=== PATIENT | female | born 1940 | race Caucasian/White ===

== ENCOUNTER → 2017-10-08 12:24 | Outpatient (CLI) | payer MEDICARE, SELFPAY ==
[2017-10-08 13:16] LABS: Mucous, Urine 0 SEEN /hpf (<or=2+); Red Blood Cells-Urine 0 SEEN /hpf (0-5); White Blood Cells 0 SEEN /hpf (0-5)
[2017-10-08 13:21] LABS: Color, Urine Yellow (Yellow); Glucose, Dipstick Normal (Normal); Ketone-Dipstick 5 mg/dl (Negative); Leukocyte Esterase-Dipstick 25 /ul (Negative); Nitrite-Dipstick Negative (Negative); Occult Blood-Urine Negative /ul (Negative); Protein-Dipstick 30 mg/dl (Negative); Urine Bilirubin Dipstick Negative (Negative); Urine Clarity Clear (Clear); Urine Urobilinogen Normal (Normal)
[2017-10-08 14:43] LABS: Hyaline Cast 0-5 SEEN /lpf (0-5); Squamous Epithelial Cells - UA 0-5 SEEN /hpf (5-10)
[2017-10-08 14:44] LABS: Bacteria RARE /hpf (None Seen)
== END ==
PROVIDERS: Visit Provider Clinical Nurse Specialist
DX: R82.90 Unspecified abnormal findings in urine (principal)
CPT/HCPCS: 81001

== ENCOUNTER → 2018-04-03 09:16 | Outpatient (CLI) | payer MEDICARE, SELFPAY ==
[2018-04-03 09:34] LABS: Absolute Lymphocyte Count 1.84 X10^3/ul (0.83-4.51); Absolute Neutrophil Count 3.3 X10^3/uL (2.0-7.7); Basophil# 0.02 X10^3/uL; Basophil% 0.3 % (0-1); Eosinophils% 1.7 % (0-5); Hematocrit 36.8 % (37-47); Lymphocyte # 1.84 X10^3/ul (4.0); Lymphocyte % 31.9 % (19-41); Mean Corp Hgb Conc 32.6 g/gl (32-36); Mean Corpuscular Hgb 27.1 pg (27.0-32.0); Mean Corpuscular Volume 83.1 fL (81-99); Mean Platelet Vol. 11.9 fl (6.2-12.0); Monocyte# 0.52 X10^3/uL; Neutrophil # 3.26 X10^3/uL (2.7-7.7); Neutrophil % 56.8 % (47-70); Platelet Count 210 K/mm3 (150-450); RBC Distribution Width CV 15.2 % (11.6-14.6); RBC Distribution Width SD 45.7 fl (35.1-43.9); Red Blood Count 4.43 M/mm3 (4.2-5.4); White Blood Count 5.8 K/mm3 (4.4-11.0)
[2018-04-03 09:36] LABS: POSITIVE COUNT NO; POSITIVE DIFFERENTIAL NO; POSITIVE MORPHOLOGY NO
[2018-04-03 09:52] LABS: Hemoglobin A1c 5.5 % (4.2-6.3)
[2018-04-03 10:23] LABS: Albumin, Serum 3.9 g/dL (3.2-5.0); Anion Gap 9 (5-15); BUN 12 mg/dL (7-18); BUN/Creat Ratio 12.6 RATIO (10-20); Chloride 104 mmol/L (98-107); Creatinine, Serum 0.95 mg/dL (0.55-1.02); EST Glomerular Filtration Rate 60 mL/min (>60); Est Glom Filt Rate - Afr Amer 73 mL/min (>60); Ferritin 13 ng/mL (8-252); Glucose 98 mg/dL (74-106); Iron 36 ug/dL (50-170); Iron Binding Capacity,Total 395 ug/dL (250-450); Potassium 4.1 mmol/L (3.5-5.1); Sodium Level 139 mmol/L (136-145)
== END ==
PROVIDERS: Family Provider Nurse Practitioner; PCP Nurse Practitioner; Visit Provider Internal Medicine
DX: D50.9 Iron deficiency anemia, unspecified (principal); Z79.899 Other long term (current) drug therapy; E11.9 Type 2 diabetes mellitus without complications
CPT/HCPCS: 80048; 82040; 82728; 82746; 83036; 83540; 83550; 85025

== ENCOUNTER 2018-10-08 09:10 | Emergency (ER) | payer MEDICARE, SELFPAY ==
[2018-10-08 09:11] VITALS: BP 145/88; PULSE 92; RESP 14; TEMP 35.9; O2SAT 97; BMI 32.8
--- NOTE | 2018-10-08 09:35 | EKG12_ITS ---
Test Reason : DYSRHYTHMIA Blood Pressure : / mmHG Vent. Rate : 065 BPM Atrial Rate : 065 BPM P-R Int : 170 ms QRS Dur : 102 ms QT Int : 398 ms P-R-T Axes : 063 071 061 degrees QTc Int : 413 ms Normal sinus rhythm Normal ECG Confirmed by MARY ANN GAYTAN, OBED ([id number]), content editor NEHA ARRIOLA ([id number] on 10/09/2018 3:39:28 PM Referred By: CIRILO Confirmed By:OBED REESE MD
--- NOTE | 2018-10-08 09:35 | CT_ITS ---
STUDY: CT ABDOMEN AND PELVIS WITHOUT CONTRAST REASON FOR EXAM: Female, 78 years old. Abdominal pain. Constipation. RADIATION DOSAGE (If Supplied By Facility): CTDIvol = ( 9.32 ) mGy, DLP = ( 474.83 ) mGycm TECHNIQUE: Transaxial images were obtained from the dome of the diaphragm to the symphysis pubis with oral contrast, and without intravenous contrast. Sagittal and coronal images were reconstructed. Individualized dose optimization techniques were used for this CT. COMPARISON: Comparison is made with prior study dated October 22, 2016. FINDINGS: The visualized lung bases are unremarkable. The visualized portions of the heart are within normal limits. Normal liver. The patient is status post cholecystectomy. Normal spleen. Normal pancreas. Normal bilateral adrenal glands. There is a 2.1 cm cyst along the lateral aspect of the right kidney. Intrarenal vascular calcification on the left side. Stable mild left hydronephrosis. Normal visualized stomach. Normal small intestine. There are multiple colonic diverticula consistent with diverticulosis. There are surgical clips in the region of the appendix consistent with a prior appendectomy. There is diffuse atherosclerotic calcification of the abdominal aorta. 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 Normal inferior vena cava. Normal retroperitoneum. Normal urinary bladder. There is absence of the uterus consistent with a prior hysterectomy. Normal abdominal wall. There are mild degenerative changes of the visualized lumbar spine. Findings suggestive of hemangioma of the L4 vertebrae. CT/Abdomen/Pel W ORAL Cont Only IMPRESSION: Sigmoid diverticulosis. No acute abnormality is seen. There has been no change since prior study. Electronically Signed: Steven Gómez, at 11:55 EST , Service support ,
[2018-10-08] MEDS: 0.9% Normal Saline 1,000 ML 125 ML IV (09:55)
[2018-10-08 10:02] LABS: Absolute Neutrophil Count 3.4 X10^3/uL (2.0-7.7); Basophil# 0.02 X10^3/uL; Basophil% 0.4 % (0-1); Eosinophil# 0.06 X10^3/uL; Eosinophils% 1.1 % (0-5); Hematocrit 37.9 % (37-47); Hemoglobin 12.1 g/dl (12.0-15.0); Lymphocyte % 28.5 % (19-41); Mean Corp Hgb Conc 31.9 g/gl (32-36); Mean Corpuscular Hgb 26.8 pg (27.0-32.0); Mean Platelet Vol. 11.8 fl (6.2-12.0); Monocyte# 0.54 X10^3/uL; Monocyte% 9.6 % (0-10); Neutrophil # 3.38 X10^3/uL (2.7-7.7); Neutrophil % 60.2 % (47-70); POSITIVE COUNT NO; POSITIVE DIFFERENTIAL NO; POSITIVE MORPHOLOGY NO; Platelet Count 243 K/mm3 (150-450); RBC Distribution Width CV 14.1 % (11.6-14.6); RBC Distribution Width SD 42.2 fl (35.1-43.9); Red Blood Count 4.51 M/mm3 (4.2-5.4); White Blood Count 5.6 K/mm3 (4.4-11.0)
[2018-10-08 10:24] LABS: ALB/GLOB Ratio 1.1 RATIO (0.9-2.4); AST(SGOT) 24 U/L (15-37); Alanine Aminotransfer ALT/SGPT 18 U/L (13-56); Albumin, Serum 4.1 g/dL (3.2-5.0); Alkaline Phosphatase 97 U/L (45-117); Anion Gap 7 (5-15); BUN 16 mg/dL (7-18); BUN/Creat Ratio 15.5 RATIO (10-20); Calcium,Total 9.8 mg/dL (8.5-10.1); Chloride 107 mmol/L (98-107); Creatinine, Serum 1.03 mg/dL (0.55-1.02); EST Glomerular Filtration Rate 55 mL/min (>60); Est Glom Filt Rate - Afr Amer 66 mL/min (>60); Estimated Creatinine Clearance 35.03 ml/min; Globulin 3.6 g/dL (2.2-4.2); Glucose 108 mg/dL (74-106); Lipase 134 U/L (73-393); Potassium 4.2 mmol/L (3.5-5.1); Protein, Total 7.7 g/dL (6.4-8.2); Sodium Level 139 mmol/L (136-145)
[2018-10-08 11:02] LABS: Bacteria 0 SEEN /hpf (None Seen); Color, Urine Yellow (Yellow); Glucose, Dipstick Normal (Normal); Ketone-Dipstick Negative (Negative); Leukocyte Esterase-Dipstick Negative /ul (Negative); Mucous, Urine 0 SEEN /hpf (<or=2+); Nitrite-Dipstick Negative (Negative); Occult Blood-Urine Negative /ul (Negative); Protein-Dipstick Negative (Negative); Red Blood Cells-Urine 0 SEEN /hpf (0-5); Specific Gravity, Urine 1.015 (1.002-1.030); Squamous Epithelial Cells - UA 0 SEEN /hpf (5-10); Urine Bilirubin Dipstick Negative (Negative); Urine Clarity Clear (Clear); Urine Urobilinogen Normal (Normal); White Blood Cells 0 SEEN /hpf (0-5)
--- NOTE | 2018-10-08 12:13 | ED.VISSUMM ---
- ER Visit Summary Date of Service: 10/08/18 Chief Complaint: [Nausea and not feeling well] History of Present Illness: The patient is a 78 F [presents the emergency department with multiple complaints. Patient states that she started taking a vinegar mixture that she was given by her that he had gotten from a health store for leg cramping. Patient states that the leg cramping improved but then she started having decreased ability to sleep and decreased urine output. Patient states she has not had much of an appetite. Patient at times is felt constipated although she is been having bowel movements and her last one was this morning. Patient denies any blood in her stool or black tarry stool. She denies fever recently although she thinks she may have had a fever subjectively last week. Patient also gives some history of coming across a wild [place] up on a hill that look like it was dying so she was concerned that he may have been hit by car so she went to check on it and she touched the side of it and noted that the tourniquet was not healthy-appearing and she is not sure if she may have contracted something from touching the wild [place].] Physical Examination: [HEENT-PERRLA, EOMI. Cranial nerves II through XII grossly intact. TMs clear. Mucous membranes moist. No adenopathy. Cardiovascular-regular rate and rhythm without murmur or ectopy Lungs-clear to auscultation, chest wall stable without crepitus or subcu emphysema Abdomen-normoactive bowel sounds, soft. Patient has some mild diffuse tenderness on palpation. There is no rebound, rigidity, or perineal signs. Extremities-intact ?4, normal range of motion, normal pulses, atraumatic] Test Results: [EKG obtained arrival shows sinus rhythm with a ventricular rate of 65 bpm with no acute I segment changes. CBC with differential is normal. Chemistries were normal. LFTs were normal. Urinalysis was normal. Troponin was less than 0.015. CT scan of the abdomen pelvis with p.o. contrast showed sigmoid diverticulosis but otherwise nothing acute.] Emergency Department Course and Treatment: [Patient was given normal saline.] Treatment Plan: [Patient was given a prescription for Zofran and advised to follow-up with primary care physician within next 5-7 days.] Disposition: [Discharged home in stable condition] Impression: [Nausea/abdominal pain-etiology uncertain] This note was generated with [employer] dictation software. It may contain incorrect words, spelling, and punctuation that were not noted in review of the chart prior to signing ED Disposition - Plan for ED Patient: Referrals: Bonnie Campos MD [Primary Care Provider] -
--- NOTE | 2018-10-08 12:17 | ED.DCSUM_ITS ---
- ER Visit Summary Date of Service: 10/08/18 Chief Complaint: [Nausea and not feeling well] History of Present Illness: The patient is a 78 F [presents the emergency department with multiple complaints. Patient states that she started taking a vinegar mixture that she was given by her that he had gotten from a health store for leg cramping. Patient states that the leg cramping improved but then she started having decreased ability to sleep and decreased urine output. Patient states she has not had much of an appetite. Patient at times is felt constipated although she is been having bowel movements and her last one was this morning. Patient denies any blood in her stool or black tarry stool. She denies fever recently although she thinks she may have had a fever subjectively last week. Patient also gives some history of coming across a wild [place] up on a hill that look like it was dying so she was concerned that he may have been hit by car so she went to check on it and she touched the side of it and noted that the tourniquet was not healthy-appearing and she is not sure if she may have contracted something from touching the wild [place].] Physical Examination: [HEENT-PERRLA, EOMI. Cranial nerves II through XII grossly intact. TMs clear. Mucous membranes moist. No adenopathy. Cardiovascular-regular rate and rhythm without murmur or ectopy Lungs-clear to auscultation, chest wall stable without crepitus or subcu emphysema Abdomen-normoactive bowel sounds, soft. Patient has some mild diffuse tenderness on palpation. There is no rebound, rigidity, or perineal signs. Extremities-intact ?4, normal range of motion, normal pulses, atraumatic] Test Results: [EKG obtained arrival shows sinus rhythm with a ventricular rate of 65 bpm with no acute I segment changes. CBC with differential is normal. Chemistries were normal. LFTs were normal. Urinalysis was normal. Troponin was less than 0.015. CT scan of the abdomen pelvis with p.o. contrast showed sigmoid diverticulosis but otherwise nothing acute.] Emergency Department Course and Treatment: [Patient was given normal saline.] Treatment Plan: [Patient was given a prescription for Zofran and advised to follow-up with primary care physician within next 5-7 days.] Disposition: [Discharged home in stable condition] Impression: [Nausea/abdominal pain-etiology uncertain] This note was generated with [employer] dictation software. It may contain incorrect words, spelling, and punctuation that were not noted in review of the chart prior to signing ED Disposition - Plan for ED Patient: Referrals: Bonnie Campos MD [Primary Care Provider] -
--- NOTE | 2018-10-08 12:17 | ED.DEP ---
ED Disposition - Plan for ED Patient: Instructions: ED Abdominal Pain Unkn Cause Prescriptions: Ondansetron [Zofran Odt] 4 mg PO Q8H PRN PRN #10 tab PRN Reason: Nausea Referrals: Bonnie Campos MD [Primary Care Provider] - 5-7 Days
[2018-10-08 12:32] VITALS: BP 127/75; PULSE 74; RESP 20; O2SAT 99
== END 2018-10-08 12:34 | disposition home or self-care (01) ==
PROVIDERS: Emergency Provider Emergency Medicine; Family Provider Internal Medicine; PCP Internal Medicine
DX: R11.0 Nausea (principal); R10.9 Unspecified abdominal pain; E11.9 Type 2 diabetes mellitus without complications; I10 Essential (primary) hypertension; E78.00 Pure hypercholesterolemia, unspecified; K57.30 Diverticulosis of large intestine without perforation or abscess without bleeding
CPT/HCPCS: 74176; 80053; 81001; 83690; 84484; 85025; 93005; 96360; 96361; 99283; J7030; A4216

== ENCOUNTER 2018-12-28 08:15 | Emergency (ER) | payer MEDICARE, SELFPAY ==
[2018-12-28 08:16] VITALS: BP 129/88; PULSE 99; RESP 18; TEMP 36.8; O2SAT 99; BMI 33.2
--- NOTE | 2018-12-28 08:32 | ED.DCSUM_ITS ---
- ER Visit Summary Date of Service: 12/28/18 Chief Complaint: Urinary urgency, blood in urine History of Present Illness: The patient is a 78 F who reports dysuria and was able to pass small amounts of urine today. She states for the past week or so she has had urinary frequency and only passing small amounts of urine. She has not had a urinary infection in several years. She is diabetic but does not check her blood sugars. She denies fever. Physical Examination: Vital signs unremarkable. Patient is afebrile. Patient sitting upright in bed no acute distress. Heart is regular rate and rhythm. Lung sounds are clear. Abdomen is soft with mild suprapubic tenderness. No guarding or rebound. Hypoactive bowel sounds are noted. Back examination reveals no CVA tenderness. Test Results: Urinalysis is positive for nitrites with greater than 100 white cells. Bladder scan reveals 14 cc of urine in the bladder. Urine will be sent for culture. Emergency Department Course and Treatment: Test results discussed with patient and at bedside. She will be given Bactrim, first dose given here. I did review prior lab work and she had normal renal function in September. Patient was given return instructions and precautions. Treatment Plan: [] Disposition: Discharge Impression: Cystitis This note was generated with [employer] dictation software. It may contain incorrect words, spelling, and punctuation that were not noted in review of the chart prior to signing ED Disposition - Plan for ED Patient: Disposition: Home or Assisted Living Instructions: ED UTI Cystitis Female Prescriptions: Smz/Tmp Ds [Bactrim Ds] 1 tablet PO BID #6 tablet Referrals: Bonnie Campos MD [Primary Care Provider] - 5-7 Days
[2018-12-28 08:35] LABS: Bacteria 0 SEEN /hpf (None Seen); Mucous, Urine 0 SEEN /hpf (<or=2+); Red Blood Cells-Urine 0 SEEN /hpf (0-5); Squamous Epithelial Cells - UA 0 SEEN /hpf (5-10)
[2018-12-28 08:39] LABS: Color, Urine Amber (Yellow); Glucose, Dipstick Normal (Normal); Ketone-Dipstick 5 mg/dl (Negative); Leukocyte Esterase-Dipstick 500 /ul (Negative); Nitrite-Dipstick Positive (Negative); Occult Blood-Urine 250 /ul (Negative); Protein-Dipstick 100 mg/dl (Negative); Urine Bilirubin Dipstick 1 mg/dL (Negative); Urine Clarity Cloudy (Clear); Urine Urobilinogen 1 mg/dl (Normal); Urine pH 6.5 (5.0 - 8.0)
[2018-12-28 08:51] LABS: White Blood Cells >100 SEEN /hpf (0-5)
[2018-12-28] MEDS: Smz/Tmp Ds Tablet 1 TABLET PO (09:24)
[2018-12-28 09:31] LABS: Bedside Glucose 99 mg/dL (70-110)
== END 2018-12-28 09:29 | disposition home or self-care (01) ==
PROVIDERS: Emergency Provider Emergency Medicine; Family Provider Internal Medicine; PCP Internal Medicine
DX: N30.91 Cystitis, unspecified with hematuria (principal); E11.9 Type 2 diabetes mellitus without complications; K21.9 Gastro-esophageal reflux disease without esophagitis; I10 Essential (primary) hypertension; E78.00 Pure hypercholesterolemia, unspecified; G47.33 Obstructive sleep apnea (adult) (pediatric); F32.9 Major depressive disorder, single episode, unspecified; Z87.440 Personal history of urinary (tract) infections; Z79.84 Long term (current) use of oral hypoglycemic drugs; Z79.82 Long term (current) use of aspirin; Z79.899 Other long term (current) drug therapy
CPT/HCPCS: 81001; 82962; 87077; 87086; 87088; 87186; 99283

== ENCOUNTER → 2019-01-26 | Outpatient (CLI) | payer MEDICARE, SELFPAY ==
[2018-12-28 08:16] VITALS: BMI 33.2
[2019-01-26 13:11] LABS: Hematocrit 37.3 % (37-47); Hemoglobin 11.8 g/dl (12.0-15.0); Mean Corp Hgb Conc 31.6 g/gl (32-36); Mean Corpuscular Hgb 26.3 pg (27.0-32.0); Mean Corpuscular Volume 83.1 fL (81-99); Mean Platelet Vol. 12.1 fl (6.2-12.0); Platelet Count 237 K/mm3 (150-450); RBC Distribution Width CV 14.7 % (11.6-14.6); Red Blood Count 4.49 M/mm3 (4.2-5.4); Scan Indicated on CBC? Y/N NO; White Blood Count 6.5 K/mm3 (4.4-11.0)
[2019-01-26 13:22] LABS: Anion Gap 7 (5-15); BUN 16 mg/dL (7-18); BUN/Creat Ratio 16.4 RATIO (10-20); Calcium,Total 9.9 mg/dL (8.5-10.1); Chloride 107 mmol/L (98-107); Creatinine, Serum 0.97 mg/dL (0.55-1.02); EST Glomerular Filtration Rate 59 mL/min (>60); Est Glom Filt Rate - Afr Amer 71 mL/min (>60); Glucose 98 mg/dL (74-106); Potassium 4.1 mmol/L (3.5-5.1); Sodium Level 141 mmol/L (136-145)
[2019-01-26 13:25] LABS: Hemoglobin A1c 5.6 % (4.2-6.3)
== END | disposition home or self-care (01) ==
LOC: LABSPEC 12:27
PROVIDERS: Family Provider Internal Medicine; PCP Internal Medicine; Referring Provider Internal Medicine; Visit Provider Internal Medicine
DX: E11.9 Type 2 diabetes mellitus without complications (principal)
CPT/HCPCS: 80048; 83036; 85027

== ENCOUNTER → 2019-05-04 13:17 | Outpatient (CLI) | payer MEDICARE, SELFPAY ==
[2019-05-04 14:05] LABS: Cholesterol 160 mg/dL (200); High Density Lipoprotein 46 mg/dL; Triglycerides 116 mg/dL; Very Low Density Lipoprotein 23 mg/dL (5-40)
[2019-05-04 14:06] LABS: Microalbumin,Random Urine 13.5 mg/L (NO RANGE EST.)
[2019-05-04 14:26] LABS: Hemoglobin A1c 5.4 % (4.2-6.3)
== END ==
PROVIDERS: Family Provider Internal Medicine; PCP Internal Medicine; Referring Provider Internal Medicine; Visit Provider Internal Medicine
DX: E11.9 Type 2 diabetes mellitus without complications (principal); Z79.899 Other long term (current) drug therapy
CPT/HCPCS: 80061; 82043; 82570; 83036

== ENCOUNTER → 2019-08-13 13:23 | Outpatient (CLI) | payer MEDICARE, SELFPAY ==
[2019-08-13 13:57] LABS: Hematocrit 37.9 % (37-47); Mean Corp Hgb Conc 31.7 g/dL (32-36); Mean Corpuscular Hgb 27.6 pg (27.0-32.0); Mean Corpuscular Volume 87.1 fL (81-99); Mean Platelet Vol. 12.3 fl (6.2-12.0); Platelet Count 202 K/mm3 (150-450); RBC Distribution Width CV 13.4 % (11.6-14.6); RBC Distribution Width SD 42.5 fl (35.1-43.9); Red Blood Count 4.35 M/mm3 (4.2-5.4); White Blood Count 6.7 K/mm3 (4.4-11.0)
[2019-08-13 14:06] LABS: ALB/GLOB Ratio 1.3 RATIO (0.9-2.4); AST(SGOT) 18 U/L (15-37); Alanine Aminotransfer ALT/SGPT 18 U/L (13-56); Albumin, Serum 4.2 g/dL (3.2-5.0); Alkaline Phosphatase 98 U/L (45-117); Anion Gap 7 (5-15); BUN 16 mg/dL (7-18); Calcium,Total 10.2 mg/dL (8.5-10.1); Chloride 108 mmol/L (98-107); EST Glomerular Filtration Rate 57 mL/min (>60); Est Glom Filt Rate - Afr Amer 69 mL/min (>60); Globulin 3.2 g/dL (2.2-4.2); Glucose 97 mg/dL (74-106); Potassium 4.1 mmol/L (3.5-5.1); Protein, Total 7.4 g/dL (6.4-8.2); Sodium Level 141 mmol/L (136-145)
[2019-08-13 14:11] LABS: Hemoglobin A1c 5.7 % (4.2-6.3)
== END ==
PROVIDERS: Family Provider Internal Medicine; PCP Internal Medicine; Referring Provider Internal Medicine; Visit Provider Internal Medicine
DX: E11.9 Type 2 diabetes mellitus without complications (principal); I10 Essential (primary) hypertension
CPT/HCPCS: 80053; 83036; 85027

== ENCOUNTER → 2020-08-22 12:56 | Outpatient (CLI) | payer MEDICARE, SELFPAY ==
[2020-08-22 13:35] LABS: Hematocrit 39.5 % (37-47); Hemoglobin 12.4 g/dL (12.0-15.0); Mean Corp Hgb Conc 31.4 g/dL (32-36); Mean Corpuscular Hgb 27.6 pg (27.0-32.0); Mean Corpuscular Volume 87.8 fL (81-99); Mean Platelet Vol. 11.8 fl (6.2-12.0); Platelet Count 258 K/mm3 (150-450); RBC Distribution Width CV 13.6 % (11.6-14.6); RBC Distribution Width SD 43.8 fl (35.1-43.9); White Blood Count 7.1 K/mm3 (4.4-11.0)
[2020-08-22 13:46] LABS: Hemoglobin A1c 5.5 % (3.8-5.6); Vitamin B12 469 pg/mL (211-911); Vitamin D,25 Hydroxy 75.4 ng/mL
[2020-08-22 13:49] LABS: ALB/GLOB Ratio 1.1 RATIO (0.9-2.4); AST(SGOT) 14 U/L (15-37); Alanine Aminotransfer ALT/SGPT 19 U/L (13-56); Alkaline Phosphatase 106 U/L (45-117); Anion Gap 4 (5-15); BUN 17 mg/dL (7-18); BUN/Creat Ratio 18.3 RATIO (10-20); Calcium,Total 10.3 mg/dL (8.5-10.1); Chloride 106 mmol/L (98-107); Cholesterol 188 mg/dL (200); Creatinine, Serum 0.93 mg/dL (0.55-1.02); EST Glomerular Filtration Rate 61 mL/min (>60); Est Glom Filt Rate - Afr Amer 74 mL/min (>60); Globulin 3.6 g/dL (2.2-4.2); Glucose 83 mg/dL (74-106); High Density Lipoprotein 60 mg/dL; Potassium 4.2 mmol/L (3.5-5.1); Protein, Total 7.6 g/dL (6.4-8.2); Sodium Level 139 mmol/L (136-145); Triglycerides 115 mg/dL; Very Low Density Lipoprotein 23 mg/dL (5-40)
[2020-08-22 13:53] LABS: Microalbumin:Creatinine Ratio 24.1 mg/g CRE (<30 mg/g CRE)
== END ==
PROVIDERS: PCP Internal Medicine; Referring Provider Clinical Nurse Specialist; Visit Provider Clinical Nurse Specialist
DX: E11.9 Type 2 diabetes mellitus without complications (principal); I10 Essential (primary) hypertension; E55.9 Vitamin D deficiency, unspecified; E53.8 Deficiency of other specified B group vitamins
CPT/HCPCS: 80053; 80061; 82043; 82306; 82570; 82607; 83036; 85027

== ENCOUNTER → 2021-02-14 | Outpatient (CLI) | payer MEDICARE, SELFPAY ==
[2021-02-14 12:43] LABS: Hemoglobin A1c 5.4 % (3.8-5.6)
== END | disposition home or self-care (01) ==
LOC: LABSPEC 12:06
PROVIDERS: PCP Internal Medicine; Referring Provider Internal Medicine; Visit Provider Internal Medicine
DX: E11.9 Type 2 diabetes mellitus without complications (principal)
CPT/HCPCS: 83036

== ENCOUNTER → 2021-05-17 | Outpatient (CLI) | payer MEDICARE, SELFPAY ==
[2021-05-17 13:06] LABS: Vitamin D,25 Hydroxy 63.9 ng/mL
[2021-05-17 13:20] LABS: Hemoglobin A1c 5.4 % (3.8-5.6)
[2021-05-17 13:21] LABS: PTHIN 136.7 pg/mL (18.4-80.1)
== END | disposition home or self-care (01) ==
LOC: LABSPEC 12:17
PROVIDERS: PCP Internal Medicine; Referring Provider Internal Medicine; Visit Provider Internal Medicine
DX: E11.9 Type 2 diabetes mellitus without complications (principal); E21.0 Primary hyperparathyroidism; E55.9 Vitamin D deficiency, unspecified
CPT/HCPCS: 82306; 83036; 83970

== ENCOUNTER 2021-08-09 15:19 | Emergency (ER) | payer MEDICARE, SELFPAY ==
[2021-08-09 15:20] VITALS: BP 144/81; PULSE 81; RESP 18; TEMP 36.4; O2SAT 96; BMI 25.6
--- NOTE | 2021-08-09 17:17 | EX.ED.DYSGE1 ---
HPI History of Present Illness Chief Complaint: Other, Pain/Inj Detail of Chief Complaint: Bilateral leg pain Informant: patient Narrative Narrative: Patient presents to the emergency department with chief complaint of bilateral leg pain. Patient states that she has had this leg pain off and on for 3 or 4 years. Patient states that she was seen a month ago by At the [facility] and had injections in her knees but she did not think this was related to her knees as she describes the pain as the back of her upper legs. Patient denies any trauma. She denies any back pain currently. She denies weakness in extremities. She denies change in bowel or bladder function. Patient states that sometimes the right leg hurts more than the left. She is had a hard time sleeping the last couple nights because of the pain. Prior similar symptoms: Yes PFSH PFSH Home Medications Amlodipine-Atorvastatinamol 5 - 20 mg PO BID 12/14/16 [History Last Taken 12/14/16 07:30] [id number] [Beano] 1 ea PO PRN PRN 12/14/16 [History Last Taken Unknown] aspirin 81 mg PO DAILY@0800 12/14/16 [History Last Taken Unknown] carvedilol 6.25 mg PO DAILY 12/14/16 [History Last Taken 12/14/16 07:30] cholecalciferol (vitamin D3) [Vitamin D3] 2,000 unit PO DAILY 12/14/16 [History Last Taken Unknown] dextrin [Fiber] 350 g PO QODAY 12/14/16 [History Last Taken Unknown] gabapentin 1 tab PO QHS 12/14/16 [History Last Taken Unknown] lactase [Dairy Digestive] 27,000 unit PO DAILY 12/14/16 [History Last Taken Unknown] lovastatin 1 tab PO QHS 12/14/16 [History Last Taken Unknown] metformin [Glucophage] 500 mg PO DAILY 12/14/16 [History Last Taken Unknown] multivitamin [Multiple Vitamins] 1 ea PO DAILY 12/14/16 [History Last Taken Unknown] naproxen sodium [Aleve] 220 mg PO Q8H PRN PRN 12/14/16 [History Last Taken Unknown] simethicone [Gas Relief] 125 mg PO PRN PRN 12/14/16 [History Last Taken Unknown] ondansetron 4 mg PO Q8H PRN PRN #10 tab 10/08/18 [Rx Last Taken Unknown] sulfamethoxazole-trimethoprim 1 tab PO BID #6 tablet 12/28/18 [Rx Last Taken Unknown] hydrocodone-acetaminophen 1 tab PO Q4H PRN PRN 3 Days #16 tablet 08/09/21 [Rx Last Taken Unknown] Allergy/AdvReac Type Severity Reaction Status Date / Time adhesive Allergy Rash Verified 08/09/21 15:21 cough syrup AdvReac Unknown Uncoded 08/09/21 15:21 Social History Smoking Status: Former smoker ROS ROS ED Constitutional Constitutional ED: Reports systems reviewed and no addt'l complaints, except as documented; Denies body ache(s), change in weight or chills Eyes Eyes: Denies acute decrease in peripheral vision, change in vision, double vision or loss of vision ENT ENT ED: Reports none; Denies ear pain, lip swelling, loss taste/smell, neck pain, otalgia or sore throat Cardiovascular Cardiovascular: Reports none; Denies abdominal pain, chest pain with activity, leg edema, lightheadedness, palpitations, rapid heart rate or syncope Respiratory/Chest Respiratory/Chest: Reports none; Denies change in mental status, dry cough, dyspnea, hemoptysis, shortness of breath at rest or shortness of breath with exertion Gastrointestinal Gastrointestinal: Reports none; Denies abdominal pain, change in stool character, diarrhea, hematemesis, hematochezia, melena, rectal bleeding or vomiting Genitourinary Genitourinary ED: Reports none; Denies abdominal discomfort, anuria, dysuria, genital pain or polyuria Musculoskeletal Musculoskeletal: Reports none and other Details: Bilateral leg pain ; Denies arthralgias, back pain, difficulty walking, extremity pain, muscle weakness or myalgias Integumentary Reports none; Denies abscess or rash Neurologic Neurologic: Reports none; Denies abnormal gait, confusion, focal weakness, frequent falls, headache(s), loss of vision, numbness, paresthesias, radicular pain, vertigo or weakness Psychiatric Psychiatric: Reports systems reviewed and no addt'l complaints, except as documented and none; Denies behavioral changes, confusion, difficulty concentrating, hallucinations, suicidal ideation, tactile hallucinations or visual hallucinations Endocrine Endocrinology: Denies none, cold intolerance, excessive sweating, fatigue or heat intolerance Hematologic/Lymphatic Hematologic/Lymphatic: Reports none; Denies anemia, easy bleeding or easy bruising Allergic/Immunologic Allergic/Immunologic ED: Denies as per HPI, none, lip swelling, mouth swelling, throat swelling, tongue swelling or hives EXAM Physical Exam Const Vital Signs: 08/09/21 15:20 Temperature 97.5 F L Temperature Source Temporal Pulse Rate 81 Respiratory Rate 18 Blood Pressure 144/81 H Blood Pressure Mean 102 Pulse Ox 96 Oxygen Delivery Method Room Air Positive well nourished and well developed General Appearance ED: well developed and NAD HEENT Reports TM's clear and moist mucous membranes normocephalic and atraumatic; Negative for trauma or tenderness Tympanic Membrane ED: Yes TM's clear Eyes PERRL and EOMs intact bilaterally General Eye ED: Negative for pale conjunctiva or scleral icterus Neck no lymphadenopathy, supple and no JVD General: Negative for tenderness Chest Wall inspection of chest normal and palpation of chest normal Chest: Negative for tenderness Resp normal respiratory effort and clear to auscultation bilaterally Effort and Inspection: Negative for respiratory distress or pain with movement Auscultation: Negative for rhonchi, wheezes or diminished lung sounds Cardio regular rate, regular rhythm, S1 normal heart sound, S2 normal heart sound and no murmurs Peripheral Pulses: pulses 2+ throughout GI normal to inspection, nondistended, normoactive bowel sounds, soft to palpation, non-tender, non-distended and no masses Back/Spine no CVA tenderness and no thoracic nor lumbar tenderness Back/Spine Narrative: Evaluation of her back reveals no tenderness over the thoracic or lumbar spine. There is no erythema or warmth. She has negative straight leg raises bilaterally. Deep tendon reflexes are plus 2 out of 4 bilaterally at the patella and Achilles. She has normal L5 extension. Extremity Extremity Narrative: Patient has varicosities of both lower extremities. No significant edema noted. Patient does have some tenderness palpation over the right posterior thigh. Patient has normal femoral, popliteal, dorsal pedal, and posterior tibial pulses. General Extremety ED: Negative for edema General Extremity: Negative for edema Neuro oriented x3, CN's II-XII intact bilaterally, no sensory deficits noted and gait normal Sensorium / Orientation: awake, alert, oriented to person, oriented to place and oriented to time Motor Exam: strength 5/5 throughout and strength abnormal Psych mental status grossly normal Skin no rashes or lesions noted and no wounds MDM MDM MDM Narrative Medical decision making narrative: IV line established. Patient was given morphine and Zofran for pain. She had good pain relief with that. Basic labs were unremarkable. She had a venous Dopplers of both lower extremities that were negative for DVT. At this point I suspect possibility of sciatica is the most likely etiology of her symptoms. There are no red flag symptoms of cauda equina therefore I do not feel emergent MRI is indicated. Patient will be referred of her primary care physician and orthopedics for follow-up. She may need outpatient testing beyond the emergency department such as possibly MRI. Patient advised to return if worsening pain, weakness in extremities, change in bowel or bladder function, or conditions worsen anyway. She is given a prescription for [place] for pain. Lab Data Attestation: I reviewed the patient's lab results. Labs: Laboratory Results - last 24 hr 08/09/21 08/09/21 17:30 17:30 WBC 6.5 RBC 4.48 Hgb 12.6 Hct 38.8 MCV 86.6 MCH 28.1 MCHC 32.5 RDW Std Deviation 39.8 RDW Coeff of Amrita 12.7 Plt Count 232 MPV 11.4 Immature Gran % (Auto) 0.300 Neut % (Auto) 55.9 Lymph % (Auto) 34.1 [place] % (Auto) 8.6 Eos % (Auto) 0.6 Baso % (Auto) 0.5 Absolute Neuts (auto) 3.6 Absolute Lymphs (auto) 2.21 Nucleated RBC % 0 Sodium 138 Potassium 4.3 Chloride 106 Carbon Dioxide 27.0 Anion Gap 5 BUN 20 H Creatinine 0.96 Estim Creat Clear Calc 35.73 Est GFR (MDRD) Af Amer 72 Est GFR (MDRD) Non-Af 59 L BUN/Creatinine Ratio 20.9 H Glucose 102 Calcium 10.7 H Radiography Diagnostic Testing: Clinical Impression(s) from Imaging Studies Venous Duplex 08/09/21 17:24 IMPRESSION: There is no demonstrated deep venous thrombosis. Please see technologist report in PACS for further details for their impression/ worksheet/ details/ etc. Electronically Signed: Ke Carlisle MD at 18:42 EST , Service support , Discharge Plan Triage Chief Complaint: Other, Pain/Inj ED Provider: Jessica Yun Dx/Rx/DC Orders Clinical Impression: Bilateral leg pain Instructions: ED Pain, Acute, Uncertain Cause, ED Sciatica Prescriptions: New hydrocodone-acetaminophen [hydrocodone-acetaminophen] 1 TABLET tablet 1 tab PO Q4H PRN PRN (Reason: Pain) 3 Days Qty: 16 RF: 0 No Action Amlodipine-Atorvastatinamol 5 - 20 mg PO BID RF: 0 multivitamin [Multiple Vitamins] 1 EACH tablet 1 ea PO DAILY RF: 0 metformin [Glucophage] 500 MG tablet 500 mg PO DAILY RF: 0 carvedilol 6.25 mg tablet 6.25 mg PO DAILY RF: 0 simethicone [Gas Relief Extra Strength] 125 MG capsule 125 mg PO PRN PRN (Reason: Gas) RF: 0 lactase [Dairy Digestive] 9,000 UNIT tablet 27,000 unit PO DAILY RF: 0 naproxen sodium [Aleve] 220 MG tablet 220 mg PO Q8H PRN PRN (Reason: Pain) RF: 0 gabapentin 300 MG capsule 1 tab PO QHS RF: 0 aspirin 81 MG tablet,chewable 81 mg PO DAILY@0800 RF: 0 lovastatin 20 mg tablet 1 tab PO QHS RF: 0 cholecalciferol (vitamin D3) [Vitamin D3] 2,000 UNIT capsule 2,000 unit PO DAILY RF: 0 dextrin [Fiber (dextrin)] 350 GM powder 350 g PO QODAY RF: 0 [id number] [Beano] 150 UNIT tablet 1 ea PO PRN PRN (Reason: Gas) RF: 0 ondansetron 4 MG tablet 4 mg PO Q8H PRN PRN (Reason: Nausea) Qty: 10 RF: 0 sulfamethoxazole-trimethoprim 1 TABLET tablet 1 tab PO BID Qty: 6 RF: 0 Primary Care Provider: Bonnie Campos Referrals: Bonnie Campos MD [Primary Care Provider] - 3-5 Days Micheal Louie DO [STAFF PHYSICIAN] - 3-5 Days Disposition Disposition: Home, Self Care
--- NOTE | 2021-08-09 17:24 | US_ITS ---
STUDY: VENOUS DOPPLER ULTRASOUND - BILATERAL LOWER EXTREMITY REASON FOR EXAM: Female, 81 years old. LEG PAIN AND SWELLING BILATERAL LEG PAIN X YEARS TECHNIQUE: Ultrasound evaluation of the deep vein system to include alexander-scale imaging and compression was performed. Alexander-scale imaging and Doppler sonographic evaluation, including duplex spectral analysis and qualitative color flow sonography, was performed. COMPARISON: None. FINDINGS: Common Femoral Vein: Normal compression, spontaneity and augmentation. Normal color Doppler. Common Femoral Vein/Greater Saphenous Junction: Normal compression, spontaneity and augmentation. Normal color Doppler. Superficial Femoral Proximal: Normal compression, spontaneity and augmentation. Normal color Doppler. Superficial Femoral Middle: Normal compression, spontaneity and augmentation. Normal color Doppler. Superficial Femoral Distal: Normal compression, spontaneity and augmentation. Normal color Doppler. Popliteal Vein: Normal compression, spontaneity and augmentation. Normal color Doppler. Posterior Tibial Vein: Normal compression, spontaneity and augmentation . Normal color Doppler. Peroneal Vein: Normal compression, spontaneity and augmentation. Normal color Doppler. There is a LEFT popliteal cyst. varicose veins visualized There is no demonstrated deep venous thrombosis. US/Venous Duplex Imag/Landry Extrem IMPRESSION: There is no demonstrated deep venous thrombosis. Please see technologist report in PACS for further details for their impression/ worksheet/ details/ etc. Electronically Signed: Ke Carlisle MD at 18:42 EST , Service support ,
[2021-08-09 17:39] LABS: Absolute Lymphocyte Count 2.21 X10^3/uL (0.83-4.51); Absolute Neutrophil Count 3.6 X10^3/uL (2.0-7.7); Basophil# 0.03 X10^3/uL; Basophil% 0.5 % (0-1); Eosinophil# 0.04 X10^3/uL; Eosinophils% 0.6 % (0-5); Hematocrit 38.8 % (37-47); Hemoglobin 12.6 g/dL (12.0-15.0); Lymphocyte # 2.21 X10^3/ul (0.83-4.51); Lymphocyte % 34.1 % (19-41); Mean Corp Hgb Conc 32.5 g/dL (32-36); Mean Corpuscular Hgb 28.1 pg (27.0-32.0); Mean Corpuscular Volume 86.6 fL (81-99); Mean Platelet Vol. 11.4 fl (6.2-12.0); Monocyte# 0.56 X10^3/uL; Monocyte% 8.6 % (0-10); NRBC Flagged by Analyzer 0 % (0-5); Neutrophil # 3.63 X10^3/uL (2.7-7.7); Neutrophil % 55.9 % (47-70); Platelet Count 232 K/mm3 (150-450); RBC Distribution Width CV 12.7 % (11.6-14.6); RBC Distribution Width SD 39.8 fl (35.1-43.9); Red Blood Count 4.48 M/mm3 (4.2-5.4); White Blood Count 6.5 K/mm3 (4.4-11.0)
[2021-08-09 17:52] LABS: Anion Gap 5 (5-15); BUN 20 mg/dL (7-18); BUN/Creat Ratio 20.9 RATIO (10-20); Calcium,Total 10.7 mg/dL (8.5-10.1); Chloride 106 mmol/L (98-107); Creatinine, Serum 0.96 mg/dL (0.55-1.02); EST Glomerular Filtration Rate 59 mL/min (>60); Est Glom Filt Rate - Afr Amer 72 mL/min (>60); Estimated Creatinine Clearance 35.73 ml/min; Glucose 102 mg/dL (74-106); Potassium 4.3 mmol/L (3.5-5.1); Sodium Level 138 mmol/L (136-145)
[2021-08-09] MEDS: Morphine 4 MG/ML Syringe IV (18:34)
[2021-08-09] MEDS: Ondansetron 4 MG/2 ML Vial IV (18:35)
[2021-08-09 19:22] VITALS: BP 136/74; PULSE 88; RESP 18; TEMP 36.4; O2SAT 96
== END 2021-08-09 19:24 | disposition home or self-care (01) ==
PROVIDERS: Emergency Provider Emergency Medicine; PCP Internal Medicine
DX: M79.604 Pain in right leg (principal); M79.605 Pain in left leg; Z79.84 Long term (current) use of oral hypoglycemic drugs; Z79.82 Long term (current) use of aspirin; Z79.1 Long term (current) use of non-steroidal anti-inflammatories (NSAID); Z87.891 Personal history of nicotine dependence
CPT/HCPCS: 80048; 85025; 93970; 96374; 96375; 99283; A4216; J2405

== ENCOUNTER 2021-08-15 12:58 | Outpatient (CLI) | payer MEDICARE, SELFPAY ==
[2021-08-15 13:41] LABS: Hemoglobin A1c 5.6 % (3.8-5.6)
[2021-08-15 13:44] LABS: Microalbumin,Random Urine 24.8 mg/L (NO RANGE EST.); Microalbumin:Creatinine Ratio 39.8 mg/g CRE (<30 mg/g CRE)
== END 2021-08-15 23:59 | disposition short-term general hospital (02) ==
LOC: LABSPEC 13:01
PROVIDERS: PCP Internal Medicine; Referring Provider Internal Medicine; Visit Provider Internal Medicine
DX: E11.9 Type 2 diabetes mellitus without complications (principal)
CPT/HCPCS: 82043; 82570; 83036

== ENCOUNTER 2021-09-18 16:12 | Emergency (ER) | payer MEDICARE, SELFPAY ==
[2021-09-18 16:13] VITALS: BP 161/86; PULSE 93; RESP 18; TEMP 35.8; O2SAT 100; BMI 33.5
--- NOTE | 2021-09-18 17:14 | EKG12_ITS ---
Test Reason : CP Blood Pressure : / mmHG Vent. Rate : 074 BPM Atrial Rate : 074 BPM P-R Int : 138 ms QRS Dur : 090 ms QT Int : 376 ms P-R-T Axes : 075 071 057 degrees QTc Int : 417 ms Poor data quality, interpretation may be adversely affected Normal sinus rhythm Normal ECG Confirmed by GALINA GAYTAN, DONAVAN ([id number]), videotape editor GREG CALLES ([id number]) on 09/19/2021 11:35:31 AM Referred By: RACHEL/PHI Confirmed By:DONAVAN MOJICA MD
--- NOTE | 2021-09-18 17:14 | ED.VIS.CHEST ---
HPI History of Present Illness Chief Complaint: Chest Other Informant: patient and spouse/S.O. Narrative Narrative: 81-year-old female presenting to the emergency department with chest pain. Patient states that today she had bent over her chair to get something up off the floor and started getting pain over her left anterior lower chest. She states it started sharp and stabbing worse with touch and movement. She states it is hard to take a deep breath. She points to the lower left anterior costochondral junction as the area that hurts. She denies any rashes. PFSH PFSH Home Medications Amlodipine-Atorvastatinamol 5 - 20 mg PO BID 12/14/16 [History Last Taken 12/14/16 07:30] [id number] [Beano] 1 ea PO PRN PRN 12/14/16 [History Last Taken Unknown] aspirin 81 mg PO DAILY@0800 12/14/16 [History Last Taken Unknown] carvedilol 6.25 mg PO DAILY 12/14/16 [History Last Taken 12/14/16 07:30] cholecalciferol (vitamin D3) [Vitamin D3] 2,000 unit PO DAILY 12/14/16 [History Last Taken Unknown] dextrin [Fiber] 350 g PO QODAY 12/14/16 [History Last Taken Unknown] gabapentin 1 tab PO QHS 12/14/16 [History Last Taken Unknown] lactase [Dairy Digestive] 27,000 unit PO DAILY 12/14/16 [History Last Taken Unknown] lovastatin 1 tab PO QHS 12/14/16 [History Last Taken Unknown] metformin [Glucophage] 500 mg PO DAILY 12/14/16 [History Last Taken Unknown] multivitamin [Multiple Vitamins] 1 ea PO DAILY 12/14/16 [History Last Taken Unknown] naproxen sodium [Aleve] 220 mg PO Q8H PRN PRN 12/14/16 [History Last Taken Unknown] simethicone [Gas Relief] 125 mg PO PRN PRN 12/14/16 [History Last Taken Unknown] ondansetron 4 mg PO Q8H PRN PRN #10 tab 10/08/18 [Rx Last Taken Unknown] sulfamethoxazole-trimethoprim 1 tab PO BID #6 tablet 12/28/18 [Rx Last Taken Unknown] hydrocodone-acetaminophen 1 tab PO Q4H PRN PRN 3 Days #16 tablet 08/09/21 [Rx Last Taken Unknown] Allergy/AdvReac Type Severity Reaction Status Date / Time adhesive Allergy Rash Verified 09/18/21 16:15 cough syrup AdvReac Unknown Uncoded 09/18/21 16:15 Social History (Updated 09/18/21 @ 17:[address] Yan Zapata, DO) Smoking Status: Former smoker substance use type: does not use ROS ROS ED Constitutional Constitutional ED: Denies chills or weight loss Eyes Eyes: Denies change in vision or diplopia ENT ENT ED: Denies ear pain, rhinorrhea or sore throat Cardiovascular Cardiovascular: Reports as per HPI and chest pain; Denies orthopnea, palpitations or racing heartbeat Respiratory/Chest Respiratory/Chest: Denies cough, dyspnea or orthopnea Gastrointestinal Gastrointestinal: Denies abdominal pain, diarrhea, nausea or vomiting Genitourinary Genitourinary ED: Denies dysuria, hematuria or urinary frequency Musculoskeletal Musculoskeletal: Denies arthralgias or myalgias Integumentary Denies abscess or rash Neurologic Neurologic: Denies headache(s) or weakness Psychiatric Psychiatric: Denies anxiety, depression, suicidal ideation or suicidal thoughts Endocrine Endocrinology: Denies polydipsia, polyphagia or polyuria Allergic/Immunologic Allergic/Immunologic ED: Denies mouth swelling, tongue swelling or urticaria EXAM Physical Exam Const Vital Signs: 09/18/21 16:13 Temperature 96.5 F L Temperature Source Temporal Pulse Rate 93 Respiratory Rate 18 Blood Pressure 161/86 H Blood Pressure Mean 111 Pulse Ox 100 Oxygen Delivery Method Room Air Positive well nourished and well developed General Appearance ED: well developed HEENT Reports normocephalic, head/scalp atraumatic, TM's clear and moist mucous membranes normocephalic and atraumatic Tympanic Membrane ED: Yes TM's clear Eyes PERRL and EOMs intact bilaterally Neck no lymphadenopathy, supple and no JVD Chest Wall Chest Narrative: Focal tenderness to palpation over the lower left anterior costochondral junction. There is no palpable deformity. It reproduces her pain. Sitting up and movement also reproduces the pain Resp normal respiratory effort and clear to auscultation bilaterally Cardio regular rate, regular rhythm and no murmurs GI normal to inspection, nondistended, normoactive bowel sounds and non-tender Palpation: soft Back/Spine no CVA tenderness and normal ROM Extremity normal to inspection General Extremety ED: Negative for edema General Extremity: Negative for edema Neuro oriented x3 and CN's II-XII intact bilaterally Sensorium / Orientation: alert Motor Exam: strength 5/5 throughout Psych mental status grossly normal Mood & Affect: Negative for depressed or tearful Skin no rashes or lesions noted and no wounds Heart Score History: Slightly/Non-Suspicious ECG: Normal Age: >/= 65 years Risk Factors: >/= 3 Risk Factors or History of CAD Troponin: </= Normal Limit Score: 4 MDM MDM MDM Narrative Medical decision making narrative: My interpretation of the chest x-ray is no acute process. Troponin is normal. Clinically I think this is chest wall pain. Gave her a dose of Toradol. We talked about home care return if worsening or concerns EKG Initial EKG: Attestation: I personally reviewed and interpreted this EKG as follows: Comments: EKG demonstrates a normal sinus rhythm with a ventricular rate of 94 bpm Discharge Plan Triage Chief Complaint: Chest Other Other Complaint: Chest Pain ED Provider: Yan Zapata Dx/Rx/DC Orders Clinical Impression: Acute costochondritis, Costochondral separation, Chest pain Prescriptions: No Action Amlodipine-Atorvastatinamol 5 - 20 mg PO BID RF: 0 multivitamin [Multiple Vitamins] 1 EACH tablet 1 ea PO DAILY RF: 0 metformin [Glucophage] 500 MG tablet 500 mg PO DAILY RF: 0 carvedilol 6.25 mg tablet 6.25 mg PO DAILY RF: 0 simethicone [Gas Relief Extra Strength] 125 MG capsule 125 mg PO PRN PRN (Reason: Gas) RF: 0 lactase [Dairy Digestive] 9,000 UNIT tablet 27,000 unit PO DAILY RF: 0 naproxen sodium [Aleve] 220 MG tablet 220 mg PO Q8H PRN PRN (Reason: Pain) RF: 0 gabapentin 300 MG capsule 1 tab PO QHS RF: 0 aspirin 81 MG tablet,chewable 81 mg PO DAILY@0800 RF: 0 lovastatin 20 mg tablet 1 tab PO QHS RF: 0 cholecalciferol (vitamin D3) [Vitamin D3] 2,000 UNIT capsule 2,000 unit PO DAILY RF: 0 dextrin [Fiber (dextrin)] 350 GM powder 350 g PO QODAY RF: 0 [id number]-[id number] [Beano] 150 UNIT tablet 1 ea PO PRN PRN (Reason: Gas) RF: 0 ondansetron 4 MG tablet 4 mg PO Q8H PRN PRN (Reason: Nausea) Qty: 10 RF: 0 sulfamethoxazole-trimethoprim 1 TABLET tablet 1 tab PO BID Qty: 6 RF: 0 hydrocodone-acetaminophen [hydrocodone-acetaminophen] 1 TABLET tablet 1 tab PO Q4H PRN PRN (Reason: Pain) 3 Days Qty: 16 RF: 0 Primary Care Provider: Bonnie Campos Referrals: Bonnie Campos MD [Primary Care Provider] -
[2021-09-18] MEDS: Ketorolac 15 MG/ML Vial IV (17:24)
--- NOTE | 2021-09-18 17:24 | RAD_ITS ---
STUDY: X-RAY CHEST REASON FOR EXAM: Female, 81 years old. Substernal chest pain TECHNIQUE: Single AP portable view of the chest. COMPARISON: None. FINDINGS: EKG leads overlie the chest The lungs are clear and expanded. There is no demonstrated pleural abnormality. Normal size heart. Normal mediastinum and anthony. Normal visualized pulmonary arteries. There is atherosclerotic calcification of the aortic arch with tortuosity. There are diffuse degenerative changes of the visualized thoracic spine. Normal visualized ribs, clavicles, and shoulders. There is no demonstrated abnormality of the visualized soft tissue structures of the upper abdomen. RAD/Chest 1 View (Portable) IMPRESSION: No acute pulmonary process Electronically Signed: Jose Enrique Streeter MD at 17:39 EST ,
[2021-09-18 17:38] LABS: Absolute Lymphocyte Count 2.25 X10^3/uL (0.83-4.51); Absolute Neutrophil Count 3.8 X10^3/uL (2.0-7.7); Basophil# 0.04 X10^3/uL; Basophil% 0.6 % (0-1); Eosinophil# 0.12 X10^3/uL; Eosinophils% 1.8 % (0-5); Hematocrit 35.4 % (37-47); Hemoglobin 11.4 g/dL (12.0-15.0); Lymphocyte # 2.25 X10^3/ul (0.83-4.51); Lymphocyte % 33.5 % (19-41); Mean Corp Hgb Conc 32.2 g/dL (32-36); Mean Corpuscular Hgb 27.9 pg (27.0-32.0); Mean Corpuscular Volume 86.6 fL (81-99); Mean Platelet Vol. 11.6 fl (6.2-12.0); Monocyte# 0.51 X10^3/uL; Monocyte% 7.6 % (0-10); NRBC Flagged by Analyzer 0 % (0-5); Neutrophil # 3.77 X10^3/uL (2.7-7.7); Neutrophil % 56.2 % (47-70); Platelet Count 199 K/mm3 (150-450); RBC Distribution Width CV 13.1 % (11.6-14.6); RBC Distribution Width SD 40.9 fl (35.1-43.9); Red Blood Count 4.09 M/mm3 (4.2-5.4); White Blood Count 6.7 K/mm3 (4.4-11.0)
[2021-09-18 17:54] LABS: Anion Gap 6 (5-15); BUN 18 mg/dL (7-18); Calcium,Total 9.9 mg/dL (8.5-10.1); Chloride 107 mmol/L (98-107); Creatinine, Serum 0.95 mg/dL (0.55-1.02); EST Glomerular Filtration Rate 60 mL/min (>60); Est Glom Filt Rate - Afr Amer 73 mL/min (>60); Estimated Creatinine Clearance 39.43 ml/min; Glucose 98 mg/dL (74-106); Potassium 3.8 mmol/L (3.5-5.1); Sodium Level 139 mmol/L (136-145); Troponin-I HS 9 pg/mL (3.0-54.0)
[2021-09-18 18:26] VITALS: BP 145/73; PULSE 74; RESP 16; O2SAT 97
== END 2021-09-18 18:29 | disposition home or self-care (01) ==
PROVIDERS: Emergency Provider Emergency Medicine; PCP Internal Medicine; Visit Provider Emergency Medicine
DX: M94.0 Chondrocostal junction syndrome [Tietze] (principal); Z87.891 Personal history of nicotine dependence; Z79.82 Long term (current) use of aspirin; Z79.84 Long term (current) use of oral hypoglycemic drugs; Z79.1 Long term (current) use of non-steroidal anti-inflammatories (NSAID)
CPT/HCPCS: 71045; 80048; 84484; 85025; 93005; 96374; 99284

== ENCOUNTER 2021-12-23 09:22 | Emergency (ER) | payer MEDICARE, SELFPAY ==
[2021-12-23 09:23] VITALS: BP 133/87; PULSE 65; RESP 14; TEMP 36.6; O2SAT 100; BMI 31.3
--- NOTE | 2021-12-23 09:39 | CT_ITS ---
ACR Level 3 findings have been noted. An addendum which confirms receipt of the report will follow. INDICATION: fall, rib pain EXAMINATION: CT CHEST WITHOUT CONTRAST - CT Chest W/O Contrast Injection TECHNIQUE: Helically acquired images were obtained of the chest. A radiation dose optimization technique was used for this scan. IV Contrast dosage and agent: None. COMPARISON: None. FINDINGS: LUNGS, PLEURA AND LARGE AIRWAYS: There is a 7mm pleural based nodule in the right lower lobe, axial image 65. There is a 1.4cm nodule in the left lower lobe, axial image 75. No pleural effusion or thickening. No pneumothorax. THYROID: There is a 1cm hypodense lesion in the right thyroid lobe. Ultrasound recommended for further evaluation. HEART AND PERICARDIUM: Heart size is normal. No pericardial effusion. CORONARY ARTERIES: Coronary artery calcification VESSELS: Thoracic aorta is not dilated. MEDIASTINUM AND SHELTON: No mediastinal or hilar adenopathy. Esophagus is unremarkable. No hiatal hernia. UPPER ABDOMEN: There is a 3.4cm right renal cyst. No acute pathology. BONES: There is an old left 7th rib fracture. There is nonspecific sclerosis in the right 8th rib coronal image 121. CT/Chest without Contrast IMPRESSION: There is a 1cm hypodense lesion in the right thyroid lobe. Ultrasound recommended for further evaluation. Lung nodules. PET Scan recommended. There is an old left 7th rib fracture. There is nonspecific sclerosis in the right 8th rib coronal image 121. Electronically Signed: Yan Arteaga MD at 10:44 EDT ,
--- NOTE | 2021-12-23 09:41 | EDS_ITS ---
HPI <JA Ledesma - Last Filed: 12/23/21 11:04> History of Present Illness Chief Complaint: Chest Other Narrative Narrative: 81-year-old female presents with chest wall pain. On December 17 she lost her balance and fell into the tailgate of a truck. It mainly struck her right breast and right side of her ribs. She states then she bounced off and fell onto her back. No head injury or LOC. She was taking some old pain medicine she had from previous injury but states that is not helping. Pain seems worse and hurts with taking a deep breath. She denies blood thinners. PFSH <JA Ledesma - Last Filed: 12/23/21 11:04> [facility] Home Medications Amlodipine-Atorvastatinamol 5 - 20 mg PO BID 12/14/16 [History Last Taken 12/14/16 07:30] [id number] [Beano] 1 ea PO PRN PRN 12/14/16 [History Last Taken Unknown] aspirin 81 mg PO DAILY@0800 12/14/16 [History Last Taken Unknown] carvedilol 6.25 mg PO DAILY 12/14/16 [History Last Taken 12/14/16 07:30] cholecalciferol (vitamin D3) [Vitamin D3] 2,000 unit PO DAILY 12/14/16 [History Last Taken Unknown] dextrin [Fiber] 350 g PO QODAY 12/14/16 [History Last Taken Unknown] gabapentin 1 tab PO QHS 12/14/16 [History Last Taken Unknown] lactase [Dairy Digestive] 27,000 unit PO DAILY 12/14/16 [History Last Taken Unknown] lovastatin 1 tab PO QHS 12/14/16 [History Last Taken Unknown] metformin [Glucophage] 500 mg PO DAILY 12/14/16 [History Last Taken Unknown] multivitamin [Multiple Vitamins] 1 ea PO DAILY 12/14/16 [History Last Taken Unknown] naproxen sodium [Aleve] 220 mg PO Q8H PRN PRN 12/14/16 [History Last Taken Unknown] simethicone [Gas Relief] 125 mg PO PRN PRN 12/14/16 [History Last Taken Unknown] ondansetron 4 mg PO Q8H PRN PRN #10 tab 10/08/18 [Rx Last Taken Unknown] sulfamethoxazole-trimethoprim 1 tab PO BID #6 tablet 12/28/18 [Rx Last Taken Unknown] hydrocodone-acetaminophen 1 tab PO Q4H PRN PRN 3 Days #16 tablet 08/09/21 [Rx Last Taken Unknown] Allergy/AdvReac Type Severity Reaction Status Date / Time adhesive Allergy Rash Verified 12/23/21 09:23 cough syrup AdvReac Unknown Uncoded 12/23/21 09:23 Social History (Updated 09/18/21 @ 17:[address] Yan Zapata, DO) Smoking Status: Former smoker substance use type: does not use ROS <JA Ledesma - Last Filed: 12/23/21 11:04> ROS ED ROS Narrative Constitutional: Negative for fever, chills, malaise. Eyes: Negative for visual change. ENT: Negative for sore throat, ear pain, rhinorrhea. CVS: Negative for palpitations, chest pain, syncope. Respiratory: Negative for shortness of breath, cough, orthopnea. GI: Negative for abdominal pain, nausea, vomiting, diarrhea, constipation, melena, hematochezia. : Negative for dysuria, hematuria or frequency. Neuro: Negative for headache, motor/sensory dysfunction. Skin: Negative for rash, abscess, or wound. Musc: Positive for rib pain, trauma. Negative for joint pain, swelling. Heme: Negative for easy bruising, bleeding, lymphadenopathy. EXAM <JA Ledesma - Last Filed: 12/23/21 11:04> Physical Exam Narrative Exam Narrative: CONST: Patient sitting in no acute distress. EYES: Normal inspection. HEAD: Atraumatic, normocephalic NECK: Normal inspection. No midline spinal tenderness, no step off or crepitus. RESP: No respiratory distress, CTAB. CVS: Regular rate and rhythm, no murmur, no gallop. Tender to palpation diffusely over right anterior ribs with no deformity or crepitus, bruising over the right breast. ABD: Soft and nontender, no guarding or rebound, nondistended. Back: Normal inspection, no midline spinal tenderness, no step off or crepitus. SKIN: Color normal, no rash, warm, dry, intact. EXTREMITIES: Normal appearance, no bony tenderness, 2+ radial and DP pulses. NEURO: Oriented x4. PSYCH: Normal affect. Const Vital Signs: 12/23/21 09:23 12/23/21 10:15 Temperature 97.8 F Temperature Source Temporal Pulse Rate 65 Respiratory Rate 14 Respiratory Effort Short of Breath Respiratory Pattern Normal Blood Pressure 133/87 H Blood Pressure Mean 102 Pulse Ox 100 Oxygen Delivery Method Room Air <Dr. Chilo Noel MD - Last Filed: 12/23/21 11:10> Physical Exam Const Vital Signs: 12/23/21 09:23 12/23/21 10:15 Temperature 97.8 F Temperature Source Temporal Pulse Rate 65 Respiratory Rate 14 Respiratory Effort Short of Breath Respiratory Pattern Normal Blood Pressure 133/87 H Blood Pressure Mean 102 Pulse Ox 100 Oxygen Delivery Method Room Air MDM <JA Ledesma - Last Filed: 12/23/21 11:04> [facility] MDM Narrative Medical decision making narrative: Patient had a mechanical fall and presents with anterior right sided rib pain. He appears well nontoxic. Afebrile and vital signs within normal limits. On examination of the chest and abdomen she does have some bruising over the right breast. She has diffuse tenderness over the anterior upper ribs. No deformity or crepitus. Normal heart and lung sounds. Abdomen soft and nontender. Pelvis intact. No bony tenderness of the upper or lower extremities with 2+ distal pulses. No midline spinal tenderness or tenderness of the back. CT chest was obtained and shows no acute findings but note incidental thyroid and lung nodules that we will need outpatient follow-up. Patient states she has pain medicine at home but does not know the name. She thinks it might be percocet or morphine. She did not want lidocaine patches. I advised rest, ice, and to call her PCP on Saturday to ask if she can take additional tylenol or ibuprofen. She was discharged in stable condition. 1. Mechanical fall 2. Rib contusions 3. Incidental thyroid and lung nodules Radiography Diagnostic Testing: Clinical Impression(s) from Imaging Studies Chest CT 12/23/21 09:39 IMPRESSION: There is a 1cm hypodense lesion in the right thyroid lobe. Ultrasound recommended for further evaluation. Lung nodules. PET Scan recommended. There is an old left 7th rib fracture. There is nonspecific sclerosis in the right 8th rib coronal image 121. Electronically Signed: Yan Arteaga MD at 10:44 EDT , ADDENDUM: 12/23/21 110 IMPRESSION: undefined ADDENDUM: 12/23/211104 IMPRESSION: undefined <Dr. Chilo Noel MD - Last Filed: 12/23/21 11:10> [facility] Narrative Medical decision making narrative: I have personally performed a face to face assessment of the patient and have reviewed the DAMION Note. I performed a substantive portion of the visit including all aspects of the following. My fernandez findings include: History is [81-year-old female fell hit her right anterior rib cage. This occurred around Saturday. She complaining of pain. No LOC. She is on no blood thinners. Denies any head or neck injury.] Exam is [Arner female no acute distress vital signs stable afebrile. She has reproducible tenderness to her right anterior lowest rib. There is no ecchymosis. No crepitus or subcu air. Lungs are clear. Heart regular rhythm. Head and neck exam are unremarkable atraumatic. Nontender. Abdomen soft nontender. No bruising. Pelvic girdle intact. Moving all 4 extremities. Neurologically she is awake and alert.] Medical Decision Making [evaluating this patient with our physician hr administrative assistant. CAT scan was obtained of her chest. Shows chronic changes. No obvious acute fracture. Discussed with patient and her . She is comfortable being discharged home with ice, stabilizing area with a pillow and Tylenol and Motrin for pain.] Other additions or changes: [None] Radiography Diagnostic Testing: Clinical Impression(s) from Imaging Studies Chest CT 12/23/21 09:39 IMPRESSION: There is a 1cm hypodense lesion in the right thyroid lobe. Ultrasound recommended for further evaluation. Lung nodules. PET Scan recommended. There is an old left 7th rib fracture. There is nonspecific sclerosis in the right 8th rib coronal image 121. Electronically Signed: Yan Arteaga MD at 10:44 EDT , ADDENDUM: 12/23/211102 IMPRESSION: undefined ADDENDUM: 12/23/21 110 IMPRESSION: undefined Discharge Plan Triage Chief Complaint: Chest Other ED Midlevel Provider: Michelle Odell ED Provider: Chilo Noel Dx/Rx/DC Orders Clinical Impression: Contusion of rib on right side Instructions: Bruises (Contusions) Prescriptions: No Action Amlodipine-Atorvastatinamol 5 - 20 mg PO BID RF: 0 multivitamin [Multiple Vitamins] 1 EACH tablet 1 ea PO DAILY RF: 0 metformin [Glucophage] 500 MG tablet 500 mg PO DAILY RF: 0 carvedilol 6.25 mg tablet 6.25 mg PO DAILY RF: 0 simethicone [Gas Relief Extra Strength] 125 MG capsule 125 mg PO PRN PRN (Reason: Gas) RF: 0 lactase [Dairy Digestive] 9,000 UNIT tablet 27,000 unit PO DAILY RF: 0 naproxen sodium [Aleve] 220 MG tablet 220 mg PO Q8H PRN PRN (Reason: Pain) RF: 0 gabapentin 300 MG capsule 1 tab PO QHS RF: 0 aspirin 81 MG tablet,chewable 81 mg PO DAILY@0800 RF: 0 lovastatin 20 mg tablet 1 tab PO QHS RF: 0 cholecalciferol (vitamin D3) [Vitamin D3] 2,000 UNIT capsule 2,000 unit PO DAILY RF: 0 dextrin [Fiber (dextrin)] 350 GM powder 350 g PO QODAY RF: 0 [id number] [Beano] 150 UNIT tablet 1 ea PO PRN PRN (Reason: Gas) RF: 0 ondansetron 4 MG tablet 4 mg PO Q8H PRN PRN (Reason: Nausea) Qty: 10 RF: 0 sulfamethoxazole-trimethoprim 1 TABLET tablet 1 tab PO BID Qty: 6 RF: 0 hydrocodone-acetaminophen [hydrocodone-acetaminophen] 1 TABLET tablet 1 tab PO Q4H PRN PRN (Reason: Pain) 3 Days Qty: 16 RF: 0 Primary Care Provider: Bonnie Campos Referrals: Bonnie Campos MD [Primary Care Provider] - Activity Restrictions/Additional Instructions: The CAT scan showed no broken bones. Please take the pain medicine you have at home and rest. Call your doctor on Saturday to ask if you can take additional Tylenol or ibuprofen. Also the scan showed you have thyroid nodules and lung nodules. These need follow-up with your primary care doctor. Disposition Disposition: Home, Self Care
[2021-12-23] MEDS: Ondansetron ODT 4 MG Tablet PO (09:51)
[2021-12-23] MEDS: HYDROcodone Bitartrate/Apap 5/325 Tablet PO (09:51)
--- NOTE | 2021-12-23 10:16 | NURSING ---
pt states that she had fallen on 12/18 and has had pain in R ribs and breast ever since.
[2021-12-23 11:13] VITALS: BP 144/61; PULSE 72; RESP 15; O2SAT 98
== END 2021-12-23 11:14 | disposition home or self-care (01) ==
PROVIDERS: Emergency Provider Emergency Medicine; PCP Internal Medicine; Visit Provider Emergency Medicine
DX: S20.01XA Contusion of right breast, initial encounter (principal); W01.198A Fall on same level from slipping, tripping and stumbling with subsequent striking against other object, initial encounter; Z79.82 Long term (current) use of aspirin; Z79.84 Long term (current) use of oral hypoglycemic drugs; Z79.899 Other long term (current) drug therapy; Z87.891 Personal history of nicotine dependence
CPT/HCPCS: 71250; 99282

== ENCOUNTER 2022-01-30 08:52 | Emergency (ER) | payer MEDICARE, SELFPAY ==
[2022-01-30 08:54] VITALS: BP 146/93; PULSE 77; RESP 18; TEMP 36.1; O2SAT 100; BMI 28.8
--- NOTE | 2022-01-30 09:27 | EDS_ITS ---
HPI History of Present Illness Chief Complaint: Complaint Informant: patient Onset/Context/Timing Onset: Days (3) Context: Sudden Onset Timing: Continuous Quality: Pressure Location: Genitals Worsened by: Lifting, wiping Relieved by: Nothing Narrative Narrative: Patient presents with pelvic pain that has been getting worse over the past 3 to 4 days. Patient states it began rather suddenly. Patient states it has been constant. Patient states that it feels like there is pressure and something is falling out of her genital area. Patient states it is worse whenever she lifts anything. Patient states it is also worse whenever she wipes after urinating. Patient states nothing seems to help with it. Patient denies any fevers or chills. Patient denies any dysuria or hematuria. Patient denies any nausea or vomiting. [facility] Medical History (Updated 01/30/22 @ 14:[address] Danny Wasserman, ) Diabetes mellitus Hypertension Home Medications Amlodipine-Atorvastatinamol 5 - 20 mg PO BID 12/14/16 [History Last Taken 12/14/16 07:30] snavz-n-ciztubblzeatk 150 unit tablet (Beano) 1 ea PO PRN PRN Gas 12/14/16 [History Last Taken Unknown] aspirin 81 mg chewable tablet 81 mg PO DAILY@0800 12/14/16 [History Last Taken Unknown] carvedilol 6.25 mg tablet 6.25 mg PO DAILY 12/14/16 [History Last Taken 12/14/16 07:30] cholecalciferol (vitamin D3) 50 mcg (2,000 unit) capsule (Vitamin D3) 2,000 unit PO DAILY 12/14/16 [History Last Taken Unknown] dextrin 3 gram/3.5 gram oral powder (Fiber (dextrin)) 350 g PO QODAY 12/14/16 [History Last Taken Unknown] gabapentin 300 mg capsule 1 tab PO QHS 12/14/16 [History Last Taken Unknown] lactase 9,000 unit tablet (Dairy Digestive) 27,000 unit PO DAILY 12/14/16 [History Last Taken Unknown] lovastatin 20 mg tablet 1 tab PO QHS 12/14/16 [History Last Taken Unknown] metformin 500 mg tablet (Glucophage) 500 mg PO DAILY 12/14/16 [History Last Taken Unknown] multivitamin (Multiple Vitamins) 1 ea PO DAILY 12/14/16 [History Last Taken Unknown] naproxen sodium 220 mg tablet (Aleve) 220 mg PO Q8H PRN PRN Pain 12/14/16 [History Last Taken Unknown] simethicone 125 mg capsule (Gas Relief Extra Strength) 125 mg PO PRN PRN Gas 12/14/16 [History Last Taken Unknown] ondansetron 4 mg disintegrating tablet 4 mg PO Q8H PRN PRN Nausea #10 tabs 10/08/18 [Rx Last Taken Unknown] sulfamethoxazole 800 mg-trimethoprim 160 mg tablet 1 tab PO BID ##6 12/28/18 [Rx Last Taken Unknown] hydrocodone-acetaminophen 5-325mg 5mg-325mg 1 tab PO Q4H PRN PRN Pain 3 days #16 TABLETS 08/09/21 [Rx Last Taken Unknown] Allergy/AdvReac Type Severity Reaction Status Date / Time adhesive Allergy Rash Verified 01/30/22 08:54 cough syrup AdvReac Unknown Uncoded 01/30/22 08:54 Surgical History (Updated 01/30/22 @ 09:[address] Danny Wasserman DO) Hx of appendectomy Hx of cholecystectomy Hx of hysterectomy Social History Smoking Status: Former smoker substance use type: does not use ROS ROS ED Constitutional Constitutional ED: Denies chills or fever(s) Eyes Eyes: Denies blurry vision or change in vision ENT ENT ED: Denies rhinorrhea or sore throat Cardiovascular Cardiovascular: Denies chest pain or palpitations Respiratory/Chest Respiratory/Chest: Denies cough or dyspnea Gastrointestinal Gastrointestinal: Denies nausea or vomiting Genitourinary Genitourinary ED: Denies dysuria or hematuria Musculoskeletal Musculoskeletal: Reports back pain and neck pain Integumentary Denies abscess or rash Neurologic Neurologic: Reports headache(s); Denies weakness Allergic/Immunologic Allergic/Immunologic ED: Denies mouth swelling or urticaria EXAM Physical Exam Const Vital Signs: 01/30/22 08:54 01/30/22 14:11 Temperature 97.0 F L Temperature Source Temporal Pulse Rate 77 64 Respiratory Rate 18 14 Blood Pressure 146/93 H 150/72 H Blood Pressure Mean 110 98 Pulse Ox 100 98 Oxygen Delivery Method Room Air Room Air Positive well nourished and well developed General Appearance ED: well developed and NAD HEENT Reports moist mucous membranes Neck supple and no JVD Resp normal respiratory effort and clear to auscultation bilaterally Cardio regular rate and regular rhythm GI normal to inspection, nondistended, normoactive bowel sounds Palpation: tender suprapubic; Negative for guarding or rebound tenderness present Narrative: Pelvic exam was performed. There is no genital prolapse noted. There is no vaginal bleeding or discharge. Neuro oriented x3, CN's II-XII intact bilaterally and no sensory deficits noted Sensorium / Orientation: alert Motor Exam: strength 5/5 throughout Psych mental status grossly normal MDM MDM MDM Narrative Medical decision making narrative: Patient was given IV fluids here. CBC and comprehensive metabolic profile were within normal limits. Urinalysis does not show any evidence of urinary tract infection or hematuria. CT scan of the abdomen pelvis was obtained. There is diverticulosis. There is mild persistent vaginal prolapse. There is no acute abnormality noted. This was interpreted by the radiologist and reviewed by myself. Patient was advised of her findings. Patient was instructed to follow- up with her primary care physician in 5 to 7 days for reevaluation. Patient understood and was agreeable with the plan. All questions were answered. Lab Data Attestation: I reviewed the patient's lab results. Labs: Laboratory Results - last 24 hr 01/30/22 01/30/22 01/30/22 09:45 09:45 12:18 WBC 4.9 RBC 4.11 L Hgb 11.6 L Hct 35.9 L MCV 87.3 MCH 28.2 MCHC 32.3 RDW Std Deviation 43.2 RDW Coeff of Amrita 13.5 Plt Count 207 MPV 12.1 H Immature Gran % (Auto) 0.400 Neut % (Auto) 58.2 Lymph % (Auto) 32.0 [place] % (Auto) 8.0 Eos % (Auto) 1.0 Baso % (Auto) 0.4 Absolute Neuts (auto) 2.9 Absolute Lymphs (auto) 1.57 Nucleated RBC % 0 Sodium 140 Potassium 4.1 Chloride 108 H Carbon Dioxide 24.0 Anion Gap 8 BUN 12 Creatinine 0.92 Estim Creat Clear Calc 37.29 Est GFR (MDRD) Af Amer 75 Est GFR (MDRD) Non-Af 62 BUN/Creatinine Ratio 13.0 Glucose 96 Calcium 9.9 Total Bilirubin 0.40 AST 16 ALT 17 Alkaline Phosphatase 94 Total Protein 6.9 Albumin 3.7 Globulin 3.2 Albumin/Globulin Ratio 1.2 Urine Color Yellow Urine Clarity Sl. Cloudy Urine pH 7.0 Ur Specific [place] 1.005 Urine Protein Negative Urine Glucose (UA) Normal Urine Ketones Negative Urine Occult Blood Negative Urine Nitrite Negative Urine Bilirubin Negative Urine Urobilinogen Normal Ur Leukocyte Esterase Negative Urine RBC 0 SEEN Urine WBC 0 SEEN Ur Squamous Epith Cells 0 SEEN Urine Bacteria 0 SEEN Urine Mucus 0 SEEN Radiography Diagnostic Testing: Clinical Impression(s) from Imaging Studies Abdomen/Pelvis CT 01/30/22 09:35 IMPRESSION: 1. Colonic diverticulosis. 2. There is absence of the uterus consistent with a prior hysterectomy. Mild persistent vaginal prolapse. Electronically Signed: Niraj Stack MD at 10:54 EDT , Discharge Plan Triage Chief Complaint: Complaint ED Provider: Danny Wasserman Dx/Rx/DC Orders Clinical Impression: Acute pelvic pain, female Instructions: ED Pelvic Pain, Unknown Cause Prescriptions: No Action Amlodipine-Atorvastatinamol 5 - 20 mg PO BID multivitamin [Multiple Vitamins] 1 EACH tablet 1 ea PO DAILY metformin [Glucophage] 500 MG tablet 500 mg PO DAILY carvedilol 6.25 mg tablet 6.25 mg PO DAILY Label Comments: simethicone [Gas Relief Extra Strength] 125 MG capsule 125 mg PO PRN PRN (Reason: Gas) lactase [Dairy Digestive] 9,000 UNIT tablet 27,000 unit PO DAILY naproxen sodium [Aleve] 220 MG tablet 220 mg PO Q8H PRN PRN (Reason: Pain) gabapentin 300 MG capsule 1 tab PO QHS Label Comments: TAKE 1 CAPSULE AT BEDTIME aspirin 81 MG tablet,chewable 81 mg PO DAILY@0800 lovastatin 20 mg tablet 1 tab PO QHS Label Comments: cholecalciferol (vitamin D3) [Vitamin D3] 2,000 UNIT capsule 2,000 unit PO DAILY dextrin [Fiber (dextrin)] 350 GM powder 350 g PO QODAY [id number] [Beano] 150 UNIT tablet 1 ea PO PRN PRN (Reason: Gas) ondansetron 4 MG tablet 4 mg PO Q8H PRN PRN (Reason: Nausea) Qty: 10 0RF sulfamethoxazole-trimethoprim 1 TABLET tablet 1 tab PO BID Qty: 6 0RF hydrocodone-acetaminophen [hydrocodone-acetaminophen] 1 TABLET tablet 1 tab PO Q4H PRN PRN (Reason: Pain) 3 Days Qty: 16 0RF Primary Care Provider: Bonnie Campos Referrals: Bonnie Campos MD [Primary Care Provider] - 5-7 Days Disposition Disposition: Home, Self Care
--- NOTE | 2022-01-30 09:35 | CT_ITS ---
STUDY: CT ABDOMEN AND PELVIS WITHOUT CONTRAST REASON FOR EXAM: Female, 81 years old. Pelvic pain AFTER LIFTING ON SATURDAY, FEELS LIKE SOMETHING HAS DROPPED BETWEEN HER LEGS, APPY, GABRIELLE, HYSTER, HTN, DB, HLD RADIATION DOSAGE (If Supplied By Facility): CTDIvol = ( 6.77 ) mGy, DLP = ( 360.05 ) mGycm TECHNIQUE: Transaxial images were obtained from the dome of the diaphragm to the symphysis pubis without oral contrast, and without intravenous contrast. Sagittal and coronal images were reconstructed. Individualized dose optimization techniques were used for this CT. COMPARISON: CT of abdomen and pelvis dated October 08, 2018 FINDINGS: Mild aneurysmal dilatation of the descending thoracic aorta and noted at 3.64 cm. Mild cystic emphysematous changes are seen in the lung bases. Normal liver. No intrahepatic biliary duct dilatation or liver mass. Absence of the gallbladder consistent with prior cholecystectomy. Normal spleen. Normal pancreas. Normal bilateral adrenal glands. There is moderate cortical atrophy of the right kidney, consistent with chronic medical renal disease. There is moderate cortical atrophy of the left kidney, consistent with chronic medical renal disease. No hydronephrosis or renal masses. No visualized radiopaque stones. Moderate size cortical base benign appearing cysts seen at the inferior pole and lateral aspect of the right kidney; which is slightly increased in size since the previous study. There is a small hiatal hernia. Normal small intestine. There are multiple colonic diverticula consistent with diverticulosis. No bowel dilatation or obstruction. No free air or free fluid. There are surgical clips in the region of the appendix consistent with a prior appendectomy. There is diffuse atherosclerotic calcification of the abdominal aorta, without a demonstrated aneurysm. Normal inferior vena cava. Normal retroperitoneum. Normal urinary bladder. There is absence of the uterus consistent with a prior hysterectomy. Mild persistent vaginal prolapse. Normal abdominal wall. There are diffuse degenerative changes of the visualized lumbar spine. Chronic vertebral body compression deformities. CT/Abdomen/Pelvis without Cont IMPRESSION: 1. Colonic diverticulosis. 2. There is absence of the uterus consistent with a prior hysterectomy. Mild persistent vaginal prolapse. Electronically Signed: Niraj Stack MD at 10:54 EDT ,
[2022-01-30 10:12] LABS: ALB/GLOB Ratio 1.2 RATIO (0.9-2.4); AST(SGOT) 16 U/L (15-37); Alanine Aminotransfer ALT/SGPT 17 U/L (13-56); Albumin, Serum 3.7 g/dL (3.2-5.0); Alkaline Phosphatase 94 U/L (45-117); Anion Gap 8 (5-15); BUN 12 mg/dL (7-18); Calcium,Total 9.9 mg/dL (8.5-10.1); Chloride 108 mmol/L (98-107); Creatinine, Serum 0.92 mg/dL (0.55-1.02); EST Glomerular Filtration Rate 62 mL/min (>60); Est Glom Filt Rate - Afr Amer 75 mL/min (>60); Estimated Creatinine Clearance 37.29 ml/min; Globulin 3.2 g/dL (2.2-4.2); Glucose 96 mg/dL (74-106); Potassium 4.1 mmol/L (3.5-5.1); Protein, Total 6.9 g/dL (6.4-8.2); Sodium Level 140 mmol/L (136-145)
[2022-01-30] MEDS: 0.9% Normal Saline 1,000 ML 1000 ML IV (10:14)
[2022-01-30 10:25] LABS: Absolute Lymphocyte Count 1.57 X10^3/uL (0.83-4.51); Absolute Neutrophil Count 2.9 X10^3/uL (2.0-7.7); Basophil# 0.02 X10^3/uL; Basophil% 0.4 % (0-1); Eosinophil# 0.05 X10^3/uL; Hematocrit 35.9 % (37-47); Hemoglobin 11.6 g/dL (12.0-15.0); Lymphocyte # 1.57 X10^3/ul (0.83-4.51); Mean Corp Hgb Conc 32.3 g/dL (32-36); Mean Corpuscular Hgb 28.2 pg (27.0-32.0); Mean Corpuscular Volume 87.3 fL (81-99); Mean Platelet Vol. 12.1 fl (6.2-12.0); Monocyte# 0.39 X10^3/uL; NRBC Flagged by Analyzer 0 % (0-5); Neutrophil # 2.85 X10^3/uL (2.7-7.7); Neutrophil % 58.2 % (47-70); Platelet Count 207 K/mm3 (150-450); RBC Distribution Width CV 13.5 % (11.6-14.6); RBC Distribution Width SD 43.2 fl (35.1-43.9); Red Blood Count 4.11 M/mm3 (4.2-5.4); White Blood Count 4.9 K/mm3 (4.4-11.0)
[2022-01-30 12:20] LABS: Bacteria 0 SEEN /hpf (None Seen); Mucous, Urine 0 SEEN /hpf (<or=2+); Red Blood Cells-Urine 0 SEEN /hpf (0-5); Squamous Epithelial Cells - UA 0 SEEN /hpf (5-10); White Blood Cells 0 SEEN /hpf (0-5)
[2022-01-30 12:24] LABS: Color, Urine Yellow (Yellow); Glucose, Dipstick Normal (Normal); Ketone-Dipstick Negative (Negative); Leukocyte Esterase-Dipstick Negative /ul (Negative); Nitrite-Dipstick Negative (Negative); Occult Blood-Urine Negative /ul (Negative); Protein-Dipstick Negative (Negative); Specific Gravity, Urine 1.005 (1.002-1.030); Urine Bilirubin Dipstick Negative (Negative); Urine Clarity Sl. Cloudy (Clear); Urine Urobilinogen Normal (Normal)
[2022-01-30 14:11] VITALS: BP 150/72; PULSE 64; RESP 14; O2SAT 98
[2022-01-30 14:39] VITALS: BP 156/70; PULSE 65; RESP 15; O2SAT 98
== END 2022-01-30 14:45 | disposition home or self-care (01) ==
PROVIDERS: Emergency Provider Emergency Medicine; PCP Internal Medicine; Visit Provider Emergency Medicine
DX: R10.2 Pelvic and perineal pain (principal); E11.9 Type 2 diabetes mellitus without complications; I10 Essential (primary) hypertension; Z79.84 Long term (current) use of oral hypoglycemic drugs; Z79.82 Long term (current) use of aspirin; Z79.899 Other long term (current) drug therapy; Z87.891 Personal history of nicotine dependence
CPT/HCPCS: 74176; 80053; 81001; 85025; 96360; 96361; 99283; J7030; A4216

== ENCOUNTER → 2022-02-27 | Outpatient (CLI) | payer MEDICARE, SELFPAY ==
[2022-02-27 17:16] LABS: Absolute Lymphocyte Count 1.83 X10^3/uL (0.83-4.51); Absolute Neutrophil Count 4.4 X10^3/uL (2.0-7.7); Basophil# 0.03 X10^3/uL; Basophil% 0.4 % (0-1); Eosinophil# 0.08 X10^3/uL; Eosinophils% 1.2 % (0-5); Hematocrit 37.1 % (37-47); Lymphocyte # 1.83 X10^3/ul (0.83-4.51); Lymphocyte % 26.6 % (19-41); Mean Corp Hgb Conc 32.3 g/dL (32-36); Mean Corpuscular Hgb 28.2 pg (27.0-32.0); Mean Corpuscular Volume 87.3 fL (81-99); Mean Platelet Vol. 12.3 fl (6.2-12.0); Monocyte# 0.54 X10^3/uL; Monocyte% 7.8 % (0-10); NRBC Flagged by Analyzer 0 % (0-5); Neutrophil # 4.39 X10^3/uL (2.7-7.7); Neutrophil % 63.7 % (47-70); Platelet Count 221 K/mm3 (150-450); RBC Distribution Width CV 13.3 % (11.6-14.6); RBC Distribution Width SD 42.1 fl (35.1-43.9); Red Blood Count 4.25 M/mm3 (4.2-5.4); White Blood Count 6.9 K/mm3 (4.4-11.0)
[2022-02-27 18:14] LABS: ALB/GLOB Ratio 1.1 RATIO (0.9-2.4); AST(SGOT) 15 U/L (15-37); Alanine Aminotransfer ALT/SGPT 15 U/L (13-56); Albumin, Serum 3.8 g/dL (3.2-5.0); Alkaline Phosphatase 92 U/L (45-117); Anion Gap 8 (5-15); BUN 19 mg/dL (7-18); BUN/Creat Ratio 19.3 RATIO (10-20); Calcium,Total 10.1 mg/dL (8.5-10.1); Chloride 103 mmol/L (98-107); Creatinine, Serum 0.99 mg/dL (0.55-1.02); EST Glomerular Filtration Rate 57 mL/min (>60); Est Glom Filt Rate - Afr Amer 69 mL/min (>60); Globulin 3.4 g/dL (2.2-4.2); Glucose 99 mg/dL (74-106); Potassium 4.3 mmol/L (3.5-5.1); Protein, Total 7.2 g/dL (6.4-8.2); Sodium Level 137 mmol/L (136-145); Thyroid Stim Hormone (TSH) 2.39 uIU/mL (0.358-3.74)
[2022-02-27 18:30] LABS: Hepatitis C Antibody Non-Reactive (Nonreactive); Syphilis Antibodies Non-reactive; Vitamin B12 > 2000 pg/mL (211-911); Vitamin D,25 Hydroxy 71.1 ng/mL
== END | disposition home or self-care (01) ==
LOC: POLAB3 15:37
PROVIDERS: PCP Family Medicine Geriatric Medicine; Visit Provider Family Medicine Geriatric Medicine
DX: G30.9 Alzheimer's disease, unspecified (principal); R53.83 Other fatigue; E55.9 Vitamin D deficiency, unspecified; Z13.89 Encounter for screening for other disorder
CPT/HCPCS: 36415; 80053; 82306; 82607; 82746; 84443; 85025; 86780; 86803

== ENCOUNTER → 2022-03-08 | Outpatient (CLI) | payer MEDICARE, SELFPAY ==
--- NOTE | 2022-03-08 13:37 | CT_ITS ---
STUDY: CT BRAIN WITHOUT CONTRAST REASON FOR EXAM: Female, 81 years old. [facility]''S RADIATION DOSAGE (If Supplied By Facility): CTDIvol = ( 44.99 ) mGy, DLP = ( 872.98 ) mGycm TECHNIQUE: Transaxial CT imaging of the brain was performed without administration of intravenous contrast material. Individualized dose optimization techniques were used for this CT. COMPARISON: Comparison is made with prior study of 10/21/2015. FINDINGS: Normal soft tissue structures. Normal calvarium. There is mild cerebral atrophy with widening of the extra-axial spaces and ventricular dilatation. There are areas of decreased attenuation within the white matter tracts of the supratentorial brain, consistent with microvascular disease changes. Normal basal ganglia and thalami. Normal brainstem. Normal cerebellum. Stable 2.3cm x 2.4 cm CSF collection in the mid posterior right side of the cerebellum suggestive of an arachnoid cyst. There is no intracranial hemorrhage. There are no findings of an acute ischemic infarction. Normal visualized paranasal sinuses. CT/Brain/Head without Contrast IMPRESSION: Chronic involutional changes of the brain. Electronically Signed: Steven Gómez MD at 13:53 EDT ,
== END | disposition home or self-care (01) ==
LOC: CT 13:29
PROVIDERS: PCP Family Medicine Geriatric Medicine; Referring Provider Family Medicine Geriatric Medicine; Visit Provider Family Medicine Geriatric Medicine
DX: G30.9 Alzheimer's disease, unspecified (principal)
CPT/HCPCS: 70450

== ENCOUNTER → 2022-03-14 | Outpatient (CLI) | payer MEDICARE, SELFPAY ==
--- NOTE | 2022-03-14 10:56 | BD_ITS ---
STUDY: DUAL ENERGY X-RAY ABSORPTIOMETRY / DXA REASON FOR EXAM: Female, 81 years old. [id number]. Patient is postmenopausal. TECHNIQUE: Bone Mineral Density (BMD) measurements of lumbar spine and bilateral hips were obtained. COMPARISON: None. FINDINGS: Lumbar Spine (L1-L4): g/cm2 (0.675) / T-score (-3.3) / Z-score (-0.5) Findings are suggestive of osteoporosis with a high fracture risk. Left Femur Total: g/cm2 (0.474) / T-score (-3.8) / Z-score (-1.6) Left Femoral Neck: g/cm2 (0.48) / T-score (-3.3) / Z-score (-0.9) Right Femur Total: g/cm2 (0.498) / T-score (-3.6) / Z-score (-1.4) Right Femoral Neck: g/cm2 (0.490) / T-score (-3.2) / Z-score (-0.8) BD/Dexa Bone Density Study IMPRESSION: The patient is considered osteoporotic as outlined below according to World Myron Organization (WHO) criteria with a high fracture risk. Reference Information: The T-score is the number of standard deviations above or below the standard which is normal for young adults at their peak bone mineral density. The World Health Organization (WHO) interprets the T-scores as follows: Above -1 Normal bone density Between -1 and -2.5 Osteopenia Equal to / or below -2.5 Osteoporosis As a practical clinical guideline, osteopenia may be graded as follows: Mild -1 through -1.5 Moderate -1.6 through -2.0 Severe -2.1 through -2.4 The Z-score is the number of standard deviations above or below age-matched controls. A Z-score of less than -1.5 would be considered abnormal. References: 1. NIH Osteoporosis and Related Bone Diseases www osteo.org 2. International Society for Clinical Densitometry www iscd.org 3. National Osteoporosis Foundation www nof.org Electronically Signed: Steven Gómez MD at 12:24 EDT ,
== END | disposition home or self-care (01) ==
LOC: OPBD 10:50
PROVIDERS: PCP Family Medicine Geriatric Medicine; Visit Provider Family Medicine Geriatric Medicine
DX: Z78.0 Asymptomatic menopausal state (principal)
CPT/HCPCS: 77080

== ENCOUNTER 2022-03-20 13:26 | Observation (INO) | payer MEDICARE, SELFPAY ==
[2022-03-20] VITALS (7 sets, daily range): BP systolic 99–149; BP diastolic 49–77; PULSE 68–86; RESP 16–22; TEMP 36.6–36.8; O2SAT 93–98; BMI 23.6; BMI 17.4
--- NOTE | 2022-03-20 13:42 | RAD_ITS ---
STUDY: X-RAY - RIGHT KNEE REASON FOR EXAM: Female, 81 years old. Fall/pain TECHNIQUE: 4 view(s) of the knee. COMPARISON: None. FINDINGS: Degenerative spur formation of the medial femoral condyle. Normal visualized proximal tibia and fibula. Normal proximal tibiofibular articulation. There is severe degenerative arthrosis of the medial femorotibial compartment with severe joint space narrowing. Normal lateral femorotibial compartment. There is severe degenerative arthrosis of the patellofemoral articulation. There are atherosclerotic calcifications. Small joint effusion. RAD/Knee 4 or More Views IMPRESSION: Degenerative arthrosis. Small joint effusion. Electronically Signed: Steven Gómez MD at 15:00 EDT ,
--- NOTE | 2022-03-20 13:42 | RAD_ITS ---
STUDY: X-RAY - LEFT KNEE REASON FOR EXAM: Female, 81 years old. Fall/pain TECHNIQUE: 2 view(s) of the knee. COMPARISON: None. FINDINGS: Degenerative spurring along the medial femoral condyle. Degenerative spurring of the medial tibial plateau. Normal proximal tibiofibular articulation. There is severe degenerative arthrosis of the medial femorotibial compartment with severe joint space narrowing. Normal lateral femorotibial compartment. There is moderate degenerative arthrosis of the patellofemoral articulation. Small joint effusion. Vascular calcification. RAD/Knee 1 or 2 Views IMPRESSION: Degenerative arthrosis. Small joint effusion. Electronically Signed: Steven Gómez MD at 14:57 EDT ,
--- NOTE | 2022-03-20 13:42 | CT_ITS ---
STUDY: CT BRAIN WITHOUT CONTRAST REASON FOR EXAM: Female, 81 years old. Fall/trauma YESTERDAY RADIATION DOSAGE (If Supplied By Facility): CTDIvol = ( 44.99 ) mGy, DLP = ( 779.24 ) mGycm TECHNIQUE: Transaxial CT imaging of the brain was performed without administration of intravenous contrast material. Individualized dose optimization techniques were used for this CT. COMPARISON: Comparison is made with prior CT scan of the brain dated 03/08/2022. FINDINGS: Normal soft tissue structures. Normal calvarium. There is mild cerebral atrophy with widening of the extra-axial spaces and ventricular dilatation. There are areas of decreased attenuation within the white matter tracts of the supratentorial brain, consistent with microvascular disease changes. Normal basal ganglia and thalami. Normal brainstem. Normal cerebellum. Stable 2.3 cm x 2.4 cm CSF collection in the mid posterior right cerebellum suggestive of an arachnoid cyst. There is no intracranial hemorrhage. There are no findings of an acute ischemic infarction. Atherosclerotic plaque formation of the vertebral arteries and cavernous portions of the internal carotid arteries bilaterally. Normal visualized paranasal sinuses. CT/Brain/Head without Contrast IMPRESSION: Chronic involutional changes of the brain. Stable examination. Electronically Signed: Steven Gómez MD at 14:39 EDT ,
--- NOTE | 2022-03-20 13:42 | RAD_ITS ---
STUDY: X-RAY - PELVIS AND LEFT HIP REASON FOR EXAM: Female, 81 years old. Fall/pain TECHNIQUE: 3 views of the pelvis and hip. COMPARISON: None. FINDINGS: There is a non-specific bowel gas pattern. There are multiple calcified phleboliths. There is narrowing with cortical sclerosis and osteophyte formation of the sacroiliac joint consistent with degenerative osteoarthritic changes. Normal bilateral superior and inferior pubic rami. Normal pubic symphysis. Normal bilateral ischial tuberosities. Normal visualized femoral head. Normal acetabulum. There is mild articular joint space narrowing of the hip. RAD/HIP, UNI W/ Pelvis 2-3 Views IMPRESSION: Degenerative changes. Electronically Signed: Steven Gómez MD at 14:58 EDT ,
--- NOTE | 2022-03-20 13:42 | RAD_ITS ---
STUDY: X-RAY CHEST REASON FOR EXAM: Female, 81 years old. Fall/pain bilat lower ribs TECHNIQUE: Single AP portable view of the chest. COMPARISON: Comparison is made with prior study dated 09/18/2021. FINDINGS: EKG electrodes are seen. Hyperinflation. The lungs are clear. There is no demonstrated pleural abnormality. There is borderline cardiomegaly. Normal mediastinum and anthony. Normal visualized pulmonary arteries. There is atherosclerotic calcification of the aortic arch with tortuosity. There are degenerative changes of the visualized thoracic spine. Normal visualized ribs, clavicles, and shoulders. There is no demonstrated abnormality of the visualized soft tissue structures of the upper abdomen. RAD/Chest 1 View (Portable) IMPRESSION: Hyperinflation. The lungs are clear. Electronically Signed: Steven Gómez MD at 14:55 EDT ,
--- NOTE | 2022-03-20 13:42 | CT_ITS ---
STUDY: CT CERVICAL SPINE WITHOUT CONTRAST REASON FOR EXAM: Female, 81 years old. Fall/pain RADIATION DOSAGE (If Supplied By Facility): CTDIvol = ( 16.01 ) mGy, DLP = ( 394.97 ) mGycm TECHNIQUE: High resolution transaxial imaging was performed without contrast material. Sagittal and coronal images were reconstructed. Individualized dose optimization techniques were used for this CT. COMPARISON: None FINDINGS: Normal craniovertebral junction. There are degenerative changes of the anterior atlantoaxial articulation. Normal odontoid process. There is straightening of the normal cervical lordosis. Normal vertebral bodies and posterior osseous elements. C2-3: Normal endplates. Normal disc height and morphology. Normal central canal and intervertebral neuroforamina. C3-4: Normal endplates. Normal disc height and morphology. Normal central canal and intervertebral neuroforamina. C4-5: Moderate degree of disc space narrowing. Uncovertebral arthrosis. Facet joint osteoarthritis and hypertrophy worse on the left side. Moderate degree of bilateral neural foraminal stenosis. C5-6: Mild degree of disc space narrowing. Spondylosis. C6-7: Normal endplates. Normal disc height and morphology. Normal central canal and intervertebral neuroforamina. C7-T1: Normal endplates. Normal disc height and morphology. Normal central canal and intervertebral neuroforamina. Atherosclerotic plaque formation of the carotid bifurcations bilaterally. There is a 1.1 cm hypodense nodule in the inferior aspect of the right lobe of the thyroid. CT/Spine Cervical without Contras IMPRESSION: Multilevel degenerative changes, as described above. 1.1 cm hypodense nodule in the inferior aspect of the right lobe the thyroid. Electronically Signed: Steven Gómez MD at 14:43 EDT ,
--- NOTE | 2022-03-20 13:46 | EDS_ITS ---
HPI History of Present Illness Chief Complaint: Lower Extremity Injury Informant: patient Onset/Context/Timing Onset: Yesterday Narrative Narrative: She has had multiple falls in the past 24-48 hours. She states yesterday her leg gave out, causing her to fall in her kitchen, she hit the left side of her head in addition to her left hip and her knees. She fell again today, she cannot remember if she injured anything today or not, she states this occurred while she was walking to the bathroom and had a syncopal episode causing her to collapse. She did not have any prodromal symptom such as chest pain, palpi tations, shortness of breath, but she did feel lightheaded and nauseated just beforehand. No history of DVT or PE that she knows of. She takes aspirin every day no anticoagulants. Denies any nausea or vomiting but she does have a headache. She states yesterday after falling on her left hip, she was able to bear weight on her left lower extremity and today is well earlier, but now she is unable to bear any weight on her left lower extremity due to severe pain mostly in her hip as well as her distal femur/knee. [facility] Medical History Diabetes mellitus Hypertension Home Medications Amlodipine-Atorvastatinamol 5 - 20 mg PO BID 12/14/16 [History Last Taken 12/14/16 07:30] [id number] 150 unit tablet (Beano) 1 ea PO PRN PRN Gas 12/14/16 [History Last Taken Unknown] aspirin 81 mg chewable tablet 81 mg PO DAILY@0800 12/14/16 [History Last Taken Unknown] carvedilol 6.25 mg tablet 6.25 mg PO DAILY 12/14/16 [History Last Taken 12/14/16 07:30] cholecalciferol (vitamin D3) 50 mcg (2,000 unit) capsule (Vitamin D3) 2,000 unit PO DAILY 12/14/16 [History Last Taken Unknown] dextrin 3 gram/3.5 gram oral powder (Fiber (dextrin)) 350 g PO QODAY 12/14/16 [History Last Taken Unknown] gabapentin 300 mg capsule 1 tab PO QHS 12/14/16 [History Last Taken Unknown] lactase 9,000 unit tablet (Dairy Digestive) 27,000 unit PO DAILY 12/14/16 [History Last Taken Unknown] lovastatin 20 mg tablet 1 tab PO QHS 12/14/16 [History Last Taken Unknown] multivitamin (Multiple Vitamins tablet) 1 ea PO DAILY 12/14/16 [History Last Taken Unknown] naproxen sodium 220 mg tablet (Aleve) 220 mg PO Q8H PRN PRN Pain 12/14/16 [History Last Taken Unknown] simethicone 125 mg capsule (Gas Relief Extra Strength) 125 mg PO PRN PRN Gas 12/14/16 [History Last Taken Unknown] ondansetron 4 mg disintegrating tablet 4 mg PO Q8H PRN PRN Nausea #10 tabs 10/08/18 [Rx Last Taken Unknown] sulfamethoxazole 800 mg-trimethoprim 160 mg tablet 1 tab PO BID ##6 12/28/18 [Rx Last Taken Unknown] hydrocodone-acetaminophen 5-325mg 5mg-325mg 1 tab PO Q4H PRN PRN Pain 3 days #16 TABLETS 08/09/21 [Rx Last Taken Unknown] donepezil 5 mg tablet 5 mg PO DAILY 03/20/22 [History Last Taken Unknown] Allergy/AdvReac Type Severity Reaction Status Date / Time adhesive Allergy Rash Verified 03/20/22 13:31 cough syrup AdvReac Unknown Uncoded 03/20/22 13:31 Surgical History (Updated 01/30/22 @ 09:[address] Danny Wasserman DO) Hx of appendectomy Hx of cholecystectomy Hx of hysterectomy Social History Smoking Status: Former smoker substance use type: does not use ROS ROS ED Constitutional Constitutional ED: Denies chills or fever(s) Eyes Eyes: Denies change in vision or diplopia ENT ENT ED: Denies rhinorrhea or sore throat Cardiovascular Cardiovascular: Denies chest pain or palpitations Respiratory/Chest Respiratory/Chest: Denies cough or dyspnea Gastrointestinal Gastrointestinal: Denies abdominal pain, diarrhea, nausea or vomiting Genitourinary Genitourinary ED: Denies dysuria or hematuria Musculoskeletal Musculoskeletal: Reports extremity pain, neck pain and other Details: Pre- existing chronic low back discomfort, denies acute change or acute injury Integumentary Denies abscess or rash Neurologic Neurologic: Reports headache(s) and syncope; Denies paresthesias or weakness Psychiatric Psychiatric: Denies anxiety or suicidal thoughts EXAM Physical Exam Const Vital Signs: 03/20/22 13:28 03/20/22 16:58 Temperature 97.9 F Temperature Source Temporal Pulse Rate 74 79 Respiratory Rate 16 22 H Blood Pressure 125/74 H 130/49 H Blood Pressure Mean 91 76 Pulse Ox 97 93 Oxygen Delivery Method Room Air Room Air Positive well nourished and well developed General Appearance ED: well developed and NAD HEENT Reports moist mucous membranes HEENT Narrative: Traumatic tender hematoma left parietal occipital scalp without any crepitance or depression or laceration. Eyes PERRL and EOMs intact bilaterally Neck Neck Narrative: Tender throughout left paraspinal area and throughout the entire midline. No step-offs. Chest Wall inspection of chest normal Chest Narrative: Mildly tender across both sides lower rib cage/costal margin without crepitance or depression or deformity. Sternum nontender. Equal breath sounds are bilaterally. Resp normal respiratory effort and clear to auscultation bilaterally Effort and Inspection: able to speak in complete sentences Cardio regular rate, regular rhythm and no murmurs GI non-tender and non-distended Auscultation: normoactive bowel sounds Palpation: soft Back/Spine General Back: other FROM Extremity Extremity Narrative: Multiple areas of tenderness around both distal femurs, both patella, left hip and pelvic brim. Very limited range of motion to the left lower extremity due to pain in the knee and hip area, the right she is able to move fully without any significant discomfort. Multiple venous varicosities both thighs. None of them feel thrombosed or appear inflamed. General Extremety ED: Yes tenderness; Negative for edema or pulses abnormal General Extremity: Negative for edema or pulses abnormal Neuro oriented x3, CN's II-XII intact bilaterally and no sensory deficits noted Sensorium / Orientation: awake and alert Motor Exam: strength 5/5 throughout Skin no rashes or lesions noted and no wounds MDM MDM MDM Narrative Medical decision making narrative: Multiple x-rays were obtained and interpreted by myself as follows: Right knee 4 views negative Left knee 2 views negative Left hip 3 views negative Chest x-ray 1 view negative for any acute Radiology was in agreement, also CT of the head and cervical spine were negative for anything acute. Given this and the fact that she is unable to bear weight on her left lower extremity because of her hip injury, I sent her for CT scan, it showed no obvious fracture or dislocation to explain her pain. Given this, she will need to be admitted to the hospital for further evaluation, my concern is that she could have an occult hip fracture. Also, she had syncopal episode, it occurred while she was ambulating to the restroom before she got to the toilet, prodromal nausea but nothing else. Other than frequent ectopy on the monitor, her work-up is otherwise unremarkable. Still awaiting urinalysis. Plan will be to admit her, the concern is that she injured her left hip again with her fall today, after which she was not able to bear any weight on it. Lab Data Attestation: I reviewed the patient's lab results. Labs: Laboratory Results - last 24 hr 03/20/22 03/20/22 14:15 14:15 WBC 8.0 RBC 4.11 L Hgb 11.5 L Hct 35.5 L MCV 86.4 MCH 28.0 MCHC 32.4 RDW Std Deviation 42.1 RDW Coeff of Amrita 13.4 Plt Count 189 MPV 11.6 Immature Gran % (Auto) 0.400 Neut % (Auto) 75.7 H Lymph % (Auto) 13.8 L [place] % (Auto) 9.9 Eos % (Auto) 0.1 Baso % (Auto) 0.1 Absolute Neuts (auto) 6.0 Absolute Lymphs (auto) 1.10 Nucleated RBC % 0 Sodium 139 Potassium 4.0 Chloride 107 Carbon Dioxide 26.0 Anion Gap 6 BUN 13 Creatinine 0.86 Estim Creat Clear Calc 49.05 Est GFR (MDRD) Af Amer 81 Est GFR (MDRD) Non-Af 67 BUN/Creatinine Ratio 15.0 Glucose 119 H Calcium 9.5 Troponin I High Sens 8 Radiography Diagnostic Testing: Clinical Impression(s) from Imaging Studies Brain CT 03/20/22 13:42 IMPRESSION: Chronic involutional changes of the brain. Stable examination. Electronically Signed: Steven Gómez MD at 14:39 EDT , Cervical Spine CT 03/20/22 13:42 IMPRESSION: Multilevel degenerative changes, as described above. 1.1 cm hypodense nodule in the inferior aspect of the right lobe the thyroid. Electronically Signed: Steven Gómez MD at 14:43 EDT , Chest X-Ray 03/20/22 13:42 IMPRESSION: Hyperinflation. The lungs are clear. Electronically Signed: Steven Gómez MD at 14:55 EDT , Hip/Pelvis X-Ray 03/20/22 13:42 IMPRESSION: Degenerative changes. Electronically Signed: Steven Gómez MD at 14:58 EDT , Knee X-Ray 03/20/22 13:42 IMPRESSION: Degenerative arthrosis. Small joint effusion. Electronically Signed: Steven Gómez MD at 14:57 EDT , Knee X-Ray 03/20/22 13:42 IMPRESSION: Degenerative arthrosis. Small joint effusion. Electronically Signed: Steven Gómez MD at 15:00 EDT , Lower Extremity CT 03/20/22 15:08 IMPRESSION: Degenerative changes. No evidence of fracture or dislocation. Electronically Signed: Steven Gómez MD at 15:49 EDT , Rhythm Strip Rhythm Strip: Sinus Rhythm Rate: 80 Ectopy: PAC(s) EKG Initial EKG: Attestation: I personally reviewed and interpreted this EKG as follows: Interpretation: Sinus Rhythm and No Acute Injury Pattern Prior EKG tracings: available for review Prior: Unchanged Discharge Plan Dx/Rx/DC Orders Clinical Impression: Syncope and collapse, Inability to ambulate due to left hip, Injury of left hip, Multiple falls, Contusion of knee, right, Contusion of knee, left, Closed head injury Disposition Disposition: Acute Care Hospital [facility]
[2022-03-20] MEDS: Ondansetron 4 MG/2 ML Vial IV (14:13)
[2022-03-20] MEDS: Morphine 2 MG/ML Syringe IV (14:13)
[2022-03-20 14:22] LABS: Basophil# 0.01 X10^3/uL; Basophil% 0.1 % (0-1); Eosinophil# 0.01 X10^3/uL; Eosinophils% 0.1 % (0-5); Hematocrit 35.5 % (37-47); Hemoglobin 11.5 g/dL (12.0-15.0); Lymphocyte % 13.8 % (19-41); Mean Corp Hgb Conc 32.4 g/dL (32-36); Mean Corpuscular Volume 86.4 fL (81-99); Mean Platelet Vol. 11.6 fl (6.2-12.0); Monocyte# 0.79 X10^3/uL; Monocyte% 9.9 % (0-10); NRBC Flagged by Analyzer 0 % (0-5); Neutrophil # 6.03 X10^3/uL (2.7-7.7); Neutrophil % 75.7 % (47-70); Platelet Count 189 K/mm3 (150-450); RBC Distribution Width CV 13.4 % (11.6-14.6); RBC Distribution Width SD 42.1 fl (35.1-43.9); Red Blood Count 4.11 M/mm3 (4.2-5.4)
[2022-03-20 14:41] LABS: Anion Gap 6 (5-15); BUN 13 mg/dL (7-18); Calcium,Total 9.5 mg/dL (8.5-10.1); Chloride 107 mmol/L (98-107); Creatinine, Serum 0.86 mg/dL (0.55-1.02); EST Glomerular Filtration Rate 67 mL/min (>60); Est Glom Filt Rate - Afr Amer 81 mL/min (>60); Estimated Creatinine Clearance 49.05 ml/min; Glucose 119 mg/dL (74-106); Sodium Level 139 mmol/L (136-145); Troponin-I HS 8 pg/mL (3.0-54.0)
--- NOTE | 2022-03-20 15:08 | CT_ITS ---
STUDY: CT SCAN HIP LEFT REASON FOR EXAM: Female, 81 years old. Injury, nml XR RADIATION DOSAGE (If Supplied By Facility): CTDIvol = ( 22.51 ) mGy, DLP = ( 584.48 ) mGycm. Individualized dose optimization techniques were used for this CT.? TECHNIQUE: Multiple axial tomographic images were obtained without intravenous contrast administration. Coronal and sagittal reconstruction was obtained as well. COMPARISON: None. FINDINGS: Moderate degree of joint space narrowing. No evidence of fracture or dislocation. A pessary device is seen in the region of the uterine cervix. CT/Extremity Lower without Contra IMPRESSION: Degenerative changes. No evidence of fracture or dislocation. Electronically Signed: Steven Gómez MD at 15:49 EDT ,
--- NOTE | 2022-03-20 17:08 | HP.PCM.HOS_ITS ---
HPI - General General Date of Admission: 03/20/22 Date of Service: 03/20/22 Chief Complaint: Syncope, fall, BL, L>R hip pain. HPI Narrative The patient is an 81 y/o F w/ PMHx: Former tobacco use, HTN, HLD, Diabetes mellitus type II, Dementia unclear type with unclear behavioral disturbance history, OA who presents to the [facility] ED on 03/20/22 with history of multiple falls over the last 48 hours reporting that her legs have given out causing her to fall in her kitchen unfortunately hitting her head on the left side with intractable pain to the knees bilaterally and also the left hip the day prior however on day of presentation she was actually walking to the bathroom and had onset of mild lightheadedness, dizziness and nausea with syncopal event, waking up on the floor and likely she notes landing again on her left hip with her left side significantly tender and unable to bear weight prompting eventual ED evaluation. She denies any recent headaches, dyspnea, chest pain or any palpitations. She does take a daily baby aspirin. Following these fall she was unable to bear weight and had significant neck as well as left hip and bilateral knee discomfort prompting ED evaluation. She does report currently with attempts to move her left hip pain is approximately 4-5 out of 10 in severity and if she tends to bear weight it is higher, sharp and constant aching in nature. Work-up in the ED included T97.9, heart rate 74, BP 125/74, respiratory rate 16, 97% on room air, CBC with WC 8, hemoglobin 11.5, MCV 86.4, platelet 189 without marked shift, BMP with glucose 119 otherwise unremarkable, troponin 8, CT of the brain with chronic involutional changes, CT cervical spine with multilevel degenerative changes with 1.1 cm hypodense nodule in the inferior aspect of the right lobe of the thyroid, chest x-ray with chronic hyperinflation changes with no acute cardiopulmonary findings otherwise, plain film of the left hip and pelvis with degenerative changes with no acute findings, plain film of the left knee as well of the right knee with degenerative arthrosis and small joint effusion, CT of the left hip with degenerative changes with no evidence of any fracture or dislocation with pessary device in the urine cervix EKG with sinus rhythm with no acute evidence of ischemia with PVCs. [facility] Medical History (Updated 08/09/22 @ 20:[address] Renetta Dillon MD) Dementia Diabetes mellitus Former tobacco use HLD (hyperlipidemia) Hypertension Home Medications [id number] 150 unit tablet (Beano) 1 ea PO PRN PRN Gas 12/14/16 [History Last Taken 3 Days Ago ~03/17/22] aspirin 81 mg chewable tablet 81 mg PO DAILY@0800 12/14/16 [History Last Taken 03/20/22] carvedilol 6.25 mg tablet 6.25 mg PO DAILY 12/14/16 [History Last Taken 03/20/22] cholecalciferol (vitamin D3) 50 mcg (2,000 unit) capsule (Vitamin D3) 2,000 unit PO DAILY 12/14/16 [History Last Taken 03/20/22] dextrin 3 gram/3.5 gram oral powder (Fiber (dextrin)) 350 g PO QODAY 12/14/16 [History Last Taken 03/18/22] gabapentin 300 mg capsule 1 tab PO QHS 12/14/16 [History Last Taken 03/19/22] lovastatin 20 mg tablet 1 tab PO QHS 12/14/16 [History Last Taken 03/19/22] multivitamin (Multiple Vitamins tablet) 1 ea PO DAILY 12/14/16 [History Last Taken 03/20/22] amlodipine 5 mg-benazepril 20 mg capsule 1 cap PO BID bp 03/20/22 [History Last Taken 03/20/22] donepezil 5 mg tablet 5 mg PO DAILY 03/20/22 [History Last Taken 03/19/22] Allergy/AdvReac Type Severity Reaction Status Date / Time adhesive Allergy Rash Verified 03/20/22 13:31 cough syrup AdvReac Unknown Uncoded 03/20/22 13:31 Family History (Updated 03/20/22 @ 20:[address] Renetta Dillon MD) Mother Diabetes Heart disease Hypertension Cerebral hemorrhage Father Brain cancer Surgical History (Updated 03/20/22 @ 20:[address] Renetta Dillon MD) Hx of appendectomy Hx of cholecystectomy Hx of hysterectomy S/P tonsillectomy and adenoidectomy Social History (Updated 03/20/22 @ 20:[address] Renetta Dillon MD) household members: spouse Smoking Status: Former smoker how long ago did patient quit smoking: Smoked age [age]. 3-5 cig/day, quit following. alcohol intake: current alcohol intake frequency: holidays/special occasions only substance use type: does not use ROS ROS Narrative Admission Review of Systems: CONSTITUTIONAL: No weight loss, fever, chills, + weakness or fatigue. HEENT: Eyes: No visual loss, blurred vision, double vision or yellow sclerae. Ears, Nose, Throat: No hearing loss, sneezing, congestion, runny nose or sore throat. SKIN: No rash or itching, lesions, wounds. CARDIOVASCULAR: + Syncopal event, LH, dizziness, edema. No chest pain, chest pressure or chest discomfort, palpitations, orthopnea. RESPIRATORY: No shortness of breath, cough or sputum, wheezing, hemoptysis. GASTROINTESTINAL: No anorexia, nausea, vomiting or diarrhea, abdominal pain, melena, BRBPR. GENITOURINARY: No dysuria, frequency, urgency or retention. NEUROLOGICAL: + Syncopal event, LH, Dizziness. No paralysis, ataxia, numbness or tingling in the extremities, focal weakness, change in bowel or bladder control, seizure. MUSCULOSKELETAL: + muscle, back pain, joint pain or stiffness. HEMATOLOGIC: + anemia, bleeding or bruising. LYMPHATICS: No enlarged nodes. No history of splenectomy. PSYCHIATRIC: No history of depression or anxiety. ENDOCRINOLOGIC: No reports of sweating, cold or heat intolerance. No polyuria or polydipsia. ALLERGIES: No history of asthma, hives, eczema or rhinitis. Vital Signs Vital Signs Vital Signs: 03/20/22 13:28 03/20/22 16:58 Temperature 97.9 F Temperature Source Temporal Pulse Rate 74 79 Respiratory Rate 16 22 H Blood Pressure 125/74 H 130/49 H Blood Pressure Mean 91 76 Pulse Ox 97 93 Oxygen Delivery Method Room Air Room Air Weight Weight: 151 lb Body Mass Index (BMI) 23.6 Physical Exam Narrative Physical Examination: General: Awake, alert, oriented to self, place, recent events, appears appropriate, remains cooperative, seated upright in ED bed, fatigued appearing, reports left hip and lower extremity discomfort with movement. Skin: Normal color, normal turgor, no icterus, no cyanosis except occasional staged ecchymoses. HEENT: AT/NC, EOMI, PERRLA, mildly dry MM, no carotid bruits or JVD noted. Lungs: Mild diminished, greater bases, poor effort, no rales, ronchi or wheez ing. Heart: Regular rate and rhythm on evaluation however telemetry on monitor during evaluation with episodes of tachycardia intermittent; no gallop, rub audible. Abdomen: Soft, NTTP, ND, distant normal BS, no HSM. Extremities: No cyanosis, no clubbing, notable very staged ecchymoses to extremity, significant left hip pain with any movement or rotation attempts, peripheral pulses intact, bilateral ankle edema noted. Neurological: Patient awake, alert, oriented as noted, cognitive function appea rs baseline intact; pupils equally reactive to light and accommodation, cranial nerves II-XII grossly normal, moving all 4 extremities except extremely limited given recent fall with intractable left-sided hip and lower extremity pain, strength severely global decreased. Psychiatric: Affect appears fatigued, uncomfortable, no acute evidence of depressive or anxiety feelings. Results Lab / Micro Data Result Diagrams: 03/20/22 14:15 03/20/22 14:15 Labs: Laboratory Results - last 24 hr 03/20/22 14:15: WBC 8.0, RBC 4.11 L, Hgb 11.5 L, Hct 35.5 L, MCV 86.4, MCH 28.0, MCHC 32.4, RDW Std Deviation 42.1, RDW Coeff of Amrita 13.4, Plt Count 189, MPV 11.6, Immature Gran % (Auto) 0.400, Neut % (Auto) 75.7 H, Lymph % (Auto) 13.8 L, [place] % (Auto) 9.9, Eos % (Auto) 0.1, Baso % (Auto) 0.1, Absolute Neuts (auto) 6.0, Absolute Lymphs (auto) 1.10, Nucleated RBC % 0 03/20/22 14:15: Sodium 139, Potassium 4.0, Chloride 107, Carbon Dioxide 26.0, Anion Gap 6, BUN 13, Creatinine 0.86, Estim Creat Clear Calc 49.05, Est GFR (MDRD) Af Amer 81, Est GFR (MDRD) Non-Af 67, BUN/Creatinine Ratio 15.0, Glucose 119 H, Calcium 9.5, Troponin I High Sens 8 Rhythm Strip Rhythm Strip: Sinus Rhythm Rate: 80 Ectopy: PAC(s) Radiology Impression Brain CT 03/20/22 13:42 IMPRESSION: Chronic involutional changes of the brain. Stable examination. Electronically Signed: Steven Gómez MD at 14:39 EDT , Cervical Spine CT 03/20/22 13:42 IMPRESSION: Multilevel degenerative changes, as described above. 1.1 cm hypodense nodule in the inferior aspect of the right lobe the thyroid. Electronically Signed: Steven Gómez MD at 14:43 EDT , Chest X-Ray 03/20/22 13:42 IMPRESSION: Hyperinflation. The lungs are clear. Electronically Signed: Steven Gómez MD at 14:55 EDT , Hip/Pelvis X-Ray 03/20/22 13:42 IMPRESSION: Degenerative changes. Electronically Signed: Steven Gómez MD at 14:58 EDT , Knee X-Ray 03/20/22 13:42 IMPRESSION: Degenerative arthrosis. Small joint effusion. Electronically Signed: Steven Gómez MD at 14:57 EDT , Knee X-Ray 03/20/22 13:42 IMPRESSION: Degenerative arthrosis. Small joint effusion. Electronically Signed: Steven Gómez MD at 15:00 EDT , Lower Extremity CT 03/20/22 15:08 IMPRESSION: Degenerative changes. No evidence of fracture or dislocation. Electronically Signed: Steven Gómez MD at 15:49 EDT , Assessment & Plan Assessment/Plan (1) Syncope and collapse: (2) Inability to ambulate due to left hip: PLAN: Plan The patient is an 81 y/o F w/ PMHx: Former tobacco use, HTN, HLD, Diabetes mellitus type II, Dementia unclear type with unclear behavioral disturbance history, OA who presents to the [facility] ED on 03/20/22 with history of multiple falls over the last 48 hours reporting that her leg has given out causing her to fall in her kitchen unfortunately hitting her head on the left side with intractable pain to the knees bilaterally and also the left hip the day prior however on day of presentation she was actually walking to the bathroom and had onset of mild lightheadedness, dizziness and nausea with syncopal event, waking up on the floor and likely she notes landing again on her left hip with her left side significantly tender and unable to bear weight prompting eventual ED evaluation. #1. Syncopal Event: Unclear etiololgy, EKG in ED w/ sinus rhythm without evidence of acute ischemia w/ PVCs however in the ED patient did have significant episodes of tachycardia on telemetry with rates in the 120s you can still see P waves but she did go up into the 140s transiently but appeared to be somewhat asymptomatic during that time during evaluation, CXR w/ no acute cardiopulmonary findings, initial trop normal. Will admit to PCU, place on a monitored bed to assure no acute myocardial infarction with serial cardiac enzymes and EKGs. Will maintain on fall precautions, obtain admission orthostatic and AM orthostatic VS and increase hydration if appropriate. Will continue judicious IVFs. Will obtain ECHO. PT/OT consultation to ascertain stability and discharge needs. COVID requested as well as UA, UCx. Continue to monitor assure patient is not going in and out of atrial fibrillation potentially #2. Falls, likely related to #1 with Intractable L hip pain: We will maintain on fall precautions, continue treatment as noted number 1, encourage positional changes, offloading, PT/OT/case management consultations for discharge planning, as needed discomfort agents if needed. #3. Incidental thyroid lobe nodule, right: Incidental finding on CT of the neck 1.1 cm hypodense nodule in the inferior aspect of the right lobe of the thyroid, TSH and free T4 ordered, will need follow-up ultrasound evaluation. #4. Dementia unclear type with unclear behavioral disturbance history: Complicates presentation, suspect likely mild cognitive impairment from discussions, continue donepezil, maintain on fall and aspiration cautions, therapies as well as case management consulted as noted. #5. Hypertension: Continue home regimen including amlodipine, benazepril regular with adjustments as needed pending further telemetry monitoring and orthostatics as, PRN hydralazine. #6. Hyperlipidemia: Continue home statin regimen. #7. Diabetes mellitus type II: Reported history, no longer on regimen, notes she has been de-escalated off several medications, hemoglobin A1c requested, ADA diet, accu checks w/ ISS. #8. Former tobacco use: Encourage continued tobacco station. #9. DVT prophylaxis: SCDs, Lovenox. #10. CODE status: Patient HCPOA and living will is not in place however given advanced age did encourage that she consider setting these items up with tatyana mmendation discussed with case management/social work if interested. Discussed CODE status at length including difference between FULL code, DNR-CCA and DNR-CC status. Following discussions about the differences in these status, requested DNR-CCA, no intubation status. Advanced Care Planning Face to Face Time: 16 minutes. Charges/Coding Visit Charges OBSV E&M: 57781 Initial observation care L3 Procedures Hospitalists Procedures: 95313 Advncd Care Plan 30 Min
--- NOTE | 2022-03-20 18:03 | ED.RN ---
ATTEMPTED TO CALL TO INFORM HIM OF PT ADMISSION TO HOSPITAL. LEFT A VOICEMAIL WITH INSTRUCTIONS TO CALL BACK TO HOSPITAL.
[2022-03-20 18:11] LABS: Magnesium 1.9 mg/dL (1.6-2.6)
--- NOTE | 2022-03-20 18:22 | ECHOD_ITS ---
Reason For Study: Syncope Procedure This was a 2D Doppler, Color Flow transthoracic echocardiogram. Exam performed portable in patient room. Left Ventricle Normal LV size. Left ventricular systolic function is normal. The estimated ejection fraction is 55 %. Stage 1 diastolic dysfunction. No regional wall motion abnormalities noted. Right Ventricle Normal RV size. Normal systolic function. Atria Normal left atrium. Normal right atrium. Lipomatous hypertrophy of the atrial septum. Mitral Valve Bileaflet diffuse mitral valve thickening. Mild (1+) eccentric mitral valve insufficiency. Tricuspid Valve Normal tricuspid valve. Mild tricuspid valve insufficiency. Pulmonary artery systolic pressure is 27 mmHg. Aortic Valve Trisinus/trileaflet aortic valve. Trivial aortic valve insufficiency. Pulmonic Valve Normal pulmonic valve. Great Vessels Normal aortic root. The pulmonary artery is normal size. Normal inferior vena cava. Pericardium/Pleural No pericardial effusion. MMode/2D Measurements & Calculations LVIDd: 4.8 cm IVSd: 1.2 cm Ao root diam: 3.2 cm LVIDs: 3.1 cm LVPWd: 0.97 cm LA dimension: 3.6 cm RVDd: 3.6 cm FS: 34.0 % LAV(MOD-bp): 61.2 ml LA A4 area: 18.0 cm2 RA A4 area: 12.2 cm2 LAV(MOD-bp) Indexed: 41.0 ml/m2 LAV(MOD-sp2): 70.4 ml LAV(MOD-sp4): 48.3 ml Time Measurements MV dec time: 0.23 sec Doppler Measurements & Calculations MV E max jamshid: 60.9 cm/sec MV V2 max: 113.4 cm/sec MV P1/2t max jamshid: 99.1 cm/sec MV A max jamshid: 89.1 cm/sec MV max P.1 mmHg MV P1/2t: 88.5 msec MV E/A: 0.68 MV V2 mean: 57.5 cm/sec MV dec slope: 328.0 cm/sec2 MV mean P.6 mmHg MVA(P1/2t): 2.5 cm2 MV V2 VTI: 23.4 cm Ao V2 max: 164.2 cm/sec AI max jamshid: 346.5 cm/sec LV V1 max: 126.2 cm/sec Ao max P.8 mmHg AI max P.0 mmHg LV V1 max P.4 mmHg Ao V2 mean: 108.3 cm/sec AI dec slope: 189.9 cm/sec2 LV V1 mean P.1 mmHg Ao mean P.5 mmHg AI P1/2t: 534.4 msec LV V1 mean: 81.6 cm/sec Ao V2 VTI: 32.1 cm LV V1 VTI: 26.1 cm MR max jamshid: 412.4 cm/sec PA V2 max: 88.2 cm/sec TR max jamshid: 247.5 cm/sec MR max P.0 mmHg TR max P.6 mmHg ECHO/Echo Complete Interpretation Summary Normal LV size. Left ventricular systolic function is normal. The estimated ejection fraction is 55 %. Lipomatous hypertrophy of the atrial septum. Normal inferior vena cava. Stage 1 diastolic dysfunction. Ordering Physician: Renetta Dillon Referring Physician: Avi Elliott Chi Performed By: Hari Pisano RCS
[2022-03-20 20:43] LABS: Troponin-I HS 9 pg/mL (3.0-54.0)
[2022-03-20] MEDS: 0.9% Normal Saline 1,000 ML 100 ML IV (21:37)
[2022-03-20 21:52] LABS: Mucous, Urine 0 SEEN /hpf (<or=2+); Red Blood Cells-Urine 0 SEEN /hpf (0-5); White Blood Cells 0 SEEN /hpf (0-5)
[2022-03-20 21:58] LABS: Troponin-I HS 9 pg/mL (3.0-54.0)
[2022-03-20 21:59] LABS: Color, Urine Yellow (Yellow); Glucose, Dipstick Normal (Normal); Ketone-Dipstick 15 mg/dl (Negative); Leukocyte Esterase-Dipstick Negative /ul (Negative); Nitrite-Dipstick Negative (Negative); Occult Blood-Urine Negative /ul (Negative); Protein-Dipstick 15 mg/dl (Negative); Urine Bilirubin Dipstick Negative (Negative); Urine Clarity Clear (Clear); Urine Urobilinogen 1 mg/dl (Normal); Urine pH 6.5 (5.0 - 8.0)
[2022-03-20 22:22] LABS: Squamous Epithelial Cells - UA 0-5 SEEN /hpf (5-10)
[2022-03-20 22:23] LABS: Bacteria 1+ /hpf (None Seen)
[2022-03-20] MEDS: Gabapentin 300 MG Capsule PO (22:38)
[2022-03-20] MEDS: Atorvastatin Calcium 10 MG Tablet 5 MG PO (22:39)
[2022-03-21] VITALS (11 sets, daily range): BP systolic 103–145; BP diastolic 60–97; PULSE 64–107; RESP 16–18; TEMP 36.4–36.9; O2SAT 92–97
[2022-03-21 00:35] LABS: Bedside Glucose 95 mg/dL (74-106)
[2022-03-21 02:03] LABS: Troponin-I HS 9 pg/mL (3.0-54.0)
--- NOTE | 2022-03-21 05:09 | EKG12_ITS ---
Test Reason : A-FIB Blood Pressure : / mmHG Vent. Rate : 102 BPM Atrial Rate : 000 BPM P-R Int : 000 ms QRS Dur : 094 ms QT Int : 332 ms P-R-T Axes : 000 072 047 degrees QTc Int : 432 ms Atrial fibrillation with rapid ventricular response Abnormal ECG When compared with ECG of 18-SEP-2021 16:20, Atrial fibrillation has replaced Sinus rhythm Confirmed by MARY ANN GAYTAN, OBED ([id number]), rewrite editor GREG CALLES ([id number]) on 03/22/2022 1:15:06 PM Referred By: Confirmed By:OBED REESE MD
[2022-03-21 05:19] LABS: ALB/GLOB Ratio 0.9 RATIO (0.9-2.4); AST(SGOT) 117 U/L (15-37); Alanine Aminotransfer ALT/SGPT 85 U/L (13-56); Alkaline Phosphatase 172 U/L (45-117); Anion Gap 7 (5-15); BUN 12 mg/dL (7-18); BUN/Creat Ratio 17.9 RATIO (10-20); Calcium,Total 9.1 mg/dL (8.5-10.1); Chloride 111 mmol/L (98-107); Creatinine, Serum 0.67 mg/dL (0.55-1.02); EST Glomerular Filtration Rate 89 mL/min (>60); Est Glom Filt Rate - Afr Amer 108 mL/min (>60); Estimated Creatinine Clearance 30.61 ml/min; Globulin 3.3 g/dL (2.2-4.2); Glucose 94 mg/dL (74-106); Potassium 3.4 mmol/L (3.5-5.1); Protein, Total 6.3 g/dL (6.4-8.2); Sodium Level 140 mmol/L (136-145); T4 Free Direct 1.02 ng/dL (0.76-1.46); Thyroid Stim Hormone (TSH) 1.34 uIU/mL (0.358-3.74)
[2022-03-21 05:46] LABS: Absolute Lymphocyte Count 1.53 X10^3/uL (0.83-4.51); Absolute Neutrophil Count 3.6 X10^3/uL (2.0-7.7); Basophil# 0.02 X10^3/uL; Basophil% 0.3 % (0-1); Eosinophil# 0.08 X10^3/uL; Eosinophils% 1.3 % (0-5); Hematocrit 35.6 % (37-47); Hemoglobin 11.7 g/dL (12.0-15.0); Lymphocyte # 1.53 X10^3/ul (0.83-4.51); Lymphocyte % 25.5 % (19-41); Mean Corp Hgb Conc 32.9 g/dL (32-36); Mean Corpuscular Hgb 28.6 pg (27.0-32.0); Mean Platelet Vol. 11.7 fl (6.2-12.0); Monocyte# 0.79 X10^3/uL; Monocyte% 13.2 % (0-10); NRBC Flagged by Analyzer 0 % (0-5); Neutrophil # 3.55 X10^3/uL (2.7-7.7); Neutrophil % 59.4 % (47-70); Platelet Count 168 K/mm3 (150-450); RBC Distribution Width CV 13.6 % (11.6-14.6); RBC Distribution Width SD 43.3 fl (35.1-43.9); Red Blood Count 4.09 M/mm3 (4.2-5.4)
[2022-03-21] MEDS: dilTIAZem 25 MG/5 ML Vial 10 MG IV BOLUS (05:57)
[2022-03-21] MEDS: 0.9% Normal Saline 1,000 ML 100 ML IV ×2 (06:40→17:32)
[2022-03-21 07:42] LABS: Hemoglobin A1c 5.1 % (3.8-5.6)
[2022-03-21] MEDS: Aspirin 81 MG TAB.CHEW PO (07:48)
[2022-03-21] MEDS: Multivitamins,Therapeutic Tablet 1 TABLET PO (07:48)
[2022-03-21] MEDS: Carvedilol 6.25 MG Tablet PO (07:48)
[2022-03-21] MEDS: Donepezil HCl 5 MG Tablet PO (07:48)
[2022-03-21] MEDS: Enoxaparin 40 MG/0.4 ML Syringe SC (07:48)
[2022-03-21] MEDS: Cholecalciferol (VIT D3) 25 MCG TABLET (1,000 UNITS) 50 MCG PO (07:49)
[2022-03-21] MEDS: Potassium Chloride Oral Tablet 20 MEQ 40 MEQ PO (07:54)
[2022-03-21 07:55] LABS: Bedside Glucose 86 mg/dL (74-106)
[2022-03-21 11:16] LABS: Bedside Glucose 99 mg/dL (74-106)
--- NOTE | 2022-03-21 13:31 | PN.HOSP_ITS ---
Subjective Subjective Patient seen and examined. She had no active complaints this morning. She denied any dizziness, lightheadedness, chest pain, palpitations, dizziness, nausea, vomiting or diarrhea. Review of systems is otherwise negative. Objective Data Objective Data Vital Signs: Vital Signs Temp Pulse Resp BP Pulse Ox O2 Del Method 97.6 F L 97 16 116/78 96 Room Air 03/21/22 07:36 03/21/22 11:27 03/21/22 07:36 03/21/22 07:36 03/21/22 07:36 03/21/22 09:08 Oxygen Delivery Method Room Air Weight: 98 lb 15.801 oz Body Mass Index (BMI) 17.4 Intake & Output: Intake and Output for Last 24 Hours 03/19/22 03/20/22 03/21/22 23:59 23:59 23:59 Intake Total 500 / 500 1655 / 1655 Output Total 2100 / 2100 Balance 500 / 0 -445 / -445 Lab / Micro Data Result Diagrams: 03/21/22 05:02 03/21/22 01:37 Labs: Laboratory Results - last 24 hr 03/20/22 14:15: WBC 8.0, RBC 4.11 L, Hgb 11.5 L, Hct 35.5 L, MCV 86.4, MCH 28.0, MCHC 32.4, RDW Std Deviation 42.1, RDW Coeff of Amrita 13.4, Plt Count 189, MPV 11.6, Immature Gran % (Auto) 0.400, Neut % (Auto) 75.7 H, Lymph % (Auto) 13.8 L, [place] % (Auto) 9.9, Eos % (Auto) 0.1, Baso % (Auto) 0.1, Absolute Neuts (auto) 6.0, Absolute Lymphs (auto) 1.10, Nucleated RBC % 0 03/20/22 14:15: Sodium 139, Potassium 4.0, Chloride 107, Carbon Dioxide 26.0, Anion Gap 6, BUN 13, Creatinine 0.86, Estim Creat Clear Calc 49.05, Est GFR (MDRD) Af Amer 81, Est GFR (MDRD) Non-Af 67, BUN/Creatinine Ratio 15.0, Glucose 119 H, Calcium 9.5, Troponin I High Sens 8 03/20/22 14:15: Magnesium 1.9 03/20/22 19:20: Troponin I High Sens 9 03/20/22 21:05: Troponin I High Sens 9 03/20/22 21:39: Urine Color Yellow, Urine Clarity Clear, Urine pH 6.5, Ur Specific [place] 1.010, Urine Protein 15 H, Urine Glucose (UA) Normal, Urine Ketones 15 H, Urine Occult Blood Negative, Urine Nitrite Negative, Urine Bilirubin Negative, Urine Urobilinogen 1 H, Ur Leukocyte Esterase Negative, Urine RBC 0 SEEN, Urine WBC 0 SEEN, Ur Squamous Epith Cells 0-5 SEEN, Urine Bacteria 1+, Urine Mucus 0 SEEN 03/20/22 22:43: POC Glucose 95 03/21/22 01:37: Sodium 140, Potassium 3.4 L, Chloride 111 H, Carbon Dioxide 22.0, Anion Gap 7, BUN 12, Creatinine 0.67, Estim Creat Clear Calc 30.61, Est GFR (MDRD) Af Amer 108, Est GFR (MDRD) Non-Af 89, BUN/Creatinine Ratio 17.9, Glucose 94, Calcium 9.1, Total Bilirubin 0.50, AST 117 H, ALT 85 H, Alkaline Phosphatase 172 H, Total Protein 6.3 L, Albumin 3.0 L, Globulin 3.3, Alb umin/Globulin Ratio 0.9, TSH 1.34, Free T4 1.02 03/21/22 01:37: Troponin I High Sens 9 03/21/22 05:02: WBC 6.0, RBC 4.09 L, Hgb 11.7 L, Hct 35.6 L, MCV 87.0, MCH 28.6, MCHC 32.9, RDW Std Deviation 43.3, RDW Coeff of Amrita 13.6, Plt Count 168, MPV 11.7, Immature Gran % (Auto) 0.300, Neut % (Auto) 59.4, Lymph % (Auto) 25.5, [place] % (Auto) 13.2 H, Eos % (Auto) 1.3, Baso % (Auto) 0.3, Absolute Neuts (auto) 3.6, Absolute Lymphs (auto) 1.53, Nucleated RBC % 0 03/21/22 05:02: Hemoglobin A1c 5.1 03/21/22 06:27: POC Glucose 86 03/21/22 10:53: POC Glucose 99 Micro: Microbiology 03/20/22 19:05 Nasal Secretion SARS-CoV-2 Antigen (Rapid) - Final Radiography Diagnostic Testing: Radiology Impression Brain CT 03/20/22 13:42 IMPRESSION: Chronic involutional changes of the brain. Stable examination. Electronically Signed: Steven Gómez MD at 14:39 EDT , Cervical Spine CT 03/20/22 13:42 IMPRESSION: Multilevel degenerative changes, as described above. 1.1 cm hypodense nodule in the inferior aspect of the right lobe the thyroid. Electronically Signed: Steven Gómez MD at 14:43 EDT , Chest X-Ray 03/20/22 13:42 IMPRESSION: Hyperinflation. The lungs are clear. Electronically Signed: Steven Gómez MD at 14:55 EDT , Hip/Pelvis X-Ray 03/20/22 13:42 IMPRESSION: Degenerative changes. Electronically Signed: Steven Gómez MD at 14:58 EDT , Knee X-Ray 03/20/22 13:42 IMPRESSION: Degenerative arthrosis. Small joint effusion. Electronically Signed: Steven Gómez MD at 14:57 EDT , Knee X-Ray 03/20/22 13:42 IMPRESSION: Degenerative arthrosis. Small joint effusion. Electronically Signed: Steven Gómez MD at 15:00 EDT , Lower Extremity CT 03/20/22 15:08 IMPRESSION: Degenerative changes. No evidence of fracture or dislocation. Electronically Signed: Steven Gómez MD at 15:49 EDT , Rhythm Strip Rhythm Strip: Sinus Rhythm Rate: 80 Ectopy: PAC(s) Physical Exam Const alert, oriented x3 and no apparent distress HEENT head/scalp atraumatic and moist oral mucous membranes Head and Scalp: normocephalic Mouth: oral and palatal mucosa normal Eyes PERRL, EOMs intact bilaterally and conjunctivae normal Neck no lymphadenopathy and supple Resp normal respiratory effort, no retractions, no use of accessory muscles and clear to auscultation bilaterally Cardio regular rate, regular rhythm, S1 normal heart sound, S2 normal heart sound and no murmurs GI normal to inspection, nondistended, normoactive bowel sounds, soft to palpation, non-tender and non-distended Extremity normal to inspection, full ROM and no clubbing, cyanosis or edema General Extremity: edema Neuro oriented x3, CN's II-XII intact bilaterally, moves all extremities and no focal motor deficits Sensorium / Orientation: awake and alert Motor Exam: strength 5/5 throughout Psych affect normal Assessment & Plan Assessment/Plan (1) Syncope and collapse: (2) Multiple falls: PLAN: Plan #Syncope * orthostatics were positive yesterday. Hydrated with IVF. * EKG showed no acute St changes, though patient noted to be having episodic tachycardia on telemetry. * troponins x 3 wre negative. * 2D echo ordered * PT/OT on board * check orthostatics today. * #Hypokalemia: potassium is 3.4. Will replace and trend. #Debility due to mechanical fall * has intractable left hippain * on fall precautions. * PT/OT on board. * fall precautions * #Thyroid nodule * incidental finding on CT of the neck which showed 1.1cm hypodense nodule in te inferior aspect of the right lobe of the thyroid. * TSH and free T4 WNL at 1.34 and 1.02 respectively. * to get thyroid USG on outpatient basis. * #Dementia without behavioral disturbance * on amlodipine and benazepril * IV hydralazine prn * #Hyperlipidemia: on statin #Type 2 diabetes mellitus: currently not on any meds. ISS. Accuchecks ACHS. #DVT prophylaxis: lovenox Code status; DNRCCA no intubation Charges/Coding Visit Charges OBSV E&M: 61081 Subsequent observation care L2
--- NOTE | 2022-03-21 15:20 | CASEMGMT ---
NOEMI CM in to complete RODRIGUEZ form with patient. RN TONEY explained RODRIGUEZ form to patient, patient voiced understanding. Patient signed RODRIGUEZ form and filed in chart. Patient provided with copy of signed RODRIGUEZ form. Patient had no further questions or concerns at this time.
--- NOTE | 2022-03-21 15:44 | CASEMGMT ---
Therapy is recommending [facility] and HHC for pt at discharge. This RN CM to room and pt is agreeable to [facility] and states no preference for DME company, stating 'I have no idea.' [facility] is preferred DME company and script faxed to [facility] at this time. Pt is provided a list of HHC providers including quality and resource use data and consistent with the pt's preferred geographic region, medical needs, and insurance network. Pt declines HHC or OP therapy at this time d/t ' not liking people in our house.' Pt aware that OP or HHC can be set up by PCP once home, if needed. SStaten NOEMI ZIEGLER
--- NOTE | 2022-03-21 15:50 | EKG12_ITS ---
Test Reason : SYNCOPE Blood Pressure : / mmHG Vent. Rate : 082 BPM Atrial Rate : 082 BPM P-R Int : 150 ms QRS Dur : 096 ms QT Int : 376 ms P-R-T Axes : 076 072 066 degrees QTc Int : 439 ms Sinus rhythm with Premature supraventricular complexes Otherwise normal ECG Confirmed by GALINA GAYTAN, DONAVAN ([id number]), social media editor GREG CALLES ([id number]) on 03/23/2022 1:54:20 PM Referred By: BB Confirmed By:DONAVAN MOJICA MD
--- NOTE | 2022-03-21 16:13 | EKG12_ITS ---
Test Reason : abnormal prev ekg Blood Pressure : / mmHG Vent. Rate : 070 BPM Atrial Rate : 070 BPM P-R Int : 144 ms QRS Dur : 092 ms QT Int : 386 ms P-R-T Axes : 060 052 047 degrees QTc Int : 416 ms Normal sinus rhythm Normal ECG When compared with ECG of 21-MAR-2022 05:23, MANUAL COMPARISON REQUIRED, DATA IS UNCONFIRMED Confirmed by ARRON GAYTAN, SHIRLENE ([id number]), editor school photograph GREG CALLES ([id number]) on 03/23/2022 2:42:47 PM Referred By: Confirmed By:BG HELLER MD
[2022-03-21 16:50] LABS: Bedside Glucose 90 mg/dL (74-106)
[2022-03-21] MEDS: Atorvastatin Calcium 10 MG Tablet 5 MG PO (21:24)
[2022-03-21] MEDS: Gabapentin 300 MG Capsule PO (21:24)
[2022-03-21 22:41] LABS: Bedside Glucose 111 mg/dL (74-106)
[2022-03-22 02:59] VITALS: BP 145/72; PULSE 73; RESP 16; TEMP 36.4; O2SAT 96
[2022-03-22 03:00] VITALS: PULSE 74
[2022-03-22] MEDS: 0.9% Normal Saline 1,000 ML 100 ML IV (03:00)
[2022-03-22] MEDS: Acetaminophen 325 MG Tablet 650 MG PO (06:18)
[2022-03-22 07:00] LABS: Bedside Glucose 107 mg/dL (74-106)
[2022-03-22 07:21] LABS: Absolute Lymphocyte Count 1.54 X10^3/uL (0.83-4.51); Basophil# 0.02 X10^3/uL; Basophil% 0.4 % (0-1); Eosinophil# 0.09 X10^3/uL; Eosinophils% 1.7 % (0-5); Hematocrit 30.8 % (37-47); Hemoglobin 10.2 g/dL (12.0-15.0); Lymphocyte # 1.54 X10^3/ul (0.83-4.51); Lymphocyte % 28.5 % (19-41); Mean Corp Hgb Conc 33.1 g/dL (32-36); Mean Corpuscular Hgb 28.9 pg (27.0-32.0); Mean Corpuscular Volume 87.3 fL (81-99); Mean Platelet Vol. 11.4 fl (6.2-12.0); Monocyte# 0.76 X10^3/uL; NRBC Flagged by Analyzer 0 % (0-5); Neutrophil # 2.98 X10^3/uL (2.7-7.7); Platelet Count 145 K/mm3 (150-450); RBC Distribution Width CV 13.7 % (11.6-14.6); RBC Distribution Width SD 43.8 fl (35.1-43.9); Red Blood Count 3.53 M/mm3 (4.2-5.4); White Blood Count 5.4 K/mm3 (4.4-11.0)
[2022-03-22 07:28] VITALS: PULSE 64
[2022-03-22 08:00] LABS: Anion Gap 4 (5-15); BUN 10 mg/dL (7-18); BUN/Creat Ratio 14.3 RATIO (10-20); Chloride 112 mmol/L (98-107); EST Glomerular Filtration Rate 85 mL/min (>60); Est Glom Filt Rate - Afr Amer 103 mL/min (>60); Estimated Creatinine Clearance 35.88 ml/min; Glucose 103 mg/dL (74-106); Potassium 3.6 mmol/L (3.5-5.1); Sodium Level 141 mmol/L (136-145)
[2022-03-22 08:32] VITALS: BP 134/73; PULSE 65; RESP 16; TEMP 36.7; O2SAT 96
[2022-03-22] MEDS: Multivitamins,Therapeutic Tablet 1 TABLET PO (08:36)
[2022-03-22] MEDS: Enoxaparin 40 MG/0.4 ML Syringe SC (08:36)
[2022-03-22] MEDS: amLODIPine 5 MG Tablet PO (08:36)
[2022-03-22] MEDS: Carvedilol 6.25 MG Tablet PO (08:36)
[2022-03-22] MEDS: Cholecalciferol (VIT D3) 25 MCG TABLET (1,000 UNITS) 50 MCG PO (08:36)
[2022-03-22] MEDS: Donepezil HCl 5 MG Tablet PO (08:36)
[2022-03-22] MEDS: Aspirin 81 MG TAB.CHEW PO (08:37)
[2022-03-22] MEDS: Lisinopril 20 MG Tablet PO (08:37)
[2022-03-22 11:41] VITALS: PULSE 72
--- NOTE | 2022-03-22 13:34 | CASEMGMT ---
Addendum entered by Sana Farah 03/22/22 14:01: Script for FWW to be included in discharge packet. Original Note: RN TONEY called [facility] to confirm walker setup. RN CM spoke with Di who states she needs to speak with patient to confirm setup. RN CM took phone back to patient. Patient states she is too overwhelmed and her does not want her to have a walker. RN TONEY updated Di. Per Di she will reach out to the and states script for walker is good for one year. RN TONEY called and spoke with regarding walker through [facility]'s preferred provided [facility]. , Manuel, states he will hand picker a walker on his own for patient when he picks her up. RN TONEY called Di at [facility] regarding conversation with . CM will continue to follow this patient and plan for a safe discharge.
--- NOTE | 2022-03-22 14:17 | DS.PCM_ITS ---
Providers Date of Admission: 03/20/22 Date of Discharge: 03/22/22 Primary Care Physician: Dr. Avi Elliott MD Reason For Visit: SYNCOPE, FALLS, L HIP PAIN Diagnosis Discharge Diagnosis (1) Syncope and collapse: Status: Acute Code(s): R55 - Syncope and collapse (2) Multiple falls: Status: Acute Code(s): R29.6 - Repeated falls Plan #Syncope * orthostatics were positive yesterday. Hydrated with IVF. * EKG showed no acute St changes, though patient noted to be having episodic tachycardia on telemetry. * troponins x 3 wre negative. * 2D echo ordered * PT/OT on board * check orthostatics today. * #Hypokalemia: potassium is 3.4. Will replace and trend. #Debility due to mechanical fall * has intractable left hippain * on fall precautions. * PT/OT on board. * fall precautions * #Thyroid nodule * incidental finding on CT of the neck which showed 1.1cm hypodense nodule in te inferior aspect of the right lobe of the thyroid. * TSH and free T4 WNL at 1.34 and 1.02 respectively. * to get thyroid USG on outpatient basis. * #Dementia without behavioral disturbance * on amlodipine and benazepril * IV hydralazine prn * #Hyperlipidemia: on statin #Type 2 diabetes mellitus: currently not on any meds. ISS. Accuchecks ACHS. #DVT prophylaxis: lovenox Code status; DNRCCA no intubation Medications at Discharge Home Medications [id number]-i-fofnughezmdpc 150 unit tablet (Beano) 1 ea PO PRN PRN Gas 12/14/16 aspirin 81 mg chewable tablet 81 mg PO DAILY@0800 12/14/16 carvedilol 6.25 mg tablet 6.25 mg PO DAILY 12/14/16 cholecalciferol (vitamin D3) 50 mcg (2,000 unit) capsule (Vitamin D3) 2,000 unit PO DAILY 12/14/16 dextrin 3 gram/3.5 gram oral powder (Fiber (dextrin)) 350 g PO QODAY 12/14/16 gabapentin 300 mg capsule 1 tab PO QHS 12/14/16 lovastatin 20 mg tablet 1 tab PO QHS 12/14/16 multivitamin (Multiple Vitamins tablet) 1 ea PO DAILY 12/14/16 amlodipine 5 mg-benazepril 20 mg capsule 1 cap PO BID bp 03/20/22 donepezil 5 mg tablet 5 mg PO DAILY 03/20/22 estradiol 0.01% (0.1 mg/gram) vaginal cream vaginal 03/21/22 Hospital Course Operations None Procedures 2-D Echocardiogram Summary of Care Provided Minutes Spent on Discharge: 37 Hospital Course: Patient is an 81-year-old female with a past medical history as outlined who was admitted through the ED on 03/20/2022 with a complaint of mechanical fall. Her legs gave out and she fell in her kitchen and hit her head on the left side. Started having intractable pain on the left hip as well as her knees. She had associated lightheadedness and dizziness. CT of the brain showed no acute intracranial pathology and CT of the cervical spine was only significant for 1.1 cm hypodense nodule in the inferior aspect of the right lobe of the thyroid. Plain film of the left hip and pelvis showed no evidence of fracture and plain film of the left knee showed degenerative arthrosis and small joint effusion with CT of the left hip showed no evidence of fracture and showed degenerative changes. She was admitted to be managed for debility due to mechanical falls. Orthostatics done were positive and patient was hydrated with fluids. 2D echo showed EF of 55% with normal left ventricular size and systolic function and lipomatous hypertrophy of the atrial septum as well as stage I diastolic dysfunction and normal inferior vena cava. Patient's hospital course was uncomplicated and she worked well and was able to ambulate with therapy. Physical therapy recommended home health care but she refused. Patient improved and stabilized and was discharged home on 03/22/2022. She is follow-up with her primary care doctor within 1 to 2 weeks. Patient was counseled to remain well- hydrated. Patient was seen and examined prior to discharge. She had no active complaints. She had an uneventful night and review of systems otherwise negative. Labs and vitals reviewed. Home medication reviewed and reconciled. Physical Exam Const alert, oriented x3 and no apparent distress General Appearance: cooperative, comfortable and well kempt Orientation / Consciousness: awake Exam Limitations: no limitations HEENT normocephalic, head/scalp atraumatic, hearing grossly normal bilaterally and moist oral mucous membranes Eyes PERRL, EOMs intact bilaterally and conjunctivae normal Neck no lymphadenopathy and supple Resp normal respiratory effort, no retractions, no use of accessory muscles and clear to auscultation bilaterally Cardio regular rate, regular rhythm, S1 normal heart sound, S2 normal heart sound and no murmurs GI normal to inspection, nondistended, normoactive bowel sounds, soft to palpation, non-tender and non-distended Extremity normal to inspection, full ROM and no clubbing, cyanosis or edema General Extremity: edema Skin no rashes or lesions noted Neuro oriented x3, CN's II-XII intact bilaterally, moves all extremities and no focal motor deficits Sensorium / Orientation: awake and alert Motor Exam: strength 5/5 throughout Psych affect normal Weight / BMI Weight Weight: 134 lb 4.184 oz Body Mass Index (BMI) 17.4 ABG / Lab / Microbiology Data Result Diagrams: 03/22/22 06:59 03/22/22 06:59 Laboratory: Laboratory Results - last 24 hr 03/21/22 16:29: POC Glucose 90 03/21/22 21:21: POC Glucose 111 H 03/22/22 06:25: POC Glucose 107 H 03/22/22 06:59: WBC 5.4, RBC 3.53 L, Hgb 10.2 L, Hct 30.8 L, MCV 87.3, MCH 28.9, MCHC 33.1, RDW Std Deviation 43.8, RDW Coeff of Amrita 13.7, Plt Count 145 L, MPV 11.4, Immature Gran % (Auto) 0.400, Neut % (Auto) 55.0, Lymph % (Auto) 28.5, [place] % (Auto) 14.0 H, Eos % (Auto) 1.7, Baso % (Auto) 0.4, Absolute Neuts (auto) 3.0, Absolute Lymphs (auto) 1.54, Nucleated RBC % 0 03/22/22 06:59: Sodium 141, Potassium 3.6, Chloride 112 H, Carbon Dioxide 25.0, Anion Gap 4 L, BUN 10, Creatinine 0.70, Estim Creat Clear Calc 35.88, Est GFR (MDRD) Af Amer 103, Est GFR (MDRD) Non-Af 85, BUN/Creatinine Ratio 14.3, Glucose 103, Calcium 9.0 Microbiology: Microbiology 03/20/22 21:39 Urine, Clean Catch Urine Culture - Final Mixed Gram Positive Organisms 03/20/22 19:05 Nasal Secretion SARS-CoV-2 Antigen (Rapid) - Final Radiography Diagnostic Testing: Radiology Impression Echocardiogram 03/20/22 18:22 Interpretation Summary Normal LV size. Left ventricular systolic function is normal. The estimated ejection fraction is 55 %. Lipomatous hypertrophy of the atrial septum. Normal inferior vena cava. Stage 1 diastolic dysfunction. Ordering Physician: Renetta Dillon Referring Physician: Avi Elliott Chi Performed By: Hari Pisano RCS D/C Instructions Discharge Diet: Low fat / Low cholesterol Discharge Activity: Return to Normal Activity Weight Bearing Status: Weight bearing as tolerated Meaningful Use Info Meaningful Use Diagnoses (Choose all that apply): None applicable Discharge Plan Admission Admit Date/Time: 03/20/22 17:14 Primary Reason for Your Visit: syncope Attending Provider: Shanti Warren Primary Care Provider: Avi Elliott Chi Consulting Providers: Renetta Dillon Instructions Patient Instructions: ED Fall Prevention Discharge Orders/Prescriptions Prescriptions: Continued multivitamin [Multiple Vitamins] 1 EACH tablet 1 ea PO DAILY carvedilol 6.25 mg tablet 6.25 mg PO DAILY Label Comments: gabapentin 300 MG capsule 1 tab PO QHS Label Comments: TAKE 1 CAPSULE AT BEDTIME aspirin 81 MG tablet,chewable 81 mg PO DAILY@0800 lovastatin 20 mg tablet 1 tab PO QHS Label Comments: cholecalciferol (vitamin D3) [Vitamin D3] 2,000 UNIT capsule 2,000 unit PO DAILY Fiber (dextrin) 350 GM powder 350 g PO QODAY Beano 150 UNIT tablet 1 ea PO PRN PRN (Reason: Gas) donepezil 5 mg tablet 5 mg PO DAILY amlodipine-benazepril 5-20 mg capsule 1 cap PO BID estradiol 0.01 % (0.1 mg/gram) cream VAGINAL Referrals / Follow Up: Avi Elliott Chi, MD [Primary Care Provider] - Within 2 Weeks Disposition Disposition (needs filled in before D/C Order can be placed): Home, Self Care Charges/Coding Visit Charges OBSV E&M: 73748 Observation care discharge
[2022-03-22 15:28] VITALS: BP 162/70; PULSE 77; RESP 16; TEMP 36.7; O2SAT 96
== END 2022-03-22 15:56 | disposition home or self-care (01) ==
LOC: ED 17:29 → PCU 17:34
PROVIDERS: Admitting Provider Family Medicine; Emergency Provider Emergency Medicine; PCP Family Medicine Geriatric Medicine; Visit Provider Student in an Organized Health Care Education/Training Program
DX: R55 Syncope and collapse (principal); F03.90 Unspecified dementia, unspecified severity, without behavioral disturbance, psychotic disturbance, mood disturbance, and anxiety; E11.9 Type 2 diabetes mellitus without complications; E78.5 Hyperlipidemia, unspecified; R53.81 Other malaise; S80.01XA Contusion of right knee, initial encounter; E87.6 Hypokalemia; S80.02XA Contusion of left knee, initial encounter; R26.2 Difficulty in walking, not elsewhere classified; Y93.9 Activity, unspecified; S09.90XA Unspecified injury of head, initial encounter; R11.0 Nausea; Z87.891 Personal history of nicotine dependence; Z79.82 Long term (current) use of aspirin; M16.12 Unilateral primary osteoarthritis, left hip; I10 Essential (primary) hypertension; Z79.899 Other long term (current) drug therapy; W19.XXXA Unspecified fall, initial encounter; Y92.89 Other specified places as the place of occurrence of the external cause; E04.1 Nontoxic single thyroid nodule
CPT/HCPCS: 36415; 70450; 71045; 72125; 73502; 73560; 73564; 73700; 80048; 80053; 81001; 82962; 83036; 83735; 84439; 84443; 84484; 85025; 87086; 87088; 87811; 93005; 93306; 96361; 96372; 96374; 96375; 97162; 97166; 97530; 97802; 99218; 99251; 99285; J7030; J7040; G0378; G0463; J2405

== ENCOUNTER 2022-04-23 19:18 | Emergency (ER) | payer MEDICARE, SELFPAY ==
[2022-04-23 19:19] VITALS: BP 141/6; PULSE 73; RESP 18; TEMP 36.2; O2SAT 97; BMI 25.2
--- NOTE | 2022-04-23 19:59 | CT_ITS ---
INDICATION: polytrauma -- LLQ pain, GI bleed EXAMINATION: CT ABDOMEN AND PELVIS WITH CONTRAST - CT Chest Abdomen And Pelvis W/ Contrast Injection TECHNIQUE: Helically acquired images were obtained of the abdomen and pelvis following IV contrast. A radiation dose optimization technique was used for this scan. IV Contrast dosage and agent: 100 mL [id number] Oral contrast: None. Radiation Dose (provided by facility) CTDIvol (15.22 ) mGy, DLP ( 1134.76) mGy-cm COMPARISON: None. FINDINGS: CT CHEST: LUNGS: 1. No focal infiltrate or pulmonary contusion. There is a mildly lobulated soft tissue nodule at the LEFT lung base measuring 16.5 x 16.9 mm. There is an additional 6 mm nodule along the pleural surface of the RIGHT lower lobe. Findings are stable. 2. No evidence of effusion or pneumothorax. PLEURAL SPACES: Unremarkable, no effusion or pneumothorax noted.. HEART: Unremarkable. No pericardial effusion. Scattered coronary vascular calcifications are present. VASCULATURE: Unremarkable. No aortic aneurysm. MEDIASTINUM AND LYMPH NODES: Unremarkable. No significant adenopathy. CERVICAL THORACIC JUNCTION: There is normal appearance of the visualized airway. No masses or abnormal fluid collections. Several thyroid nodules are noted largest on the RIGHT measuring approximately [address] ABDOMEN PELVIS: HEPATOBILIARY: Liver: The liver is homogeneous and shows no evidence of focal lesion. No parenchymal laceration or hemorrhage. Gallbladder: Not visualized likely surgically absent. Mild prominence of the biliary ductal system without obstructing calcifications, maximal dimension estimated at 6.6 mm Pancreas: Pancreas is normal size configuration and density. No mass is noted. Spleen: The spleen is homogeneous and normal in size. . No evidence of parenchymal laceration or hemorrhage BOWEL: 1. Stomach: The stomach is normal in size configuration, no evidence of focal masses, abnormal calcifications. No hiatal hernia noted. 2. Bowel: Large and small bowel segments have normal configuration, multiple segments of fluid-filled minimally distended small bowel are present. Findings are nonspecific. There is moderate diverticulosis without evidence diverticulitis. No masses or bowel obstruction. 3. Appendix: Surgical clips at the level of cecum. Appendix is not visualized: GENITOURINARY: Adrenals: Both adrenal glands are normal in size. Kidneys: Kidneys appear symmetric in size. No calcifications are seen in the collecting system. There is no hydronephrosis or surrounding fluid. Benign-appearing RIGHT renal cyst is present. Extrarenal pelvis is noted bilaterally, no calcifications or obstructive uropathy. Bladder: Bladder is moderately distended. No calcifications or masses noted Pelvic organs: Pessary is noted. No pelvic masses or abnormal fluid collections. RETROPERITONEUM: Diffuse aortic calcifications with focal fusiform aneurysmal dilatation measuring approximately 2.4 x 2.9 cm. No dissection or intraluminal filling defects. Diffuse calcifications throughout the iliac vessels. ANTERIOR ABDOMINAL WALL: Normal, no hernia identified. CHEST ABDOMEN PELVIS - BONES AND BODY WALL SOFT TISSUES: 1. No fractures noted involving the shoulders including the clavicles. 2. No fractures involving the sternum. Registration artifact is however noted. 3. No rib fractures identified bilaterally. 4. Mild thoracic spondylosis without evidence of fracture or canal stenosis. Chronic vertebral body loss at the T11 level. 5. There is normal alignment of the lumbar vertebra. There is however it irregular appearance the inferior endplate of L1, no displaced fractures noted however subtle compression deformity is a consideration. No other acute fractures identified involving lumbar spine. 6. No fractures involving the sacrum, sacroiliac joints and pelvic ring. OTHER: None CT/CT Chest, Abd, Pel w/Contrast IMPRESSION: 1. Stable appearance bilateral pulmonary nodule/masses. Follow-up as previously recommended which could include PET imaging versus biopsy. 2. No evidence of pulmonary contusion consolidation or effusion. 3. No pneumothorax or effusion. 4. No evidence of acute vascular injury in the chest. 5. Mild chronic appearing compression deformity at T11. There has been interval development of subtle deformity involving the inferior endplate of L1 CONSISTENT WITH AN ACUTE INFERIOR ENDPLATE COMPRESSION FRACTURE, no subluxation or canal stenosis. 6. No other evidence of acute fractures throughout the chest abdomen or pelvis. 7. No evidence of acute traumatic injury of solid organs of the abdomen and pelvis including liver, pancreas, spleen, or kidneys. 8. No intraperitoneal or retroperitoneal hematoma or fluid collection. 9. No evidence of bowel obstruction. Nonspecific pattern of bowel including extensive diverticulosis. 10. No evidence diverticulitis or appendicitis. 11. RIGHT renal cyst. 12. Infrarenal abdominal aortic aneurysm with maximal dimension of 2.4 x 2.9 cm. There has been negligible interval change. 13. Multiple thyroid nodule/cyst. Electronically Signed: Sadi Nolen MD at 22:29 EDT ,
--- NOTE | 2022-04-23 19:59 | CT_ITS ---
INDICATION: head injury EXAMINATION: CT BRAIN - CT Head or Brain W/O Contrast Injection TECHNIQUE: Multiple axial images were obtained of the head without intravenous contrast. A radiation dose optimization technique was used for this scan. IV Contrast dosage and agent: None. RADIATION DOSAGE (If Supplied By Facility): CTDIvol = ( 44.99 ) mGy, DLP = ( 812.98 ) mGycm COMPARISON: 03/20/2022 FINDINGS: HEMISPHERES: 1. The cerebral parenchyma, ventricular system, subarachnoid spaces have unchanged configuration and density. There is a normal gyral pattern. There is normal dooley/white differentiation. No midline shift.. 2. Diffuse involutional change, moderate to extensive chronic deep white matter disease noted. Moderate ventriculomegaly without interval change however no transependymal CSF migration or obstructive changes noted. 3. No intraparenchymal mass, hemorrhage, or acute territorial infarct. CEREBELLUM - BRAINSTEM: The cerebellum, brainstem, basilar and suprasellar cisterns have normal appearance. No Chiari malformation. PITUITARY: Infundibulum and pituitary have normal configuration. Midline structures appear normal. CSF SPACES: Appropriate for age. No hydrocephalus. Basal cisterns are patent. There is prominence of the cisterna magna. VESSELS: 1. Moderate vascular calcifications and cavernous carotid vessels. 2. No hyperdense vascular signs noted.. ORBITS AND PARANASAL SINUSES: 1. Normal appearance of the bony orbits. Normal appearance of the globes and retrobulbar soft tissues.. 2. Paranasal sinuses are clear. BONY ELEMENTS: Bony elements of the cranial vault, facial skeleton and skull base have normal appearance. SCALP AND SOFT TISSUES: Normal appearance of the soft tissues of the scalp and the visualized face OTHER: None ASPECTS Score for Acute Strokes: 10 CT/Brain/Head without Contrast IMPRESSION: 1. Stable exam. 2. Diffuse involutional change, chronic microvascular deep white matter disease and stable ventriculomegaly without evidence of acute obstructive changes. 3. No mass, hemorrhage, or acute territorial infarct. 4. No intracranial evidence of acute traumatic injury. 5. No cranial facial fractures. No fluid or blood in the paranasal sinuses middle ear cavities or mastoid air cells. Electronically Signed: Sadi Nolen MD at 21:32 EDT ,
--- NOTE | 2022-04-23 19:59 | EKG12_ITS ---
Test Reason : DYSRHYTHMIA Blood Pressure : / mmHG Vent. Rate : 067 BPM Atrial Rate : 067 BPM P-R Int : 150 ms QRS Dur : 096 ms QT Int : 416 ms P-R-T Axes : 075 060 050 degrees QTc Int : 439 ms Normal sinus rhythm Normal ECG Confirmed by GALINA GAYTAN, DONAVAN ([id number]), editor in chief GREG CALLES ([id number]) on 04/24/2022 9:23:10 AM Referred By: KEREN Confirmed By:DONAVAN MOJICA MD
--- NOTE | 2022-04-23 19:59 | CT_ITS ---
CLINICAL HISTORY: polytrauma Date: 04/23/2022 8:53 PM Date of : 1940 Technique: CT examination of the CERVICAL spine obtained with standard protocol including axial imaging with additional reconstructions. Contrast: No contrast administered A dose lowering technique was used using automated exposure control, adjustment of mA and/or kV according to the patient''s size and the use of iterative reconstruction technique. Comparison: No previous for comparison FINDINGS: VERTEBRAL AND ALIGNMENT: 1. Vertebral bodies and alignment are within normal limits. No fractures, subluxation, focal lytic or sclerotic bony lesions noted. 2. Multilevel facet and uncovertebral joint hypertrophic changes with mild chronic foraminal narrowing at multiple levels most significantly at C4-5. 3. There is normal appearance of the odontoid process, prevertebral soft tissue planes and alignment of the craniocervical junction. DISC SPACES: Mild disc space narrowing most notable at C4-5. No acute disc herniation or focal canal stenosis noted. CERVICAL THORACIC JUNCTION AND VISUALIZED UPPER CHEST: 1. There is normal alignment of the cervical thoracic junction. Visualized ribs and upper lung zones are normal in appearance. PARASPINOUS SOFT TISSUES: Normal appearance the paraspinous soft tissues without evidence of fluid accumulation masses or posttraumatic hematomas OTHER: Coarse calcifications involving the carotid bulb bilaterally. There is a low-density nodule within the RIGHT thyroid lobe measuring [address]/Spine Cervical without Contras IMPRESSION: 1. Mild cervical spondylosis facet arthrosis with narrowing of neural foramina most notable at C4-5. 2. No evidence of fractures, malalignment or acutely acquired canal stenosis involving the cervical spine. 3. Carotid vascular calcifications in the RIGHT thyroid nodule. Electronically Signed: Sadi Nolen MD at 21:40 EDT ,
--- NOTE | 2022-04-23 20:10 | EX.ED.DYSGE1 ---
HPI History of Present Illness Chief Complaint: GI Bleed Informant: patient and spouse/S.O. Narrative Narrative: Here with spouse for evaluation and multiple complaints. Initial report blood in the stools today after giving herself an enema. There is small amount of stools. Last bowel movement a week ago. She typically has constipation. She does have history of dementia. Reports 5 days ago had a fall in the home. She states she has been in bed multiple times having pain in her back therefore is not ambulated she is able to go to the restroom. She was admitted previously unclear at this time when was recommended a walker. 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 Due to her back pain she has been laying in bed. She states when going the bathroom at times she passed out and do not know why. Other times able to go. There is no pain in her extremities or paresthesias. Reported by significant other when she fell had hip pain got admitted due to unable to walk. There is no fractures found. She does not take any blood thinners she stopped taking aspirin 5 to 6 weeks ago. She does report headache. Reports lower back pain. Denies chest pains. Reports pain in her back radiating to her left lower quadrant since her injury. No history of colonoscopies. No history of diverticulitis. 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 Multiple falls Home Medications carvedilol 6.25 mg tablet 6.25 mg PO DAILY 12/14/16 [History Last Taken 03/20/22] cholecalciferol (vitamin D3) 50 mcg (2,000 unit) capsule (Vitamin D3) 2,000 unit PO DAILY 12/14/16 [History Last Taken 03/20/22] dextrin 3 gram/3.5 gram oral powder (Fiber (dextrin)) 350 g PO QODAY 12/14/16 [History Last Taken 03/18/22] gabapentin 300 mg capsule 1 tab PO QHS 12/14/16 [History Last Taken 03/19/22] lovastatin 20 mg tablet 1 tab PO QHS 12/14/16 [History Last Taken 03/19/22] multivitamin (Multiple Vitamins tablet) 1 ea PO DAILY 12/14/16 [History Last Taken 03/20/22] amlodipine 5 mg-benazepril 20 mg capsule 1 cap PO BID bp 03/20/22 [History Last Taken 03/20/22] donepezil 5 mg tablet 5 mg PO DAILY 03/20/22 [History Last Taken 03/19/22] estradiol 0.01% (0.1 mg/gram) vaginal cream vaginal 03/21/22 [History Last Taken 03/19/22] docusate sodium 100 mg capsule (Colace) 100 mg PO DAILY #30 caps 04/23/22 [Rx Last Taken Unknown] Allergy/AdvReac Type Severity Reaction Status Date / Time adhesive Allergy Rash Verified 04/23/22 19:19 cough syrup AdvReac Unknown Uncoded 04/23/22 19:19 Family History Mother Diabetes Heart disease Hypertension Cerebral hemorrhage Father Brain cancer Surgical History Hx of appendectomy Hx of cholecystectomy Hx of hysterectomy S/P tonsillectomy and adenoidectomy Social History household members: spouse Smoking Status: Former smoker how long ago did patient quit smoking: Smoked age [age]. 3-5 cig/day, quit following. alcohol intake: current alcohol intake frequency: holidays/special occasions only substance use type: does not use ROS ROS ED Constitutional Constitutional ED: Denies chills, fever(s) or sweats Eyes Eyes: Denies change in vision ENT ENT ED: Denies dysphagia or sore throat Cardiovascular Cardiovascular: Denies chest pain, leg edema, palpitations or racing heartbeat Respiratory/Chest Respiratory/Chest: Denies cough, dyspnea or dyspnea on exertion Gastrointestinal Gastrointestinal: Reports abdominal pain and other Details: Blood in stools. ; Denies diarrhea, nausea or vomiting Genitourinary Genitourinary ED: Denies dysuria, hematuria or urinary frequency Musculoskeletal Musculoskeletal: Reports back pain; Denies extremity pain or neck pain Integumentary Denies rash or wounds Neurologic Neurologic: Reports headache(s); Denies paresthesias or weakness EXAM Physical Exam Const Vital Signs: 04/23/22 19:19 04/23/22 21:18 04/23/22 23:00 Temperature 97.2 F L Temperature Source Temporal Pulse Rate 73 68 67 Respiratory Rate 18 15 17 Blood Pressure 141/6 H 106/42 L Blood Pressure Mean 51 63 Pulse Ox 97 98 97 Oxygen Delivery Method Room Air Room Air Room Air 04/23/22 23:48 Temperature Temperature Source Pulse Rate 68 Respiratory Rate 17 Blood Pressure 131/74 H Blood Pressure Mean Pulse Ox 99 Oxygen Delivery Method Positive well nourished and well developed Constitutional Narrative: GCS 15. General Appearance ED: well developed and NAD HEENT Reports moist mucous membranes HEENT Narrative: No hemotympanums. normocephalic and atraumatic Eyes PERRL, EOMs intact bilaterally and conjunctivae normal General Eye ED: Yes normal appearance of both eyes Neck no lymphadenopathy and supple Neck Narrative: No midline tenderness no paraspinal tenderness. General: Negative for tenderness Chest Wall inspection of chest normal and palpation of chest normal Chest Narrative: No anterior chest wall pain. Chest: Negative for tenderness Resp normal respiratory effort and normal air movement Resp Narrative: Symmetric breath sounds. Effort and Inspection: symmetric chest movement; Negative for respiratory distress Cardio regular rate, regular rhythm and no murmurs Peripheral Pulses: pulses 2+ throughout GI normal to inspection, nondistended, normoactive bowel sounds GI Narrative: Tender palpation right side mid abdomen left lower quadrant. Palpation: Negative for guarding or rebound tenderness present Back/Spine no CVA tenderness and no thoracic nor lumbar tenderness Back/Spine Narrative: Healing yellow bruise right upper Thoracics. Skin intact. No midline tenderness of the thoracic or lumbar spine. Extremity normal to inspection General Extremety ED: Negative for edema or tenderness General Extremity: Negative for edema Neuro CN's II-XII intact bilaterally and no sensory deficits noted Sensorium / Orientation: awake and alert Skin no rashes or lesions noted and no wounds MDM MDM MDM Narrative Medical decision making narrative: Patient here with multiple symptoms. Reported fall 5 days ago no ED evaluation reporting left lower back pain left lower abdominal pain. Reported possible blood in her stools this evening. She does not currently take anticoagulants. She is tender left lower quadrant. She reports headache with the fall. EKG was normal with her reported syncopal episodes. Labs hemoglobin 12.4. White cell 6.1. Electrolytes normal. Urine was negative for infection. Treated with low-dose morphine and Zofran for symptoms. Trauma scans head and neck were negative. She had healing ecchymosis upper thoracic tender left lower quadrant trauma scans chest abdomen pelvis also obtain negative for acute process there is no diverticulosis without diverticulitis. There was reported questionable L1 inferior endplate fracture, however she is nontender in this region. Chronic T11 fracture. Rectal exam no hemorrhoids and no gross bleeding noted. Discussed with patient this time avoiding NSAIDs and use Tylenol as needed. She then reports recent stools have been large and hard in nature. She is alert and oriented x3. We will place her back on a stool softener. She was given a dose in the ED along with Tylenol. Discussed tricked return precautions with patient and significant other. There is no additional bleeding in the ED. All questions were answered. Lab Data Attestation: I reviewed the patient's lab results. Labs: Laboratory Results - last 24 hr 04/23/22 04/23/22 04/23/22 19:45 19:45 19:45 WBC 6.1 RBC 4.41 Hgb 12.4 Hct 38.6 MCV 87.5 MCH 28.1 MCHC 32.1 RDW Std Deviation 41.7 RDW Coeff of Amrita 13.1 Plt Count 176 MPV 12.5 H Immature Gran % (Auto) 0.500 Neut % (Auto) 57.4 Lymph % (Auto) 30.2 Ness % (Auto) 10.5 H Eos % (Auto) 0.7 Baso % (Auto) 0.7 Absolute Neuts (auto) 3.5 Absolute Lymphs (auto) 1.85 Nucleated RBC % 0 PT 14.1 INR 1.1 APTT 30.3 Sodium 140 Potassium 3.4 L Chloride 105 Carbon Dioxide 27.0 Anion Gap 8 BUN 17 Creatinine 0.96 Estim Creat Clear Calc 35.12 Est GFR (MDRD) Af Amer 71 Est GFR (MDRD) Non-Af 59 L BUN/Creatinine Ratio 17.6 Glucose 100 Calcium 10.6 H Total Bilirubin 0.60 AST 12 L ALT 13 Alkaline Phosphatase 116 Total Protein 7.1 Albumin 3.6 Globulin 3.5 Albumin/Globulin Ratio 1.0 Lipase 142 Urine Color Urine Clarity Urine pH Ur Specific [place] Urine Protein Urine Glucose (UA) Urine Ketones Urine Occult Blood Urine Nitrite Urine Bilirubin Urine Urobilinogen Ur Leukocyte Esterase Urine RBC Urine WBC Ur Squamous Epith Cells Urine Bacteria Urine Mucus Blood Type Antibody Screen 04/23/22 04/23/22 19:45 21:45 WBC RBC Hgb Hct MCV MCH MCHC RDW Std Deviation RDW Coeff of Amrita Plt Count MPV Immature Gran % (Auto) Neut % (Auto) Lymph % (Auto) Ness % (Auto) Eos % (Auto) Baso % (Auto) Absolute Neuts (auto) Absolute Lymphs (auto) Nucleated RBC % PT INR APTT Sodium Potassium Chloride Carbon Dioxide Anion Gap BUN Creatinine Estim Creat Clear Calc Est GFR (MDRD) Af Amer Est GFR (MDRD) Non-Af BUN/Creatinine Ratio Glucose Calcium Total Bilirubin AST ALT Alkaline Phosphatase Total Protein Albumin Globulin Albumin/Globulin Ratio Lipase Urine Color Straw Urine Clarity Clear Urine pH 6.5 Ur Specific [place] 1.010 Urine Protein Negative Urine Glucose (UA) Normal Urine Ketones 15 H Urine Occult Blood Negative Urine Nitrite Negative Urine Bilirubin Negative Urine Urobilinogen Normal Ur Leukocyte Esterase Negative Urine RBC 0 SEEN Urine WBC 0 SEEN Ur Squamous Epith Cells 0 SEEN Urine Bacteria 0 SEEN Urine Mucus 0 SEEN Blood Type O POSITIVE Antibody Screen NEGATIVE Radiography Diagnostic Testing: Clinical Impression(s) from Imaging Studies Brain CT 04/23/22 19:59 IMPRESSION: 1. Stable exam. 2. Diffuse involutional change, chronic microvascular deep white matter disease and stable ventriculomegaly without evidence of acute obstructive changes. 3. No mass, hemorrhage, or acute territorial infarct. 4. No intracranial evidence of acute traumatic injury. 5. No cranial facial fractures. No fluid or blood in the paranasal sinuses middle ear cavities or mastoid air cells. Electronically Signed: Sadi Nolen MD at 21:32 EDT , Cervical Spine CT 04/23/22 19:59 IMPRESSION: 1. Mild cervical spondylosis facet arthrosis with narrowing of neural foramina most notable at C4-5. 2. No evidence of fractures, malalignment or acutely acquired canal stenosis involving the cervical spine. 3. Carotid vascular calcifications in the RIGHT thyroid nodule. Electronically Signed: Sadi Nolen MD at 21:40 EDT , Chest/Abdomen/Pelvis CT 04/23/22 19:59 IMPRESSION: 1. Stable appearance bilateral pulmonary nodule/masses. Follow-up as previously recommended which could include PET imaging versus biopsy. 2. No evidence of pulmonary contusion consolidation or effusion. 3. No pneumothorax or effusion. 4. No evidence of acute vascular injury in the chest. 5. Mild chronic appearing compression deformity at T11. There has been interval development of subtle deformity involving the inferior endplate of L1 CONSISTENT WITH AN ACUTE INFERIOR ENDPLATE COMPRESSION FRACTURE, no subluxation or canal stenosis. 6. No other evidence of acute fractures throughout the chest abdomen or pelvis. 7. No evidence of acute traumatic injury of solid organs of the abdomen and pelvis including liver, pancreas, spleen, or kidneys. 8. No intraperitoneal or retroperitoneal hematoma or fluid collection. 9. No evidence of bowel obstruction. Nonspecific pattern of bowel including extensive diverticulosis. 10. No evidence diverticulitis or appendicitis. 11. RIGHT renal cyst. 12. Infrarenal abdominal aortic aneurysm with maximal dimension of 2.4 x 2.9 cm. There has been negligible interval change. 13. Multiple thyroid nodule/cyst. Electronically Signed: Sadi Nolen MD at 22:29 EDT , EKG Initial EKG: Attestation: I personally reviewed and interpreted this EKG as follows: Comments: Sinus rate of 67, no ST changes T wave version V1 -V2. Similar to May 21, 2022. Discharge Plan Triage Chief Complaint: GI Bleed ED Provider: Duncan Grimes/Rx/DC Orders Clinical Impression: Fall, Back pain, Abdominal pain, Headache, Syncope Instructions: Abdominal Pain, Diagnosing Syncope Prescriptions: New docusate sodium [Colace] 100 mg capsule 100 mg PO DAILY Qty: 30 0RF No Action multivitamin [Multiple Vitamins] 1 EACH tablet 1 ea PO DAILY carvedilol 6.25 mg tablet 6.25 mg PO DAILY Label Comments: gabapentin 300 MG capsule 1 tab PO QHS Label Comments: TAKE 1 CAPSULE AT BEDTIME lovastatin 20 mg tablet 1 tab PO QHS Label Comments: cholecalciferol (vitamin D3) [Vitamin D3] 2,000 UNIT capsule 2,000 unit PO DAILY Fiber (dextrin) 350 GM powder 350 g PO QODAY donepezil 5 mg tablet 5 mg PO DAILY amlodipine-benazepril 5-20 mg capsule 1 cap PO BID estradiol 0.01 % (0.1 mg/gram) cream VAGINAL Primary Care Provider: Avi Elliott Chi Referrals: Avi Elliott Chi, MD [Primary Care Provider] - Activity Restrictions/Additional Instructions: CT head and neck negative. CT chest abdomen pelvis with no x-rays. Chronic T11 compression fracture. Irregularity inferior endplate of L1 consideration of compression fracture however clinically nontender in this area. Diverticulosis without diverticulitis. Hemoglobin normal. White count normal. No diverticulitis. Use Tylenol 1 g every 6 hours as needed. Take Colace as prescribed with reported hard stools. Disposition Disposition: Home, Self Care Discharge Date/Time: 04/23/22 23:49
[2022-04-23] MEDS: 0.9% Normal Saline 1,000 ML 150 ML IV (20:18)
[2022-04-23] MEDS: Ondansetron 4 MG/2 ML Vial IV (20:21)
[2022-04-23] MEDS: Morphine 2 MG/ML Syringe IV (20:21)
[2022-04-23 20:29] LABS: Absolute Lymphocyte Count 1.85 X10^3/uL (0.83-4.51); Absolute Neutrophil Count 3.5 X10^3/uL (2.0-7.7); Basophil# 0.04 X10^3/uL; Basophil% 0.7 % (0-1); Eosinophil# 0.04 X10^3/uL; Eosinophils% 0.7 % (0-5); Hematocrit 38.6 % (37-47); Hemoglobin 12.4 g/dL (12.0-15.0); Lymphocyte # 1.85 X10^3/ul (0.83-4.51); Lymphocyte % 30.2 % (19-41); Mean Corp Hgb Conc 32.1 g/dL (32-36); Mean Corpuscular Hgb 28.1 pg (27.0-32.0); Mean Corpuscular Volume 87.5 fL (81-99); Mean Platelet Vol. 12.5 fl (6.2-12.0); Monocyte# 0.64 X10^3/uL; Monocyte% 10.5 % (0-10); NRBC Flagged by Analyzer 0 % (0-5); Neutrophil # 3.52 X10^3/uL (2.7-7.7); Neutrophil % 57.4 % (47-70); Platelet Count 176 K/mm3 (150-450); RBC Distribution Width CV 13.1 % (11.6-14.6); RBC Distribution Width SD 41.7 fl (35.1-43.9); Red Blood Count 4.41 M/mm3 (4.2-5.4); White Blood Count 6.1 K/mm3 (4.4-11.0)
[2022-04-23 20:39] LABS: International Normalized Ratio 1.1; Partial Thromboplast Time 30.3 Seconds (24.1-36.2); Prothrombin Time (Protime)PT. 14.1 SECONDS (11.7-14.9)
[2022-04-23 20:45] LABS: AST(SGOT) 12 U/L (15-37); Alanine Aminotransfer ALT/SGPT 13 U/L (13-56); Albumin, Serum 3.6 g/dL (3.2-5.0); Alkaline Phosphatase 116 U/L (45-117); Anion Gap 8 (5-15); BUN 17 mg/dL (7-18); BUN/Creat Ratio 17.6 RATIO (10-20); Calcium,Total 10.6 mg/dL (8.5-10.1); Chloride 105 mmol/L (98-107); Creatinine, Serum 0.96 mg/dL (0.55-1.02); EST Glomerular Filtration Rate 59 mL/min (>60); Est Glom Filt Rate - Afr Amer 71 mL/min (>60); Estimated Creatinine Clearance 35.12 ml/min; Globulin 3.5 g/dL (2.2-4.2); Glucose 100 mg/dL (74-106); Lipase 142 U/L (73-393); Potassium 3.4 mmol/L (3.5-5.1); Protein, Total 7.1 g/dL (6.4-8.2); Sodium Level 140 mmol/L (136-145)
[2022-04-23 21:18] VITALS: PULSE 68; RESP 15; O2SAT 98
[2022-04-23 21:50] LABS: Bacteria 0 SEEN /hpf (None Seen); Mucous, Urine 0 SEEN /hpf (<or=2+); Red Blood Cells-Urine 0 SEEN /hpf (0-5); Squamous Epithelial Cells - UA 0 SEEN /hpf (5-10); White Blood Cells 0 SEEN /hpf (0-5)
[2022-04-23 22:11] LABS: Color, Urine Straw (Yellow); Glucose, Dipstick Normal (Normal); Ketone-Dipstick 15 mg/dl (Negative); Leukocyte Esterase-Dipstick Negative /ul (Negative); Nitrite-Dipstick Negative (Negative); Occult Blood-Urine Negative /ul (Negative); Protein-Dipstick Negative (Negative); Urine Bilirubin Dipstick Negative (Negative); Urine Clarity Clear (Clear); Urine Urobilinogen Normal (Normal); Urine pH 6.5 (5.0 - 8.0)
[2022-04-23 23:00] VITALS: BP 106/42; PULSE 67; RESP 17; O2SAT 97
[2022-04-23] MEDS: Docusate Sodium 100 MG Capsule PO (23:38)
[2022-04-23] MEDS: Acetaminophen 500 MG Tablet 1000 MG PO (23:39)
[2022-04-23 23:48] VITALS: BP 131/74; PULSE 68; RESP 17; O2SAT 99
== END 2022-04-23 23:49 | disposition home or self-care (01) ==
PROVIDERS: Emergency Provider Emergency Medicine; PCP Family Medicine Geriatric Medicine; Visit Provider Emergency Medicine
DX: S22.089A Unspecified fracture of T11-T12 vertebra, initial encounter for closed fracture (principal); E11.9 Type 2 diabetes mellitus without complications; K92.2 Gastrointestinal hemorrhage, unspecified; R55 Syncope and collapse; E78.5 Hyperlipidemia, unspecified; I10 Essential (primary) hypertension; R10.814 Left lower quadrant abdominal tenderness; Z87.891 Personal history of nicotine dependence; Z79.899 Other long term (current) drug therapy; W19.XXXA Unspecified fall, initial encounter
CPT/HCPCS: 70450; 71260; 72125; 74177; 80053; 81001; 83690; 85025; 85610; 85730; 86850; 86900; 86901; 93005; 96361; 96374; 96375; 99285; J7030; Q9967; A4216; J2405

== ENCOUNTER 2022-04-24 16:13 | Observation (INO) | payer MEDICARE, SELFPAY ==
[2022-04-24] VITALS (8 sets, daily range): BP systolic 106–133; BP diastolic 60–70; PULSE 64–141; RESP 16–18; TEMP 35.8–36.7; O2SAT 94–100; BMI 25.6; BMI 25.4
--- NOTE | 2022-04-24 16:29 | EKG12_ITS ---
Test Reason : SOB Blood Pressure : / mmHG Vent. Rate : 057 BPM Atrial Rate : 057 BPM P-R Int : 132 ms QRS Dur : 092 ms QT Int : 436 ms P-R-T Axes : 067 067 064 degrees QTc Int : 424 ms Sinus bradycardia Otherwise normal ECG Confirmed by MARY ANN GAYTAN, OBED ([id number]), order editor GREG CALLES ([id number]) on 04/25/2022 1:59:53 PM Referred By: Confirmed By:OBED REESE MD
--- NOTE | 2022-04-24 16:35 | ED.VIS.DYS ---
HPI History of Present Illness Chief Complaint: Shortness of Breath Informant: patient and spouse/S.O. Narrative Narrative: Patient sent down from PCP office for evaluation of increasing dyspnea while being evaluated in the office. Of note she was seen by myself yesterday with big work-up for reported syncope falls head injury with left lower abdominal pain. Reported possible blood. Work-up with parks scan head neck chest abdomen pelvis were negative there was a suspected possible L1 inferior endplate fracture if she is nontender in that area. There is no acute intrathoracic or abdominal process. She had a follow-up with the PCP today and opening at 3:00. She was able to ambulate yesterday with her walker. She went to the office with being evaluated by the nurse practitioner. Per significant other increasing dyspnea Dr. Elliott was called in the room to evaluate she was sent down here. There is no cough. No history of anxiety however she does report feeling anxious. She states there is nothing specific that triggered this with the evaluation. Spouse edition reports she had another syncopal episode this morning she was coming out of the bathroom when he was helping her she passed out he lowered her down. There is no chest pains or shortness of breath at that time. With her evaluation from yesterday reported potential bloody stools she has not had a bowel movement since then. [facility] Medical History Dementia Diabetes mellitus Former tobacco use HLD (hyperlipidemia) Hypertension Inability to ambulate due to left hip Multiple falls Home Medications carvedilol 6.25 mg tablet 6.25 mg PO DAILY 12/14/16 [History Last Taken 03/20/22] cholecalciferol (vitamin D3) 50 mcg (2,000 unit) capsule (Vitamin D3) 2,000 unit PO DAILY 12/14/16 [History Last Taken 03/20/22] dextrin 3 gram/3.5 gram oral powder (Fiber (dextrin)) 350 g PO QODAY PRN Constipation 12/14/16 [History Last Taken 03/18/22] gabapentin 300 mg capsule 1 tab PO QHS 12/14/16 [History Last Taken 03/19/22] lovastatin 20 mg tablet tab PO QHS 12/14/16 [History Last Taken 03/19/22] multivitamin (Multiple Vitamins tablet) 1 ea PO DAILY 12/14/16 [History Last Taken 03/20/22] amlodipine 5 mg-benazepril 20 mg capsule 1 cap PO BID bp 03/20/22 [History Last Taken 03/20/22] donepezil 5 mg tablet 5 mg PO DAILY 03/20/22 [History Last Taken 03/19/22] estradiol 0.01% (0.1 mg/gram) vaginal cream vaginal 03/21/22 [History Last Taken 03/19/22] docusate sodium 100 mg capsule (Colace) 100 mg PO DAILY #30 caps 04/23/22 [Rx Last Taken Unknown] linaclotide 72 mcg capsule (Linzess) 72 mcg PO DAILY 04/24/22 [History Last Taken Unknown] metronidazole 500 mg tablet 500 mg PO BID 04/24/22 [History Last Taken Unknown] Allergy/AdvReac Type Severity Reaction Status Date / Time adhesive Allergy Rash Verified 04/24/22 16:17 cough syrup AdvReac Unknown Uncoded 04/24/22 16:17 Family History Mother Diabetes Heart disease Hypertension Cerebral hemorrhage Father Brain cancer Surgical History Hx of appendectomy Hx of cholecystectomy Hx of hysterectomy S/P tonsillectomy and adenoidectomy Social History household members: spouse Smoking Status: Former smoker how long ago did patient quit smoking: Smoked age [age]. 3-5 cig/day, quit following. alcohol intake: current alcohol intake frequency: holidays/special occasions only substance use type: does not use ROS ROS ED Constitutional Constitutional ED: Denies chills, fever(s) or sweats Eyes Eyes: Denies change in vision ENT ENT ED: Denies dysphagia or sore throat Cardiovascular Cardiovascular: Denies chest pain, leg edema, palpitations or racing heartbeat Respiratory/Chest Respiratory/Chest: Reports dyspnea; Denies cough or dyspnea on exertion Gastrointestinal Gastrointestinal: Denies abdominal pain, diarrhea, nausea or vomiting Genitourinary Genitourinary ED: Denies dysuria, hematuria or urinary frequency Musculoskeletal Musculoskeletal: Denies back pain, extremity pain or neck pain Integumentary Denies rash or wounds Neurologic Neurologic: Denies headache(s), paresthesias or weakness EXAM Physical Exam Const Vital Signs: 04/24/22 16:14 04/24/22 16:26 04/24/22 16:31 Temperature 97.6 F L Temperature Source Temporal Pulse Rate 76 64 Respiratory Rate 18 18 Respiratory Effort Short of Breath Labored Respiratory Pattern Tachypnea Blood Pressure 106/70 Blood Pressure Mean 82 Pulse Ox 100 Oxygen Delivery Method Room Air 04/24/22 18:13 04/24/22 18:17 Temperature 96.4 F L 96.4 F L Temperature Source Temporal Temporal Pulse Rate 66 70 Respiratory Rate 18 18 Respiratory Effort Respiratory Pattern Blood Pressure 126/70 H 122/67 H Blood Pressure Mean 88 85 Pulse Ox 99 94 Oxygen Delivery Method Room Air Room Air Positive well nourished and well developed Constitutional Narrative: Anxious appearing, shallow fast breathing. Able to redirect and calm down. General Appearance ED: well developed HEENT Reports moist mucous membranes normocephalic and atraumatic Eyes PERRL, EOMs intact bilaterally and conjunctivae normal General Eye ED: Yes normal appearance of both eyes Neck no lymphadenopathy and supple General: Negative for tenderness Chest Wall Chest: Negative for tenderness Resp normal respiratory effort and normal air movement Resp Narrative: Symmetric breath sounds. Effort and Inspection: symmetric chest movement; Negative for respiratory distress Cardio regular rate, regular rhythm and no murmurs Peripheral Pulses: pulses 2+ throughout GI normal to inspection, nondistended, normoactive bowel sounds and non-tender Palpation: Negative for guarding or rebound tenderness present Back/Spine no CVA tenderness and no thoracic nor lumbar tenderness Extremity normal to inspection General Extremety ED: Negative for edema or tenderness General Extremity: Negative for edema Neuro oriented x3 and no sensory deficits noted Sensorium / Orientation: awake and alert Skin no rashes or lesions noted and no wounds MDM MDM MDM Narrative Medical decision making narrative: Patient EKG chronic changes chest x-ray 1 view reviewed myself and read by radiology shows no acute process basic labs essentially normal slight renal insufficiency compared to yesterday. She was given Ativan for her anxiety symptoms, she has no diagnosed anxiety history. She had a parks scan yesterday all negative. However reports recurrent syncope had echocardiogram last month EF of 55% with stage I diastolic dysfunction. However with recurrent syncope, states that this time he cannot take care of her at home. I spoke with hospitalist Dr. Parmar for observations admission. Lab Data Attestation: I reviewed the patient's lab results. Labs: Laboratory Results - last 24 hr 04/24/22 04/24/22 16:30 16:30 WBC 6.2 RBC 4.75 Hgb 13.6 Hct 41.8 MCV 88.0 MCH 28.6 MCHC 32.5 RDW Std Deviation 43.2 RDW Coeff of Amrita 13.4 Plt Count 221 MPV 11.9 Immature Gran % (Auto) 0.300 Neut % (Auto) 62.7 Lymph % (Auto) 28.0 [place]rell % (Auto) 8.2 Eos % (Auto) 0.3 Baso % (Auto) 0.5 Absolute Neuts (auto) 3.9 Absolute Lymphs (auto) 1.74 Nucleated RBC % 0 Sodium 140 Potassium 3.8 Chloride 105 Carbon Dioxide 24.0 Anion Gap 11 BUN 19 H Creatinine 1.19 H Estim Creat Clear Calc 28.33 Est GFR (MDRD) Af Amer 56 L Est GFR (MDRD) Non-Af 46 L BUN/Creatinine Ratio 16.0 Glucose 109 H Calcium 10.8 H Radiography Diagnostic Testing: Clinical Impression(s) from Imaging Studies Chest X-Ray 04/24/22 16:53 IMPRESSION: No acute disease. Electronically Signed: Antwan Moreno MD at 17:25 EDT , EKG Initial EKG: Attestation: I personally reviewed and interpreted this EKG as follows: Comments: Sinus rhythm 57, no ST changes or T wave version V1 V2 similar to previous. Discharge Plan Dx/Rx/DC Orders Clinical Impression: Syncope, Mild renal insufficiency, Anxiety, Dehydration Disposition Disposition: Acute Care Hospital [facility] Discharge Date/Time: 04/24/22 18:35
[2022-04-24] MEDS: LORazepam 2 MG/ML Syringe 0.5 MG IV (16:37)
[2022-04-24 16:41] LABS: Absolute Lymphocyte Count 1.74 X10^3/uL (0.83-4.51); Absolute Neutrophil Count 3.9 X10^3/uL (2.0-7.7); Basophil# 0.03 X10^3/uL; Basophil% 0.5 % (0-1); Eosinophil# 0.02 X10^3/uL; Eosinophils% 0.3 % (0-5); Hematocrit 41.8 % (37-47); Hemoglobin 13.6 g/dL (12.0-15.0); Lymphocyte # 1.74 X10^3/ul (0.83-4.51); Mean Corp Hgb Conc 32.5 g/dL (32-36); Mean Corpuscular Hgb 28.6 pg (27.0-32.0); Mean Platelet Vol. 11.9 fl (6.2-12.0); Monocyte# 0.51 X10^3/uL; Monocyte% 8.2 % (0-10); NRBC Flagged by Analyzer 0 % (0-5); Neutrophil % 62.7 % (47-70); Platelet Count 221 K/mm3 (150-450); RBC Distribution Width CV 13.4 % (11.6-14.6); RBC Distribution Width SD 43.2 fl (35.1-43.9); Red Blood Count 4.75 M/mm3 (4.2-5.4); White Blood Count 6.2 K/mm3 (4.4-11.0)
[2022-04-24 16:53] LABS: Anion Gap 11 (5-15); BUN 19 mg/dL (7-18); Calcium,Total 10.8 mg/dL (8.5-10.1); Chloride 105 mmol/L (98-107); Creatinine, Serum 1.19 mg/dL (0.55-1.02); EST Glomerular Filtration Rate 46 mL/min (>60); Est Glom Filt Rate - Afr Amer 56 mL/min (>60); Estimated Creatinine Clearance 28.33 ml/min; Glucose 109 mg/dL (74-106); Potassium 3.8 mmol/L (3.5-5.1); Sodium Level 140 mmol/L (136-145)
--- NOTE | 2022-04-24 16:53 | RAD_ITS ---
EXAM: XR CHEST, 1 VIEW CLINICAL INDICATION: sob TECHNIQUE: Frontal view of the chest. This report was created using [employer] report generation technology. COMPARISON: None. FINDINGS: LUNGS AND PLEURAL SPACES: Unremarkable. No consolidation or edema. No pneumothorax. No effusion. HEART: Unremarkable. Cardiac silhouette not enlarged. MEDIASTINUM: Central airways and mediastinal contour are unremarkable. BONES/JOINTS: Degenerative changes of the spine. Diffuse osteopenia. SOFT TISSUES: Unremarkable. VASCULATURE: Atherosclerotic calcifications of the nonenlarged thoracic aortic arch. RAD/Chest 1 View (Portable) IMPRESSION: No acute disease. Electronically Signed: Antwan Moreno MD at 17:25 EDT ,
--- NOTE | 2022-04-24 18:29 | PCM.HP.STD ---
Documented by User: Amairani Rubio NP, INDIVIDUAL PENSION CONSULTANT-C 04/24/22 18:48 HPI - General General Date of Admission: 04/24/22 Date of Service: 04/24/22 Chief Complaint: Syncope, weakness. HPI Narrative SARA GALARZA, is a 82 F who presents to the emergency room due to syncope with fall. at bedside states patient has been more confused recently. States she has been generally weak. states he was helping patient walk down the hallway with her walker when she suddenly fell and lost consciousness for approximately 2 minutes. Patient unable to participate in HPI. She is awake however unable to answer questions appropriately. and daughter at bedside state patient has not complained of any other recent symptoms including fever, chills. She has a past medical history of hypertension, hyperlipidemia, type 2 diabetes mellitus, dementia, former tobacco use. Patient was recently admitted in March following a syncopal event. Patient was noted to have positive orthostatic vitals. Other work-up unremarkable at that time. [facility] Medical History Dementia Diabetes mellitus Former tobacco use HLD (hyperlipidemia) Hypertension Inability to ambulate due to left hip Multiple falls Home Medications carvedilol 6.25 mg tablet 6.25 mg PO DAILY 12/14/16 [History Last Taken 03/20/22] cholecalciferol (vitamin D3) 50 mcg (2,000 unit) capsule (Vitamin D3) 2,000 unit PO DAILY 12/14/16 [History Last Taken 03/20/22] dextrin 3 gram/3.5 gram oral powder (Fiber (dextrin)) 350 g PO QODAY PRN Constipation 12/14/16 [History Last Taken 03/18/22] gabapentin 300 mg capsule 1 tab PO QHS 12/14/16 [History Last Taken 03/19/22] lovastatin 20 mg tablet tab PO QHS 12/14/16 [History Last Taken 03/19/22] multivitamin (Multiple Vitamins tablet) 1 ea PO DAILY 12/14/16 [History Last Taken 03/20/22] amlodipine 5 mg-benazepril 20 mg capsule 1 cap PO BID bp 03/20/22 [History Last Taken 03/20/22] donepezil 5 mg tablet 5 mg PO DAILY 03/20/22 [History Last Taken 03/19/22] estradiol 0.01% (0.1 mg/gram) vaginal cream vaginal 03/21/22 [History Last Taken 03/19/22] docusate sodium 100 mg capsule (Colace) 100 mg PO DAILY #30 caps 04/23/22 [Rx Last Taken Unknown] linaclotide 72 mcg capsule (Linzess) 72 mcg PO DAILY 04/24/22 [History Last Taken Unknown] metronidazole 500 mg tablet 500 mg PO BID 04/24/22 [History Last Taken Unknown] Allergy/AdvReac Type Severity Reaction Status Date / Time adhesive Allergy Rash Verified 04/24/22 16:17 cough syrup AdvReac Unknown Uncoded 04/24/22 16:17 Family History (Reviewed 04/24/22 @ 18:34 by Amairani Rubio INDIVIDUAL PENSION CONSULTANT, INDIVIDUAL PENSION CONSULTANT-C) Mother Diabetes Heart disease Hypertension Cerebral hemorrhage Father Brain cancer Surgical History Hx of appendectomy Hx of cholecystectomy Hx of hysterectomy S/P tonsillectomy and adenoidectomy Social History household members: spouse Smoking Status: Former smoker how long ago did patient quit smoking: Smoked age [age]. 3-5 cig/day, quit following. alcohol intake: current alcohol intake frequency: holidays/special occasions only substance use type: does not use ROS ROS Narrative Underlying dementia. Review of Systems ROS Unobtainable: due to mental status Vital Signs Vital Signs Vital Signs: 04/24/22 16:14 04/24/22 16:26 04/24/22 16:31 Temperature 97.6 F L Temperature Source Temporal Pulse Rate 76 64 Respiratory Rate 18 18 Respiratory Effort Short of Breath Labored Respiratory Pattern Tachypnea Blood Pressure 106/70 Blood Pressure Mean 82 Pulse Ox 100 Oxygen Delivery Method Room Air 04/24/22 18:13 04/24/22 18:17 Temperature 96.4 F L 96.4 F L Temperature Source Temporal Temporal Pulse Rate 66 70 Respiratory Rate 18 18 Respiratory Effort Respiratory Pattern Blood Pressure 126/70 H 122/67 H Blood Pressure Mean 88 85 Pulse Ox 99 94 Oxygen Delivery Method Room Air Room Air Weight Weight: 140 lb Body Mass Index (BMI) 25.6 Physical Exam Const alert Orientation / Consciousness: confused HEENT normocephalic Mouth: dry mucous membranes Eyes PERRL, EOMs intact bilaterally and conjunctivae normal Neck no lymphadenopathy Resp normal respiratory effort and clear to auscultation bilaterally Cardio regular rate, regular rhythm and no murmurs Peripheral Pulses: pulses 2+ throughout GI normal to inspection, nondistended, normoactive bowel sounds, non-tender and non-distended Extremity normal to inspection Skin no rashes or lesions noted Lesions: no lesions Rashes: no rashes Trauma: no lacerations or abrasions Neuro CN's II-XII intact bilaterally, no focal motor deficits, no sensory deficits noted and deep tendon reflexes 2+ bilaterally Psych mental status grossly normal and affect normal Results Lab / Micro Data Result Diagrams: 04/24/22 16:30 04/24/22 16:30 Labs: Laboratory Results - last 24 hr 04/24/22 16:30: WBC 6.2, RBC 4.75, Hgb 13.6, Hct 41.8, MCV 88.0, MCH 28.6, MCHC 32.5, RDW Std Deviation 43.2, RDW Coeff of Amrita 13.4, Plt Count 221, MPV 11.9, Immature Gran % (Auto) 0.300, Neut % (Auto) 62.7, Lymph % (Auto) 28.0, [place] % (Auto) 8.2, Eos % (Auto) 0.3, Baso % (Auto) 0.5, Absolute Neuts (auto) 3.9, Absolute Lymphs (auto) 1.74, Nucleated RBC % 0 04/24/22 16:30: Sodium 140, Potassium 3.8, Chloride 105, Carbon Dioxide 24.0, Anion Gap 11, BUN 19 H, Creatinine 1.19 H, Estim Creat Clear Calc 28.33, Est GFR (MDRD) Af Amer 56 L, Est GFR (MDRD) Non-Af 46 L, BUN/Creatinine Ratio 16.0, Glucose 109 H, Calcium 10.8 H Micro: Microbiology 04/24/22 16:34 Nasal Secretion SARS-CoV-2 Antigen (Rapid) - Final Radiology Impression Chest X-Ray 04/24/22 16:53 IMPRESSION: No acute disease. Electronically Signed: Antwan Moreno MD at 17:25 EDT , Assessment & Plan Assessment/Plan (1) Mild renal insufficiency: (2) Syncope: PLAN: Plan 1. Syncope with fall, debility-recent admission for syncope work-up which was unremarkable with the exception of positive orthostatic blood pressure. Repeat orthostatic vitals. PT/OT. Monitor telemetry. Patient with mild dehydration. IV fluids. Family requesting TCU for rehab. Recent echocardiogram 03/20/2022 with EF 55%, stage I diastolic dysfunction. 2. Mild dehydration-IV fluids as noted above. 3. Type 2 diabetes mellitus-no longer on regimen. 4. Dementia without known behavioral disturbance history- on aricept. 5. Hypertension-stable, continue lisinopril, carvedilol. 6. Hyperlipidemia- on statin. DVT prophylaxis- heparin sc This patient was seen by ERNESTO Marin under the supervision of Dr. Moura. Time spent examining patient, reviewing data and subsequent management of care: 26 minutes Documented by User: Dr. Jean Parmar DO 04/24/22 18:56 HPI - General General Date of Admission: 04/24/22 [facility] Medical History Dementia Diabetes mellitus Former tobacco use HLD (hyperlipidemia) Hypertension Inability to ambulate due to left hip Multiple falls Home Medications carvedilol 6.25 mg tablet 6.25 mg PO DAILY 12/14/16 [History Last Taken 03/20/22] cholecalciferol (vitamin D3) 50 mcg (2,000 unit) capsule (Vitamin D3) 2,000 unit PO DAILY 12/14/16 [History Last Taken 03/20/22] dextrin 3 gram/3.5 gram oral powder (Fiber (dextrin)) 350 g PO QODAY PRN Constipation 12/14/16 [History Last Taken 03/18/22] gabapentin 300 mg capsule 1 tab PO QHS 12/14/16 [History Last Taken 03/19/22] lovastatin 20 mg tablet tab PO QHS 12/14/16 [History Last Taken 03/19/22] multivitamin (Multiple Vitamins tablet) 1 ea PO DAILY 12/14/16 [History Last Taken 03/20/22] amlodipine 5 mg-benazepril 20 mg capsule 1 cap PO BID bp 03/20/22 [History Last Taken 03/20/22] donepezil 5 mg tablet 5 mg PO DAILY 03/20/22 [History Last Taken 03/19/22] estradiol 0.01% (0.1 mg/gram) vaginal cream vaginal 03/21/22 [History Last Taken 03/19/22] docusate sodium 100 mg capsule (Colace) 100 mg PO DAILY #30 caps 04/23/22 [Rx Last Taken Unknown] linaclotide 72 mcg capsule (Linzess) 72 mcg PO DAILY 04/24/22 [History Last Taken Unknown] metronidazole 500 mg tablet 500 mg PO BID 04/24/22 [History Last Taken Unknown] Allergy/AdvReac Type Severity Reaction Status Date / Time adhesive Allergy Rash Verified 04/24/22 16:17 cough syrup AdvReac Unknown Uncoded 04/24/22 16:17 Family History (Reviewed 04/24/22 @ 18:34 by Amairani Rubio INDIVIDUAL PENSION CONSULTANT, INDIVIDUAL PENSION CONSULTANT-C) Mother Diabetes Heart disease Hypertension Cerebral hemorrhage Father Brain cancer Surgical History (Reviewed 04/24/22 @ 18:34 by Amairani Rubio INDIVIDUAL PENSION CONSULTANT, INDIVIDUAL PENSION CONSULTANT-C) Hx of appendectomy Hx of cholecystectomy Hx of hysterectomy S/P tonsillectomy and adenoidectomy Social History (Reviewed 04/24/22 @ 18:34 by Amairani Rubio INDIVIDUAL PENSION CONSULTANT, INDIVIDUAL PENSION CONSULTANT-C) household members: spouse Smoking Status: Former smoker how long ago did patient quit smoking: Smoked age [age]. 3-5 cig/day, quit following. alcohol intake: current alcohol intake frequency: holidays/special occasions only substance use type: does not use Results Lab / Micro Data Result Diagrams: 04/24/22 16:30 04/24/22 16:30 Assessment & Plan Assessment/Plan (1) Mild renal insufficiency: (2) Syncope: Charges/Coding Addendum Addendum: Patient was seen and examined independently of Amairani Rubio today, she was brought to the emergency room for evaluation today by her family due to a brief syncopal episode that happened at home and generalized debility over the last several days. Patient has a history of dementia according to the family, she has had difficulty ambulating at home without maximal assistance and the family does not feel at this time that they can care for her. Work-up in the emergency room included labs which were remarkable for a slightly elevated creatinine and BUN, chest x-ray was unremarkable, and the patient's pulse ox on room air was 100%. On examination she appeared older than her stated age, she was oriented as to person and place, she was oriented as to the year, she does not appear to be in any distress. She was unable to carry on a conversation with this examiner. Vital signs as documented. Skin warm and dry and without overt rashes. Neck without JVD, thyroid appears normal, trachea is midline, neck is supple. Lungs clear, normal air movement was noted. Heart exam notable for regular rhythm, normal sounds and absence of murmurs, rubs or gallops. Abdomen unremarkable and without evidence of organomegaly, masses, or abdominal aortic enlargement, bowel sounds are present in all 4 quadrants, no abdominal tenderness was noted. Extremities nonedematous, no cyanosis was noted, no clubbing was noted. Neuro: Cranial nerves II through XII are grossly intact, no focal motor deficits were noted, sensation to light touch and pinprick is intact, motor exam 5/5 throughout. Psych: Patient is lethargic, she is unable to carry on a conversation with this examiner, patient is aware of person, place, and year. Patient could not tell me why she was in the emergency room. Impression: #1 syncopal episode-etiology unclear-patient will be placed in observation status on Medr 3, she will be monitored on telemetry, she will receive IV fluids, she will be seen by PT and OT, we will try to obtain approval for snf facility placement. #2 dehydration-patient will be given IV fluids, labs will be repeated tomorrow #3 generalized debility-PT and OT will see the patient, patient's family requests snf facility placement if necessary #4 essential hypertension-I have elected to decrease the patient's blood pressure medications at this time due to concerns of possible orthostatic hypotension #5 dementia-patient's Aricept will be increased to 10 mg nightly #6 possible recent L1 compression fracture-this was noted on a CT today, however, the patient is not having pain in the vicinity of this L1 area. #7 hyperlipidemia-patient will remain on a statin I have reviewed Amairani Rubio's history and physical including her medical assessment and plan of care and endorse it with the above additions. Total clinical time spent by myself addressing the patient's medical issues, reviewing the data, and collaborating with patient's care team: 45 minutes Visit Charges OBSV E&M: [id number] Initial observation care L3
[2022-04-24] MEDS: 0.9% Normal Saline 1,000 ML 100 ML IV (20:01)
[2022-04-24] MEDS: Polyethylene Glycol 3350 17 GM PACKET PO (21:04)
[2022-04-24] MEDS: metroNIDAZOLE 500 MG Tablet PO (21:04)
[2022-04-24] MEDS: Donepezil HCl 10 MG Tablet PO (21:04)
[2022-04-24] MEDS: Heparin Injection (Vial) 5,000 UNIT/ML VIAL 5000 UNIT SC (21:04)
[2022-04-24] MEDS: Gabapentin 100 MG Capsule 200 MG PO (21:04)
[2022-04-24] MEDS: Acetaminophen 325 MG Tablet 650 MG PO (21:29)
[2022-04-25] VITALS (14 sets, daily range): BP systolic 102–156; BP diastolic 47–82; PULSE 56–80; RESP 16–20; TEMP 36.5–36.9; O2SAT 94–100
[2022-04-25] MEDS: 0.9% Normal Saline 1,000 ML 100 ML IV ×2 (05:52→15:05)
[2022-04-25] MEDS: Acetaminophen 325 MG Tablet 650 MG PO (06:13)
[2022-04-25] MEDS: Ondansetron 4 MG/2 ML Vial IV (06:23)
[2022-04-25 06:30] LABS: Anion Gap 10 (5-15); BUN 19 mg/dL (7-18); BUN/Creat Ratio 25.9 RATIO (10-20); Calcium,Total 9.2 mg/dL (8.5-10.1); Chloride 109 mmol/L (98-107); Creatinine, Serum 0.73 mg/dL (0.55-1.02); EST Glomerular Filtration Rate 80 mL/min (>60); Est Glom Filt Rate - Afr Amer 97 mL/min (>60); Estimated Creatinine Clearance 33.71 ml/min; Glucose 85 mg/dL (74-106); Potassium 3.3 mmol/L (3.5-5.1); Sodium Level 141 mmol/L (136-145)
[2022-04-25] MEDS: metroNIDAZOLE 500 MG Tablet PO ×2 (09:25→21:16)
[2022-04-25] MEDS: Multivitamins,Therapeutic Tablet 1 TABLET PO (09:25)
[2022-04-25] MEDS: Cholecalciferol (VIT D3) 25 MCG TABLET (1,000 UNITS) 50 MCG PO (09:25)
[2022-04-25] MEDS: Carvedilol 6.25 MG Tablet PO (09:25)
[2022-04-25] MEDS: Heparin Injection (Vial) 5,000 UNIT/ML VIAL 5000 UNIT SC ×2 (09:25→21:16)
[2022-04-25] MEDS: Potassium Chloride Oral Tablet 20 MEQ 40 MEQ PO (09:27)
--- NOTE | 2022-04-25 10:18 | PN.HOSP_ITS ---
Objective Data Objective Data Vital Signs: Vital Signs Temp Pulse Resp BP Pulse Ox O2 Del Method 98.0 F 77 18 134/82 H 100 Room Air 04/25/22 09:08 04/25/22 09:08 04/25/22 09:08 04/25/22 09:08 04/25/22 09:08 04/25/22 09:08 Oxygen Delivery Method Room Air Weight: 63.1 kg Body Mass Index (BMI) 25.4 Intake & Output: Intake and Output for Last 24 Hours 04/23/22 04/24/22 04/25/22 23:59 23:59 23:59 Intake Total 985 / 985 Balance 985 / 985 Medical Nutrition Assessment Dietitian: Malnutrition Criteria Met Start: 04/25/22 10:12 Freq: Status: Active Protocol: Document 04/25/22 10:12 RMA (Rec: 04/25/22 10:12 RMA [id number]) Nutrition Malnutrition Evidence of Malnutrition Exists Yes Malnutrition (severe): Chronic Evidenced By Suboptimal Energy Intake ( Severe),Weight Loss (Severe) Clinical Problem Chronic Disease or Condition Related Malnutrition Etiology Severe protein-calorie malnutrition in the context of chronic weakness and debility related to inadequate oral intake x past 3-4 months Signs/Symptoms as evidenced by ~13% wt loss in less than 6 months and oral intake meeting less than 50% estimated nutrition needs x past 3-4 months Status Active Problem Recommendation Dietitian Recommendations/Changes Will continue liberalized regular diet in light of malnutrition criteria; monitor need to restrict carbohydrates if blood glucose rises (hx of DM II). Will continue 240ml ensure plus high protein TID with meals; change to glucerna shake as needed. Adjust ONS as needed to optimize PO and prevent further wt loss. Lab / Micro Data Result Diagrams: 04/24/22 16:30 04/25/22 05:41 Labs: Laboratory Results - last 24 hr 04/24/22 16:30: WBC 6.2, RBC 4.75, Hgb 13.6, Hct 41.8, MCV 88.0, MCH 28.6, MCHC 32.5, RDW Std Deviation 43.2, RDW Coeff of Amrita 13.4, Plt Count 221, MPV 11.9, Immature Gran % (Auto) 0.300, Neut % (Auto) 62.7, Lymph % (Auto) 28.0, [place] % (Auto) 8.2, Eos % (Auto) 0.3, Baso % (Auto) 0.5, Absolute Neuts (auto) 3.9, Absolute Lymphs (auto) 1.74, Nucleated RBC % 0 04/24/22 16:30: Sodium 140, Potassium 3.8, Chloride 105, Carbon Dioxide 24.0, Anion Gap 11, BUN 19 H, Creatinine 1.19 H, Estim Creat Clear Calc 28.33, Est GFR (MDRD) Af Amer 56 L, Est GFR (MDRD) Non-Af 46 L, BUN/Creatinine Ratio 16.0, Glucose 109 H, Calcium 10.8 H 04/25/22 05:41: Sodium 141, Potassium 3.3 L, Chloride 109 H, Carbon Dioxide 22.0, Anion Gap 10, BUN 19 H, Creatinine 0.73, Estim Creat Clear Calc 33.71, Est GFR (MDRD) Af Amer 97, Est GFR (MDRD) Non-Af 80, BUN/Creatinine Ratio 25.9 H, Glucose 85, Calcium 9.2 Micro: Microbiology 04/24/22 16:34 Nasal Secretion SARS-CoV-2 Antigen (Rapid) - Final Radiography Diagnostic Testing: Radiology Impression Chest X-Ray 04/24/22 16:53 IMPRESSION: No acute disease. Electronically Signed: Antwan Moreno MD at 17:25 EDT ,
--- NOTE | 2022-04-25 11:04 | CASEMGMT ---
Addendum entered by Neeta Ledesma 04/25/22 11:31: [facility] reported able to accept pt at TCU and will start precert at this time. SW informed pt of acceptance and explained the precert process. Pt and both voiced understanding. PLAN: TCU, pending precert Original Note: Social Work SW in to meet with pt and pt . Introduced self and role at the hospital. Both voiced understanding. Pt and discussed discharge plan and how pt has been weak an in need of rehab.?A printed list of SNF providers including quality and resources use date that is consistent with patient's preferred geographical region, medical needs, and insurances network were provided via the [employer] Guide Link.?Pt and her [facility] followed by [facility] and then [facility]. SW sent information to [facility] at [facility] to await acceptance at TCU. PLAN: TCU, pending acceptance and precert PAULIE Guilelrmo
--- NOTE | 2022-04-25 12:55 | PN.HOSP_ITS ---
Documented by User: Amairani Rubio NP, COMMERCIAL ESTIMATOR-C 04/25/22 13:01 Subjective Subjective Patient seen and examined. No further syncope. Denies symptoms or complaints. Awaiting acceptance to TCU. Orthostatic vitals positive. Objective Data Objective Data Vital Signs: Vital Signs Temp Pulse Resp BP Pulse Ox O2 Del Method 98.0 F 76 18 134/82 H 100 Room Air 04/25/22 09:08 04/25/22 11:25 04/25/22 09:08 04/25/22 09:08 04/25/22 09:08 04/25/22 09:08 Oxygen Delivery Method Room Air Weight: 139 lb 1.787 oz Body Mass Index (BMI) 25.4 Intake & Output: Intake and Output for Last 24 Hours 04/23/22 04/24/22 04/25/22 23:59 23:59 23:59 Intake Total 1385 / 1385 Balance 1385 / 1385 Medical Nutrition Assessment Dietitian: Malnutrition Criteria Met Start: 04/25/22 10:12 Freq: Status: Active Protocol: Document 04/25/22 10:12 RMA (Rec: 04/25/22 10:12 RMA [id number]) Nutrition Malnutrition Evidence of Malnutrition Exists Yes Malnutrition (severe): Chronic Evidenced By Suboptimal Energy Intake ( Severe),Weight Loss (Severe) Clinical Problem Chronic Disease or Condition Related Malnutrition Etiology Severe protein-calorie malnutrition in the context of chronic weakness and debility related to inadequate oral intake x past 3-4 months Signs/Symptoms as evidenced by ~13% wt loss in less than 6 months and oral intake meeting less than 50% estimated nutrition needs x past 3-4 months Status Active Problem Recommendation Dietitian Recommendations/Changes Will continue liberalized regular diet in light of malnutrition criteria; monitor need to restrict carbohydrates if blood glucose rises (hx of DM II). Will continue 240ml ensure plus high protein TID with meals; change to glucerna shake as needed. Adjust ONS as needed to optimize PO and prevent further wt loss. Lab / Micro Data Result Diagrams: 04/24/22 16:30 04/25/22 05:41 Labs: Laboratory Results - last 24 hr 04/24/22 16:30: WBC 6.2, RBC 4.75, Hgb 13.6, Hct 41.8, MCV 88.0, MCH 28.6, MCHC 32.5, RDW Std Deviation 43.2, RDW Coeff of Amrita 13.4, Plt Count 221, MPV 11.9, Immature Gran % (Auto) 0.300, Neut % (Auto) 62.7, Lymph % (Auto) 28.0, [place] % (Auto) 8.2, Eos % (Auto) 0.3, Baso % (Auto) 0.5, Absolute Neuts (auto) 3.9, Absolute Lymphs (auto) 1.74, Nucleated RBC % 0 04/24/22 16:30: Sodium 140, Potassium 3.8, Chloride 105, Carbon Dioxide 24.0, Anion Gap 11, BUN 19 H, Creatinine 1.19 H, Estim Creat Clear Calc 28.33, Est GFR (MDRD) Af Amer 56 L, Est GFR (MDRD) Non-Af 46 L, BUN/Creatinine Ratio 16.0, Glucose 109 H, Calcium 10.8 H 04/25/22 05:41: Sodium 141, Potassium 3.3 L, Chloride 109 H, Carbon Dioxide 22.0, Anion Gap 10, BUN 19 H, Creatinine 0.73, Estim Creat Clear Calc 33.71, Est GFR (MDRD) Af Amer 97, Est GFR (MDRD) Non-Af 80, BUN/Creatinine Ratio 25.9 H, Glucose 85, Calcium 9.2 Micro: Microbiology 04/24/22 16:34 Nasal Secretion SARS-CoV-2 Antigen (Rapid) - Final Radiography Diagnostic Testing: Radiology Impression Chest X-Ray 04/24/22 16:53 IMPRESSION: No acute disease. Electronically Signed: Antwan Moreno MD at 17:25 EDT , Physical Exam Const alert HEENT normocephalic and moist oral mucous membranes Eyes PERRL, EOMs intact bilaterally and conjunctivae normal Neck no lymphadenopathy Resp normal respiratory effort and clear to auscultation bilaterally Cardio regular rate, regular rhythm and no murmurs Peripheral Pulses: pulses 2+ throughout GI normal to inspection, nondistended, normoactive bowel sounds, non-tender and non-distended Extremity normal to inspection Skin no rashes or lesions noted Lesions: no lesions Rashes: no rashes Trauma: no lacerations or abrasions Neuro CN's II-XII intact bilaterally, no focal motor deficits, no sensory deficits noted and deep tendon reflexes 2+ bilaterally Psych mental status grossly normal and affect normal Assessment & Plan Assessment/Plan (1) Dehydration: PLAN: Plan 1.? Syncope with fall, debility-recent admission for syncope work-up which was unremarkable with the exception of positive orthostatic blood pressure.? Repeat orthostatic vitals positive. Continue IV fluids.? PT/OT.? Monitor telemetry. Family requesting TCU for rehab.? Recent echocardiogram 03/20/2022 with EF 55%, stage I diastolic dysfunction. 2.? Mild dehydration-IV fluids as noted above. 3. Type 2 diabetes mellitus-no longer on regimen. 4. Dementia without known behavioral disturbance history- on aricept. 5. Hypertension-stable, continue lisinopril, carvedilol. 6. Hyperlipidemia- on statin. DVT prophylaxis- heparin sc This patient was seen by Amairani Rubio NP-C under the supervision of Dr. Castillo. Time spent examining patient, reviewing data and subsequent management of care: 14 minutes Documented by User: Dr. Shayna Castillo MD 04/25/22 14:19 Objective Data Lab / Micro Data Result Diagrams: 04/24/22 16:30 04/25/22 05:41 Assessment & Plan Assessment/Plan (1) Dehydration: Charges/Coding Addendum Addendum: This patient was seen in conjunction with Amairani Rubio NP. I have independently interviewed and examined the patient and reviewed pertinent historical, laboratory, and other data. I have reviewed her note and concur with her documentation Patient was seen and examined. She is hard of hearing. She complains of dizziness with sitting up. She is still orthostatic. Patient apparently has a vaginal pessary for vaginal prolapse and is on metronidazole(started on 2 days). Physical Exam: Gen: Comfortable, not pale, not jaundiced, hard of hearing CVS:HS I +II, regular, no murmurs RESP: Diminished at lung bases GI: BS present and normal, soft, nontender, no palpable organs EXT:No edema ASSESSMENT: 1. Recurrent syncope 2. Orthostatic hypotension 3. Debility 4. Hypertension 5. Dementia 6. Recent L1 compression fracture 7. Hyperlipidemia Plan: Continue on IV fluids Hold lisinopril and amlodipine Lidoderm patches PT and OT to evaluate and treat Discharge planning to assisted facility Time spent reviewing patient's medical chart, coordinating all aspects of patient's care, discussing with nursin minutes Visit Charges Inpatient E&M: 46528 Subs Hosp L2
[2022-04-25] MEDS: Lidocaine 5% Patch 2 PATCH TOPICAL (15:05)
[2022-04-25] MEDS: Magnesium Hydroxide 30 ML UDC PO (15:27)
[2022-04-25] MEDS: Bisacodyl 10 MG Suppository RC (15:28)
--- NOTE | 2022-04-25 15:45 | CASEMGMT ---
NOEMI ZIEGLER in to discuss RODRIGUEZ form with patient. NOEMI ZIEGLER explained RODRIGUEZ form, patient voiced understanding but requested this RN CM call her to make sure it was ok for her to sign the form. TC to pt , he ok'd this. Pt signed form and filed in chart. Pt provided with a copy of signed RODRIGUEZ form. Patient had no further questions or concerns at this time. Pt friend present in room as well.
--- NOTE | 2022-04-25 16:15 | CASEMGMT ---
Social Work This life insurance underwriter received call from Clare in TCU and pt has been approved for admission to TCU. Neeta, MS3 SW xiomy. PAULIE Molina
--- NOTE | 2022-04-25 16:36 | CASEMGMT ---
Addendum entered by Neeta Ledesma 04/26/22 08:24: Precert was obtained for pt 04/25 at 1:34pm. Pt made aware. PAULIE Guillermo Original Note: Social Work SW in to notify pt of acceptance and approval for TCU. Pt voiced understanding. SW explained Dr is not ready for pt to be discharge this day and that pt will remain in current room until tomorrow. Pt voiced understanding. SW asked if pt would like this worker to call her to update him. Pt declined. Stated would update on own when comes back to visit. PLAN: TCU, when medically ready. PAULIE Guillermo
[2022-04-25] MEDS: Gabapentin 100 MG Capsule 200 MG PO (21:16)
[2022-04-25] MEDS: Donepezil HCl 10 MG Tablet PO (21:16)
[2022-04-26] VITALS (7 sets, daily range): BP systolic 144–177; BP diastolic 70–97; PULSE 60–77; RESP 16–18; TEMP 36.4–37; O2SAT 95–98
[2022-04-26] MEDS: 0.9% Normal Saline 1,000 ML 100 ML IV (00:51)
[2022-04-26 06:08] LABS: Absolute Lymphocyte Count 1.64 X10^3/uL (0.83-4.51); Absolute Neutrophil Count 2.9 X10^3/uL (2.0-7.7); Basophil# 0.02 X10^3/uL; Basophil% 0.4 % (0-1); Eosinophil# 0.09 X10^3/uL; Eosinophils% 1.8 % (0-5); Hematocrit 31.8 % (37-47); Hemoglobin 10.2 g/dL (12.0-15.0); Lymphocyte # 1.64 X10^3/ul (0.83-4.51); Mean Corp Hgb Conc 32.1 g/dL (32-36); Mean Corpuscular Hgb 28.5 pg (27.0-32.0); Mean Corpuscular Volume 88.8 fL (81-99); Mean Platelet Vol. 12.2 fl (6.2-12.0); Monocyte# 0.47 X10^3/uL; Monocyte% 9.2 % (0-10); NRBC Flagged by Analyzer 0 % (0-5); Neutrophil # 2.88 X10^3/uL (2.7-7.7); Neutrophil % 56.2 % (47-70); Platelet Count 143 K/mm3 (150-450); RBC Distribution Width CV 13.6 % (11.6-14.6); RBC Distribution Width SD 44.4 fl (35.1-43.9); Red Blood Count 3.58 M/mm3 (4.2-5.4); White Blood Count 5.1 K/mm3 (4.4-11.0)
[2022-04-26 06:36] LABS: ALB/GLOB Ratio 0.9 RATIO (0.9-2.4); AST(SGOT) 18 U/L (15-37); Alanine Aminotransfer ALT/SGPT 24 U/L (13-56); Albumin, Serum 2.8 g/dL (3.2-5.0); Alkaline Phosphatase 126 U/L (45-117); Anion Gap 5 (5-15); BUN 14 mg/dL (7-18); BUN/Creat Ratio 17.7 RATIO (10-20); Calcium,Total 9.3 mg/dL (8.5-10.1); Chloride 111 mmol/L (98-107); Creatinine, Serum 0.79 mg/dL (0.55-1.02); EST Glomerular Filtration Rate 74 mL/min (>60); Est Glom Filt Rate - Afr Amer 89 mL/min (>60); Estimated Creatinine Clearance 33.71 ml/min; Glucose 105 mg/dL (74-106); Potassium 3.6 mmol/L (3.5-5.1); Protein, Total 5.8 g/dL (6.4-8.2); Sodium Level 142 mmol/L (136-145)
--- NOTE | 2022-04-26 08:18 | PCM.TXEXTCAR ---
Diet Diet Order/Speech Therapy: 04/24/22 18:45 Diet: Regular - General Food consistency:: Regular Liquid Consistency:: Regular/Thin Type of Dietary Supplement:: Ensure Plus High Protein Diet Comments: 240 ml ensure plus high protein TID w/ meals Routine Orders/Code Status Suppository Type: Dulcolax 10mg Suppository Frequency: Daily PRN Keep PO Greater than or Equal to (%): 94 Routine Lab Work: CBC (within 3 days) and - (CMP within 3 days) Code Status: DNRCC-A Therapies Weight Bearing: Weight bearing as tolerated Physical Therapy: Eval and Treat Occupational Therapy: Eval and Treat Problem/Diagnosis (1) Dehydration: Status: Acute Code(s): E86.0 - Dehydration Plan 1.?Syncope 2. Debility 3. Mild dehydration 4. Type 2 diabetes mellitus 5. Dementia without known behavioral disturbance history 6. Hypertension 7. Hyperlipidemia Allergies/Procedures Done in Hospital Allergies adhesive Allergy (Verified 04/24/22 16:17) Rash cough syrup Adverse Reaction (Uncoded 04/24/22 16:17) Unknown Procedures: None Type of Care/Length of Stay Estimated LOS: Convalescent Care Less Than 30 days Type of Care Needed: Skilled Rehab Potential: Good Prognosis: Good Additional Orders/Day of Discharge Day of Discharge: 04/26/22 Dietary and Speech Recommendations Dietitian Recommendations/Changes: Will continue liberalized regular diet in light of malnutrition criteria; monitor need to restrict carbohydrates if blood glucose rises (hx of DM II). Will continue 240ml ensure plus high protein TID with meals; change to glucerna shake as needed. Adjust ONS as needed to optimize PO and prevent further wt loss. Discharge Plan Admission Admit Date/Time: 04/24/22 18:31 Primary Reason for Your Visit: Syncope Attending Provider: Shayna Castillo Primary Care Provider: Avi Elliott Chi Consulting Providers: Jean Parmar Discharge Orders/Prescriptions Prescriptions: New donepezil 10 mg Tablet 10 mg PO QHS Qty: 0 0RF sennosides-docusate sodium [Stool Softener-Stimulant Laxat] 8.6-50 mg Tablet 2 tab PO DAILY PRN PRN (Reason: CONSTIPATION) Qty: 0 0RF lidocaine 5 % Adhesive Patch,Medicated 2 patch topical DAILY Qty: 0 0RF Protocol: *Topical Application Instructions APPLICATION INSTRUCTIONS: apply to the lower back gabapentin 100 mg Capsule 200 mg PO QHS Qty: 0 0RF Continued multivitamin [Multiple Vitamins] 1 EACH tablet 1 ea PO DAILY gabapentin 300 MG capsule 1 tab PO QHS Label Comments: TAKE 1 CAPSULE AT BEDTIME lovastatin 20 mg tablet PO QHS Label Comments: cholecalciferol (vitamin D3) [Vitamin D3] 2,000 UNIT capsule 2,000 unit PO DAILY Fiber (dextrin) 350 GM powder 350 g PO QODAY PRN (Reason: Constipation) amlodipine-benazepril 5-20 mg capsule 1 cap PO BID estradiol 0.01 % (0.1 mg/gram) cream VAGINAL docusate sodium [Colace] 100 mg capsule 100 mg PO DAILY Qty: 30 0RF Linzess 72 mcg Capsule 72 mcg PO DAILY metronidazole 500 mg tablet 500 mg PO BID 2 Days Qty: 4 0RF Rx Instructions: 04/28/22 5pm Changed carvedilol 6.25 mg tablet 6.25 mg PO BIDCM 30 Days Qty: 60 0RF Label Comments: Discontinued donepezil 5 mg tablet 5 mg PO DAILY Referrals / Follow Up: Avi Elliott Chi, MD [Primary Care Provider] - Disposition Disposition (needs filled in before D/C Order can be placed): Assisted Facility
[2022-04-26] MEDS: Lidocaine 5% Patch 2 PATCH TOPICAL (08:55)
[2022-04-26] MEDS: Multivitamins,Therapeutic Tablet 1 TABLET PO (08:58)
[2022-04-26] MEDS: Carvedilol 6.25 MG Tablet PO (08:58)
[2022-04-26] MEDS: Cholecalciferol (VIT D3) 25 MCG TABLET (1,000 UNITS) 50 MCG PO (08:58)
[2022-04-26] MEDS: Heparin Injection (Vial) 5,000 UNIT/ML VIAL 5000 UNIT SC (08:58)
[2022-04-26] MEDS: metroNIDAZOLE 500 MG Tablet PO (08:58)
[2022-04-26] MEDS: Acetaminophen 325 MG Tablet 650 MG PO (09:04)
--- NOTE | 2022-04-26 11:05 | DS.PCM_ITS ---
Providers Date of Admission: 04/24/22 Date of Discharge: 04/26/22 Primary Care Physician: Dr. Avi Elliott MD Reason For Visit: SYNCOPE, WEAKNESS Diagnosis Discharge Diagnosis (1) Dehydration: Status: Acute Code(s): E86.0 - Dehydration Plan 1.?Syncope 2. Debility 3. WILLIAM, pre-renal, present on admission 4. Type 2 diabetes mellitus 5. Dementia without known behavioral disturbance history 6. Hypertension 7. Hyperlipidemia Medications at Discharge Home Medications cholecalciferol (vitamin D3) 50 mcg (2,000 unit) capsule (Vitamin D3) 2,000 unit PO DAILY Supplement 12/14/16 dextrin 3 gram/3.5 gram oral powder (Fiber (dextrin)) 350 g PO QODAY PRN Constipation 12/14/16 gabapentin 300 mg capsule 1 tab PO QHS Nerve Pain 12/14/16 lovastatin 20 mg tablet 1 tab PO QHS Cholesterol 12/14/16 multivitamin (Multiple Vitamins tablet) 1 ea PO DAILY Supplement 12/14/16 amlodipine 5 mg-benazepril 20 mg capsule 1 cap PO BID bp 03/20/22 estradiol 0.01% (0.1 mg/gram) vaginal cream 0.1 g vaginal Check with primary doctor 03/21/22 linaclotide 72 mcg capsule (Linzess) 72 mcg PO DAILY Constipation 04/24/22 acetaminophen 325 mg tablet (Tylenol) 650 mg PO TID Pain 04/26/22 carvedilol 6.25 mg tablet 6.25 mg PO BIDCM BP 04/26/22 docusate sodium 100 mg capsule (Colace) 100 mg PO DAILY Constipation 04/26/22 donepezil 10 mg tablet 10 mg PO QHS Dementia 04/26/22 gabapentin 100 mg capsule 200 mg PO QHS Nerve Pain 04/26/22 lidocaine 5 % topical patch 2 patch topical DAILY Pain 04/26/22 metronidazole 500 mg tablet 500 mg PO BID Antibiotic 04/26/22 sennosides 8.6 mg-docusate sodium 50 mg tablet (Stool Softener-Stimulant Laxative) 2 tab PO DAILY PRN PRN CONSTIPATION #0 tabs 04/26/22 Hospital Course Operations None Procedures None Summary of Care Provided Minutes Spent on Discharge: 40 Hospital Course: 82y/o female with PMHx of Hypertension, hyperlipidemia who comes in with syncope. Her family notes that she has been generally weak and confused. Her was helping patient walk down the hallway with her walker when she suddenly fell and lost consciousness. Work-up in the emergency room found her to be positively orthostatic. Patient was seen in the ED a day before, after a fall and found to have chronic t11 fracture and recent L1 compression fracture on imaging. Her family stated that they are unable to care for her. She was admitted to the [facility] floor and managed on IVF. She was seen by PT/OT and SW and skilled for discharge to SNF. She had a lidoderm patch placed over the lumbar region. She had evidence of WILLIAM secondary to dehydration, that resolved back to her baseline Cr <1 at discharge. She had constipation that resolved with stool softners. She was discharged to SNF in a stable condition. On the day of discharge, she denied any major complaint except for low back pain. Physical Exam Narrative Physical Exam: Gen: Comfortable, not pale, not jaundiced, hard of hearing CVS:HS I +II, regular, no murmurs RESP: Diminished at lung bases GI: BS present and normal, soft, nontender, no palpable organs EXT:No edema Medical Records Data Medical Nutrition Assessment Dietitian: Malnutrition Criteria Met Start: 04/25/22 10:12 Freq: Status: Active Protocol: Document 04/25/22 10:12 RMA (Rec: 04/25/22 10:12 RMA [id number]) Nutrition Malnutrition Evidence of Malnutrition Exists Yes Malnutrition (severe): Chronic Evidenced By Suboptimal Energy Intake ( Severe),Weight Loss (Severe) Clinical Problem Chronic Disease or Condition Related Malnutrition Etiology Severe protein-calorie malnutrition in the context of chronic weakness and debility related to inadequate oral intake x past 3-4 months Signs/Symptoms as evidenced by ~13% wt loss in less than 6 months and oral intake meeting less than 50% estimated nutrition needs x past 3-4 months Status Active Problem Recommendation Dietitian Recommendations/Changes Will continue liberalized regular diet in light of malnutrition criteria; monitor need to restrict carbohydrates if blood glucose rises (hx of DM II). Will continue 240ml ensure plus high protein TID with meals; change to glucerna shake as needed. Adjust ONS as needed to optimize PO and prevent further wt loss. Weight / BMI Weight Weight: 63.1 kg Body Mass Index (BMI) 25.4 ABG / Lab / Microbiology Data Result Diagrams: 04/26/22 05:41 04/26/22 05:41 Laboratory: Laboratory Results - last 24 hr 04/26/22 05:41: WBC 5.1, RBC 3.58 L, Hgb 10.2 L, Hct 31.8 L, MCV 88.8, MCH 28.5, MCHC 32.1, RDW Std Deviation 44.4 H, RDW Coeff of Amrita 13.6, Plt Count 143 L, MPV 12.2 H, Immature Gran % (Auto) 0.400, Neut % (Auto) 56.2, Lymph % (Auto) 32.0, [place] % (Auto) 9.2, Eos % (Auto) 1.8, Baso % (Auto) 0.4, Absolute Neuts (auto) 2.9, Absolute Lymphs (auto) 1.64, Nucleated RBC % 0 04/26/22 05:41: Sodium 142, Potassium 3.6, Chloride 111 H, Carbon Dioxide 26.0, Anion Gap 5, BUN 14, Creatinine 0.79, Estim Creat Clear Calc 33.71, Est GFR (MDRD) Af Amer 89, Est GFR (MDRD) Non-Af 74, BUN/Creatinine Ratio 17.7, Glucose 105, Calcium 9.3, Total Bilirubin 0.20, AST 18, ALT 24, Alkaline Phosphatase 126 H, Total Protein 5.8 L, Albumin 2.8 L, Globulin 3.0, Albumin/Globulin Ratio 0.9 Microbiology: Microbiology 04/24/22 16:34 Nasal Secretion SARS-CoV-2 Antigen (Rapid) - Final D/C Instructions Discharge Diet: 2000 mg Sodium Diet Meaningful Use Info Meaningful Use Diagnoses (Choose all that apply): None applicable Discharge Plan Admission Admit Date/Time: 04/24/22 18:31 Primary Reason for Your Visit: Syncope Attending Provider: Shayna Castillo Primary Care Provider: Avi Elliott Chi Consulting Providers: Jean Parmar Instructions Additional Instructions / Restrictions: Patient's Aricept was increased to 10mg daily in this admission over concerns for worsening dementia Pain management consult - Dr. Casarez for probable epidural injection - within 2 weeks Discharge Orders/Prescriptions Prescriptions: New sennosides-docusate sodium [Stool Softener-Stimulant Laxat] 8.6-50 mg Tablet 2 tab PO DAILY PRN PRN (Reason: CONSTIPATION) Qty: 0 0RF Continued multivitamin [Multiple Vitamins] 1 EACH tablet 1 ea PO DAILY gabapentin 300 MG capsule 1 tab PO QHS Label Comments: TAKE 1 CAPSULE AT BEDTIME lovastatin 20 mg tablet 1 tab PO QHS Label Comments: cholecalciferol (vitamin D3) [Vitamin D3] 2,000 UNIT capsule 2,000 unit PO DAILY Fiber (dextrin) 350 GM powder 350 g PO QODAY PRN (Reason: Constipation) amlodipine-benazepril 5-20 mg capsule 1 cap PO BID estradiol 0.01 % (0.1 mg/gram) cream 0.1 g VAGINAL Linzess 72 mcg Capsule 72 mcg PO DAILY Discontinued carvedilol 6.25 mg tablet 6.25 mg PO DAILY Label Comments: donepezil 5 mg tablet 5 mg PO DAILY metronidazole 500 mg tablet 500 mg PO BID No Action acetaminophen [Tylenol] 325 mg tablet 650 mg PO TID carvedilol 6.25 mg tablet 6.25 mg PO BIDCM Label Comments: donepezil 10 mg tablet 10 mg PO QHS metronidazole 500 mg tablet 500 mg PO BID Rx Instructions: 04/28/22 5pm lidocaine 5 % adhesive patch,medicated 2 patch topical DAILY Protocol: *Topical Application Instructions APPLICATION INSTRUCTIONS: apply to the lower back docusate sodium [Colace] 100 mg capsule 100 mg PO DAILY gabapentin 100 mg capsule 200 mg PO QHS Referrals / Follow Up: Toni Casarez MD [Med Staff - Active Staff] - Within 2 Weeks Avi Elliott Chi, MD [Primary Care Provider] - Disposition Disposition (needs filled in before D/C Order can be placed): Senior Living Facility Charges/Coding Visit Charges Inpatient E&M: 79882 Disch Hosp
--- NOTE | 2022-04-26 12:04 | CASEMGMT ---
Social Work SW in to inform pt of discharge to TCU today. Pt and in room and both voiced understanding. SW asked if pt would like SW to inform any other family members and pt declined, stated would call daughter to update. SW informed Clare at TCU that pt is coming today. Faxed discharge orders to TCU. Placed original orders with pt and copies on pt chart. Disposition: TCU, skilled level of care. PAULIE Guillermo
[2022-04-26] MEDS: Lisinopril 20 MG Tablet PO (13:59)
--- NOTE | 2022-04-26 14:47 | NURSING ---
late entry; report called to [facility] @ 1400
== END 2022-04-26 14:13 | disposition skilled nursing facility (03) ==
LOC: ED 17:53 → MS3 19:23
PROVIDERS: Admitting Provider Internal Medicine; Emergency Provider Emergency Medicine; PCP Family Medicine Geriatric Medicine; Visit Provider Internal Medicine
DX: I95.1 Orthostatic hypotension (principal); N17.9 Acute kidney failure, unspecified; F03.90 Unspecified dementia, unspecified severity, without behavioral disturbance, psychotic disturbance, mood disturbance, and anxiety; E11.9 Type 2 diabetes mellitus without complications; M48.56XD Collapsed vertebra, not elsewhere classified, lumbar region, subsequent encounter for fracture with routine healing; E86.0 Dehydration; E78.5 Hyperlipidemia, unspecified; I10 Essential (primary) hypertension; R53.81 Other malaise; Z87.891 Personal history of nicotine dependence; H91.90 Unspecified hearing loss, unspecified ear; Z79.899 Other long term (current) drug therapy
CPT/HCPCS: 36415; 71045; 80048; 80053; 85025; 87426; 87811; 93005; 96361; 96372; 96374; 96375; 97162; 97166; 97802; 99218; 99285; J7030; A4216; G0378; J2405

== ENCOUNTER 2022-04-26 14:29 | Inpatient (IN) | payer MEDICARE, SELFPAY ==
[2022-04-26 14:33] VITALS: BP 175/79; PULSE 62; PULSE 63; RESP 16; TEMP 36.4; O2SAT 97
[2022-04-26 15:15] VITALS: BMI 25.9
[2022-04-26 18:00] VITALS: BP 144/73; PULSE 62
[2022-04-26] MEDS: Carvedilol 6.25 MG Tablet PO (18:54)
[2022-04-26] MEDS: metroNIDAZOLE 500 MG Tablet PO (18:55)
--- NOTE | 2022-04-26 19:09 | HP.PCM_ITS ---
HPI - General General Date of Admission: 04/26/22 Date of Service: 04/26/22 Chief Complaint: Here for rehab. HPI Narrative 04/24/2022 SARA GALARZA, is a 82 Female who presents to [facility] Emergency Department with shortness of breath. Syncope, unable to care for her at home. 04/24/2022 Admit to Hospital. Syncope evaluation shows orthostatic hypotension treated with IV fluids. PT/OT for Longterm Facility. 04/25/2022 Syncope resolved, orthostatics positive. Continue IV fluids for orthostatic hypotension. 04/26/2022 Admit to TCU with debility, here for rehabilitation, strengthening, prior to discharge home with . [facility] Medical History Dementia Diabetes mellitus Essential hypertension Former tobacco use Hyperlipidemia Inability to ambulate due to left hip Multiple falls Paroxysmal atrial fibrillation (03/21/22) Home Medications cholecalciferol (vitamin D3) 50 mcg (2,000 unit) capsule (Vitamin D3) 2,000 unit PO DAILY Supplement 12/14/16 [History Last Taken 03/20/22] dextrin 3 gram/3.5 gram oral powder (Fiber (dextrin)) 350 g PO QODAY PRN Constipation 12/14/16 [History Last Taken 03/18/22] gabapentin 300 mg capsule 1 tab PO QHS Nerve Pain 12/14/16 [History Last Taken 03/19/22] lovastatin 20 mg tablet 1 tab PO QHS Cholesterol 12/14/16 [History Last Taken 03/19/22] multivitamin (Multiple Vitamins tablet) 1 ea PO DAILY Supplement 12/14/16 [History Last Taken 03/20/22] amlodipine 5 mg-benazepril 20 mg capsule 1 cap PO BID bp 03/20/22 [History Last Taken 03/20/22] estradiol 0.01% (0.1 mg/gram) vaginal cream 0.1 g vaginal Check with primary doctor 03/21/22 [History Last Taken 03/19/22] linaclotide 72 mcg capsule (Linzess) 72 mcg PO DAILY Constipation 04/24/22 [History Last Taken Unknown] acetaminophen 325 mg tablet (Tylenol) 650 mg PO TID Pain 04/26/22 [History Last Taken Unknown] carvedilol 6.25 mg tablet 6.25 mg PO BIDCM BP 04/26/22 [History Last Taken Unknown] docusate sodium 100 mg capsule (Colace) 100 mg PO DAILY Constipation 04/26/22 [History Last Taken Unknown] donepezil 10 mg tablet 10 mg PO QHS Dementia 04/26/22 [History Last Taken Unknown] gabapentin 100 mg capsule 200 mg PO QHS Nerve Pain 04/26/22 [History Last Taken Unknown] lidocaine 5 % topical patch 2 patch topical DAILY Pain 04/26/22 [History Last Taken Unknown] metronidazole 500 mg tablet 500 mg PO BID Antibiotic 04/26/22 [History Last Taken Unknown] sennosides 8.6 mg-docusate sodium 50 mg tablet (Stool Softener-Stimulant Laxative) 2 tab PO DAILY PRN PRN CONSTIPATION #0 tabs 04/26/22 [Rx Last Taken Unknown] Allergy/AdvReac Type Severity Reaction Status Date / Time adhesive Allergy Rash Verified 04/24/22 16:17 cough syrup AdvReac Unknown Uncoded 04/24/22 16:17 Family History Mother Diabetes Heart disease Hypertension Cerebral hemorrhage Father Brain cancer Surgical History History of tonsillectomy and adenoidectomy Hx of appendectomy Hx of cholecystectomy Hx of hysterectomy Social History household members: spouse Smoking Status: Former smoker how long ago did patient quit smoking: Smoked age [age]. 3-5 cig/day, quit following. alcohol intake: current alcohol intake frequency: holidays/special occasions only substance use type: does not use ROS Constitutional Constitutional: Denies chills, fever(s) or weight gain ENT HEENT: Denies headache(s), nasal congestion or nasal discharge Cardiovascular Cardiovascular: Denies chest pain or palpitations Respiratory/Chest Respiratory/Chest: Denies cough, excessive phlegm production or shortness of breath with exertion Gastrointestinal Gastrointestinal: Denies abdominal pain, nausea or vomiting Genitourinary Genitourinary: Denies dysuria Musculoskeletal Musculoskeletal: Denies joint pain or joint swelling Integumentary Integumentary: Denies rash or wounds Neurologic Neurologic: Denies focal weakness, numbness or tingling Psychiatric Psychiatric: Denies anxiety, auditory hallucinations, depression, homicidal ideation or suicidal ideation Vital Signs Vital Signs Vital Signs: 04/26/22 14:33 Temperature 97.5 F L Temperature Source Temporal Pulse Rate 63 Respiratory Rate 16 Blood Pressure 175/79 H Blood Pressure Mean 111 Blood Pressure Source Monitor Blood Pressure Position Supine Blood Pressure Location Right Arm Pulse Ox 97 Oxygen Delivery Method Room Air Weight Weight: 63.957 kg Body Mass Index (BMI) 25.9 Physical Exam Const alert General Appearance: cooperative HEENT normocephalic Eyes PERRL and EOMs intact bilaterally Neck supple, no JVD and no carotid bruits Resp normal respiratory effort, normal air movement and clear to auscultation bilaterally Cardio regular rate and regular rhythm GI normal to inspection, nondistended, normoactive bowel sounds, non-tender and non-distended Extremity normal capillary refill General Extremity: Negative for edema Skin no rashes or lesions noted General Skin Exam: no breakdown Psych affect normal Appearance: appropriate Assessment & Plan Assessment/Plan (1) Debility: (2) Syncope: (3) Orthostatic hypotension: (4) Hypertension: (5) Vitamin D deficiency: (6) Neuropathic pain: (7) Hyperlipidemia: (8) Alzheimer disease: (9) Irritable bowel syndrome with constipation: PLAN: Plan 82 year old female with below past medical history hospitalized for syncope secondary to orthostatic hypotension, admitted to TCU with debility, here for rehabilitation, strengthening, prior to discharge home with . * Debility - PT/OT. * Cognition - ST. * Pain - Tylenol 1000mg q6h prn pain (1-10). * Bowel - Miralax 17gm daily, senna/colace 1 tablet bid. * Adult immunization - Administer pneumonia vaccine, covid19 vaccine, flu vaccine. * DVT prophylaxis - Hold, anemia. * Hypertension - Coreg 6.25mg bid, Lisinopril 20mg daily, Amlodipine 5mg daily. * Orthostatic hypotension - check orthostatic vital signs. * Alzheimer Disease - Donepezil 10mg qhs. * Insomnia - Melatonin 10mg at bedtime. * Generalized anxiety disorder - Paroxetine 10mg qam, stable chronic custodial use, GDR not recommended.
[2022-04-26] MEDS: Senna/Docusate Sodium 1 Tablet PO (22:09)
[2022-04-26] MEDS: MELATONIN 10 MG TABLET PO (22:09)
[2022-04-26] MEDS: Donepezil HCl 10 MG Tablet PO (22:11)
[2022-04-27 05:00] VITALS: BP 163/78; PULSE 63; RESP 20; O2SAT 99
[2022-04-27] MEDS: Acetaminophen 500 MG Tablet 1000 MG PO ×3 (05:02→21:06)
[2022-04-27] MEDS: PARoxetine 10 MG Tablet PO (05:03)
[2022-04-27] MEDS: Lisinopril 20 MG Tablet PO (05:03)
[2022-04-27] MEDS: Senna/Docusate Sodium 1 Tablet PO ×2 (05:03→17:17)
[2022-04-27] MEDS: amLODIPine 5 MG Tablet PO (05:03)
[2022-04-27] MEDS: Polyethylene Glycol 3350 17 GM PACKET PO (05:03)
[2022-04-27 05:15] VITALS: BP 114/68; BP 122/68; BP 163/78; PULSE 63; PULSE 69; PULSE 81
[2022-04-27 05:38] LABS: Absolute Lymphocyte Count 1.61 X10^3/uL (0.83-4.51); Absolute Neutrophil Count 3.4 X10^3/uL (2.0-7.7); Basophil# 0.02 X10^3/uL; Basophil% 0.4 % (0-1); Eosinophil# 0.07 X10^3/uL; Eosinophils% 1.2 % (0-5); Hemoglobin 11.5 g/dL (12.0-15.0); Lymphocyte # 1.61 X10^3/ul (0.83-4.51); Lymphocyte % 28.2 % (19-41); Mean Corp Hgb Conc 31.9 g/dL (32-36); Mean Corpuscular Hgb 27.9 pg (27.0-32.0); Mean Corpuscular Volume 87.4 fL (81-99); Mean Platelet Vol. 12.2 fl (6.2-12.0); Monocyte# 0.57 X10^3/uL; NRBC Flagged by Analyzer 0 % (0-5); Neutrophil # 3.42 X10^3/uL (2.7-7.7); Neutrophil % 59.8 % (47-70); Platelet Count 177 K/mm3 (150-450); RBC Distribution Width CV 13.6 % (11.6-14.6); RBC Distribution Width SD 43.2 fl (35.1-43.9); Red Blood Count 4.12 M/mm3 (4.2-5.4); White Blood Count 5.7 K/mm3 (4.4-11.0)
[2022-04-27 06:03] LABS: Anion Gap 6 (5-15); BUN 13 mg/dL (7-18); BUN/Creat Ratio 16.7 RATIO (10-20); Calcium,Total 9.9 mg/dL (8.5-10.1); Chloride 106 mmol/L (98-107); Creatinine, Serum 0.78 mg/dL (0.55-1.02); EST Glomerular Filtration Rate 75 mL/min (>60); Est Glom Filt Rate - Afr Amer 91 mL/min (>60); Estimated Creatinine Clearance 32.17 ml/min; Glucose 107 mg/dL (74-106); Potassium 3.5 mmol/L (3.5-5.1); Sodium Level 139 mmol/L (136-145)
[2022-04-27] MEDS: Carvedilol 6.25 MG Tablet PO ×2 (08:19→17:17)
--- NOTE | 2022-04-27 08:54 | RAD_ITS ---
STUDY: X-RAY - THORACIC SPINE REASON FOR EXAM: Female, 82 years old. Thoracic back pain BACK PAIN, WEAKNESS TECHNIQUE: 3 view(s) of the thoracic spine were obtained. COMPARISON: None. FINDINGS: Normal kyphosis of the thoracic spine. There is no substantial scoliosis. There are mild chronic compression deformities of T11-L1. No visualized acute fractures. The disc spaces are preserved. Minimal endplate spondylosis noted at several levels. There is no aggressive process is seen. The soft tissue structures are unremarkable. RAD/Thoracic Spine 3 Views IMPRESSION: 1. Chronic compression deformities of the T11-L1 vertebral bodies Electronically Signed: Niraj Stack MD at 13:25 EDT ,
--- NOTE | 2022-04-27 08:54 | RAD_ITS ---
STUDY: X-RAY - LUMBAR SPINE REASON FOR EXAM: Female, 82 years old. Low back pain TECHNIQUE: 4 view(s) of the lumbar spine were obtained. COMPARISON: CT of the abdomen and pelvis dated DECEMBER 23, 2021 FINDINGS: Chronic compression deformities of the T11, T12, and L1 vertebral bodies reidentified. The bony structures are demineralized. Mild endplate spurring and disc space narrowing is present throughout the lumbar spine. No acute fracture is seen. Normal lumbar lordosis. There is no substantial scoliosis. There is a normal alignment of the vertebrae. There is atherosclerotic calcification of the abdominal aorta without a demonstrated aneurysm. RAD/L/S Spine Min 4 Views IMPRESSION: 1. Chronic compression deformities of the T11-L1 vertebral bodies 2. Mild multilevel degenerative changes 3. Diffuse demineralization of the bony structures. Electronically Signed: Niraj Stack MD at 12:41 EDT ,
[2022-04-27] MEDS: Tuberculin,Purif.prot.deriv. 50 TU/ML Vial 0.1 ML ID (10:49)
--- NOTE | 2022-04-27 13:26 | NURSING ---
Dr Casarez notified for consult d/t T11 & T12 and L1 compression fx's. confidential secretary stated dr casarez will not be back in until
--- NOTE | 2022-04-27 14:13 | NURSING ---
cage shift manager reported pt had trouble sleeping, also spoke with daughter and she said pt has had trouble approx [address] frias updated, new order for doxepin
[2022-04-27 15:44] VITALS: BP 163/83; PULSE 63; RESP 20; TEMP 36.7; O2SAT 94
--- NOTE | 2022-04-27 16:20 | CASEMGMT ---
Social Work Met with patient to complete initial assessment. Introduced self and role. present at bedside. Pt granted permission to complete assessment with present. answered majority of the questions. Pt having difficulty following/understanding questions. Pt was able to understand and express wishes to complete advanced directives and DNR-CCA, no intubation for code status. MOLST completed, placed in Dr. lutz. Educated to [facility] insurance with NRD 04/30 and continued stay is not guaranteed with each review. Pts goal is to return home with . However, 1/2 bath on first floor, full bath is in the basement, and pt was managing own medications. SSW to continue to follow for DC planning. Dawn Cabral, LIVING SPECIALIST PHOTOGRAPHER FINISH
[2022-04-27] MEDS: Donepezil HCl 10 MG Tablet PO (21:06)
[2022-04-27] MEDS: Doxepin Hydrochloride 10 MG Capsule PO (21:06)
[2022-04-27 21:24] VITALS: PULSE 77; RESP 16; O2SAT 97
[2022-04-28] MEDS: Acetaminophen 500 MG Tablet 1000 MG PO ×3 (04:57→21:46)
[2022-04-28] MEDS: PARoxetine 10 MG Tablet PO (04:58)
[2022-04-28] MEDS: Lisinopril 20 MG Tablet PO (04:58)
[2022-04-28] MEDS: Senna/Docusate Sodium 1 Tablet PO ×2 (04:58→17:45)
[2022-04-28] MEDS: amLODIPine 5 MG Tablet PO (04:58)
[2022-04-28] MEDS: Polyethylene Glycol 3350 17 GM PACKET PO (04:58)
[2022-04-28 07:50] VITALS: BP 117/73; PULSE 67; RESP 16; TEMP 36.3; O2SAT 95
--- NOTE | 2022-04-28 08:01 | NURSING ---
Patient helped to bathroom w/ 2 assist. When staff came to assist her back from bathroom she said she felt like she was going to pass out. Chair brought to bathroom and patient helped into chair. She continued to feel dizzy, symptoms slowly improved over next few minutes. Vitals checked and are stable. Patient left sitting up in her chair w/ feet elevated, call vaughn at her side.
[2022-04-28 09:08] VITALS: BP 129/75; PULSE 74; O2SAT 98
[2022-04-28] MEDS: Carvedilol 6.25 MG Tablet PO ×2 (09:08→17:46)
[2022-04-28 14:40] VITALS: BP 123/70; PULSE 70; RESP 16; TEMP 36.1; O2SAT 97
[2022-04-28 17:53] VITALS: BP 149/80; PULSE 70
[2022-04-28] MEDS: Doxepin Hydrochloride 10 MG Capsule PO (21:45)
[2022-04-28] MEDS: Donepezil HCl 10 MG Tablet PO (21:47)
[2022-04-29] MEDS: Polyethylene Glycol 3350 17 GM PACKET PO (05:15)
[2022-04-29] MEDS: Lisinopril 20 MG Tablet PO (05:17)
[2022-04-29] MEDS: PARoxetine 10 MG Tablet PO (05:17)
[2022-04-29] MEDS: amLODIPine 5 MG Tablet PO (05:17)
[2022-04-29] MEDS: Acetaminophen 500 MG Tablet 1000 MG PO ×3 (05:17→20:52)
[2022-04-29] MEDS: Senna/Docusate Sodium 1 Tablet PO ×2 (05:18→18:03)
[2022-04-29 05:46] VITALS: BP 130/77; PULSE 75
[2022-04-29] MEDS: Carvedilol 6.25 MG Tablet PO ×2 (08:25→18:03)
[2022-04-29 08:26] VITALS: BP 120/60; PULSE 73
[2022-04-29 14:24] VITALS: BP 152/79; PULSE 70; RESP 16; TEMP 36.6; O2SAT 94
[2022-04-29 18:14] VITALS: PULSE 68; RESP 16; O2SAT 95
[2022-04-29] MEDS: Doxepin Hydrochloride 10 MG Capsule PO (20:51)
[2022-04-29] MEDS: Donepezil HCl 10 MG Tablet PO (20:51)
[2022-04-30] MEDS: Polyethylene Glycol 3350 17 GM PACKET PO (06:29)
[2022-04-30] MEDS: Acetaminophen 500 MG Tablet 1000 MG PO ×3 (06:30→21:21)
[2022-04-30] MEDS: PARoxetine 10 MG Tablet PO (06:31)
[2022-04-30] MEDS: Senna/Docusate Sodium 1 Tablet PO (06:31)
[2022-04-30] MEDS: Lisinopril 20 MG Tablet PO (06:32)
[2022-04-30] MEDS: amLODIPine 5 MG Tablet PO (06:33)
[2022-04-30 06:43] VITALS: BP 114/56
[2022-04-30 08:57] VITALS: BP 117/69; PULSE 74
[2022-04-30] MEDS: Carvedilol 6.25 MG Tablet PO ×2 (08:58→16:31)
[2022-04-30 09:00] VITALS: RESP 16; O2SAT 94
--- NOTE | 2022-04-30 11:28 | PHA.CONS_ITS ---
TCU RX Drug Regimen Review Subjective: 82 YOF admitted to TCU S/P hospitalization at [facility]. Patient was (+) for orthostatic hypotension prior to discharge from hospital. Admitted to TCU for strengthening and rehabilitation prior to discharge home with . Objective: Allergies adhesive Allergy (Verified 04/24/22 16:17) Rash cough syrup Adverse Reaction (Uncoded 04/24/22 16:17) Unknown Current Medications Generic Name Dose Route Start Last Admin Trade Name Kevq PRN Reason Stop Dose Admin Acetaminophen 1,000 mg 04/27/22 22:00 04/30/22 06:30 Acetaminophen 500 Mg Tablet PO 1,000 mg Q8 ROXANA Administration Amlodipine Besylate 5 mg 04/27/22 06:00 04/30/22 06:33 Amlodipine 5 Mg Tablet PO 5 mg DAILY ROXANA Administration Carvedilol 6.25 mg 04/26/22 17:00 04/30/22 08:58 Carvedilol 6.25 Mg Tablet PO 6.25 mg BIDCM ROXANA Administration Donepezil HCl 10 mg 04/26/22 22:00 04/29/22 20:51 Donepezil Hcl 10 Mg Tablet PO 10 mg QHS ROXANA Administration Doxepin HCl 10 mg 04/27/22 22:00 04/29/22 20:51 Doxepin Hydrochloride 10 Mg Capsule PO 10 mg QHS [facility] Administration Estradiol 1 gm 05/01/22 22:00 Estradiol 42.5 Gm Cream.Appl VAGINAL [email or web address] Lisinopril 20 mg 04/27/22 06:00 04/30/22 06:32 Lisinopril 20 Mg Tablet PO 20 mg DAILY ROXANA Administration Paroxetine HCl 10 mg 04/27/22 06:00 04/30/22 06:31 Paroxetine 10 Mg Tablet PO 10 mg DAILY ROXANA Administration Polyethylene Glycol 17 gm 04/27/22 06:00 04/30/22 06:29 Polyethylene Glycol 3350 17 Gm Packet PO 17 gm DAILY ROXANA Administration Senna/Docusate Sodium 1 tablet 04/26/22 19:30 04/30/22 06:31 Senna/Docusate Sodium 1 Tablet PO 1 tablet BID ROXANA Administration Tuberculin PPD 0.1 ml 05/04/22 10:00 Tuberculin,Purif.Prot.Deriv. 50 Tu/Ml Vial ID 05/04/22 10:01 X1 ONE Problem List (Last Reviewed 04/26/22 @ 19:[address] Avi Elliott MD) Irritable bowel syndrome with constipation (Acute) Alzheimer disease (Acute) Hyperlipidemia (Acute) Neuropathic pain (Acute) Vitamin D deficiency (Acute) Hypertension (Chronic) Orthostatic hypotension (Acute) Syncope (Acute) Debility (Acute) Vital Signs Temp Pulse Resp BP Pulse Ox O2 Del Method 97.9 F 74 16 117/69 95 Room Air 04/29/22 14:24 04/30/22 08:57 04/29/22 18:14 04/30/22 08:57 04/29/22 18:14 04/29/22 18:14 Oxygen Delivery Method Room Air Weight: 63.957 kg Body Mass Index (BMI) 25.9 Sodium 139 mmol/L (136-145) 04/27/22 05:24 Potassium 3.5 mmol/L (3.5-5.1) 04/27/22 05:24 Chloride 106 mmol/L (98-107) 04/27/22 05:24 Carbon Dioxide 27.0 mmol/L (21.0-32.0) 04/27/22 05:24 Anion Gap 6 (5-15) 04/27/22 05:24 BUN 13 mg/dL (7-18) 04/27/22 05:24 Creatinine 0.78 mg/dL (0.55-1.02) 04/27/22 05:24 Est GFR (MDRD) Af Amer 91 mL/min (>60) 04/27/22 05:24 Est GFR (MDRD) Non-Af 75 mL/min (>60) 04/27/22 05:24 BUN/Creatinine Ratio 16.7 RATIO (10-20) 04/27/22 05:24 Glucose 107 mg/dL (74-106) H 04/27/22 05:24 Assessment/Plan: 1. Pain: Tylenol 1000mg PO Q8h. Please continue to monitor for increased/decreased S/S pain. The patient is reporting back pain rated 2/10, pain is reporting being resolved post-medication. It appears patient has adequate pain control at this time. 2. HTN: Norvasc 5mg PO Daily, Coreg 6.25mg PO BID, Lisinopril 20mg PO Daily. Please continue to monitor BP (48hr 114-152/56-80), pulse (48hr range 67-74 BPM), renal function (stable), electrolytes. 3. IBS-C/ Bowel: Miralax 17g PO Daily, Senna/Docusate 1 tab PO BID. Please continue to monitor increased/decreased constipation/diarrhea. Per EMR, the patient has had 1 bowel movement (04/29) since admission. 4. Alzheimer Disease: Donepezil 10mg PO QHS. Please continue to monitor for disease progression, vivid dreams/nightmares, headache while on therapy. Assessment/Plan for indications treated with psychotropic medications: 5. Generalized Anxiety Disorder: Paxil 10mg PO Daily. Please evaluate risk vs. benefit of use. This is a Beer's criteria medication which can increase the risk of orthostatic hypotension. The patient has a significant history of this, and had an episode 04/28 per chart review. thank you 6. Insomnia: Doxepin 10mg PO QHS. Please continue to monitor for medication effectiveness, blurred vision, constipation. Please evaluate if patient can be changed to another agent to help with insomnia. This is a Beer's Criteria medication which can increase the risk of orthostatic hypotension. The patient is currently on a few agents that can cause orthostatic hypotension, and was i nitially admitted to the hospital for this, thank you. Medical chart and medication regimen reviewed. The following medication irregularities or issues were identified: 1. Orthostatic Hypotension: The patient was having issues with this prior to admission. Doxepin was started to help with insomnia, however this is a Beer's criteria medication that can increase the risk of orthostatic hypotension/ have anticholinergic effects in the elderly population. Patient is on Paxil for anxiety, which can also increase risk of orthostatic hypotension in elderly patients. Per chart review, patient had a dizzy episode the morning of 04/28/22 (after mediation was started). Please review the risk vs. benefit of utilizing doxepin for insomnia and Paxil for anxiety in this particular patient given risk factors and history of orthostatic hypotension/dizziness, thank you. 2. Abnormal dreams: Per Handoff communication 04/30, the patient is reporting weird, abnormal dreams. The patient takes Aricept at nighttime for dementia, which can cause abnormal dreams. This can also possibly be contributing to her insomnia as well (see note above regarding doxepin). Can try giving medication during the daytime to help minimize this side effect. Should side effect keep occurring and negatively impacting patient, can evaluate the risk vs. benefit of continued use, thank you. 3. Insomnia: The patient is currently on Doxepin to help with insomnia. This is a Beer's criteria medication which can increase the risk of orthostatic hypotension in the elderly. Given that the patient is on a few medications that cause orthostatic hypotension, please evaluate if the patient could be switched to a different medication to help with insomnia if clinically indicated, thank you. 4. Estradiol: The patient is on 1g Vaginally 2x/week. There is no indication for this medication per chart review, please evaluate for appropriate use, thank you. Date of Note:: 04/30/22
[2022-04-30 14:41] VITALS: BP 132/69; PULSE 70; RESP 16; TEMP 37.2; O2SAT 95
[2022-04-30 16:30] VITALS: BP 141/80; PULSE 68
[2022-04-30] MEDS: Donepezil HCl 10 MG Tablet PO (21:21)
[2022-04-30] MEDS: Doxepin Hydrochloride 10 MG Capsule PO (21:21)
[2022-05-01] MEDS: Lisinopril 20 MG Tablet PO (05:15)
[2022-05-01] MEDS: Senna/Docusate Sodium 1 Tablet PO ×2 (05:15→17:26)
[2022-05-01] MEDS: Polyethylene Glycol 3350 17 GM PACKET PO (05:15)
[2022-05-01] MEDS: Acetaminophen 500 MG Tablet 1000 MG PO ×3 (05:16→21:28)
[2022-05-01] MEDS: PARoxetine 10 MG Tablet PO (05:16)
[2022-05-01] MEDS: amLODIPine 5 MG Tablet PO (05:16)
[2022-05-01 05:23] VITALS: BP 166/70; PULSE 65; RESP 16
--- NOTE | 2022-05-01 05:23 | NURSING ---
Pt. c/o back aches despite kpad/repositioning/RTN Tylenol. Written communication left for Dr. Elliott review this AM requesting new order for pain management.
[2022-05-01] MEDS: Carvedilol 6.25 MG Tablet PO ×2 (08:35→17:26)
[2022-05-01 08:38] VITALS: BP 158/71; PULSE 63
[2022-05-01 10:53] VITALS: PULSE 68; O2SAT 98
[2022-05-01 14:20] VITALS: BP 156/73; PULSE 63; RESP 18; TEMP 36.2; O2SAT 97
--- NOTE | 2022-05-01 15:08 | CASEMGMT ---
Social Work BIMS () and PHQ-9 (12/06) completed for MDS assessment. was present. SW discussed DC plans in preparation for POC mtg tomorrow. SW inquired to about current cognition vs baseline, expectations for DC, assistance at home and taking over medication management. Spoke with and pt at length. Pt gets 'flustered' easily, difficulty finishing sentences and connecting ideas to form thoughts. stated this is not patient's baseline; he understands pt cannot continue managing own medications and agreed to take that over at DC. Offered therapy training - agreed. Therapy coordinated with on schedule. stated his daughters are not able to assist with pt/him at home. Educated to nonskilled FRAMING MANAGER. Pt interjected and explained pt nor like to have other people in their home and no funds to pay for FRAMING MANAGER. SW explored further with and educated to roles of FRAMING MANAGER and skilled HHC. agreeable to skilled HHC and will consider FRAMING MANAGER r/t money. Dtr will be present at POC mtg tomorrow as well. Explained these topics will be discussed further by all disciplines. appreciative. Dawn Cabral, AKIKO AGGARWALW
[2022-05-01] MEDS: Arthritis Pain Compound 60 CLICK TUBE TOPICAL (17:33)
[2022-05-01 18:23] VITALS: BP 149/71; PULSE 69
[2022-05-01] MEDS: Doxepin Hydrochloride 10 MG Capsule PO (21:28)
[2022-05-01] MEDS: Donepezil HCl 10 MG Tablet PO (21:29)
[2022-05-02] MEDS: Polyethylene Glycol 3350 17 GM PACKET PO (05:54)
[2022-05-02] MEDS: amLODIPine 5 MG Tablet PO (05:55)
[2022-05-02] MEDS: PARoxetine 10 MG Tablet PO (05:55)
[2022-05-02] MEDS: Lisinopril 20 MG Tablet PO (05:55)
[2022-05-02] MEDS: Senna/Docusate Sodium 1 Tablet PO (05:55)
[2022-05-02] MEDS: Acetaminophen 500 MG Tablet 1000 MG PO ×3 (05:55→20:40)
[2022-05-02] MEDS: Carvedilol 6.25 MG Tablet PO ×2 (09:22→18:01)
[2022-05-02 09:24] VITALS: BP 132/65; PULSE 72
--- NOTE | 2022-05-02 09:45 | CASEMGMT ---
Social Work IDT met with patient, and dtr via conference call for care plan meeting. Discussed patient's progress in PT/OT/ST/SN. Educated to [employer] insurance with NRD 05/07 and continued stay is not guaranteed. Pts goal is to return home with . IDT recommending 24/ supervision at DC. agreed to take over medication management for pt. is schedule to complete therapy family training for to ensure he can assist pt with needs at home. Pt has 3 LES and 13 to basement walk-in shower. Pt is in room quarantine and cannot practice steps in room. Reiterated conversation with pt and from previous day of pt needing additional assistance. Offered nonskilled [facility] resources. Offered dtr to attend therapy training as well. Dtr will be in town this weekend and will attend therapy 05/05. is scheduled for today and tomorrow. SW to follow up with and dtr after training to determine safe DC plan. SW to continue to follow. Dawn Cabral ,BILLET HEATER GALLEY COOK
[2022-05-02 10:56] VITALS: PULSE 69; RESP 16; O2SAT 95
--- NOTE | 2022-05-02 11:12 | MDS.RN ---
Service Attendant Cafeteria notified of resident's preference for chocolate ensure plus.
--- NOTE | 2022-05-02 11:44 | RAD.NOTE ---
Addendum entered by Caryn Zavala 05/02/22 14:29: 48 hr heart monitor placed at this time. will need removed at 1400 on saturday & returned to registration desk on 1st floor Addendum entered by Caryn Zavala 05/02/22 11:47: Nurse called from Dr Orellana's office and stated they will order 30 day heart monitor, if its ok then they won't need to see her. SAT 95% on rm air. [place], SPECIALTY DEPARTMENT SUPERVISOR updated as well. Original Note: pt returned from Dr Orellana office and did not get to see him because she c/o back hurting and when she leaned forward to help with pain then she got dizzy. dr Orellana office tried calming her down but pt was very anxious and stating she is going back to her room. so they brought her back in WC. at side. vitals here 164/75 HR 64 temp 98.2 resp 24. will medicate for pain. th
[2022-05-02] MEDS: Arthritis Pain Compound 60 CLICK TUBE TOPICAL (12:24)
--- NOTE | 2022-05-02 12:26 | NURSING ---
pt c/o achiness in back, will wait on tylenol which is due at 2p. pt does not want anything stronger at this time. arthritic cream applied to lower back. updated pt and on Dr Orellana wanting pt to wear 30 day heart monitor. agrees, he feels it is more anxiety related.
[2022-05-02 16:00] VITALS: BP 119/68; PULSE 64; RESP 16; TEMP 36.4; O2SAT 96
--- NOTE | 2022-05-02 16:07 | NURSING ---
Vascular Technologist Sonographer Note; Activity Asst: complete
[2022-05-02] MEDS: Donepezil HCl 10 MG Tablet PO (20:40)
[2022-05-02] MEDS: Doxepin Hydrochloride 10 MG Capsule PO (20:40)
[2022-05-02 20:57] VITALS: RESP 16
[2022-05-03] MEDS: Polyethylene Glycol 3350 17 GM PACKET PO (06:38)
[2022-05-03] MEDS: Senna/Docusate Sodium 1 Tablet PO ×2 (06:39→17:36)
[2022-05-03] MEDS: Acetaminophen 500 MG Tablet 1000 MG PO ×3 (06:39→20:28)
[2022-05-03] MEDS: Lisinopril 20 MG Tablet PO (06:39)
[2022-05-03] MEDS: PARoxetine 10 MG Tablet PO (06:39)
[2022-05-03] MEDS: amLODIPine 5 MG Tablet PO (06:39)
[2022-05-03] MEDS: Carvedilol 6.25 MG Tablet PO ×2 (08:22→17:35)
[2022-05-03 08:26] VITALS: BP 103/68; PULSE 95
[2022-05-03] MEDS: 0.9% Normal Saline 1,000 ML 999 ML IV (10:23)
--- NOTE | 2022-05-03 10:30 | NURSING ---
This nurse called to bathroom by PROFESSOR OF SOCIOLOGY. Pt was sitting on toilet and PROFESSOR OF SOCIOLOGY stated pt went stiff as a board and was clammy. Upon entering room pt was A&Ox3, clammy BP 81/50 Spo2 99 RA Pulse 72. Pt transferred back to chair bp rechecked 110/74 Pulse 78. Pt had c/o of pain under right rib. Dr. Elliott updated and N.O. for bolus of NS and recheck orthos.
[2022-05-03 10:56] LABS: Bedside Glucose 113 mg/dL (74-106)
--- NOTE | 2022-05-03 11:48 | NURSING ---
Striping Machine Operator Note; MDS Complete
[2022-05-03 12:26] VITALS: BP 112/59; BP 141/63; BP 152/71
--- NOTE | 2022-05-03 15:20 | NURSING ---
Surgery called and questions answered pertaining pt's history. Pt will go down to surgery @ 1200. Okay to give Coreg Lisinopril and Norvasc in am. Pt to be NPO starting 05/04/22 @ 0000.
[2022-05-03 16:00] VITALS: BP 123/60; PULSE 57; RESP 16; TEMP 36.2; O2SAT 92
[2022-05-03] MEDS: Donepezil HCl 10 MG Tablet PO (20:29)
[2022-05-03] MEDS: Doxepin Hydrochloride 10 MG Capsule PO (20:29)
[2022-05-03] MEDS: Arthritis Pain Compound 60 CLICK TUBE TOPICAL (20:34)
--- NOTE | 2022-05-03 20:41 | NURSING ---
Given ice cream and darren doones for snack with meds.
[2022-05-04 06:01] LABS: Absolute Lymphocyte Count 2.19 X10^3/uL (0.83-4.51); Basophil# 0.02 X10^3/uL; Basophil% 0.3 % (0-1); Eosinophil# 0.07 X10^3/uL; Hematocrit 34.9 % (37-47); Hemoglobin 10.9 g/dL (12.0-15.0); Lymphocyte # 2.19 X10^3/ul (0.83-4.51); Lymphocyte % 31.6 % (19-41); Mean Corp Hgb Conc 31.2 g/dL (32-36); Mean Corpuscular Hgb 28.3 pg (27.0-32.0); Mean Corpuscular Volume 90.6 fL (81-99); Mean Platelet Vol. 11.7 fl (6.2-12.0); Monocyte# 0.62 X10^3/uL; NRBC Flagged by Analyzer 0 % (0-5); Neutrophil % 57.8 % (47-70); Platelet Count 204 K/mm3 (150-450); RBC Distribution Width CV 13.7 % (11.6-14.6); RBC Distribution Width SD 45.5 fl (35.1-43.9); Red Blood Count 3.85 M/mm3 (4.2-5.4); White Blood Count 6.9 K/mm3 (4.4-11.0)
[2022-05-04] MEDS: amLODIPine 5 MG Tablet PO (06:06)
[2022-05-04] MEDS: Lisinopril 20 MG Tablet PO (06:06)
[2022-05-04 06:27] LABS: Anion Gap 7 (5-15); BUN 26 mg/dL (7-18); BUN/Creat Ratio 34.8 RATIO (10-20); Calcium,Total 9.8 mg/dL (8.5-10.1); Chloride 111 mmol/L (98-107); Creatinine, Serum 0.75 mg/dL (0.55-1.02); EST Glomerular Filtration Rate 79 mL/min (>60); Est Glom Filt Rate - Afr Amer 95 mL/min (>60); Estimated Creatinine Clearance 32.17 ml/min; Glucose 94 mg/dL (74-106); Potassium 3.4 mmol/L (3.5-5.1); Sodium Level 144 mmol/L (136-145)
[2022-05-04] MEDS: Carvedilol 6.25 MG Tablet PO ×2 (08:09→17:13)
[2022-05-04 08:10] VITALS: BP 168/73; PULSE 68
--- NOTE | 2022-05-04 09:00 | CASEMGMT ---
Social Work Telephone call from patient daughter, Yasmine. Yasmine confirming plan to do family training with therapy on 05/05/2022 @ 9:00am. This health social work professor notified therapy. Pollo WHARTON, CATALINO
[2022-05-04] MEDS: 0.9% Saline Lock 10 ML Syringe IV (10:17)
--- NOTE | 2022-05-04 12:16 | NURSING ---
Pt off unit for surgery with Dr. Casarez
[2022-05-04 16:00] VITALS: BP 139/66; PULSE 69; RESP 18; TEMP 36.4; O2SAT 94
--- NOTE | 2022-05-04 17:08 | NURSING ---
Pt came back from surgery in bed resting no c/o of pain at this time.
[2022-05-04] MEDS: Potassium Chloride Oral Tablet 20 MEQ PO (17:13)
[2022-05-04] MEDS: Tuberculin,Purif.prot.deriv. 50 TU/ML Vial 0.1 ML ID (17:13)
[2022-05-04 17:18] VITALS: BP 148/78; PULSE 77
[2022-05-04] MEDS: Doxepin Hydrochloride 10 MG Capsule PO (20:31)
[2022-05-04] MEDS: Donepezil HCl 10 MG Tablet PO (20:31)
[2022-05-04] MEDS: Acetaminophen 500 MG Tablet 1000 MG PO (20:31)
[2022-05-05] MEDS: PARoxetine 10 MG Tablet PO (05:43)
[2022-05-05] MEDS: Senna/Docusate Sodium 1 Tablet PO ×2 (05:43→17:14)
[2022-05-05] MEDS: Lisinopril 20 MG Tablet PO (05:43)
[2022-05-05] MEDS: Acetaminophen 500 MG Tablet 1000 MG PO ×3 (05:43→21:49)
[2022-05-05] MEDS: amLODIPine 5 MG Tablet PO (05:44)
[2022-05-05 07:56] LABS: Anion Gap 6 (5-15); BUN 21 mg/dL (7-18); BUN/Creat Ratio 27.7 RATIO (10-20); Calcium,Total 10.3 mg/dL (8.5-10.1); Chloride 112 mmol/L (98-107); Creatinine, Serum 0.76 mg/dL (0.55-1.02); EST Glomerular Filtration Rate 78 mL/min (>60); Est Glom Filt Rate - Afr Amer 94 mL/min (>60); Estimated Creatinine Clearance 32.17 ml/min; Glucose 108 mg/dL (74-106); Potassium 3.6 mmol/L (3.5-5.1); Sodium Level 142 mmol/L (136-145)
[2022-05-05] MEDS: Carvedilol 6.25 MG Tablet PO ×2 (08:19→17:14)
[2022-05-05 08:20] VITALS: BP 147/77; PULSE 69
[2022-05-05 16:00] VITALS: BP 168/69; PULSE 74; RESP 17; TEMP 36.6; O2SAT 96
[2022-05-05] MEDS: Donepezil HCl 10 MG Tablet PO (21:49)
[2022-05-05] MEDS: Doxepin Hydrochloride 10 MG Capsule PO (21:50)
[2022-05-06] MEDS: Lisinopril 20 MG Tablet PO (06:32)
[2022-05-06] MEDS: Senna/Docusate Sodium 1 Tablet PO (06:33)
[2022-05-06] MEDS: Acetaminophen 500 MG Tablet 1000 MG PO ×3 (06:33→20:25)
[2022-05-06] MEDS: PARoxetine 10 MG Tablet PO (06:33)
[2022-05-06] MEDS: amLODIPine 5 MG Tablet PO (06:34)
[2022-05-06] MEDS: Carvedilol 6.25 MG Tablet PO ×2 (07:57→16:55)
[2022-05-06 07:59] VITALS: BP 148/80; PULSE 71
[2022-05-06 16:00] VITALS: BP 185/79; PULSE 64; RESP 16; TEMP 36.5; O2SAT 96
[2022-05-06] MEDS: Donepezil HCl 10 MG Tablet PO (20:25)
[2022-05-06] MEDS: Doxepin Hydrochloride 10 MG Capsule PO (20:25)
[2022-05-07] MEDS: amLODIPine 5 MG Tablet PO (05:47)
[2022-05-07] MEDS: PARoxetine 10 MG Tablet PO (05:48)
[2022-05-07] MEDS: Lisinopril 20 MG Tablet PO (05:48)
[2022-05-07] MEDS: Acetaminophen 500 MG Tablet 1000 MG PO ×3 (05:49→21:38)
[2022-05-07] MEDS: Carvedilol 6.25 MG Tablet PO ×2 (09:00→17:27)
[2022-05-07 14:39] VITALS: BP 144/63; PULSE 69; RESP 16; TEMP 36.2; O2SAT 93
--- NOTE | 2022-05-07 15:33 | CASEMGMT ---
Addendum entered by Dawn Cabral 05/07/22 16:28: Received return phone call from whom is in agreement with DC and HHC. denied skilled HHC list with quality and resource data requesting to use [facility]. SW made referral via [facility] for PT/OT/ST/SN/CAGE/SW. Plan: DC home with 05/10, [facility] PT/OT/ST/SN/CAGE/SW Original Note: Social Work Insurance issued LCD 05/09, DC 05/10. Left message with . Attempted several times to call dtr but phone number not active. Spoke with pt. Pt stated acknowledged he missed a call from the hospital about her DC. SW educated to DC 05/10. Pt agreeable. Pt states to call again. SW left another message with . IDT recommending HHC PT/OT/ST/SN/CAGE/SW. Will await return call from to coordinate. Dawn Cabral, LENDING CONSULTANT CERTIFIED VEHICLE FIRE INVESTIGATOR
[2022-05-07] MEDS: APIXABAN 5 MG TABLET PO (18:05)
--- NOTE | 2022-05-07 18:33 | NURSING ---
Dr. Orellana office called and reported that holter monitor done on 05/02-05/03 showed 14-15% proximal a-fib and hr as high as 190. Recommend blood thinner and possible beta corrina. Dr. Elliott made aware and NO for Eliquis. Patient made aware and educated and expresses understanding. Cardiology made aware and then they confirm that they will see patient before discharge on 05/10.
--- NOTE | 2022-05-07 19:55 | DS.PCM_ITS ---
Providers Date of Admission: 04/26/22 Primary Care Physician: Dr. Avi Elliott MD Consultations 04/27/22 13:15 Consult: Pain Management Routine Consulting Provider: Toni Casarez Reason for Consult: Compression fracture T11, T12, L1. EMERGENT Consult: No MD Notified: Yes Date Notified: 04/27/22 Time Notified: 13:26 Method of Notification: Verbal Reason For Visit: SYNCOPE,WEAKNESS Diagnosis Discharge Diagnosis (1) Debility: Status: Acute Code(s): R53.81 - Other malaise (2) Syncope: Status: Acute Code(s): R55 - Syncope and collapse (3) Orthostatic hypotension: Status: Acute Code(s): I95.1 - Orthostatic hypotension (4) Hypertension: Status: Deleted Code(s): I10 - Essential (primary) hypertension (5) Vitamin D deficiency: Status: Acute Code(s): E55.9 - Vitamin D deficiency, unspecified (6) Neuropathic pain: Status: Acute Code(s): M79.2 - Neuralgia and neuritis, unspecified (7) Hyperlipidemia: Status: Deleted Code(s): E78.5 - Hyperlipidemia, unspecified (8) Alzheimer disease: Status: Acute Code(s): G30.9 - Alzheimer's disease, unspecified; F02.80 - Dementia in other diseases classified elsewhere without behavioral disturbance (9) Irritable bowel syndrome with constipation: Status: Acute Code(s): K58.1 - Irritable bowel syndrome with constipation Plan 82 year old female with below past medical history hospitalized for syncope secondary to orthostatic hypotension, admitted to TCU with debility, here for rehabilitation, strengthening, prior to discharge home with . * Debility - PT/OT. * Cognition - ST. * Pain - Tylenol 1000mg q6h prn pain (1-10). * Bowel - Miralax 17gm daily, senna/colace 1 tablet bid. * Adult immunization - Administer pneumonia vaccine, covid19 vaccine, flu vaccine. * DVT prophylaxis - Hold, anemia. * Hypertension - Coreg 6.25mg bid, Lisinopril 20mg daily, Amlodipine 5mg daily. * Orthostatic hypotension - check orthostatic vital signs. * Alzheimer Disease - Donepezil 10mg qhs. * Insomnia - Melatonin 10mg at bedtime. 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 Medications at Discharge Home Medications cholecalciferol (vitamin D3) 50 mcg (2,000 unit) capsule (Vitamin D3) 2,000 unit PO DAILY Supplement 12/14/16 carvedilol 6.25 mg tablet 6.25 mg PO BIDCM BP 04/26/22 donepezil 10 mg tablet 10 mg PO QHS Dementia 04/26/22 acetaminophen 500 mg tablet 1,000 mg PO Q8 #0 tabs 05/07/22 amlodipine 5 mg tablet 5 mg PO DAILY 30 days #30 tabs 05/07/22 apixaban 5 mg tablet (Eliquis) 5 mg PO BID 30 days #60 tabs 05/07/22 doxepin 10 mg capsule 10 mg PO QHS 30 days #30 caps 05/07/22 lisinopril 20 mg tablet 20 mg PO DAILY 30 days #30 tabs 05/07/22 paroxetine HCl 10 mg tablet 10 mg PO DAILY 30 days #30 tabs 05/07/22 polyethylene glycol 3350 17 gram oral powder packet 17 g PO DAILY 30 days #30 ea 05/07/22 sennosides 8.6 mg-docusate sodium 50 mg tablet (Stool Softener-Stimulant Laxative) 1 tab PO BID 30 days #60 tabs 05/07/22 Hospital Course Operations None Procedures - (Holter monitor.) Summary of Care Provided Minutes Spent on Discharge: 35 Hospital Course: 82 year old female with below past medical history hospitalized for syncope secondary to orthostatic hypotension, admitted to TCU with debility, here for rehabilitation, strengthening, prior to discharge home with . 05/04/2022 Dr. Casarez performed paravertebral lumbar facet joint nerve injection. Dr. Orellana diagnosed resident with paroxysmal atrial fibrillation, Eliquis started, already on carvedilol, follow up with Dr. Orellana. Discharge home with 05/10/2022, [facility] PT/OT/ST/SN/CAGE/SW. Physical Exam Const alert General Appearance: cooperative HEENT normocephalic Eyes PERRL and EOMs intact bilaterally Neck supple, no JVD and no carotid bruits Resp normal respiratory effort, normal air movement and clear to auscultation bilaterally Cardio regular rate and regular rhythm GI normal to inspection, nondistended, normoactive bowel sounds, non-tender and non-distended Extremity normal capillary refill General Extremity: Negative for edema Skin no rashes or lesions noted General Skin Exam: no breakdown Psych affect normal Appearance: appropriate Medical Records Data Medical Nutrition Assessment Dietitian: Malnutrition Criteria Met Start: 04/27/22 08:43 Freq: Status: Active Protocol: Document 05/03/22 15:22 (Rec: 05/03/22 15:22 AG [id number]) Nutrition Malnutrition Evidence of Malnutrition Exists Yes Malnutrition (severe): Chronic Evidenced By Suboptimal Energy Intake ( Severe),Weight Loss (Severe) Clinical Problem Chronic Disease or Condition Related Malnutrition Etiology severe, chronic malnutrition related to inadequate energy intake d/t weakness/debility Signs/Symptoms as evidenced by unintentional wt loss of 19#/12% x 5 months; estimated PO intake meeting < 75% of estimated energy needs >3 months. Status Active Problem Recommendation Dietitian Recommendations/Changes continue regular diet and ensure plus high protein w/ meals given malnutrition; will monitor intake and blood sugars and adjust diet/ONS as indicated Weight / BMI Weight Weight: 63.957 kg Body Mass Index (BMI) 25.9 ABG / Lab / Microbiology Data Result Diagrams: 05/04/22 05:34 05/05/22 07:00 Microbiology: Microbiology 05/03/22 12:40 Nasal Secretion SARS-CoV-2 Antigen (Rapid) - Final D/C Instructions Discharge Diet: No restrictions Discharge Activity: Return to Normal Activity, May Shower and Use Walker Weight Bearing Status: Weight bearing as tolerated Call your doctor if you observe: Fever of 101 or Higher, Inability to urinate, Inability to have a bowel movement, Shortness of breath, Dizziness, Fainting spells, Swelling in the ankles, Chest pain and Uncontrolled pain Additional Instructions: Discharge home with 05/10/2022, [facility] PT/OT/ST/SN/CAGE/SW. Please Follow Up With: Dr. Orellana When: As soon as possible. Meaningful Use Info Meaningful Use Diagnoses (Choose all that apply): None applicable Discharge Plan Admission Admit Date/Time: 04/26/22 14:29 Primary Reason for Your Visit: Debility. Attending Provider: Avi Elliott Chi Primary Care Provider: Avi Elliott Chi Consulting Providers: Toni Casarez Instructions Additional Instructions / Restrictions: Discharge home with 05/10/2022, [facility] PT/OT/ST/SN/CAGE/SW. Discharge Orders/Prescriptions Prescriptions: New paroxetine HCl 10 mg Tablet 10 mg PO DAILY 30 Days Qty: 30 0RF polyethylene glycol 3350 17 gram Powder In Packet 17 g PO DAILY 30 Days Qty: 30 0RF lisinopril 20 mg Tablet 20 mg PO DAILY 30 Days Qty: 30 0RF sennosides-docusate sodium [Stool Softener-Stimulant Laxat] 8.6-50 mg Tablet 1 tab PO BID 30 Days Qty: 60 0RF amlodipine 5 mg Tablet 5 mg PO DAILY 30 Days Qty: 30 0RF doxepin 10 mg Capsule 10 mg PO QHS 30 Days Qty: 30 0RF acetaminophen 500 mg Tablet 1,000 mg PO Q8 Qty: 0 0RF Eliquis 5 mg Tablet 5 mg PO BID 30 Days Qty: 60 0RF Continued cholecalciferol (vitamin D3) [Vitamin D3] 2,000 UNIT capsule 2,000 unit PO DAILY carvedilol 6.25 mg tablet 6.25 mg PO BIDCM Label Comments: donepezil 10 mg tablet 10 mg PO QHS Discontinued multivitamin [Multiple Vitamins] 1 EACH tablet 1 ea PO DAILY gabapentin 300 MG capsule 1 tab PO QHS Label Comments: TAKE 1 CAPSULE AT BEDTIME lovastatin 20 mg tablet 1 tab PO QHS Label Comments: Fiber (dextrin) 350 GM powder 350 g PO QODAY PRN (Reason: Constipation) amlodipine-benazepril 5-20 mg capsule 1 cap PO BID estradiol 0.01 % (0.1 mg/gram) cream 0.1 g VAGINAL 1XD Linzess 72 mcg Capsule 72 mcg PO DAILY sennosides-docusate sodium [Stool Softener-Stimulant Laxat] 8.6-50 mg Tablet 2 tab PO DAILY PRN PRN (Reason: CONSTIPATION) Qty: 0 0RF acetaminophen [Tylenol] 325 mg tablet 650 mg PO TID metronidazole 500 mg tablet 500 mg PO BID Rx Instructions: 04/28/22 5pm lidocaine 5 % adhesive patch,medicated 2 patch topical DAILY Protocol: *Topical Application Instructions APPLICATION INSTRUCTIONS: apply to the lower back docusate sodium [Colace] 100 mg capsule 100 mg PO DAILY gabapentin 100 mg capsule 200 mg PO QHS Referrals / Follow Up: Avi Elliott Chi, MD [Primary Care Provider] - Within 1 Week Disposition Disposition (needs filled in before D/C Order can be placed[email or web address]
[2022-05-07] MEDS: Doxepin Hydrochloride 10 MG Capsule PO (21:38)
[2022-05-07] MEDS: Donepezil HCl 10 MG Tablet PO (21:39)
[2022-05-08] MEDS: APIXABAN 5 MG TABLET PO ×2 (06:56→17:06)
[2022-05-08] MEDS: Acetaminophen 500 MG Tablet 1000 MG PO ×3 (06:56→21:28)
[2022-05-08] MEDS: amLODIPine 5 MG Tablet PO (06:56)
[2022-05-08] MEDS: PARoxetine 10 MG Tablet PO (06:56)
[2022-05-08] MEDS: Lisinopril 20 MG Tablet PO (06:56)
[2022-05-08] MEDS: Carvedilol 6.25 MG Tablet PO ×2 (07:40→17:06)
[2022-05-08 10:00] VITALS: PULSE 88; RESP 16; O2SAT 98
--- NOTE | 2022-05-08 11:15 | MDS.RN ---
Information for the mds was obtained from review of the clinical record, interview of resident, staff, and direct observation of resident's care.
--- NOTE | 2022-05-08 14:11 | NURSING ---
Bob for Dr Elliott's office requesting previous vaccine info for pneumo vaccinations.
[2022-05-08 14:16] VITALS: BP 142/61; PULSE 68; RESP 16; TEMP 36.3; O2SAT 96
[2022-05-08] MEDS: Senna/Docusate Sodium 1 Tablet PO (17:06)
--- NOTE | 2022-05-08 18:56 | NURSING ---
Spoke with pt about pneumo vaccine and flu shot. pt states she has received her vaccines through Dr. Webber at [facility] and received the Flu shot in
[2022-05-08] MEDS: Doxepin Hydrochloride 10 MG Capsule PO (19:58)
[2022-05-08] MEDS: Donepezil HCl 10 MG Tablet PO (19:59)
[2022-05-09] MEDS: APIXABAN 5 MG TABLET PO ×2 (05:22→16:54)
[2022-05-09] MEDS: amLODIPine 5 MG Tablet PO (05:23)
[2022-05-09] MEDS: PARoxetine 10 MG Tablet PO (05:23)
[2022-05-09] MEDS: Acetaminophen 500 MG Tablet 1000 MG PO ×3 (05:23→19:58)
[2022-05-09] MEDS: Lisinopril 20 MG Tablet PO (05:24)
[2022-05-09] MEDS: Carvedilol 6.25 MG Tablet PO ×2 (08:06→16:54)
[2022-05-09 15:24] VITALS: BP 148/73; PULSE 63; RESP 16; TEMP 36.3; O2SAT 96
[2022-05-09] MEDS: Senna/Docusate Sodium 1 Tablet PO (16:55)
--- NOTE | 2022-05-09 18:52 | NURSING ---
Dr. NAM OFFICE CALLED REGARDING FLU SHOTS. HAD PNEUMOCOCCAL 13 ON 04/01/15 AND FLU VACCINE ON 05/10/21. DR. TAVARES MADE AWARE AND ORDERED TO HAVE PNEUMOVAX 20 BEFORE D/C.
[2022-05-09] MEDS: Doxepin Hydrochloride 10 MG Capsule PO (19:59)
[2022-05-09] MEDS: Donepezil HCl 10 MG Tablet PO (19:59)
[2022-05-10] MEDS: Lisinopril 20 MG Tablet PO (05:31)
[2022-05-10] MEDS: Acetaminophen 500 MG Tablet 1000 MG PO (05:31)
[2022-05-10] MEDS: PARoxetine 10 MG Tablet PO (05:31)
[2022-05-10] MEDS: APIXABAN 5 MG TABLET PO (05:32)
[2022-05-10] MEDS: Senna/Docusate Sodium 1 Tablet PO (05:32)
[2022-05-10] MEDS: amLODIPine 5 MG Tablet PO (05:33)
[2022-05-10 07:48] VITALS: PULSE 62; RESP 16; O2SAT 96
[2022-05-10 07:54] VITALS: BP 150/77; PULSE 59
[2022-05-10] MEDS: Carvedilol 6.25 MG Tablet PO (07:58)
[2022-05-10] MEDS: Pneumococcal Vaccine 20 Valent 0.5 ML Syringe IM (09:29)
--- NOTE | 2022-05-10 09:51 | CASEMGMT ---
Social Work Brief interview for mental status (BIMS) and resident mood interview (PHQ-9) completed on this day. BIMS score 14/15. PHQ-9 score 10/08
--- NOTE | 2022-05-10 09:59 | NURSING ---
Addendum entered by Francia Colon 05/10/22 10:01: DC instructions reviewed with patient and . They verbalized understanding and had no questions. Original Note: Spoke w/ staff at Dr. Orellana's office, per them Dr Orellana is not coming to see patient today. Asked about a followup appointment and they were unsure. Patient given phone number for Dr. Orellana and instructed to call them in the next few days to see if followup appointment needs scheduled.
[2022-05-10 10:01] VITALS: BP 127/64; PULSE 73; RESP 16; TEMP 36.3
== END 2022-05-10 10:05 | disposition home health service (06) | DRG 312 ==
PROVIDERS: Admitting Provider Family Medicine Geriatric Medicine; PCP Family Medicine Geriatric Medicine; Visit Provider Family Medicine Geriatric Medicine
DX: I95.1 Orthostatic hypotension (principal); E11.40 Type 2 diabetes mellitus with diabetic neuropathy, unspecified; F02.80 Dementia in other diseases classified elsewhere, unspecified severity, without behavioral disturbance, psychotic disturbance, mood disturbance, and anxiety; G30.9 Alzheimer's disease, unspecified; E11.9 Type 2 diabetes mellitus without complications; I48.0 Paroxysmal atrial fibrillation; E55.9 Vitamin D deficiency, unspecified; E78.5 Hyperlipidemia, unspecified; I10 Essential (primary) hypertension; K58.1 Irritable bowel syndrome with constipation; Z23 Encounter for immunization; Z87.891 Personal history of nicotine dependence; Z79.899 Other long term (current) drug therapy; F41.1 Generalized anxiety disorder; M48.55XD Collapsed vertebra, not elsewhere classified, thoracolumbar region, subsequent encounter for fracture with routine healing
CPT/HCPCS: 36415; 72072; 72110; 80048; 82962; 85025; 87811; 90677; 92507; 92523; 97110; 97116; 97162; 97166; 97530; 97535; 97802; 97803; G0009; J7030; A4216

== ENCOUNTER → 2022-05-02 | Outpatient (CLI) | payer MEDICARE, SELFPAY | END | disposition home or self-care (01) | LOC: PSN 13:55 | PROVIDERS: PCP Family Medicine Geriatric Medicine; Referring Provider Internal Medicine Cardiovascular Disease; Visit Provider Internal Medicine Cardiovascular Disease | DX: I95.1 Orthostatic hypotension (principal); I48.0 Paroxysmal atrial fibrillation; R29.6 Repeated falls; I10 Essential (primary) hypertension | CPT/HCPCS: 93225; 93226 ==

== ENCOUNTER 2022-05-04 12:05 | Day surgery (SDC) | payer MEDICARE, SELFPAY ==
[2022-05-04] VITALS (7 sets, daily range): BP systolic 144–170; BP diastolic 53–77; PULSE 59–70; RESP 16–18; TEMP 36.1–36.9; O2SAT 95–97; BMI 26.4
[2022-05-04] MEDS: Lactated Ringers 1,000 ML 15 ML IV (12:27)
--- NOTE | 2022-05-04 13:30 | RAD_ITS ---
PROCEDURE: Percutaneous fluoroscopy guided facet block, L4-L5 and L5-S1. DATE OF EXAMINATION: 05/04/2022 INDICATION: Female, 82 years old with radiculopathy. FLUOROSCOPY TIME (if supplied): (10.6) seconds RADIATION DOSAGE (If Supplied By Facility): CTDIvol = ( 1.70 ) mGy. PROCEDURE/TECHNIQUE: A single spot fluoroscopic image was provided. Image demonstrates needle along the lateral aspect of the midline overlying the facet joint. No radiologist was present for the procedure, please refer to operative report for details. RAD/Fluor Guidance for Spine Inj IMPRESSION: Please refer to operative report for details. Electronically Signed: Dionicio Tavares MD at 14:50 EDT ,
[2022-05-04] MEDS: Triamcinolone Acetonide 40 MG/ML Vial (13:52)
[2022-05-04 14:50] LABS: Bedside Glucose 91 mg/dL (74-106)
== END 2022-05-04 15:30 | disposition home or self-care (01) ==
LOC: SDC 12:05 → AC 12:05
PROVIDERS: PCP Family Medicine Geriatric Medicine; Referring Provider Anesthesiology Pain Medicine; Visit Provider Anesthesiology Pain Medicine
PROC: 3E0T3BZ Introduction of Anesthetic Agent into Peripheral Nerves and Plexi, Percutaneous Approach (ICD-10-PCS; CPT 64493; principal; 2022-05-04 13:25)
DX: M47.816 Spondylosis without myelopathy or radiculopathy, lumbar region (principal); G30.9 Alzheimer's disease, unspecified; F02.80 Dementia in other diseases classified elsewhere, unspecified severity, without behavioral disturbance, psychotic disturbance, mood disturbance, and anxiety; I48.0 Paroxysmal atrial fibrillation; I10 Essential (primary) hypertension; E78.5 Hyperlipidemia, unspecified; K58.1 Irritable bowel syndrome with constipation; E04.1 Nontoxic single thyroid nodule; R29.6 Repeated falls; Z79.01 Long term (current) use of anticoagulants; Z79.899 Other long term (current) drug therapy
CPT/HCPCS: 64493; 64494; 01992; 64483; 77003; 82962; J7120

== ENCOUNTER → 2022-06-08 | Outpatient (CLI) | payer MEDICARE, SELFPAY ==
--- NOTE | 2022-06-08 12:23 | RAD_ITS ---
STUDY: X-RAY CHEST REASON FOR EXAM: Female, 82 years old. CHEST PAIN TECHNIQUE: PA and lateral COMPARISON: None. FINDINGS: Reticulonodular interstitial infiltrate in left lower lobe likely inflammatory and to lesser extent in the right lower lobe.. There is no demonstrated pleural abnormality. Normal size heart. Normal mediastinum and anthony. Normal visualized pulmonary arteries. Mildly tortuous and calcified aortic arch and descending thoracic aorta. Degenerative changes of the dorsal spine and shoulders. Normal visualized ribs, and clavicles.. There is no demonstrated abnormality of the visualized soft tissue structures of the upper abdomen. RAD/Chest PA and Lateral IMPRESSION: Bilateral lower lobe interstitial infiltrates more pronounced on the left most consistent with pneumonia. Electronically Signed: Matt Nobles MD at 17:08 EDT ,
[2022-06-08 13:13] LABS: Absolute Lymphocyte Count 1.16 X10^3/uL (0.83-4.51); Absolute Neutrophil Count 2.4 X10^3/uL (2.0-7.7); Basophil# 0.03 X10^3/uL; Basophil% 0.7 % (0-1); Eosinophil# 0.09 X10^3/uL; Eosinophils% 2.2 % (0-5); Hematocrit 37.1 % (37-47); Hemoglobin 11.9 g/dL (12.0-15.0); Lymphocyte # 1.16 X10^3/ul (0.83-4.51); Lymphocyte % 28.3 % (19-41); Mean Corp Hgb Conc 32.1 g/dL (32-36); Mean Corpuscular Hgb 28.9 pg (27.0-32.0); Mean Platelet Vol. 11.9 fl (6.2-12.0); Monocyte# 0.39 X10^3/uL; Monocyte% 9.5 % (0-10); NRBC Flagged by Analyzer 0 % (0-5); Neutrophil # 2.41 X10^3/uL (2.7-7.7); Neutrophil % 58.8 % (47-70); Platelet Count 201 K/mm3 (150-450); RBC Distribution Width CV 14.4 % (11.6-14.6); Red Blood Count 4.12 M/mm3 (4.2-5.4); White Blood Count 4.1 K/mm3 (4.4-11.0)
[2022-06-08 13:41] LABS: Vitamin D,25 Hydroxy 72.3 ng/mL
[2022-06-08 13:50] LABS: ALB/GLOB Ratio 0.9 RATIO (0.9-2.4); AST(SGOT) 11 U/L (15-37); Alanine Aminotransfer ALT/SGPT 17 U/L (13-56); Albumin, Serum 3.2 g/dL (3.2-5.0); Alkaline Phosphatase 137 U/L (45-117); Anion Gap 5 (5-15); BUN 9 mg/dL (7-18); BUN/Creat Ratio 11.5 RATIO (10-20); Calcium,Total 9.6 mg/dL (8.5-10.1); Chloride 107 mmol/L (98-107); Creatinine, Serum 0.78 mg/dL (0.55-1.02); EST Glomerular Filtration Rate 75 mL/min (>60); Est Glom Filt Rate - Afr Amer 90 mL/min (>60); Globulin 3.4 g/dL (2.2-4.2); Glucose 97 mg/dL (74-106); Potassium 3.7 mmol/L (3.5-5.1); Protein, Total 6.6 g/dL (6.4-8.2); Sodium Level 138 mmol/L (136-145); Thyroid Stim Hormone (TSH) 1.67 uIU/mL (0.358-3.74)
== END | disposition home or self-care (01) ==
PROVIDERS: PCP Family Medicine Geriatric Medicine; Referring Provider Family Medicine Geriatric Medicine; Visit Provider Family Medicine Geriatric Medicine
DX: R05.9 Cough, unspecified (principal); I10 Essential (primary) hypertension; E55.9 Vitamin D deficiency, unspecified
CPT/HCPCS: 36415; 71046; 80053; 82306; 84443; 85025

== ENCOUNTER 2022-07-19 11:46 | Emergency (ER) | payer MEDICARE, SELFPAY ==
[2022-07-19 11:47] VITALS: BP 155/86; PULSE 67; RESP 18; TEMP 36.3; O2SAT 99; BMI 23.9
--- NOTE | 2022-07-19 13:29 | EX.ED.VIS.UR ---
HPI HPI - URI History of Present Illness Chief Complaint: Cough Narrative Narrative: 82-year-old female presenting today with blood-tinged sputum. She reports a cough. She states she had pneumonia about a month ago and was treated for that inpatient. She denies fever at home. She denies nausea/vomiting. She denies weakness. She does not feel short of breath. Patient is anticoagulated on Eliquis for history of A. fib. ROS ROS ED Constitutional Constitutional ED: Denies chills, fever(s) or sweats Eyes Eyes: Denies blurry vision or change in vision ENT ENT ED: Denies ear pain or sore throat Cardiovascular Cardiovascular: Denies chest pain, palpitations or racing heartbeat Respiratory/Chest Respiratory/Chest: Reports cough, sputum and other Details: Blood-tinged sputum ; Denies dyspnea Gastrointestinal Gastrointestinal: Denies abdominal pain, constipation, diarrhea, nausea or vomiting Genitourinary Genitourinary ED: Denies dysuria, hematuria or urinary frequency Musculoskeletal Musculoskeletal: Denies arthralgias, myalgias or neck pain Integumentary Denies abscess, Abrasions or rash Neurologic Neurologic: Denies headache(s), paresthesias or weakness Psychiatric Psychiatric: Denies anxiety, depression, suicidal ideation or suicidal thoughts Endocrine Endocrinology: Denies polydipsia or polyuria PFSH PFS Medical History Cardiology follow-up encounter Dementia Diabetes mellitus Essential hypertension Former tobacco use History of echocardiogram Hyperlipidemia Inability to ambulate due to left hip Lung nodules Multiple falls Paroxysmal atrial fibrillation (03/21/22) Post-menopausal Syncope Thyroid nodule Wears dentures Home Medications cholecalciferol (vitamin D3) 50 mcg (2,000 unit) capsule (Vitamin D3) 2,000 unit PO DAILY Supplement 12/14/16 [History Last Taken 03/20/22] carvedilol 6.25 mg tablet 6.25 mg PO BIDCM BP 04/26/22 [History Last Taken Unknown] donepezil 10 mg tablet 10 mg PO QHS Dementia 04/26/22 [History Last Taken Unknown] acetaminophen 500 mg tablet 1,000 mg PO Q8 #0 tabs 05/07/22 [Rx Last Taken Unknown] amlodipine 5 mg tablet 5 mg PO DAILY 30 days #30 tabs 09/26/22 [Rx Last Taken Unknown] apixaban 5 mg tablet (Eliquis) 5 mg PO BID 30 days #60 tabs 05/07/22 [Rx Last Taken Unknown] doxepin 10 mg capsule 10 mg PO QHS 30 days #30 caps 05/07/22 [Rx Last Taken Unknown] lisinopril 20 mg tablet 20 mg PO DAILY 30 days #30 tabs 05/07/22 [Rx Last Taken Unknown] paroxetine HCl 10 mg tablet 10 mg PO DAILY 30 days #30 tabs 05/07/22 [Rx Last Taken Unknown] polyethylene glycol 3350 17 gram oral powder packet 17 g PO DAILY 30 days #30 ea 05/07/22 [Rx Last Taken Unknown] sennosides 8.6 mg-docusate sodium 50 mg tablet (Stool Softener-Stimulant Laxative) 1 tab PO BID 30 days #60 tabs 05/07/22 [Rx Last Taken Unknown] Allergy/AdvReac Type Severity Reaction Status Date / Time adhesive Allergy Rash Verified 07/19/22 11:49 cough syrup AdvReac Unknown Uncoded 05/04/22 12:23 Family History Mother Diabetes Heart disease Hypertension Cerebral hemorrhage Father Brain cancer Surgical History History of esophagogastroduodenoscopy (EGD) History of tonsillectomy and adenoidectomy Hx of appendectomy Hx of cholecystectomy Hx of hysterectomy Social History household members: spouse Smoking Status: Former smoker how long ago did patient quit smoking: Smoked age [age]. 3-5 cig/day, quit following. alcohol intake: current alcohol intake frequency: holidays/special occasions only substance use type: does not use EXAM Physical Exam Const Vital Signs: 07/19/22 11:47 07/19/22 13:05 Temperature 97.4 F L Temperature Source Temporal Pulse Rate 67 Respiratory Rate 18 Respiratory Effort Normal Respiratory Depth Normal Respiratory Pattern Normal Blood Pressure 155/86 H Blood Pressure Mean 109 Pulse Ox 99 Oxygen Delivery Method Room Air Positive well nourished General Appearance ED: NAD MDM MDM MDM Narrative Medical decision making narrative: Patient presented with cough and rosana sputum. She denied a fever. She states she does not feel ill. She states she had this last time she had pneumonia. I obtained basic lab work and she does have a leukocytosis. Hemoglobin stable at 10.5. Renal function electrolytes are normal. Chest x-ray on my interpretation shows a lingular infiltrate. The radiologist represents and agrees. Her vital signs are stable and she is afebrile. I discussed this with Dr. Elliott who states the last time she had pneumonia he treated her as an outpatient. He recommended Levaquin and he would follow-up with her tomorrow in office at 9 AM. Patient amenable to this. She is discharged home in stable condition. Impression: 1. Hemoptysis 2. Lingular pneumonia Lab Data Attestation: I reviewed the patient's lab results. Labs: Laboratory Results - last 24 hr 07/19/22 07/19/22 13:35 13:35 WBC 6.2 RBC 3.85 L Hgb 10.5 L Hct 34.1 L MCV 88.6 MCH 27.3 MCHC 30.8 L RDW Std Deviation 42.5 RDW Coeff of Amrita 13.2 Plt Count 228 MPV 11.6 Immature Gran % (Auto) 0.300 Neut % (Auto) 54.5 Lymph % (Auto) 33.8 Pacific % (Auto) 10.0 Eos % (Auto) 1.1 Baso % (Auto) 0.3 Absolute Neuts (auto) 3.4 Absolute Lymphs (auto) 2.10 Nucleated RBC % 0 Sodium 139 Potassium 4.0 Chloride 108 H Carbon Dioxide 29.0 Anion Gap 2 L BUN 14 Creatinine 0.75 Estim Creat Clear Calc 33.71 Est GFR (MDRD) Af Amer 94 Est GFR (MDRD) Non-Af 78 BUN/Creatinine Ratio 18.6 Glucose 91 Calcium 9.4 Radiography Diagnostic Testing: Clinical Impression(s) from Imaging Studies Chest X-Ray 07/19/22 13:40 IMPRESSION: Findings suggestive of a focal lingular infiltrate. Electronically Signed: Steven Gómez MD at 14:08 EST , Discharge Plan Triage Chief Complaint: Cough ED Provider: Arsen Sanchez Dx/Rx/DC Orders Prescriptions: No Action cholecalciferol (vitamin D3) [Vitamin D3] 2,000 UNIT capsule 2,000 unit PO DAILY carvedilol 6.25 mg tablet 6.25 mg PO BIDCM Label Comments: donepezil 10 mg tablet 10 mg PO QHS paroxetine HCl 10 mg Tablet 10 mg PO DAILY 30 Days Qty: 30 0RF polyethylene glycol 3350 17 gram Powder In Packet 17 g PO DAILY 30 Days Qty: 30 0RF lisinopril 20 mg Tablet 20 mg PO DAILY 30 Days Qty: 30 0RF sennosides-docusate sodium [Stool Softener-Stimulant Laxat] 8.6-50 mg Tablet 1 tab PO BID 30 Days Qty: 60 0RF amlodipine 5 mg Tablet 5 mg PO DAILY 30 Days Qty: 30 0RF doxepin 10 mg Capsule 10 mg PO QHS 30 Days Qty: 30 0RF acetaminophen 500 mg Tablet 1,000 mg PO Q8 Qty: 0 0RF Eliquis 5 mg Tablet 5 mg PO BID 30 Days Qty: 60 0RF Primary Care Provider: Avi Elliott Chi Referrals: Avi Elliott Chi, MD [Primary Care Provider] -
--- NOTE | 2022-07-19 13:40 | RAD_ITS ---
STUDY: X-RAY CHEST REASON FOR EXAM: Female, 82 years old. Hemoptysis for the past 2 days. TECHNIQUE: Single AP portable view of the chest. COMPARISON: Comparison is made with prior study 05/31/2022. FINDINGS: Hyperinflation. Mild increased markings in the lingular segment of the left upper lobe suggestive of possible early infiltrate. Follow-up is recommended. There is no demonstrated pleural abnormality. Normal size heart. Normal mediastinum and anthony. Normal visualized pulmonary arteries. There is atherosclerotic calcification of the aortic arch with tortuosity. There are diffuse degenerative changes of the visualized thoracic spine. Normal visualized ribs, clavicles, and shoulders. There is no demonstrated abnormality of the visualized soft tissue structures of the upper abdomen. RAD/Chest 1 View (Portable) IMPRESSION: Findings suggestive of a focal lingular infiltrate. Electronically Signed: Steven Gómez MD at 14:08 EST ,
[2022-07-19 13:44] LABS: Absolute Neutrophil Count 3.4 X10^3/uL (2.0-7.7); Basophil# 0.02 X10^3/uL; Basophil% 0.3 % (0-1); Eosinophil# 0.07 X10^3/uL; Eosinophils% 1.1 % (0-5); Hematocrit 34.1 % (37-47); Hemoglobin 10.5 g/dL (12.0-15.0); Lymphocyte % 33.8 % (19-41); Mean Corp Hgb Conc 30.8 g/dL (32-36); Mean Corpuscular Hgb 27.3 pg (27.0-32.0); Mean Corpuscular Volume 88.6 fL (81-99); Mean Platelet Vol. 11.6 fl (6.2-12.0); Monocyte# 0.62 X10^3/uL; NRBC Flagged by Analyzer 0 % (0-5); Neutrophil # 3.39 X10^3/uL (2.7-7.7); Neutrophil % 54.5 % (47-70); Platelet Count 228 K/mm3 (150-450); RBC Distribution Width CV 13.2 % (11.6-14.6); RBC Distribution Width SD 42.5 fl (35.1-43.9); Red Blood Count 3.85 M/mm3 (4.2-5.4); White Blood Count 6.2 K/mm3 (4.4-11.0)
[2022-07-19 13:55] LABS: Anion Gap 2 (5-15); BUN 14 mg/dL (7-18); BUN/Creat Ratio 18.6 RATIO (10-20); Calcium,Total 9.4 mg/dL (8.5-10.1); Chloride 108 mmol/L (98-107); Creatinine, Serum 0.75 mg/dL (0.55-1.02); EST Glomerular Filtration Rate 78 mL/min (>60); Est Glom Filt Rate - Afr Amer 94 mL/min (>60); Estimated Creatinine Clearance 33.71 ml/min; Glucose 91 mg/dL (74-106); Sodium Level 139 mmol/L (136-145)
[2022-07-19] MEDS: levoFLOXacin 750 MG Tablet PO (15:26)
[2022-07-19 15:27] VITALS: BP 169/81; PULSE 68; RESP 16; O2SAT 97
== END 2022-07-19 15:39 | disposition home or self-care (01) ==
PROVIDERS: Emergency Provider Student in an Organized Health Care Education/Training Program; PCP Family Medicine Geriatric Medicine; Visit Provider Student in an Organized Health Care Education/Training Program
DX: R04.2 Hemoptysis (principal); F03.90 Unspecified dementia, unspecified severity, without behavioral disturbance, psychotic disturbance, mood disturbance, and anxiety; E11.9 Type 2 diabetes mellitus without complications; I10 Essential (primary) hypertension; E78.5 Hyperlipidemia, unspecified; Z87.891 Personal history of nicotine dependence; Z78.0 Asymptomatic menopausal state; Z79.899 Other long term (current) drug therapy
CPT/HCPCS: 71045; 80048; 85025; 99282; A4216

== ENCOUNTER 2022-07-20 13:51 | Outpatient (CLI) | payer MEDICARE, SELFPAY | END 2022-07-20 23:59 | disposition home or self-care (01) | LOC: PSN 13:51 | PROVIDERS: PCP Family Medicine Geriatric Medicine; Visit Provider Family Medicine Geriatric Medicine | DX: R68.83 Chills (without fever) (principal); R19.7 Diarrhea, unspecified | CPT/HCPCS: 74019; 87635; 87804; 87807; C9803; U0003; U0005 ==

== ENCOUNTER → 2022-07-20 | Outpatient (CLI) | payer MEDICARE, SELFPAY ==
--- NOTE | 2022-07-20 09:59 | RAD_ITS ---
HISTORY: DIARRHEA. TECHNIQUE: XR Abdomen 2 views. COMPARISON: CT 04/23/2022. FINDINGS: BOWEL GAS PATTERN: No dilated bowel loops identified. Suggestion of small bowel wall thickening in the left upper quadrant. FREE AIR: None seen on upright view. CALCIFICATIONS: Pelvic phleboliths observed. BONES: Degenerative changes and chronic compression fractures. SOFT TISSUES: Left retrocardiac mass again seen. RAD/Abd Inc Decub and/or Erect IMPRESSION: Non-obstructive bowel gas pattern. Possible enteritis with small bowel wall thickening. Redemonstration of left lower lobe mass. Electronically Signed: Doreen Almazan MD at 12:44 EST ,
== END | disposition home or self-care (01) ==
LOC: RAD 09:57
PROVIDERS: PCP Family Medicine Geriatric Medicine; Visit Provider Family Medicine Geriatric Medicine
DX: R19.7 Diarrhea, unspecified (principal)
CPT/HCPCS: 74018; 74019

== ENCOUNTER → 2022-08-01 | Outpatient (CLI) | payer MEDICARE, SELFPAY | END | disposition home or self-care (01) | LOC: PSN 09:21 | PROVIDERS: PCP Family Medicine Geriatric Medicine; Referring Provider Internal Medicine Cardiovascular Disease; Visit Provider Internal Medicine Cardiovascular Disease | DX: I48.0 Paroxysmal atrial fibrillation (principal) | CPT/HCPCS: 93225; 93226 ==

== ENCOUNTER → 2022-08-17 | Outpatient (CLI) | payer MEDICARE, SELFPAY ==
--- NOTE | 2022-08-17 13:08 | CT_ITS ---
STUDY: CT CHEST WITHOUT CONTRAST REASON FOR EXAM: Female, 82 years old. LUNG MASS RADIATION DOSAGE (If Supplied By Facility): CTDIvol = ( 5.21 ) mGy, DLP = ( 160.33 ) mGycm TECHNIQUE: Transaxial imaging was performed without the administration of intravenous contrast material. Multiplanar coronal and sagittal images were reformatted. Individualized dose optimization techniques were used for this CT. COMPARISON: Comparison is made with prior study dated 04/23/2022. FINDINGS: CHEST Interval increase in size of the previously seen mass in the posterior lateral aspect of the left lower lobe. It presently measures 2.7 cm x 2 cm. Mild degree of increased markings in the surrounding lung suggestive of a atelectasis and/or early infiltrate. There is no demonstrated pleural abnormality. There are calcifications of the coronary arteries. Minimal anterior pericardial thickening. There are multiple small lymph nodes within the mediastinum, which are normal in size and morphology most compatible with reactive lymph hyperplasia. Normal hilar regions. Normal unenhanced pulmonary arteries. There is atherosclerotic calcification of the aortic arch with tortuosity and elongation of the aortic arch and descending thoracic aorta. There are multi-level degenerative changes of the thoracic spine. There is no demonstrated abnormality of the visualized upper abdomen. CT/Chest without Contrast IMPRESSION: Interval increase in size of the pleural-based nodule in the left lower lobe. It presently measures 2.7 2 sinus. Biopsy recommended. Electronically Signed: Steven Gómez MD at 14:29 EST ,
== END | disposition home or self-care (01) ==
PROVIDERS: PCP Family Medicine Geriatric Medicine; Visit Provider Family Medicine Geriatric Medicine
DX: R91.8 Other nonspecific abnormal finding of lung field (principal)
CPT/HCPCS: 71250

== ENCOUNTER → 2022-08-23 | Outpatient (CLI) | payer MEDICARE, SELFPAY ==
[2022-08-23 15:54] LABS: Absolute Lymphocyte Count 2.18 X10^3/uL (0.83-4.51); Absolute Neutrophil Count 5.3 X10^3/uL (2.0-7.7); Basophil# 0.04 X10^3/uL; Basophil% 0.5 % (0-1); Eosinophil# 0.05 X10^3/uL; Eosinophils% 0.6 % (0-5); Hemoglobin 11.7 g/dL (12.0-15.0); Lymphocyte # 2.18 X10^3/ul (0.83-4.51); Lymphocyte % 26.7 % (19-41); Mean Corp Hgb Conc 31.6 g/dL (32-36); Mean Corpuscular Hgb 26.6 pg (27.0-32.0); Mean Corpuscular Volume 84.1 fL (81-99); Mean Platelet Vol. 12.5 fl (6.2-12.0); Monocyte# 0.56 X10^3/uL; Monocyte% 6.9 % (0-10); NRBC Flagged by Analyzer 0 % (0-5); Neutrophil # 5.31 X10^3/uL (2.7-7.7); Neutrophil % 64.9 % (47-70); Platelet Count 293 K/mm3 (150-450); RBC Distribution Width CV 13.2 % (11.6-14.6); RBC Distribution Width SD 40.6 fl (35.1-43.9); White Blood Count 8.2 K/mm3 (4.4-11.0)
[2022-08-23 16:29] LABS: Vitamin D,25 Hydroxy 45.4 ng/mL
[2022-08-23 16:47] LABS: ALB/GLOB Ratio 0.9 RATIO (0.9-2.4); AST(SGOT) 14 U/L (15-37); Alanine Aminotransfer ALT/SGPT 14 U/L (13-56); Albumin, Serum 3.7 g/dL (3.2-5.0); Alkaline Phosphatase 112 U/L (45-117); Anion Gap 6 (5-15); BUN 13 mg/dL (7-18); Calcium,Total 10.1 mg/dL (8.5-10.1); Chloride 108 mmol/L (98-107); Cholesterol 182 mg/dL (200); Creatinine, Serum 0.82 mg/dL (0.55-1.02); EST Glomerular Filtration Rate 71 mL/min (>60); Est Glom Filt Rate - Afr Amer 86 mL/min (>60); Globulin 3.9 g/dL (2.2-4.2); Glucose 99 mg/dL (74-106); High Density Lipoprotein 55 mg/dL; Potassium 3.8 mmol/L (3.5-5.1); Protein, Total 7.6 g/dL (6.4-8.2); Sodium Level 138 mmol/L (136-145); Thyroid Stim Hormone (TSH) 1.73 uIU/mL (0.358-3.74); Triglycerides 91 mg/dL; Very Low Density Lipoprotein 18 mg/dL (5-40)
== END | disposition home or self-care (01) ==
LOC: POLAB3 14:41
PROVIDERS: PCP Family Medicine Geriatric Medicine; Visit Provider Family Medicine Geriatric Medicine
DX: I10 Essential (primary) hypertension (principal); E78.5 Hyperlipidemia, unspecified; E55.9 Vitamin D deficiency, unspecified
CPT/HCPCS: 36415; 80053; 80061; 82306; 84443; 85025

== ENCOUNTER 2022-09-10 09:54 | Emergency (ER) | payer MEDICARE, SELFPAY ==
[2022-09-10 09:56] VITALS: BP 125/99; PULSE 132; RESP 20; TEMP 36.6; O2SAT 96; BMI 23.9
--- NOTE | 2022-09-10 10:22 | CT_ITS ---
STUDY: CT BRAIN WITHOUT CONTRAST REASON FOR EXAM: Female, 82 years old. Head injury RADIATION DOSAGE (If Supplied By Facility): CTDIvol = ( 44.99 ) mGy, DLP = ( 796.11 ) mGycm TECHNIQUE: Transaxial CT imaging of the brain was performed without administration of intravenous contrast material. Individualized dose optimization techniques were used for this CT. COMPARISON: Comparison is made with prior study dated 04/23/2022. FINDINGS: Normal soft tissue structures. Normal calvarium. There is mild cerebral atrophy with widening of the extra-axial spaces and ventricular dilatation. There are areas of decreased attenuation within the white matter tracts of the supratentorial brain, consistent with microvascular disease changes. Normal basal ganglia and thalami. Normal brainstem. Stable CSF collection in the posterior mid aspect of the cerebellum suggestive of a small arachnoid cyst There is no intracranial hemorrhage. There are no findings of an acute ischemic infarction. Atherosclerotic vascular calcification of the vertebral arteries and cavernous portions of the internal carotid arteries bilaterally. Normal visualized paranasal sinuses. CT/Brain/Head without Contrast IMPRESSION: Chronic involutional changes of the brain. Electronically Signed: Steven Gómez MD at 10:53 EST ,
--- NOTE | 2022-09-10 10:25 | EX.ED.DYSGE1 ---
HPI History of Present Illness Chief Complaint: Palpitations Informant: patient and spouse/S.O. Narrative Narrative: Patient sent over from outpatient procedures due to findings of atrial fibrillation. History of paroxysmal A. fib. Reports with patient and spouse had plan biopsy of a lung nodule today. She is on Eliquis however last dose was 2 days ago in the morning. She states she had lightheaded symptoms and syncopal episode on Saturday there is no chest pains or racing heart. Currently mild headache. Today felt lightheaded again. She does not feel her palpitations or racing heart. Review of her medication she is on carvedilol 6.25 mg twice daily. There is dementia and her history of Alzheimer's however currently A&O x3. Reports mild hemoptysis over the last month with this current work-up pending. Denies tobacco history. Records reviewed had CAT scan of her chest 08/17/2022 interval increasing left lung nodule up to 2.7 cm on the lower lobe. 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 Lung nodules Multiple falls Paroxysmal atrial fibrillation (03/21/22) Post-menopausal Syncope Thyroid nodule Wears dentures Home Medications carvedilol 6.25 mg tablet 6.25 mg PO BIDCM HEART 04/26/22 [History Last Taken 09/10/22] apixaban 2.5 mg tablet (Eliquis) 2.5 mg PO BID BLOOD THINNER 07/25/22 [History Last Taken Unknown] donepezil 5 mg tablet 5 mg PO DAILY DEMENTIA 07/25/22 [History Last Taken 09/10/22] doxepin 10 mg capsule 10 mg PO DAILY DEPRESSION/ANXIETY 09/10/22 [History Last Taken 09/10/22] estradiol 0.01% (0.1 mg/gram) vaginal cream 1 g vaginal UD 09/10/22 [History Last Taken Unknown] lisinopril 20 mg tablet 20 mg PO DAILY BLOOD PRESSURE 09/10/22 [History Last Taken 09/10/22] paroxetine HCl 10 mg tablet 10 mg PO DAILY DEPRESSION 09/10/22 [History Last Taken 09/10/22] sennosides 8.6 mg tablet (senna) 8.6 mg PO BID CONSTIPATION 09/10/22 [History Last Taken Unknown] Allergy/AdvReac Type Severity Reaction Status Date / Time adhesive Allergy Rash Verified 07/25/22 10:58 cough syrup AdvReac Unknown Uncoded 07/25/22 10:58 Family History Mother Diabetes Heart disease Hypertension Cerebral hemorrhage Father Brain cancer Surgical History History of esophagogastroduodenoscopy (EGD) History of tonsillectomy and adenoidectomy Hx of appendectomy Hx of cholecystectomy Hx of hysterectomy Social History household members: spouse Smoking Status: Former smoker how long ago did patient quit smoking: Smoked age [age]. 3-5 cig/day, quit following. alcohol intake: current alcohol intake frequency: holidays/special occasions only substance use type: does not use caffeine: No ROS ROS ED Constitutional Constitutional ED: Denies chills, fever(s) or sweats Eyes Eyes: Denies change in vision ENT ENT ED: Denies dysphagia or sore throat Cardiovascular Cardiovascular: Denies chest pain, leg edema, palpitations or racing heartbeat Respiratory/Chest Respiratory/Chest: Reports other Details: Hemoptysis ; Denies cough, dyspnea or dyspnea on exertion Gastrointestinal Gastrointestinal: Denies abdominal pain, diarrhea, nausea or vomiting Genitourinary Genitourinary ED: Denies dysuria, hematuria or urinary frequency Musculoskeletal Musculoskeletal: Denies back pain, extremity pain or neck pain Integumentary Denies rash or wounds Neurologic Neurologic: Reports headache(s); Denies paresthesias or weakness EXAM Physical Exam Const Vital Signs: 09/10/22 09:56 09/10/22 10:00 09/10/22 11:04 Temperature 98 F Temperature Source Oral Pulse Rate 132 H 61 Respiratory Rate 20 H 19 H Respiratory Effort Normal Non-Labored Respiratory Pattern Normal Blood Pressure 125/99 H 135/74 H Blood Pressure Mean 107 94 Pulse Ox 96 98 Oxygen Delivery Method Room Air Room Air 09/10/22 12:02 09/10/22 12:44 Temperature Temperature Source Pulse Rate 62 61 Respiratory Rate 18 18 Respiratory Effort Respiratory Pattern Blood Pressure 146/88 H Blood Pressure Mean Pulse Ox 100 98 Oxygen Delivery Method Room Air Positive well nourished and well developed Constitutional Narrative: GCS 15 General Appearance ED: well developed and NAD HEENT Reports TM's clear and moist mucous membranes normocephalic and atraumatic Tympanic Membrane ED: Yes TM's clear Eyes PERRL, EOMs intact bilaterally and conjunctivae normal General Eye ED: Yes normal appearance of both eyes Neck no lymphadenopathy and supple General: Negative for tenderness Chest Wall Chest: Negative for tenderness Resp normal respiratory effort and normal air movement Effort and Inspection: symmetric chest movement; Negative for respiratory distress Cardio no murmurs Rate: tachycardic Rhythm: abnormal rhythm Peripheral Pulses: pulses 2+ throughout GI normal to inspection, nondistended, normoactive bowel sounds and non-tender Palpation: Negative for guarding or rebound tenderness present Back/Spine no CVA tenderness and no thoracic nor lumbar tenderness Extremity normal to inspection General Extremety ED: Negative for edema or tenderness General Extremity: Negative for edema Neuro oriented x3, CN's II-XII intact bilaterally and no sensory deficits noted Sensorium / Orientation: awake and alert Skin no rashes or lesions noted and no wounds MDM MDM MDM Narrative Medical decision making narrative: Patient sent over for A. fib RVR noted. She is asymptomatic. She has history of atrial fibrillation she is on Coreg. EKG confirms A. fib RVR with no acute findings. However reported head injury from a syncopal episode Saturday was on Eliquis. Due to head injury rule out head bleeds with CT scan. CT brain obtained reviewed by myself and interpreted by radiology also negative. She was started on Lopressor IV for A. fib after 1 dose was told she converted. Repeat EKG does confirm a sinus rhythm. Laboratory studies hemoglobin 10.9 creatinine 0.85. Two-view chest x-ray interpreted myself and read by radiology 2.1 cm left lower lobe nodule consistent with her recent CT scan. She remains asymptomatic vital signs are stable. Initial consideration for admission with A. fib with RVR with her reported syncopal episode 2 days ago. She had a head injury. However patient converted back to normal sinus rhythm syncopal episode was 2 days ago. I did reach out to radiology department with her currently off Eliquis for the procedure, however they reported she will need clearance with her PCP and rescheduling of her procedure. Therefore I spoke with her physician Dr. Elliott, discussed her presentation and recommendations by the department. He will follow-up with them as an outpatient. Per he will give her Eliquis when she gets home. Return precaution discussed. All questions were answered. Lab Data Attestation: I reviewed the patient's lab results. Labs: Laboratory Results - last 24 hr 09/10/22 09/10/22 10:32 10:32 WBC 7.1 RBC 4.40 Hgb 10.9 L Hct 35.7 L MCV 81.1 MCH 24.8 L MCHC 30.5 L RDW Std Deviation 41.1 RDW Coeff of Amrita 13.8 Plt Count 213 MPV 12.2 H Immature Gran % (Auto) 0.100 Neut % (Auto) 65.0 Lymph % (Auto) 25.5 Amador % (Auto) 8.0 Eos % (Auto) 0.8 Baso % (Auto) 0.6 Absolute Neuts (auto) 4.6 Absolute Lymphs (auto) 1.81 Nucleated RBC % 0 Sodium 142 Potassium 3.8 Chloride 110 H Carbon Dioxide 26.0 Anion Gap 6 BUN 12 Creatinine 0.85 Estim Creat Clear Calc 39.66 Est GFR (MDRD) Af Amer 82 Est GFR (MDRD) Non-Af 68 BUN/Creatinine Ratio 14.1 Glucose 99 Calcium 9.8 Radiography Diagnostic Testing: Clinical Impression(s) from Imaging Studies Brain CT 09/10/22 10:22 IMPRESSION: Chronic involutional changes of the brain. Electronically Signed: Steven Gómez MD at 10:53 EST , Chest X-Ray 09/10/22 10:40 IMPRESSION: Hyperinflation. 2.1 cm nodule in the left lower lobe. Electronically Signed: Steven Gómez MD at 11:14 EST , EKG Initial EKG: Attestation: I personally reviewed and interpreted this EKG as follows: Comments: A. fib with RVR rate of 128. No ST or T wave changes. Follow-up EKG: Attestation: I personally reviewed and interpreted this EKG as follows: Comments: At 1109: Sinus rhythm rate of 63. No ST or T wave changes. Discharge Plan Triage Chief Complaint: Palpitations ED Provider: Duncan Grimes Dx/Rx/DC Orders Clinical Impression: Paroxysmal atrial fibrillation, Syncope, Lung nodules, Head injury Instructions: What Is Syncope, ED AFIB, ED Head Injury (Adult) Prescriptions: No Action Eliquis 2.5 mg tablet 2.5 mg PO BID donepezil 5 mg tablet 5 mg PO DAILY Label Comments: Take 1 Tablet orally once per day for 90 days Take with supper. carvedilol 6.25 mg tablet 6.25 mg PO BIDCM Label Comments: sennosides [senna] 8.6 mg tablet 8.6 mg PO BID estradiol 0.01 % (0.1 mg/gram) cream 1 g VAGINAL UD paroxetine HCl 10 mg tablet 10 mg PO DAILY lisinopril 20 mg tablet 20 mg PO DAILY doxepin 10 mg capsule 10 mg PO DAILY Primary Care Provider: Avi Elliott Chi Referrals: Avi Elliott Chi, MD [Primary Care Provider] - 2 Days Activity Restrictions/Additional Instructions: You rate atrial fibrillation and you converted back to a normal rhythm. Your head CT is negative. You have a stable lung nodule on x-ray. You will need to reschedule your biopsy that was planned for today per radiologist for medical clearance again. Restart your Eliquis. Discussed with Dr. Elliott today and he will follow-up with him. Return if any worsening symptoms. Disposition Disposition: Home, Self Care Discharge Date/Time: 09/10/22 12:45
[2022-09-10] MEDS: Metoprolol Tartrate 5 MG/5 ML Vial IV (10:29)
--- NOTE | 2022-09-10 10:40 | RAD_ITS ---
STUDY: X-RAY CHEST REASON FOR EXAM: Female, 82 years old. Hemoptysis TECHNIQUE: PA and lateral views of the chest. COMPARISON: Comparison is made with prior study dated 07/19/2022. FINDINGS: EKG electrodes are seen. Hyperinflation. 2.1 cm nodule in the left lower lobe. There is no demonstrated pleural abnormality. Normal size heart. Normal mediastinum and anthony. Normal visualized pulmonary arteries. There is atherosclerotic calcification of the aortic arch with tortuosity. Normal visualized thoracic spine. Normal visualized ribs, clavicles, and shoulders. There is no demonstrated abnormality of the visualized soft tissue structures of the upper abdomen. RAD/Chest PA and Lateral IMPRESSION: Hyperinflation. 2.1 cm nodule in the left lower lobe. Electronically Signed: Steven Gómez MD at 11:14 EST ,
[2022-09-10 10:41] LABS: Absolute Lymphocyte Count 1.81 X10^3/uL (0.83-4.51); Absolute Neutrophil Count 4.6 X10^3/uL (2.0-7.7); Basophil# 0.04 X10^3/uL; Basophil% 0.6 % (0-1); Eosinophil# 0.06 X10^3/uL; Eosinophils% 0.8 % (0-5); Hematocrit 35.7 % (37-47); Hemoglobin 10.9 g/dL (12.0-15.0); Lymphocyte # 1.81 X10^3/ul (0.83-4.51); Lymphocyte % 25.5 % (19-41); Mean Corp Hgb Conc 30.5 g/dL (32-36); Mean Corpuscular Hgb 24.8 pg (27.0-32.0); Mean Corpuscular Volume 81.1 fL (81-99); Mean Platelet Vol. 12.2 fl (6.2-12.0); Monocyte# 0.57 X10^3/uL; NRBC Flagged by Analyzer 0 % (0-5); Neutrophil # 4.61 X10^3/uL (2.7-7.7); Platelet Count 213 K/mm3 (150-450); RBC Distribution Width CV 13.8 % (11.6-14.6); RBC Distribution Width SD 41.1 fl (35.1-43.9); White Blood Count 7.1 K/mm3 (4.4-11.0)
[2022-09-10 10:54] LABS: BUN 12 mg/dL (7-18); BUN/Creat Ratio 14.1 RATIO (10-20); Calcium,Total 9.8 mg/dL (8.5-10.1); Chloride 110 mmol/L (98-107); Creatinine, Serum 0.85 mg/dL (0.55-1.02); EST Glomerular Filtration Rate 68 mL/min (>60); Est Glom Filt Rate - Afr Amer 82 mL/min (>60); Estimated Creatinine Clearance 39.66 ml/min; Glucose 99 mg/dL (74-106); Potassium 3.8 mmol/L (3.5-5.1); Sodium Level 142 mmol/L (136-145)
[2022-09-10 10:55] LABS: Anion Gap 6 (5-15)
[2022-09-10 11:04] VITALS: BP 135/74; PULSE 61; RESP 19; O2SAT 98
--- NOTE | 2022-09-10 11:07 | EKG12_ITS ---
Test Reason : HIGH HR Blood Pressure : / mmHG Vent. Rate : 128 BPM Atrial Rate : 000 BPM P-R Int : 000 ms QRS Dur : 092 ms QT Int : 306 ms P-R-T Axes : 000 042 033 degrees QTc Int : 446 ms Atrial fibrillation with rapid ventricular response Abnormal ECG Confirmed by MARY ANN GAYTAN, OBED ([id number]), features editor MADHU BHAT ([id number]) on 09/12/2022 2:09:39 PM Referred By: MAYNOR Confirmed By:OBED REESE MD
--- NOTE | 2022-09-10 11:08 | EKG12_ITS ---
Test Reason : RE CHECK Blood Pressure : / mmHG Vent. Rate : 063 BPM Atrial Rate : 063 BPM P-R Int : 152 ms QRS Dur : 096 ms QT Int : 392 ms P-R-T Axes : 065 053 053 degrees QTc Int : 401 ms Normal sinus rhythm Normal ECG Confirmed by MARY ANN GAYTAN, OBED ([id number]), communications editor MADHU BHAT ([id number]) on 09/12/2022 2:09:53 PM Referred By: KEREN Confirmed By:OBED REESE MD
[2022-09-10 12:02] VITALS: PULSE 62; RESP 18; O2SAT 100
[2022-09-10 12:44] VITALS: BP 146/88; PULSE 61; RESP 18; O2SAT 98
== END 2022-09-10 12:45 | disposition home or self-care (01) ==
PROVIDERS: Emergency Provider Emergency Medicine; PCP Family Medicine Geriatric Medicine; Visit Provider Emergency Medicine
DX: I48.0 Paroxysmal atrial fibrillation (principal); F02.80 Dementia in other diseases classified elsewhere, unspecified severity, without behavioral disturbance, psychotic disturbance, mood disturbance, and anxiety; G30.9 Alzheimer's disease, unspecified; E11.9 Type 2 diabetes mellitus without complications; R04.2 Hemoptysis; Z53.8 Procedure and treatment not carried out for other reasons; S09.90XA Unspecified injury of head, initial encounter; I10 Essential (primary) hypertension; E78.5 Hyperlipidemia, unspecified; R91.8 Other nonspecific abnormal finding of lung field; Z79.01 Long term (current) use of anticoagulants; Z87.891 Personal history of nicotine dependence
CPT/HCPCS: 32408; 36415; 70450; 71046; 80048; 85025; 85049; 85610; 85730; 93005; 96374; 99283; A4216

== ENCOUNTER 2022-09-17 08:53 | Outpatient (CLI) | payer MEDICARE, SELFPAY ==
[2022-09-10 09:23] LABS: International Normalized Ratio 1.1; Partial Thromboplast Time 28.9 Seconds (24.1-36.2); Prothrombin Time (Protime)PT. 14.1 SECONDS (11.7-14.9)
[2022-09-10 09:49] LABS: Platelet Count 238 K/mm3 (150-450)
--- NOTE | 2022-09-10 10:02 | NURSING ---
Pt attached to monitor, found to be in AFib RVR, sent to ED. Initial VS at 0945 128/90 HR 120-155 SpO2 97% RA, 20 resp, 32 etCO2. Pt and agreeable to go to ED. Pt reported near syncopal episode this morning while getting dressed.
[2022-09-17 09:09] LABS: POSITIVE MORPHOLOGY YES; Platelet Count 211 K/mm3 (150-450)
[2022-09-17 09:19] LABS: International Normalized Ratio 1.1; Partial Thromboplast Time 29.2 Seconds (24.1-36.2); Prothrombin Time (Protime)PT. 14.1 SECONDS (11.7-14.9)
== END 2022-09-17 23:59 | disposition home or self-care (01) ==
PROVIDERS: PCP Family Medicine Geriatric Medicine; Referring Provider Family Medicine Geriatric Medicine; Visit Provider Family Medicine Geriatric Medicine
DX: I48.91 Unspecified atrial fibrillation (principal); Z79.01 Long term (current) use of anticoagulants
CPT/HCPCS: 36415; 85049; 85610; 85730

== ENCOUNTER → 2022-09-17 | Outpatient (CLI) | payer MEDICARE, SELFPAY ==
[2022-09-17] VITALS (8 sets, daily range): BP systolic 193–212; BP diastolic 71–81; PULSE 57–62; RESP 15–23; TEMP 36.7; O2SAT 98–99
--- NOTE | 2022-09-17 11:13 | NURSING ---
Upon attaching pt to monitor pt's b/p found to be 193/74. NOEMI Colunga continued to watch b/p as medication list and health history was obtained. Pt's b/p remains elevated (see VS documentation). NOEMI Colunga asks pt what she typically runs, pt has Alzheimer's Demetia and states she is unsure. Pt's states he thinks her b/p typically runs between 120s and 160s. NOEMI Colunga asks if is sure of which medications she took this morning. Pt reports he's fairly certain she took her blood pressure pill and pill for her heart rate. NOEMI Colunga shares b/p findings with Dr. Gómez. Dr. Gómez will not do procedure until patient sees Dr. Elliott. At first visit for biopsy pt was found to be in Afib RVR at this visit pt's b/p found to be extremely elevated. NOEMI Colunga attempts to contact Dr. Elliott's office, unable to speak to anyone. NOEMI Colunga calls ED to see if pt could be seen for hypertensis emergency. ED will see patient, but currently has many patient's with SAMUEL of 2 who also need to be seen so patient would likely be waiting for awhile. 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 Elliott to cone cleaner phone. Dr. Elliott calls back, NOEMI Colunga explains that patient's b/p is in the 200s and has been for over 30 minutes. Pt's believes she's had her b/p medication, but couldn't tell RN exactly which one she took when looking at the names. Dr. Elliott requests pt be seen in his office. Pt and remained informed of each step.
== END | disposition home or self-care (01) ==
PROVIDERS: PCP Family Medicine Geriatric Medicine; Visit Provider Family Medicine Geriatric Medicine
DX: R91.8 Other nonspecific abnormal finding of lung field (principal); Z79.01 Long term (current) use of anticoagulants

== ENCOUNTER → 2022-09-25 | Outpatient (CLI) | payer MEDICARE, SELFPAY ==
[2022-09-25 18:08] LABS: Anion Gap 5 (5-15); BUN 16 mg/dL (7-18); BUN/Creat Ratio 19.2 RATIO (10-20); Calcium,Total 9.4 mg/dL (8.5-10.1); Chloride 106 mmol/L (98-107); Creatinine, Serum 0.83 mg/dL (0.55-1.02); EST Glomerular Filtration Rate 69 mL/min (>60); Est Glom Filt Rate - Afr Amer 84 mL/min (>60); Glucose 101 mg/dL (74-106); Potassium 4.4 mmol/L (3.5-5.1); Sodium Level 138 mmol/L (136-145)
== END | disposition home or self-care (01) ==
LOC: POLAB3 15:10
PROVIDERS: PCP Family Medicine Geriatric Medicine; Visit Provider Family Medicine Geriatric Medicine
DX: I10 Essential (primary) hypertension (principal)
CPT/HCPCS: 36415; 80048

== ENCOUNTER → 2022-11-29 | Outpatient (CLI) | payer MEDICARE, SELFPAY ==
[2022-11-29 16:29] LABS: Absolute Lymphocyte Count 2.08 X10^3/uL (0.83-4.51); Absolute Neutrophil Count 3.3 X10^3/uL (2.0-7.7); Basophil# 0.02 X10^3/uL; Basophil% 0.3 % (0-1); Eosinophil# 0.06 X10^3/uL; Hematocrit 35.1 % (37-47); Hemoglobin 10.7 g/dL (12.0-15.0); Lymphocyte # 2.08 X10^3/ul (0.83-4.51); Lymphocyte % 34.8 % (19-41); Mean Corp Hgb Conc 30.5 g/dL (32-36); Mean Corpuscular Hgb 24.6 pg (27.0-32.0); Mean Corpuscular Volume 80.7 fL (81-99); Mean Platelet Vol. 11.7 fl (6.2-12.0); Monocyte% 8.4 % (0-10); NRBC Flagged by Analyzer 0 % (0-5); Neutrophil # 3.31 X10^3/uL (2.7-7.7); Neutrophil % 55.3 % (47-70); Platelet Count 234 K/mm3 (150-450); RBC Distribution Width CV 16.8 % (11.6-14.6); RBC Distribution Width SD 49.5 fl (35.1-43.9); Red Blood Count 4.35 M/mm3 (4.2-5.4)
[2022-11-29 17:10] LABS: Vitamin D,25 Hydroxy 61.7 ng/mL
[2022-11-29 17:19] LABS: ALB/GLOB Ratio 0.9 RATIO (0.9-2.4); AST(SGOT) 15 U/L (15-37); Alanine Aminotransfer ALT/SGPT 12 U/L (13-56); Albumin, Serum 3.4 g/dL (3.2-5.0); Alkaline Phosphatase 122 U/L (45-117); Anion Gap 3 (5-15); BUN 18 mg/dL (7-18); BUN/Creat Ratio 20.4 RATIO (10-20); Calcium,Total 10.1 mg/dL (8.5-10.1); Chloride 106 mmol/L (98-107); Creatinine, Serum 0.88 mg/dL (0.55-1.02); EST Glomerular Filtration Rate 65 mL/min (>60); Est Glom Filt Rate - Afr Amer 79 mL/min (>60); Globulin 3.8 g/dL (2.2-4.2); Glucose 96 mg/dL (74-106); Potassium 3.9 mmol/L (3.5-5.1); Protein, Total 7.2 g/dL (6.4-8.2); Sodium Level 136 mmol/L (136-145); Thyroid Stim Hormone (TSH) 2.56 uIU/mL (0.358-3.74)
== END | disposition home or self-care (01) ==
LOC: LAB 15:38
PROVIDERS: PCP Family Medicine Geriatric Medicine; Visit Provider Family Medicine Geriatric Medicine
DX: I10 Essential (primary) hypertension (principal); E11.65 Type 2 diabetes mellitus with hyperglycemia; E55.9 Vitamin D deficiency, unspecified
CPT/HCPCS: 36415; 80053; 82306; 84443; 85025

== ENCOUNTER → 2022-12-03 | Outpatient (CLI) | payer MEDICARE, SELFPAY ==
[2022-12-03 16:42] LABS: Absolute Lymphocyte Count 1.96 X10^3/uL (0.83-4.51); Absolute Neutrophil Count 3.6 X10^3/uL (2.0-7.7); Basophil# 0.02 X10^3/uL; Basophil% 0.3 % (0-1); Eosinophil# 0.06 X10^3/uL; Hematocrit 35.4 % (37-47); Hemoglobin 10.6 g/dL (12.0-15.0); Lymphocyte # 1.96 X10^3/ul (0.83-4.51); Lymphocyte % 32.6 % (19-41); Mean Corp Hgb Conc 29.9 g/dL (32-36); Mean Corpuscular Hgb 24.6 pg (27.0-32.0); Mean Corpuscular Volume 82.1 fL (81-99); Mean Platelet Vol. 12.4 fl (6.2-12.0); Monocyte# 0.41 X10^3/uL; Monocyte% 6.8 % (0-10); NRBC Flagged by Analyzer 0 % (0-5); Neutrophil # 3.55 X10^3/uL (2.7-7.7); Neutrophil % 59.1 % (47-70); Platelet Count 245 K/mm3 (150-450); RBC Distribution Width CV 16.8 % (11.6-14.6); Red Blood Count 4.31 M/mm3 (4.2-5.4)
[2022-12-03 17:02] LABS: BNP,B-Type NATRIURETIC PEPTIDE 88.3 pg/mL (0-100)
[2022-12-03 17:05] LABS: Vitamin B12 275 pg/mL (211-911)
[2022-12-03 17:17] LABS: Ferritin 39 ng/mL (8-252); Iron 24 ug/dL (50-170); Iron Binding Capacity,Total 367 ug/dL (250-450); PERCENT IRON SATURATION 6.5 % (15.0-55.0)
== END | disposition home or self-care (01) ==
LOC: POLAB3 14:59
PROVIDERS: PCP Family Medicine Geriatric Medicine; Visit Provider Family Medicine Geriatric Medicine
DX: D64.9 Anemia, unspecified (principal)
CPT/HCPCS: 36415; 82607; 82728; 82746; 83540; 83550; 83880; 85025

== ENCOUNTER → 2022-12-04 | Outpatient (CLI) | payer MEDICARE, SELFPAY ==
--- NOTE | 2022-12-04 09:55 | ART_ITS ---
Reason For Study: PAOD Procedure A bilateral lower extremity continuous wave Doppler with analog waveform analysis and ankle brachial indexes. Left Segmental Pressures Left brachial= 125mmHg. Left posterior tibial artery = 140mmHg. Left dorsalis pedis artery = 139mmHg. Left digit = 90 mmHg. The left posterior tibial artery waveforms are triphasic. The left dorsalis pedis waveforms are triphasic. Right Segmental Pressures Right brachial= 120mmHg. Right posterior tibial artery = 125mmHg. Right dorsalis pedis artery = 132mmHg. Right digit = 94 mmHg. The right posterior tibial artery waveforms are triphasic. The right dorsalis pedis waveforms are triphasic. Indices The right ankle brachial index by the posterior tibial artery is 1.00. The right ankle brachial index by the dorsalis pedis is 1.06. The right digital-brachial index is 0.75. The left ankle brachial index by the posterior tibial artery is 1.12. The left ankle brachial index by the dorsalis pedis is 1.11. The left digital-brachial index is 0.72. VL/Ankle Brachial Index Interpretation Summary Triphasic Doppler waveforms are noted at ankle level bilaterally. Pulse-volume recordings appear satisfactory at ankle and digital level bilaterally. Resting ankle-brachial ind ices are normal bilaterally. Digital-brachial indices are normal bilaterally. There is no evidence of significant arterial occlusive disease in the lower ext remities bilaterally. Ordering Physician: Avi Elliott Chi Referring Physician: Avi Elliott Chi Performed By: Blake Ayers RVT
== END | disposition home or self-care (01) ==
LOC: CVS 09:52
PROVIDERS: PCP Family Medicine Geriatric Medicine; Referring Provider Family Medicine Geriatric Medicine; Visit Provider Family Medicine Geriatric Medicine
DX: I77.9 Disorder of arteries and arterioles, unspecified (principal); I73.9 Peripheral vascular disease, unspecified
CPT/HCPCS: 93922

== ENCOUNTER → 2022-12-05 | Outpatient (CLI) | payer MEDICARE, SELFPAY ==
[2022-12-05 17:06] LABS: Homocysteine 13.8 umol/L (3.2-10.7)
[2022-12-09 14:08] LABS: Methylmalonic Acid Bld 399 nmol/L (0-378)
== END | disposition home or self-care (01) ==
PROVIDERS: PCP Family Medicine Geriatric Medicine; Visit Provider Family Medicine Geriatric Medicine
DX: D64.9 Anemia, unspecified (principal)
CPT/HCPCS: 36415; 83090; 83921

== ENCOUNTER → 2022-12-07 | Outpatient (CLI) | payer MEDICARE, SELFPAY ==
[2022-12-07] VITALS (12 sets, daily range): BP systolic 144–180; BP diastolic 62–102; PULSE 54–71; RESP 14–20; TEMP 36.6; O2SAT 93–99; BMI 25.2
--- NOTE | 2022-12-07 | ASPIGT_PTH ---
PATIENT: SARA GALARZA LOC: MD U#:[id number] AGE/SX: 82/F ROOM: RE12/07/[address]: Dr. Avi Elliott MD : 1940 BED: DIS: 12/07/2022 SPEC #: [id number] RECD: 12/07/22 12:52 STATUS: MARION REOziel #: [id number] DILLON: 12/07/22 00:[address]: Avi Elliott Chi DEPT: SURGICAL PATHOLOGY RECD BY: Lucie Gleason Tissues: Lung, NOS Procedures: FNA Specimen Adequacy Special Stain Group II Surgery Specimen Level IV Imprint (control) HEADER OPERATION: CT-guided left lower lobe lung biopsy PRE-OP DIAGNOSIS: Left lower lobe lung mass TISSUE SUBMITTED: Left lower lobe lung mass 20-gauge x5 MICROSCOPIC DIAGNOSIS Left lower lobe lung mass, CT-guided core biopsy: Non-small cell carcinoma. See comment. JOSE MIGUEL:luis e 12/10/2022 COMMENT The specimen is evaluated at the time of biopsy by Dr. Suárez. Immediate Evaluation = Malignant cells present derived from non-small cell carcinoma. Extensive necrosis is noted. Viable tumor cells are noted predominantly in the smears prepared at the time of core biopsy. H&E-stained slides show lung parenchymal tissue with fibrosis, reactive changes, and focal area with tumor with extensive necrosis. Immunohistochemistry ([id number]) stained slides show rare tumor cells. Further classification is not possible due to extensive tumor necrosis. Clinical correlation and appropriate follow up are necessary. Case has been reviewed in consultation with Dr. Ramirez who concurs with the above diagnosis. IDC:AM MICROSCOPIC DESCRIPTION Slides are reviewed. GROSS DESCRIPTION Received in fixative is one container labeled with the patient's name and designated left lung mass. The specimen consists of multiple irregular fragments of cohen soft tissue that in aggregate measure 1.0 x 0.1 x <0.1 cm. The specimen is totally submitted in one cassette. Two touch imprints are prepared at the time of core biopsy. / JOSE MIGUEL:luis e 12/07/2022 TC:0 CPT: 78573, 39573 ADDENDUM ADDENDUM ADDENDUM ADDENDUM ADDENDUM ADDENDUM ADDENDUM ADDENDUM ADDENDUM ADDENDUM ADDENDUM ADDENDUM ADDENDUM ADDENDUM ADDENDUM ADDENDUM ADDENDUM ADDENDUM ADDENDUM ADDENDUM 02/04/2023 09:48 ADDENDUM 02/04/2023 09:48 ADDENDUM 02/04/2023 09:48 ADDENDUM 02/04/2023 09:48 ADDENDUM 02/04/2023 09:48 PD-L1 (KEYTRUDA) IMMUNOHISTOCHEMICAL ANALYSIS FROM [facility] RESULTS: Tumor proportion score: 100% / Positive ONKOSIGHT NGS REPORT FROM [facility] RESULT SUMMARY: Abnormal IMMUNOTHERAPY BIOMARKERS: Tumor Mutation [place]: Low (4.7 Mutations / MB) Microsatellite Instability: MSI Negative (4.21%) PERTINENT NEGATIVE RESULTS: The following genes are NEGATIVE for clinically relevant mutations. Mutational hotspots and surrounding exonic regions were interrogated for DNA level point mutations and indels (fusions not assayed). AKT1, ALK, ATR, BRAF, CHEK1, DDR2, EGFR, ERBB2, ERBB3, FGFR1, MAP2K1, MET, NRAS, NTRK1, PIK3CA, POLD1, POLE, ROS1, STK11, TERT, TP53 Please see complete report in e-chart or EMR
--- NOTE | 2022-12-07 08:37 | CT_ITS ---
PROCEDURE: CT GUIDED CORE NEEDLE BIOPSY OF A left lower lobe LUNG LESION INDICATION: Female, 82 years old. LUNG MASS PHYSICIAN: Dr. Rico Keita CONSENT: Written informed consent was obtained having explained the risks, benefits and alternatives in detail with the patient who accepted the risks and agreed to proceed. Laboratory review and clinical assessment was performed. CONSCIOUS SEDATION PROTOCOL: The Drugs used were: 1 mg Versed, IV., and 25 mcg Fentanyl, IV. The sedation time was: 21 minutes. Conscious sedation was started at 9:46 AM and terminated at 10:07 AM. The conscious sedation protocol was independently monitored. RADIATION DOSAGE (If Supplied By Facility): CTDIvol = ( 14.5 ) mGy, DLP = ( 245.83 ) mGycm Individualized dose optimization techniques were used for this CT. TECHNIQUE: The patient was placed in the prone position. A noncontrast CT was performed to localize the lesion in the peripheral lateral aspect of the left lower lobe . The skin surface was prepped and draped in a sterile fashion. 1% lidocaine was used for local anesthesia. Using CT guidance, a 20-gauge coaxial biopsy device was advanced to the periphery of the lesion. A total of 5 core specimens were obtained. The specimens were placed in a formalin solution. A post procedure CT demonstrated no adverse sequelae or pneumothorax. The patient tolerated the procedure well without adverse event. A negative biopsy does not exclude malignancy. Further imaging or clinical followup based on patient condition and degree of clinical suspicion for malignancy. Suggest rebiopsy, if biopsy results do not match with clinical scenario. CT/Biopsy/Inj or Needle Placement IMPRESSION: 1. CT directed core needle biopsy of the left lower lobe pulmonary nodule using CT image guidance with image documentation as described. Pathology results are pending. 2. Conscious Sedation protocol utilized with independent monitoring. Electronically Signed: Steven Gómez MD at 10:38 EDT ,
[2022-12-07 08:44] LABS: Platelet Count 229 K/mm3 (150-450)
[2022-12-07 08:54] LABS: International Normalized Ratio 1.1; Partial Thromboplast Time 29.6 Seconds (24.1-36.2); Prothrombin Time (Protime)PT. 14.2 SECONDS (11.7-14.9)
[2022-12-07] MEDS: 0.9% Saline Lock 10 ML Syringe IV (09:27)
[2022-12-07] MEDS: Midazolam 2 MG/2 ML Syringe IV (09:47)
[2022-12-07] MEDS: fentaNYL 100 MCG/2 ML Ampul IV (09:48)
[2022-12-07] MEDS: Lidocaine 2% (20 ml mdv) 20 ML Vial INFILT (09:58)
--- NOTE | 2022-12-07 10:00 | IMM_PTH ---
PATIENT: SARA GALARZA LOC: CT U#:[id number] AGE/SX: 82/F ROOM: RE12/07/[address]: Dr. Avi Elliott MD : 1940 BED: DIS: 12/07/2022 SPEC #: [id number] RECD: 12/07/22 12:58 STATUS: MARION REQ #: [id number] DILLON: 12/07/22 10:[address]: Avi Elliott Chi DEPT: IMMUNOHISTOCHEMISTRY RECD BY: Marci Mcnair Tissues: Left lower lobe of lung, NOS Procedures: RCC (add) NAPSIN A (add) CK20 (add) CK5-6 (add) CK7 (add) CK8 (add) HEP PAR (add) AZ (add) TTF1 (add) Pankeratin (add) P40 (add) ER (initial) PHYSICIAN & INSTITUTION [place] [id number] SPECIMEN INFORMATION: Tissue Source: Left lower lobe Clinical Info: Left lower lobe lung mass Specimen Number: [id number] CPT code: 54560, 41697 x11 METHODOLOGY: Deparaffinized sections of prefer/formalin-fixed tissue or PAP/DQ stained slides are incubated with monoclonal/polyclonal antibodies/oligonucleotide probes. Localization is made via biotin free immunoperoxidase method. Appropriate controls are performed and reacted as expected. Results on target cell population are indicated in the following table: RESULTS: ANTIBODY / CLONE RESULT ER (6F11) negative AZ (1E2) negative AE1-3 (AE1/AE3/PCK26) negative CK7 (OV-TL12/30) positive, rare cells CK8 (69ulnpY67) positive, rare cells CK20 (KS20.8) negative TTF-1 (8G7G3/1) negative Napsin A (Rabbit Polyclonal) negative HepPar (OCh1E5) negative RCC (PN-15) negative CK5-6 (D5 & 1684) negative P40 (BC28) negative These tests were developed and their performance characteristics determined by [facility]. They may not have been cleared or approved by the U.S. Food and Drug Administration. The FDA has determined that such clearance or approval is not necessary. The above immunohistochemical/dualISH markers are ordered and reviewed by the Pathologist. INTERPRETATION: Left lower lobe lung mass, CT-guided core biopsy: Rare tumor cells consistent with non-small cell carcinoma with extensive tumor necrosis. See comment. JOSE MIGUEL:luis e 12/10/2022 Comment: Further classification of tumor is not possible due to extensive necrosis.
--- NOTE | 2022-12-07 10:10 | RAD_ITS ---
STUDY: X-RAY CHEST REASON FOR EXAM: Female, 82 years old. Post lung biopsy -- Immediately post lung biopsy TECHNIQUE: AP inspiration and expiration views. COMPARISON: Comparison is made with prior study dated September 10, 2022. FINDINGS: The patient is status post left lung biopsy. No evidence of pneumothorax. 4.4 cm x 3.4 cm pulmonary mass at the left lung base. RAD/Chest Insp/Exp 2 View IMPRESSION: No evidence of pneumothorax on the immediate post left lung biopsy radiographs. Electronically Signed: Steven Gómez MD at 10:49 EDT ,
--- NOTE | 2022-12-07 12:10 | RAD_ITS ---
STUDY: X-RAY CHEST REASON FOR EXAM: Female, 82 years old. 2 hr post lung biopsy -- 2 hours post lung biopsy TECHNIQUE: AP inspiration and expiration views. COMPARISON: Comparison is made with prior study done earlier in the day. FINDINGS: There is no evidence of pneumothorax on the 2 hour post left lung biopsy radiographs. RAD/Chest Insp/Exp 2 View IMPRESSION: No evidence of pneumothorax on the 2 hour post left lung biopsy radiographs. Electronically Signed: Steven Gómez MD at 12:41 EDT ,
== END | disposition home or self-care (01) ==
PROVIDERS: Radiology Diagnostic Radiology; PCP Family Medicine Geriatric Medicine; Referring Provider Family Medicine Geriatric Medicine; Visit Provider Family Medicine Geriatric Medicine
DX: C34.32 Malignant neoplasm of lower lobe, left bronchus or lung (principal); D50.9 Iron deficiency anemia, unspecified; Z79.01 Long term (current) use of anticoagulants; R91.1 Solitary pulmonary nodule; I10 Essential (primary) hypertension; Z79.899 Other long term (current) drug therapy
CPT/HCPCS: 32408; 36415; 71046; 77012; 85049; 85610; 85730; 88172; 88305; 88313; 88341; 88342; 99156; J7050; A4216; C2613

== ENCOUNTER → 2023-01-17 | Outpatient (CLI) | payer MEDICARE, SELFPAY | END | disposition home or self-care (01) | PROVIDERS: PCP Family Medicine Geriatric Medicine; Referring Provider Family Medicine Geriatric Medicine; Visit Provider Family Medicine Geriatric Medicine | DX: K92.1 Melena (principal) ==

== ENCOUNTER → 2023-02-11 | Outpatient (CLI) | payer MEDICARE, SELFPAY ==
--- NOTE | 2023-02-11 15:30 | PET_ITS ---
EXAMINATION: FDG PET/CT INDICATIONS: 62-year-old female with a history of primary breast carcinoma, presenting for restaging examination. COMPARISON EXAMINATION: None available INDEX LESION SIZE SUV INTERPRETATION Left lower lung field, left lower lobe 46.4 mm 11.13 Fulfills quantitative criteria for viable neoplasm TECHNIQUE: Following the intravenous administration of 13.3 mCi of F-18 deoxyglucose via the left hand, multiplanar image acquisitions of the head, neck, chest, abdomen and pelvis to the level of the midthigh, obtained at one-hour post radiopharmaceutical administration contemporaneously interpreted with the current CT of the chest, abdomen and pelvis dated 02/11/2023 via coregistration reveal: SERUM GLUCOSE LEVEL: 136 mg/dL HEIGHT: 62 inches WEIGHT: 147 pounds FINDINGS: HEAD/NECK: There is no evidence of abnormal increased glucose metabolism in the pharyngeal mucosal space, parapharyngeal space, oropharynx, bilateral-lateral and anterior neck, hypopharynx and distribution of the larynx. The visualized portion of the cerebral cortical-subcortical structures demonstrate symmetric and preserved glucose metabolism. CHEST: Facilitated FDG uptake is noted in the left lower lung field, left lower lobe. The calculated maximum standard uptake value is 11.13. The maximal axial diameter of the metabolic, morphologic abnormality is 46.[address] of the chest demonstrates the following anatomic characteristics: Atherosclerotic calcification is defined in the thoracic aorta without evidence of dilatation, aneurysm formation. Coronary artery calcification is observed. Bilateral axillary soft tissue densities are ametabolic. Mediastinal soft tissue reveals no evidence of increased tracer uptake. There are no additional parenchymal densities-nodules defined in the right and left hemithorax with quantitatively significant increased FDG uptake. Airspace disease defined in the left lower posteromedial lung zone reveals no evidence of quantitatively significant increased FDG uptake. ABDOMEN/PELVIS: Normal physiologic distribution of the radiopharmaceutical is identified in the hepatic (4.0/) and splenic parenchyma, both renal units, urinary bladder, and visualized intestinal tract. CT of the abdomen and pelvis is remarkable for the following: Exophytic cyst formation is defined in the right kidney. Atherosclerotic calcification is defined in the abdominal aorta. The maximal axial diameter of the abdominal aorta is 29.4 mm. Pelvic arterial calcification is observed. A uterine pessary device is demonstrated. Calcified phlebolith formation is noted in the bilateral lower hemipelvis. Bilateral inguinal soft tissue densities reveal no evidence of increased tracer uptake. SKELETAL: There is no evidence of quantitatively significant enhanced glucose metabolism on meticulous inspection of the appendicular and axial skeletal structures. An apparent compression deformity is noted in the first lumbar vertebra without evidence of quantitatively significant increased FDG uptake. Degenerative changes defined in the thoracic and lumbar spine demonstrate no evidence of increased glucose metabolism. There are no sclerotic, mixed sclerotic-lytic, or primarily lytic changes defined in the axial skeletal structures with evidence of increased FDG uptake. PET/PET/CT Tumor Base -Thigh Init IMPRESSION: 1. ABNORMAL EXAMINATION INDICATIVE OF MALIGNANT-VIABLE NEOPLASM. 2. Increased radiopharmaceutical concentration manifest in the left lower lung field, left lower lobe fulfills quantitative criteria for viable neoplasm 3. No other quantitatively significant hypermetabolic abnormalities are noted. Electronic Signature Sadi Shell D.O. Accurate Quantification of SUVs for this report are calculated using the exclusive [employer]. ([place].S. Patent No. [phone] B2 [phone] [place] patent [phone]). Standardization and correction of the FDG SUV metric via [employer] technology allow for vendor non-specific objective quantitative examination comparison and optimization of the sensitivity and specificity of the FDG PET-CT examination. Electronically Signed: Sadi Shell, at 16:46 EDT ,
== END | disposition home or self-care (01) ==
PROVIDERS: PCP Family Medicine Geriatric Medicine; Referring Provider Internal Medicine Medical Oncology; Visit Provider Internal Medicine Medical Oncology
DX: C34.32 Malignant neoplasm of lower lobe, left bronchus or lung (principal)
CPT/HCPCS: 78815; A9552

== ENCOUNTER → 2023-02-15 | Outpatient (CLI) | payer MEDICARE, SELFPAY ==
--- NOTE | 2023-02-14 | ASPIGT_PTH ---
PATIENT: SARA GALARZA LOC: [place] U#:[id number] AGE/SX: 82/F ROOM: RE02/15/[address]: Dr. Jacek Gaytan MD : 1940 BED: DIS: 02/15/2023 SPEC #: [id number] RECD: 02/15/23 09:40 STATUS: MARION KRYSTAL #: [id number] DILLON: 02/14/23 00:[address]: Jacek Gaytan DEPT: SURGICAL PATHOLOGY RECD BY: Heber Shell ENTERED: 02/15/23 09:41 SP TYPE: ASP RAD OTHR DR: Dr. Avi Elliott MD Tissues: Lung, NOS Procedures: FNA Specimen Adequacy Special Stain Group II Surgery Specimen Level IV Imprint (control) HEADER OPERATION: CT-guided left lung biopsy PRE-OP DIAGNOSIS: Mass TISSUE SUBMITTED: Left lung 20-gauge x5 MICROSCOPIC DIAGNOSIS Left lung, CT-guided biopsy: Non-small cell carcinoma with extensive necrosis. See comment. COMMENT The specimen is evaluated at the time of biopsy by Dr. Suárez. Immediate Evaluation = Malignant cells present derived from non-small cell carcinoma. Extensive necrosis is noted. Viable tumor cells are noted only on the smears. H&E sections lung parenchymal with reactive changes and necrotic tumor. Immunohistochemistry ([id number]) supports the above diagnosis. Please also make reference to previous specimen [id number], left lower lobe lung mass, CT guided core biopsy with diagnosis of non-small cell carcinoma. Correlation with clinical, radiologic findings and appropriate follow up are necessary. Case has been reviewed in consultation with Dr. Ramirez who concurs with the above diagnosis. IDC:AM MICROSCOPIC DESCRIPTION Slides are reviewed. GROSS DESCRIPTION Received in fixative is one container labeled with the patient's name and designated left lung. The specimen consists of multiple irregular fragments of cohen soft tissue that in aggregate measure 0.5 x 0.2 x 0.1 cm. The specimen is totally submitted in one cassette. Two touch imprints are prepared at the time of core biopsy. / JOSE MIGUEL:luis e 02/15/2023 TC:0 CPT: 05513, 21166 ADDENDUM ADDENDUM ADDENDUM ADDENDUM ADDENDUM ADDENDUM ADDENDUM ADDENDUM ADDENDUM ADDENDUM ADDENDUM ADDENDUM ADDENDUM ADDENDUM ADDENDUM ADDENDUM ADDENDUM ADDENDUM ADDENDUM ADDENDUM 03/11/2023 10:23 ADDENDUM 03/11/2023 10:23 ADDENDUM 03/11/2023 10:23 ADDENDUM 03/11/2023 10:23 ADDENDUM 03/11/2023 10:23 PD-L1 (KEYTRUDA) IMMUNOHISTOCHEMICAL ANALYSIS FROM [employer] RESULTS: Tumor proportion score: <1% / Negative [facility] NGS REPORT FROM [employer] RESULT SUMMARY: Normal IMMUNOTHERAPY BIOMARKERS: Tumor Mutation [place]: Low (2.4 Mutations / MB) Microsatellite Instability: MSI Negative (2.42%) PERTINENT NEGATIVE RESULTS: The following genes are NEGATIVE for clinically relevant mutations. Mutational hotspots and surrounding exonic regions were interrogated for DNA level point mutations and indels (fusions not assayed). AKT1, ALK, ATR, BRAF, CHEK1, DDR2, EGFR, ERBB2, ERBB3, FGFR1, KRAS, MAP2K1, MET, NRAS, NTRK1, PIK3CA, POLD1, POLE, ROS1, STK11, TERT, TP53 Please see complete report in e-chart or EMR
[2023-02-15] VITALS (13 sets, daily range): BP systolic 117–173; BP diastolic 62–93; PULSE 54–68; RESP 16–24; TEMP 36.2; O2SAT 88–98; BMI 24.7
--- NOTE | 2023-02-15 | IMM_PTH ---
PATIENT: SARA GALARZA LOC: [place] U#:[id number] AGE/SX: 82/F ROOM: RE02/15/[address]: Dr. Jacek Gaytan MD : 1940 BED: DIS: 02/15/2023 SPEC #: [id number] RECD: 02/15/23 14:03 STATUS: MARION REQ #: [id number] DILLON: 02/15/23 00:[address]: Jacek Gaytan DEPT: IMMUNOHISTOCHEMISTRY RECD BY: Marci Mcnair ENTERED: 02/15/23 14:05 SP TYPE: IMMUNO OTHR DR: Dr. Avi Elliott MD Tissues: Lung, NOS Procedures: RCC (add) NAPSIN A (add) CK20 (add) CK5-6 (add) CK7 (add) CK8 (add) HEP PAR (add) ND (add) TTF1 (add) Pankeratin (add) P40 (add) ER (initial) PHYSICIAN & [place] [id number] SPECIMEN INFORMATION: Tissue Source: Left lung Clinical Info: Lung mass Specimen Number: [id number] CPT code: 50364, 56214 x11 METHODOLOGY: Deparaffinized sections of prefer/formalin-fixed tissue or PAP/DQ stained slides are incubated with monoclonal/polyclonal antibodies/oligonucleotide probes. Localization is made via biotin free immunoperoxidase method. Appropriate controls are performed and reacted as expected. Results on target cell population are indicated in the following table: RESULTS: ANTIBODY / CLONE RESULT ER (6F11) negative ND (1E2) negative AE1-3 (AE1/AE3/PCK26) positive, rare cells CK7 (OV-TL12/30) negative CK8 (59ecipX25) positive, rare cells CK20 (KS20.8) negative TTF-1 (8G7G3/1) negative Napsin A (Rabbit Polyclonal) positive, focal HepPar (OCh1E5) negative RCC (PN-15) negative CK5-6 (D5 & 1684) negative P40 (BC28) negative These tests were developed and their performance characteristics determined by [facility]. They may not have been cleared or approved by the U.S. Food and Drug Administration. The FDA has determined that such clearance or approval is not necessary. The above immunohistochemical/dualISH markers are ordered and reviewed by the Pathologist. INTERPRETATION: Left lung, CT-guided biopsy: Necrotic tumor cells noted. Comment: Immunohistochemistry is noncontributory for further classification of the tumor. Case has been reviewed in consultation with Dr. Ramirez who concurs with the above diagnosis. IDC:[id number] SJ: 02/19/23
--- NOTE | 2023-02-15 07:19 | RAD_ITS ---
STUDY: X-RAY CHEST REASON FOR EXAM: Female, 82 years old. Post lung biopsy -- Immediately post lung biopsy TECHNIQUE: AP inspiration and expiration views. COMPARISON: Comparison is made with prior study dated December 07, 2022. FINDINGS: EKG electrodes are seen. There is no evidence of pneumothorax on the immediate post left lung biopsy radiographs. RAD/Chest Insp/Exp 2 View IMPRESSION: No evidence of pneumothorax on the immediate post left lung biopsy radiographs. Electronically Signed: Steven Gómez MD at 10:24 EDT ,
--- NOTE | 2023-02-15 07:34 | CT_ITS ---
PROCEDURE: CT GUIDED CORE NEEDLE BIOPSY OF A left lower lobe LUNG LESION INDICATION: Female, 82 years old. LEFT LOWER LOBE MASS PHYSICIAN: Dr. Rico Keita CONSENT: Written informed consent was obtained having explained the risks, benefits and alternatives in detail with the patient who accepted the risks and agreed to proceed. Laboratory review and clinical assessment was performed. CONSCIOUS SEDATION PROTOCOL: The Drugs used were: 1 mg Versed, IV., and 25 mcg Fentanyl, IV. The sedation time was: 24 minutes. Conscious sedation was started at 9:04 AM and terminated at 9:28 AM. The conscious sedation protocol was independently monitored. RADIATION DOSAGE (If Supplied By Facility): CTDIvol = ( 14.5 ) mGy, DLP = ( 250.79 ) mGycm Individualized dose optimization techniques were used for this CT. TECHNIQUE: The patient was placed in the prone position. A noncontrast CT was performed to localize the lesion in the left lower lobe . The skin surface was prepped and draped in a sterile fashion. 1% lidocaine was used for local anesthesia. Using CT guidance, a 20-gauge coaxial biopsy device was advanced to the periphery of the lesion. A total of 5 core specimens were obtained. The specimens were placed in a formalin solution. A post procedure CT demonstrated no adverse sequelae or pneumothorax. The patient tolerated the procedure well without adverse event. A negative biopsy does not exclude malignancy. Further imaging or clinical followup based on patient condition and degree of clinical suspicion for malignancy. Suggest rebiopsy, if biopsy results do not match with clinical scenario. CT/Biopsy/Inj or Needle Placement IMPRESSION: 1. CT directed core needle biopsy of the left lower lobe pulmonary mass using CT image guidance with image documentation as described. Pathology results are pending. 2. Conscious Sedation protocol utilized with independent monitoring. Electronically Signed: Steven Gómez MD at 9:51 EDT ,
[2023-02-15 07:45] LABS: Platelet Count 214 K/mm3 (150-450)
[2023-02-15 07:58] LABS: International Normalized Ratio 1.1
[2023-02-15 07:59] LABS: Partial Thromboplast Time 29.6 Seconds (24.1-36.2)
[2023-02-15] MEDS: 0.9% Saline Lock 10 ML Syringe IV (08:24)
[2023-02-15] MEDS: Midazolam 2 MG/2 ML Syringe IV (09:09)
[2023-02-15] MEDS: fentaNYL 100 MCG/2 ML Ampul IV ×2 (09:10→09:55)
[2023-02-15] MEDS: Lidocaine 2% (20 ml mdv) 20 ML Vial INFILT (09:23)
--- NOTE | 2023-02-15 11:59 | RAD_ITS ---
EXAM: XR CHEST, 2 VIEWS CLINICAL INDICATION: 2 hr post lung biopsy -- 2 hours post lung biopsy TECHNIQUE: Expiratory and inspiratory labeled exams. AP portable upright. COMPARISON: 10:50 AM February 15, 2023 and February 15, 2023 CT guided biopsy images. FINDINGS: LUNGS AND PLEURAL SPACES: No pneumothorax. HEART: Similar rounded mass of roughly 5.4 cm x 4.4 cm as measured on the radiograph projecting over the heart on the frontal views, confirmed to be the location of biopsy on CT biopsy images February 15, 2023. MEDIASTINUM: Central airways and mediastinal contour are unremarkable. BONES/JOINTS: Stable upper limits of normal heart size is no effusions or significant infiltrate with the exception of slight soft tissue stranding medial and lateral to the mass. SOFT TISSUES: Unremarkable. RAD/Chest Insp/Exp 2 View IMPRESSION: Stable. Mild parenchymal soft tissue stranding adjacent to well-circumscribed left basilar mass, similar to 10:50 AM. No pneumothorax or hemothorax identified on inspiratory and expiratory phase AP upright exams. Electronically Signed: Sherry Leo MD at 8:59 EDT ,
== END | disposition home or self-care (01) ==
PROVIDERS: Radiology Diagnostic Radiology; PCP Family Medicine Geriatric Medicine; Referring Provider Internal Medicine Medical Oncology; Visit Provider Internal Medicine Medical Oncology
DX: C34.32 Malignant neoplasm of lower lobe, left bronchus or lung (principal); Z79.01 Long term (current) use of anticoagulants
CPT/HCPCS: 32408; 36415; 71046; 77012; 85049; 85610; 85730; 88172; 88305; 88313; 88341; 88342; 99156; J7050; A4216; C2613

== ENCOUNTER → 2023-03-04 | Outpatient (CLI) | payer MEDICARE, SELFPAY ==
[2023-03-04 15:44] LABS: Absolute Lymphocyte Count 1.72 X10^3/uL (0.83-4.51); Absolute Neutrophil Count 3.5 X10^3/uL (2.0-7.7); Basophil# 0.03 X10^3/uL; Basophil% 0.5 % (0-1); Eosinophils% 1.7 % (0-5); Hematocrit 34.1 % (37-47); Hemoglobin 10.2 g/dL (12.0-15.0); Lymphocyte # 1.72 X10^3/ul (0.83-4.51); Lymphocyte % 29.5 % (19-41); Mean Corp Hgb Conc 29.9 g/dL (32-36); Mean Corpuscular Hgb 25.4 pg (27.0-32.0); Mean Corpuscular Volume 84.8 fL (81-99); Mean Platelet Vol. 11.8 fl (6.2-12.0); Monocyte# 0.51 X10^3/uL; Monocyte% 8.7 % (0-10); NRBC Flagged by Analyzer 0 % (0-5); Neutrophil # 3.47 X10^3/uL (2.7-7.7); Neutrophil % 59.4 % (47-70); Platelet Count 272 K/mm3 (150-450); RBC Distribution Width CV 15.5 % (11.6-14.6); RBC Distribution Width SD 48.1 fl (35.1-43.9); Red Blood Count 4.02 M/mm3 (4.2-5.4); White Blood Count 5.8 K/mm3 (4.4-11.0)
[2023-03-04 16:12] LABS: ALB/GLOB Ratio 0.8 RATIO (0.9-2.4); AST(SGOT) 15 U/L (15-37); Alanine Aminotransfer ALT/SGPT 11 U/L (13-56); Albumin, Serum 3.2 g/dL (3.2-5.0); Alkaline Phosphatase 105 U/L (45-117); Anion Gap 6 (5-15); BUN 14 mg/dL (7-18); BUN/Creat Ratio 15.2 RATIO (10-20); Calcium,Total 9.7 mg/dL (8.5-10.1); Chloride 108 mmol/L (98-107); Creatinine, Serum 0.92 mg/dL (0.55-1.02); EST Glomerular Filtration Rate 62 mL/min (>60); Est Glom Filt Rate - Afr Amer 75 mL/min (>60); Glucose 96 mg/dL (74-106); Potassium 4.1 mmol/L (3.5-5.1); Protein, Total 7.2 g/dL (6.4-8.2); Sodium Level 138 mmol/L (136-145); Thyroid Stim Hormone (TSH) 2.28 uIU/mL (0.358-3.74)
[2023-03-04 16:37] LABS: Vitamin D,25 Hydroxy 48.9 ng/mL
== END | disposition home or self-care (01) ==
PROVIDERS: PCP Family Medicine Geriatric Medicine; Visit Provider Family Medicine Geriatric Medicine
DX: I10 Essential (primary) hypertension (principal); E11.65 Type 2 diabetes mellitus with hyperglycemia; E55.9 Vitamin D deficiency, unspecified
CPT/HCPCS: 36415; 80053; 82306; 84443; 85025

== ENCOUNTER 2023-05-29 13:57 | Inpatient (IN) | payer MEDICARE, SELFPAY ==
[2023-05-29] VITALS (12 sets, daily range): BP systolic 143–199; BP diastolic 71–98; PULSE 67–79; RESP 16–22; TEMP 36.4–36.6; O2SAT 87–98; BMI 26.7; BMI 26.4
--- NOTE | 2023-05-29 14:04 | EKG12_ITS ---
Test Reason : Blood Pressure : / mmHG Vent. Rate : 066 BPM Atrial Rate : 066 BPM P-R Int : 132 ms QRS Dur : 096 ms QT Int : 416 ms P-R-T Axes : 062 046 035 degrees QTc Int : 436 ms Normal sinus rhythm Junctional ST depression, probably normal Borderline ECG Confirmed by ARRON GAYTAN, SHIRLENE ([id number]), assistant production editor MADHU BHAT ([id number]) on 05/31/2023 7:15:09 AM Referred By: Confirmed By:BG HELLER MD
[2023-05-29 14:32] LABS: Absolute Neutrophil Count 7.3 X10^3/uL (2.0-7.7); Basophil# 0.03 X10^3/uL; Basophil% 0.3 % (0-1); Eosinophil# 0.02 X10^3/uL; Eosinophils% 0.2 % (0-5); Hematocrit 39.6 % (37-47); Hemoglobin 12.7 g/dL (12.0-15.0); Lymphocyte % 10.9 % (19-41); Mean Corp Hgb Conc 32.1 g/dL (32-36); Mean Corpuscular Hgb 26.1 pg (27.0-32.0); Mean Corpuscular Volume 81.3 fL (81-99); Mean Platelet Vol. 11.7 fl (6.2-12.0); Monocyte# 0.84 X10^3/uL; Monocyte% 9.2 % (0-10); NRBC Flagged by Analyzer 0 % (0-5); Neutrophil # 7.26 X10^3/uL (2.7-7.7); Neutrophil % 79.1 % (47-70); Platelet Count 275 K/mm3 (150-450); RBC Distribution Width CV 15.3 % (11.6-14.6); RBC Distribution Width SD 45.3 fl (35.1-43.9); Red Blood Count 4.87 M/mm3 (4.2-5.4); White Blood Count 9.2 K/mm3 (4.4-11.0)
--- NOTE | 2023-05-29 14:35 | RAD_ITS ---
STUDY: X-RAY CHEST REASON FOR EXAM: Female, 83 years old. Chest pain. TECHNIQUE: Single frontal view of the chest. COMPARISON: February 15, 2023. FINDINGS: Stable hyperinflation, cardiomegaly, aortic tortuosity with calcification and prominent central pulmonary arteries. Decrease in size of left lower lobe rounded noncalcified opacity which now measures 3.5 cm. No abnormality of the visualized soft tissue structures of the upper abdomen. RAD/Chest 1 View (Portable) IMPRESSION: Cardiomegaly with hyperinflation. Decrease in left lower lobe noncalcified pulmonary mass. No acute abnormality. Electronically Signed: Ilan Marcos MD at 14:54 EDT ,
[2023-05-29 14:43] LABS: International Normalized Ratio 1.3; Prothrombin Time (Protime)PT. 15.9 SECONDS (11.7-14.9)
[2023-05-29 14:59] LABS: Anion Gap 8 (5-15); BUN 16 mg/dL (7-18); BUN/Creat Ratio 15.4 RATIO (10-20); Calcium,Total 10.1 mg/dL (8.5-10.1); Chloride 104 mmol/L (98-107); Creatinine, Serum 1.04 mg/dL (0.55-1.02); EST Glomerular Filtration Rate 54 mL/min (>60); Est Glom Filt Rate - Afr Amer 65 mL/min (>60); Glucose 98 mg/dL (74-106); Potassium 3.7 mmol/L (3.5-5.1); Sodium Level 136 mmol/L (136-145); Troponin-I HS (w/2H Reflex) 19 pg/mL (3.0-54.0)
--- NOTE | 2023-05-29 15:25 | CT_ITS ---
STUDY: CT BRAIN WITHOUT CONTRAST REASON FOR EXAM: Female, 83 years old. Severe headache RADIATION DOSAGE (If Supplied By Facility): CTDIvol = ( 44.99 ) mGy, DLP = ( 779.24 ) mGycm TECHNIQUE: Transaxial CT imaging of the brain was performed without administration of intravenous contrast material. Individualized dose optimization techniques were used for this CT. COMPARISON: 09/10/2022 FINDINGS: Normal soft tissue structures. Normal calvarium. There is mild cerebral atrophy with widening of the extra-axial spaces and ventricular dilatation. There are areas of decreased attenuation within the white matter tracts of the supratentorial brain, consistent with microvascular disease changes. Normal basal ganglia and thalami. Normal brainstem. There is mild cerebellar atrophy. There is no intracranial hemorrhage. There are no findings of an acute ischemic infarction. Normal visualized paranasal sinuses. CT/Brain/Head without Contrast IMPRESSION: Chronic involutional changes of the brain. No acute hemorrhage or significant interval change Electronically Signed: Jose Enrique Streeter MD at 16:24 EDT ,
--- NOTE | 2023-05-29 15:25 | CT_ITS ---
STUDY: CT CERVICAL SPINE WITHOUT CONTRAST REASON FOR EXAM: Female, 83 years old. neck pain RADIATION DOSAGE (If Supplied By Facility): CTDIvol = ( 13.71 ) mGy, DLP = ( 303.91 ) mGycm TECHNIQUE: High resolution transaxial imaging was performed without contrast material. Sagittal and coronal images were reconstructed. Individualized dose optimization techniques were used for this CT. COMPARISON: None FINDINGS: Normal craniovertebral junction. There are degenerative changes of the anterior atlantoaxial articulation. Normal odontoid process. Normal cervical lordosis. Normal vertebral bodies and posterior osseous elements. C2-3: Normal endplates. Disc space narrowing. Normal central canal and intervertebral neuroforamina. C3-4: Normal endplates. Disc space narrowing. Normal central canal and intervertebral neuroforamina. C4-5: Sclerotic endplate changes with disc space narrowing. No central canal stenosis, bilateral foraminal narrowing due to facet joint hypertrophy. C5-6: Normal endplates. Disc space narrowing. Normal central canal and intervertebral neuroforamina. C6-7: Normal endplates. Disc space narrowing. Normal central canal and intervertebral neuroforamina. C7-T1: Normal endplates. Normal disc height and morphology. Normal central canal and intervertebral neuroforamina. Dense peripheral calcifications in the carotid artery bulbs noted. There are multiple low-density thyroid nodules. Lung apices show underlying emphysema. CT/Spine Cervical without Contras IMPRESSION: Multilevel degenerative changes, as described above. Electronically Signed: Jose Enrique Streeter MD at 16:27 EDT ,
--- NOTE | 2023-05-29 15:25 | CT_ITS ---
INDICATION: hemoptysis EXAMINATION: CTA CHEST, ABDOMEN AND PELVIS WITH CONTRAST - TECHNIQUE: A CTA of the chest, abdomen, and pelvis is obtained with sagittal and coronal reconstructed MIP views. Three-dimensional surface rendered sequence of the thoracic and abdominal aorta was obtained. A radiation dose optimization technique was used for this scan. 100 mL of Isovue-370. Oral contrast: None. COMPARISON: 08/17/2022 FINDINGS: CT CHEST: THORACIC AORTA: Peripheral calcifications in the thoracic aorta without aneurysm or dissection ABDOMINAL AORTA: Peripheral calcifications in the abdominal aorta with some ectasia but no aneurysm or dissection. Normal bifurcation into the common iliac arteries. LUNGS: Lung hollis show underlying emphysema with bleb formation throughout both lung hollis. There is a stable 8 mm pleural-based nodule in the medial aspect of the right lower lobe on axial image 60 and a stable well-defined peripherally calcified pulmonary cyst noted left lower lobe on axial image 79 measuring 2.4 cm. It also contains some air suggesting there is underlying inflammation. No organized infiltrate or effusion. No new suspicious mass or nodule MEDIASTINUM: Multiple low-density thyroid nodules present. The thyroid gland is not enlarged. HEART: Heart is normal size. No pericardial effusion. No CAD. CT ABDOMEN AND PELVIS: LIVER: Fatty infiltration of liver is noted without a discrete lesion. GALLBLADDER: There has been previous cholecystectomy with normal sequela SPLEEN: Normal. PANCREAS: No masses or inflammation. ADRENAL GLANDS: Normal. KIDNEYS AND URETERS: No obstructive uropathy, or suspicious solid renal lesion. There is a simple 3 cm cyst in the right kidney. STOMACH: Normal. SMALL BOWEL: No abnormal distention of the small bowel. MESENTERY: No suspicious inflammatory changes within the mesentery, no suspicious adenopathy. COLON: Scattered colonic diverticula, no CT evidence of acute diverticulitis. APPENDIX: The appendix is not visualized IVC: Normal. RETROPERITONEUM: No retroperitoneal lymphadenopathy. PELVIC STRUCTURES: Normal bladder. There is a pessary below the bladder SOFT TISSUES ABDOMEN: The anterior abdominal wall is normal. SOFT TISSUE CHEST: The extrathoracic soft tissues are normal. BONES: Degenerative bony changes throughout the visualized thoracic, lumbar spine and pelvis. Multiple chronic compression fractures noted in the thoracic and lumbar spine. CT/CTA Chst, Abd, Pel W and/or WO IMPRESSION: Peripheral calcifications in the thoracic and abdominal aorta without aneurysm or dissection. The abdominal aorta is ectatic No free intraperitoneal fluid, air, or suspicious adenopathy Scattered colonic diverticula, no CT evidence of acute diverticulitis Underlying emphysema without a superimposed infiltrate or effusion. Stable 8 mm nodule in the medial right lower lobe and 2.4 cm peripherally calcified cystic structure in the left lower lobe which also contains a bubble of air Degenerative bony changes with multiple chronic compression fractures Thyroid nodules Electronically Signed: Jose Enrique Streeter MD at 16:41 EDT ,
[2023-05-29] MEDS: 0.9% Normal Saline (1000mL) 1,000 ML 999 ML IV (15:43)
[2023-05-29] MEDS: fentaNYL 100 MCG/2 ML Ampul 25 MCG IV (15:43)
[2023-05-29] MEDS: Ondansetron 4 MG/2 ML Vial IV (15:43)
[2023-05-29 15:55] LABS: CPK Total, Creatine Kinase 195 U/L (26-192)
--- NOTE | 2023-05-29 16:26 | ED.VIS.FALL ---
HPI HPI - Fall History of Present Illness Chief Complaint: Fall Narrative Narrative: 83-year-old female presenting for evaluation. Patient was last seen last night around 9 PM when her went to bed. She had gone to bed prior to this. At some point in the middle the night the patient got up to use the restroom and states that she fell from the toilet in between the toilet seat in the tub and was wedged there. The is unsure how long she was there. He states she told him that it was just after midnight and he also states that she told him it was about 6:30 in the morning. The patient herself has dementia and is a poor informant. She does complain of headache and did hit her head. She complains of neck pain on the left side. Patient also states that she is having chest wall pain from right to left from her fall. Patient is on Eliquis. She states that she has had some coughing up of blood which is not new. She has a history of lung cancer. No fevers or chills. 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 Lung nodules Multiple falls Paroxysmal atrial fibrillation (03/21/22) Post-menopausal Syncope Thyroid nodule Wears dentures Home Medications carvedilol 6.25 mg tablet 6.25 mg PO BIDCM HEART 04/26/22 [History Last Taken 09/10/22] apixaban 2.5 mg tablet (Eliquis) 2.5 mg PO BID BLOOD THINNER 07/25/22 [History Last Taken 12/05/22] donepezil 5 mg tablet 5 mg PO DAILY DEMENTIA 07/25/22 [History Last Taken 09/10/22] doxepin 10 mg capsule 10 mg PO DAILY DEPRESSION/ANXIETY 09/10/22 [History Last Taken 09/10/22] estradiol 0.01% (0.1 mg/gram) vaginal cream 1 g vaginal UD 09/10/22 [History Last Taken Unknown] paroxetine HCl 10 mg tablet 10 mg PO DAILY DEPRESSION 09/10/22 [History Last Taken 09/10/22] lisinopril 20 mg tablet 20 mg PO DAILY 12/07/22 [History Last Taken Unknown] ascorbic acid (vitamin C) 500 mg capsule 500 mg PO DAILY 01/18/23 [History Last Taken Unknown] memantine 10 mg tablet 10 mg PO QPM 01/18/23 [History Last Taken Unknown] polysaccharide iron complex 150 mg iron capsule (Ferrex) 150 mg PO DAILY 01/18/23 [History Last Taken Unknown] amlodipine 5 mg tablet 5 mg PO QHS 05/29/23 [History Last Taken Unknown] Allergy/AdvReac Type Severity Reaction Status Date / Time adhesive Allergy Rash Verified 05/29/23 14:02 latex Allergy NEEDS Verified 05/29/23 14:02 FOLLOW-UP Family History Mother Diabetes Heart disease Hypertension Cerebral hemorrhage Father Brain cancer Sister Leukemia Cancer uterine Brother Cancer colon Surgical History History of esophagogastroduodenoscopy (EGD) History of tonsillectomy and adenoidectomy Hx of appendectomy Hx of cholecystectomy Hx of hysterectomy Social History household members: spouse Smoking Status: Former smoker how long ago did patient quit smoking: Smoked age [age]. 3-5 cig/day, quit following. alcohol intake: current alcohol intake frequency: holidays/special occasions only substance use type: does not use caffeine: No ROS ROS ED Constitutional Constitutional ED: Denies chills, fever(s) or sweats Eyes Eyes: Denies blurry vision or change in vision ENT ENT ED: Denies ear pain or sore throat Cardiovascular Cardiovascular: Reports chest pain; Denies palpitations or racing heartbeat Respiratory/Chest Respiratory/Chest: Reports cough and other Details: Hemoptysis ; Denies dyspnea or sputum Gastrointestinal Gastrointestinal: Denies abdominal pain, constipation, diarrhea, nausea or vomiting Genitourinary Genitourinary ED: Denies dysuria, hematuria or urinary frequency Musculoskeletal Musculoskeletal: Denies arthralgias, myalgias or neck pain Integumentary Denies abscess, Abrasions or rash Neurologic Neurologic: Denies headache(s), paresthesias or weakness Psychiatric Psychiatric: Denies anxiety, depression, suicidal ideation or suicidal thoughts Endocrine Endocrinology: Denies polydipsia or polyuria EXAM Physical Exam Const Vital Signs: 05/29/23 13:59 05/29/23 13:58 05/29/23 15:30 Temperature 97.5 F L Temperature Source Temporal Pulse Rate 67 71 Respiratory Rate 18 17 Respiratory Effort Respiratory Depth Respiratory Pattern Blood Pressure 143/79 H 199/95 H Blood Pressure Mean 100 129 Pulse Ox 96 98 97 Oxygen Delivery Method Room Air Room Air Room Air Oxygen Flow Rate (L/min) 05/29/23 15:18 05/29/23 16:49 05/29/23 16:50 Temperature Temperature Source Pulse Rate 79 Respiratory Rate 19 H Respiratory Effort Normal Non-Labored Respiratory Depth Normal Respiratory Pattern Normal Blood Pressure 188/82 H Blood Pressure Mean 117 Pulse Ox 97 87 92 Oxygen Delivery Method Room Air Room Air Nasal Cannula Oxygen Flow Rate (L/min) 2 05/29/23 17:00 05/29/23 17:54 05/29/23 18:00 Temperature 97.8 F Temperature Source Temporal Pulse Rate 76 72 79 Respiratory Rate 19 H 17 16 Respiratory Effort Respiratory Depth Respiratory Pattern Blood Pressure 169/79 H 169/71 H 150/89 H Blood Pressure Mean 109 103 109 Pulse Ox 90 92 92 Oxygen Delivery Method Room Air Nasal Cannula Oxygen Flow Rate (L/min) 2 Positive well nourished General Appearance ED: NAD HEENT Reports normocephalic and TM's normal bilaterally Eyes PERRL and EOMs intact bilaterally Neck full ROM and no lymphadenopathy Chest Wall inspection of chest normal Chest Narrative: To palpation on the anterior chest. No bruising noted. No deformities. No crepitance. Equal symmetric breath sounds and chest wall rise. Resp normal respiratory effort and no retractions Auscultation: rales and rhonchi Cardio regular rate and regular rhythm GI non-tender and non-distended Back/Spine no CVA tenderness Neuro CN's II-XII intact bilaterally, moves all extremities, no focal motor deficits and no sensory deficits noted [place] Coma Scale: document GCS findings Spontaneous Obeys Commands Confused 14 Sensorium / Orientation: alert Psych Mood & Affect: Negative for depressed or anxious MDM MDM MDM Narrative Medical decision making narrative: 83-year-old female presenting with headache, neck pain, chest wall pain. Apparently she fell at some point overnight and was down on the ground for an unknown downtime. Differential includes dysrhythmia/arrhythmia, ACS, pneumonia, pneumothorax, rib fracture, C-spine fracture, intracranial hemorrhage, skull fracture, dehydration, electrolyte normalities, syncope, anemia. Patient medicated with fentanyl and Zofran. CT brain was obtained to assess for intracranial hemorrhage/skull fracture. CT cervical spine was also obtained because I cannot rule her out by Nexus criteria. Chest x-ray my interpretation shows no acute process. Radiology does interpret this is decreasing size of left lower lobe mass. CT brain and cervical spine were negative. CBC shows normal blood cell count and 9.2. INR within normal limits. EKG normal sinus rhythm with a ventricular rate of 66 bpm on my interpretation. Sensitivity troponin 19. Delta troponin 23. No significant overall change. CPK was elevated at 195. CT brain and cervical spine were negative. Patient complaining of hemoptysis which is somewhat chronic of an issue but I did obtain a CTA of the chest abdomen pelvis which shows nothing acute other than rib fractures of the fourth fifth and sixth ribs on the left. No significant displacement. Some trouble getting up and ambulating secondary to pain. She is on Eliquis. Given that she would not want any more advanced measures the hospitalist was amenable to keeping her here in the hospital. She will be admitted to the medical floor. Impression: 1. Fall 2. Fourth, fifth, sixth rib fractures on the left 3. Closed head injury 4. Dehydration Lab Data Attestation: I reviewed the patient's lab results. Labs: Laboratory Results - last 24 hr 05/29/23 05/29/23 05/29/23 14:20 16:36 16:45 WBC 9.2 RBC 4.87 Hgb 12.7 Hct 39.6 MCV 81.3 MCH 26.1 L MCHC 32.1 RDW Std Deviation 45.3 H RDW Coeff of Amrita 15.3 H Plt Count 275 MPV 11.7 Immature Gran % (Auto) 0.300 Neut % (Auto) 79.1 H Lymph % (Auto) 10.9 L Clare % (Auto) 9.2 Eos % (Auto) 0.2 Baso % (Auto) 0.3 Absolute Neuts (auto) 7.3 Absolute Lymphs (auto) 1.00 Nucleated RBC % 0 PT 15.9 H INR 1.3 Sodium 136 Potassium 3.7 Chloride 104 Carbon Dioxide 24.0 Anion Gap 8 BUN 16 Creatinine 1.04 H Est GFR (MDRD) Af Amer 65 Est GFR (MDRD) Non-Af 54 L BUN/Creatinine Ratio 15.4 Glucose 98 Calcium 10.1 Total Creatine Kinase 195 H Troponin I High Sens 19 23 Urine Color Yellow Urine Clarity Clear Urine pH 7.0 Ur Specific [place] 1.010 Urine Protein 30 H Urine Glucose (UA) Normal Urine Ketones 50 H Urine Occult Blood Negative Urine Nitrite Negative Urine Bilirubin Negative Urine Urobilinogen Normal Ur Leukocyte Esterase 100 H Urine RBC 0 SEEN Urine WBC 0-5 SEEN Ur Squamous Epith Cells 0-5 SEEN Urine Bacteria 0 SEEN Urine Mucus 0 SEEN Radiography Diagnostic Testing: Clinical Impression(s) from Imaging Studies Chest X-Ray 05/29/23 14:35 IMPRESSION: Cardiomegaly with hyperinflation. Decrease in left lower lobe noncalcified pulmonary mass. No acute abnormality. Electronically Signed: Ilan Marcos MD at 14:54 EDT , Brain CT 05/29/23 15:25 IMPRESSION: Chronic involutional changes of the brain. No acute hemorrhage or significant interval change Electronically Signed: Jose Enrique Streeter MD at 16:24 EDT , Cervical Spine CT 05/29/23 15:25 IMPRESSION: Multilevel degenerative changes, as described above. Electronically Signed: Jose Enrique Streeter MD at 16:27 EDT , Chest/Abdomen/Pelvis CTA 05/29/23 15:25 IMPRESSION: Peripheral calcifications in the thoracic and abdominal aorta without aneurysm or dissection. The abdominal aorta is ectatic No free intraperitoneal fluid, air, or suspicious adenopathy Scattered colonic diverticula, no CT evidence of acute diverticulitis Underlying emphysema without a superimposed infiltrate or effusion. Stable 8 mm nodule in the medial right lower lobe and 2.4 cm peripherally calcified cystic structure in the left lower lobe which also contains a bubble of air Degenerative bony changes with multiple chronic compression fractures Thyroid nodules Electronically Signed: Jose Enrique Streeter MD at 16:41 EDT , ADDENDUM: 05/29/23 171 IMPRESSION: undefined ADDENDUM: 05/29/231737 IMPRESSION: undefined Discharge Plan Triage Chief Complaint: Fall ED Provider: Arsen Sanchez Dx/Rx/DC Orders Primary Care Provider: Avi Elliott Chi
[2023-05-29 16:28] LABS: Reflex Troponin-HS? (from REC) Y
[2023-05-29 16:43] LABS: Bacteria 0 SEEN /hpf (None Seen); Mucous, Urine 0 SEEN /hpf (<or=2+); Red Blood Cells-Urine 0 SEEN /hpf (0-5)
[2023-05-29 16:54] LABS: Color, Urine Yellow (Yellow); Glucose, Dipstick Normal (Normal); Ketone-Dipstick 50 mg/dl (Negative); Leukocyte Esterase-Dipstick 100 /ul (Negative); Nitrite-Dipstick Negative (Negative); Occult Blood-Urine Negative /ul (Negative); Protein-Dipstick 30 mg/dl (Negative); Urine Bilirubin Dipstick Negative (Negative); Urine Clarity Clear (Clear); Urine Urobilinogen Normal (Normal)
[2023-05-29 17:28] LABS: Squamous Epithelial Cells - UA 0-5 SEEN /hpf (5-10); White Blood Cells 0-5 SEEN /hpf (0-5)
--- NOTE | 2023-05-29 17:28 | CM.ED ---
Social Work SW performed chart review; ADs not on file, but it was noted on previous ED visit patient did not have LW nor HCPOA. SW met with patient and patient's and introduced self and role as [facility] SW. Patient sleeping in hospital bed but patient's is agreeable to speak with SW. SW inquired about completion of ADs or interest in information. Patient's verified those documents have not been completed and declined information. No other needs voiced at this time. Leilani WHARTON, ANA
[2023-05-29 17:30] LABS: Troponin-I HS 23 pg/mL (3.0-54.0)
--- NOTE | 2023-05-29 17:52 | PCM.HP.STD ---
HPI - General General Date of Admission: 05/29/23 Date of Service: 05/29/23 Chief Complaint: Fall, left sided rib pains. HPI Narrative The patient is an 83 y/o F w/ PMHx: PAF, HTN, HLD, Former tobacco use, Diabetes mellitus type II, Frequent fall history, Alzheimer's dementia with unclear behavioral disturbance history, Non-small cell carcinoma with extensive necrosis, PD-L1 100% Dx on Bx 12/07/22 with confirmatory Bx 02/15/[address] Gaytan and Dr. Meza (Clinically Stage IIA(cT2b cN0 M0)) not considered a great candidate for surgery given dementia with planned ongoing radiation for decrease of size of tumor and hemoptysis s/p SBRT 03/21/23-04/01/[address] 06/2023 who presents to the [facility] ED on 05/29/23 with history of fall the evening prior when she had gotten up from bed to use the restroom and unfortunately fell landing between the toilet seat in the tub with unclear timeline of being wedged there suspected around 9 PM but patient does admit to a headache and states that she does think she hit her head with neck discomfort specifically on the left side as well as chest discomfort after the fall, worse with palpation on Eliquis prompting family to bring her in for evaluation with ongoing unchanged hemoptysis which has been stable with her underlying cancer history. She denies any recent fevers or chills. Patient reports severe pain ongoing to the left side of her chest, worse with any movement or deep respiratory effort. Work-up in the ED included T97.5, heart rate 71, BP initially 199/95 with most recent repeat 169/79, respiratory rate initially 98% room air however did desaturate to 87% on room air requiring transient 2 L nasal cannula eventually improving now 90% on room air, CBC with WBC 9.2, hemoglobin 12.7, platelet 275 without marked shift, coags with INR 1.3, PT 15.9, BMP with BUN/creatinine 16/1.04, total creatinine kinase 195, troponin 19 with repeat delta 23, urinalysis not marked appearing, chest x-ray with cardiomegaly with hyperinflation, decreased size of left lower lobe noncalcified pulmonary mass with no acute cardiopulmonary findings, CT brain with chronic involutional changes with no acute intracranial findings, CT cervical spine with multilevel degenerative changes with no acute findings, CTA chest/abdomen/pelvis with noted minimally displaced anterior left fourth, fifth and sixth rib fractures with no soft tissue swelling, pleural thickening or pneumothoraces notified and no evidence of any sternal, clavicular, humeral or scapular fracture, peripheral calcifications in the thoracic and abdominal aorta without any aneurysm or dissection, ectatic abdominal aorta, no free intraperitoneal air or suspicious adenopathy, underlying emphysema, stable 8 mm nodule medial right lower lobe, 2.4 cm peripheral calcified cystic structure left lower lobe also contains a bubble of air, degenerative bony changes with multiple chronic compression fractures and thyroid nodules. In the ED patient ministered 1 L normal saline, fentanyl 25 mcg IV x1 as well as Zofran 4 mg IV x1. [facility] Medical History Alzheimer's dementia Atrial fibrillation Cardiology follow-up encounter Dementia Diabetes mellitus Essential hypertension Former tobacco use History of echocardiogram Hyperlipidemia Inability to ambulate due to left hip Lung nodules Multiple falls Paroxysmal atrial fibrillation (03/21/22) Post-menopausal Syncope Thyroid nodule Wears dentures Home Medications carvedilol 6.25 mg tablet 6.25 mg PO BIDCM HEART 04/26/22 [History Last Taken 09/10/22] apixaban 2.5 mg tablet (Eliquis) 2.5 mg PO BID BLOOD THINNER 07/25/22 [History Last Taken 12/05/22] donepezil 5 mg tablet 5 mg PO DAILY DEMENTIA 07/25/22 [History Last Taken 09/10/22] doxepin 10 mg capsule 10 mg PO DAILY DEPRESSION/ANXIETY 09/10/22 [History Last Taken 09/10/22] estradiol 0.01% (0.1 mg/gram) vaginal cream 1 g vaginal UD 09/10/22 [History Last Taken Unknown] paroxetine HCl 10 mg tablet 10 mg PO DAILY DEPRESSION 09/10/22 [History Last Taken 09/10/22] lisinopril 20 mg tablet 20 mg PO DAILY 12/07/22 [History Last Taken Unknown] ascorbic acid (vitamin C) 500 mg capsule 500 mg PO DAILY 01/18/23 [History Last Taken Unknown] memantine 10 mg tablet 10 mg PO QPM 01/18/23 [History Last Taken Unknown] polysaccharide iron complex 150 mg iron capsule (Ferrex) 150 mg PO DAILY 01/18/23 [History Last Taken Unknown] amlodipine 5 mg tablet 5 mg PO QHS 05/29/23 [History Last Taken Unknown] Allergy/AdvReac Type Severity Reaction Status Date / Time adhesive Allergy Rash Verified 05/29/23 14:02 latex Allergy NEEDS Verified 05/29/23 14:02 FOLLOW-UP Family History Mother Diabetes Heart disease Hypertension Cerebral hemorrhage Father Brain cancer Sister Leukemia Cancer uterine Brother Cancer colon Surgical History History of esophagogastroduodenoscopy (EGD) History of tonsillectomy and adenoidectomy Hx of appendectomy Hx of cholecystectomy Hx of hysterectomy Social History household members: spouse Smoking Status: Former smoker how long ago did patient quit smoking: Smoked age [age]. 3-5 cig/day, quit following. alcohol intake: current alcohol intake frequency: holidays/special occasions only substance use type: does not use caffeine: No ROS ROS Narrative Admission Review of Systems: CONSTITUTIONAL: No weight loss, fever, chills, + weakness or fatigue. HEENT: Eyes: No visual loss, blurred vision, double vision or yellow sclerae. Ears, Nose, Throat: No hearing loss, sneezing, congestion, runny nose or sore throat. SKIN: No rash or itching, lesions, wounds. CARDIOVASCULAR: + chest pain, chest pressure or chest discomfort. No palpitations, edema, orthopnea, syncopal events. RESPIRATORY: + shortness of breath. No cough or sputum, wheezing, hemoptysis. GASTROINTESTINAL: No anorexia, nausea, vomiting or diarrhea, abdominal pain, melena, BRBPR. GENITOURINARY: No dysuria, frequency, urgency or retention. NEUROLOGICAL: + Frequent falls, underlying Dementia. No headache, dizziness, syncope, paralysis, ataxia, numbness or tingling in the extremities, focal weakness, change in bowel or bladder control, seizure. MUSCULOSKELETAL: + muscle, back pain, joint pain or stiffness. HEMATOLOGIC: + anemia, easy bleeding or bruising. LYMPHATICS: No enlarged nodes. No history of splenectomy. PSYCHIATRIC: + history of depression or anxiety. ENDOCRINOLOGIC: No reports of sweating, cold or heat intolerance. No polyuria or polydipsia. ALLERGIES: No history of asthma, hives, eczema or rhinitis. Vital Signs Vital Signs Vital Signs: 05/29/23 13:59 05/29/23 13:58 05/29/23 15:30 Temperature 97.5 F L Temperature Source Temporal Pulse Rate 67 71 Respiratory Rate 18 17 Respiratory Effort Respiratory Depth Respiratory Pattern Blood Pressure 143/79 H 199/95 H Blood Pressure Mean 100 129 Pulse Ox 96 98 97 Oxygen Delivery Method Room Air Room Air Room Air Oxygen Flow Rate (L/min) 05/29/23 15:18 05/29/23 16:49 05/29/23 16:50 Temperature Temperature Source Pulse Rate 79 Respiratory Rate 19 H Respiratory Effort Normal Non-Labored Respiratory Depth Normal Respiratory Pattern Normal Blood Pressure 188/82 H Blood Pressure Mean 117 Pulse Ox 97 87 92 Oxygen Delivery Method Room Air Room Air Nasal Cannula Oxygen Flow Rate (L/min) 2 05/29/23 17:00 Temperature 97.8 F Temperature Source Temporal Pulse Rate 76 Respiratory Rate 19 H Respiratory Effort Respiratory Depth Respiratory Pattern Blood Pressure 169/79 H Blood Pressure Mean 109 Pulse Ox 90 Oxygen Delivery Method Room Air Oxygen Flow Rate (L/min) Weight Weight: 151 lb 0.266 oz Body Mass Index (BMI) 26.7 Physical Exam Narrative Physical Examination: General: Awake, alert, oriented to self, place and some events but does have significant underlying dementia, remains cooperative, seated upright in the ED bed, notable ongoing L sided rib pain. Skin: Normal color, normal turgor, no icterus, no cyanosis except very staged ecchymoses. HEENT: AT/NC, EOMI, PERRLA, moderately dry MM, no carotid bruits or JVD noted. Lungs: Mildly diminished, greater bases, decreased effort secondary to pain elicited, no rales, ronchi or wheezing. Heart: Regular rate and rhythm; no gallop, rub audible. Abdomen: Soft, NTTP, ND, hyperactive BS, no HSM. Extremities: No cyanosis, no clubbing, mild peripheral ankle edema. Neurological: Patient awake, alert, oriented as noted, cognitive function diminished baseline with underlying dementia, appears currently baseline intact; pupils equally reactive to light and accommodation, cranial nerves grossly normal, moving all 4 extremities, no focal deficits, strength moderately to severely globally decreased secondary to acute presentation. Psychiatric: Affect appears uncomfortable, fatigued, no acute evidence of depressive or anxiety feelings but does have underlying history. Results Lab / Micro Data 05/29/23 14:20 05/29/23 14:20 Labs: Laboratory Results - last 24 hr 05/29/23 14:20: WBC 9.2, RBC 4.87, Hgb 12.7, Hct 39.6, MCV 81.3, MCH 26.1 L, MCHC 32.1, RDW Std Deviation 45.3 H, RDW Coeff of Amrita 15.3 H, Plt Count 275, MPV 11.7, Immature Gran % (Auto) 0.300, Neut % (Auto) 79.1 H, Lymph % (Auto) 10.9 L, Rogers % (Auto) 9.2, Eos % (Auto) 0.2, Baso % (Auto) 0.3, Absolute Neuts (auto) 7.3, Absolute Lymphs (auto) 1.00, Nucleated RBC % 0, PT 15.9 H, INR 1.3, Sodium 136, Potassium 3.7, Chloride 104, Carbon Dioxide 24.0, Anion Gap 8, BUN 16, Creatinine 1.04 H, Est GFR (MDRD) Af Amer 65, Est GFR (MDRD) Non-Af 54 L, BUN/Creatinine Ratio 15.4, Glucose 98, Calcium 10.1, Total Creatine Kinase 195 H, Troponin I High Sens 19 05/29/23 16:36: Urine Color Yellow, Urine Clarity Clear, Urine pH 7.0, Ur Specific [place] 1.010, Urine Protein 30 H, Urine Glucose (UA) Normal, Urine Ketones 50 H, Urine Occult Blood Negative, Urine Nitrite Negative, Urine Bilirubin Negative, Urine Urobilinogen Normal, Ur Leukocyte Esterase 100 H, Urine RBC 0 SEEN, Urine WBC 0-5 SEEN, Ur Squamous Epith Cells 0-5 SEEN, Urine Bacteria 0 SEEN, Urine Mucus 0 SEEN 05/29/23 16:45: Troponin I High Sens 23 Radiology Impression Chest X-Ray 05/29/23 14:35 IMPRESSION: Cardiomegaly with hyperinflation. Decrease in left lower lobe noncalcified pulmonary mass. No acute abnormality. Electronically Signed: Ilan Marcos MD at 14:54 EDT , Brain CT 05/29/23 15:25 IMPRESSION: Chronic involutional changes of the brain. No acute hemorrhage or significant interval change Electronically Signed: Jose Enrique Streeter MD at 16:24 EDT , Cervical Spine CT 05/29/23 15:25 IMPRESSION: Multilevel degenerative changes, as described above. Electronically Signed: Jose Enrique Streeter MD at 16:27 EDT , Chest/Abdomen/Pelvis CTA 05/29/23 15:25 IMPRESSION: Peripheral calcifications in the thoracic and abdominal aorta without aneurysm or dissection. The abdominal aorta is ectatic No free intraperitoneal fluid, air, or suspicious adenopathy Scattered colonic diverticula, no CT evidence of acute diverticulitis Underlying emphysema without a superimposed infiltrate or effusion. Stable 8 mm nodule in the medial right lower lobe and 2.4 cm peripherally calcified cystic structure in the left lower lobe which also contains a bubble of air Degenerative bony changes with multiple chronic compression fractures Thyroid nodules Electronically Signed: Jose Enrique Streeter MD at 16:41 EDT , ADDENDUM: 05/29/23 1713 IMPRESSION: undefined ADDENDUM: 05/29/23 1738 IMPRESSION: undefined Assessment & Plan Assessment/Plan (1) Fall: PLAN: Plan The patient is an 83 y/o F w/ PMHx: PAF, HTN, HLD, Former tobacco use, Diabetes mellitus type II, Frequent fall history, Alzheimer's dementia with unclear behavioral disturbance history, Non-small cell carcinoma with extensive necrosis, PD-L1 100% Dx on Bx 12/07/22 with confirmatory Bx 02/15/[address] Gaytan and Dr. Meza (Clinically Stage IIA(cT2b cN0 M0)) not considered a great candidate for surgery given dementia with planned ongoing radiation for decrease of size of tumor and hemoptysis s/p SBRT 03/21/23-04/01/[address] 06/2023 who presents to the [facility] ED on 05/29/23 with history of fall the evening prior when she had gotten up from bed to use the restroom and unfortunately fell landing between the toilet seat in the tub with unclear timeline of being wedged there suspected around 9 PM but patient does admit to a headache and states that she does think she hit her head with neck discomfort specifically on the left side as well as chest discomfort after the fall, worse with palpation on Eliquis prompting family to bring her in for evaluation with ongoing unchanged hemoptysis which has been stable with her underlying cancer history. #1. Mechanical Fall with mild Rhabdomyolysis and minimally displaced anterior left fourth, fifth and sixth rib fractures: Per discussion at length with patient and given both have dementia and patient and family adamant preference to remain in [place] with DNR-CCA, no intubation, no aggressive measures with current lung cancer on radiation therapy only for assistance with hemoptysis will allow patient to remain at [facility] as opposed to a tertiary facility transfer given 3 rib fractures on the same side on anticoagulant therapy, will admit to medical surgical floor, maintain on fall precautions, discontinue anticoagulant therapy, encourage incentive spirometry, encourage deep breath, oxygen supplementation as needed, will have as needed pain regimen and will allow a short burst of low-dose Toradol to assist with severity of pain, will continue judicious hydration and repeat creatinine kinase in AM. PT/OT/case management consultation for discharge planning. #2. Alzheimer's dementia with unclear behavior disturbance history: We will continue patient home donepezil regimen, complicates presentation, significant fall history concurrently thus at this time would hold patient further Eliquis regimen which was discussed at length with patient's , maintain on fall and aspiration precautions, PT/OT/case management consulted for discharge planning. #3. PAF: We will continue patient home Coreg regimen however patient with significant elevated fall risk which was discussed at length with patient and and at this point will discontinue anticoagulation. #4. Non-small cell carcinoma with extensive necrosis, PD-L1 100%: Dx on Bx 12/07/22 with confirmatory Bx 02/15/[address] Gaytan and Dr. Meza (Clinically Stage IIA(cT2b cN0 M0)) not considered a great candidate for surgery given dementia with planned ongoing radiation for decrease of size of tumor and hemoptysis s/p SBRT 03/21/23-04/01/[address] 06/2023. #5. Hypertension: Continue home regimen including Coreg, Norvasc with hold parameters as needed, PRN hydralazine. #6. Anxiety and Depression: We will continue patient home doxepin home regimen, clarifying as patient had previously been on paroxetine. #7. Hx of Diabetes mellitus type II: Patient is not on any regimen, last hemoglobin A1c's have always been 5%, will allow broaden diet and avoid any Accu-Cheks or insulin sliding scale. #8. Former tobacco use: Encourage continued tobacco cessation. #9. DVT prophylaxis: SCDs, holding anticoagulant therapy as noted above, dose tolerated today. #10. CODE status: Patient HCPOA and living will is not in place but is present and notes he would be decision-maker. Discussed CODE status at length including difference between FULL code, DNR-CCA and DNR-CC status. Following discussions about the differences in these status, requested DNR-CCA, no intubation status, no aggressive interventions. Advanced Care Planning Face to Face Time: 16 minutes. Charges/Coding Visit Charges Inpatient E&M: 32423 Init Hosp L3 Procedures Hospitalists Procedures: 07969 Advncd Care Plan 30 Min
--- NOTE | 2023-05-29 21:02 | NURSING ---
Pt unsure of her medications. Pt states her already took care of her med list.
[2023-05-29] MEDS: oxyCODONE 5 MG Tablet 2.5 MG PO (21:24)
[2023-05-29] MEDS: Acetaminophen 325 MG Tablet 650 MG PO (21:24)
--- NOTE | 2023-05-29 21:34 | NURSING ---
pt states she doesn't know her medical history
[2023-05-29] MEDS: Ketorolac 15 MG/ML Vial IV (23:33)
[2023-05-29] MEDS: 0.9% Normal Saline (1000mL) 1,000 ML 100 ML IV (23:33)
[2023-05-29] MEDS: 0.9% Saline Lock 10 ML Syringe IV (23:35)
[2023-05-29] MEDS: amLODIPine 5 MG Tablet PO (23:40)
[2023-05-30] VITALS (11 sets, daily range): BP systolic 107–149; BP diastolic 53–92; PULSE 63–74; RESP 16–20; TEMP 36.4–37.1; O2SAT 91–99; BMI 26.5
[2023-05-30] MEDS: Ketorolac 15 MG/ML Vial IV ×3 (04:44→23:04)
[2023-05-30 07:14] LABS: Absolute Lymphocyte Count 0.82 X10^3/uL (0.83-4.51); Absolute Neutrophil Count 2.6 X10^3/uL (2.0-7.7); Basophil# 0.02 X10^3/uL; Basophil% 0.5 % (0-1); Eosinophil# 0.06 X10^3/uL; Eosinophils% 1.4 % (0-5); Hematocrit 33.2 % (37-47); Hemoglobin 10.5 g/dL (12.0-15.0); Lymphocyte # 0.82 X10^3/ul (0.83-4.51); Lymphocyte % 19.8 % (19-41); Mean Corp Hgb Conc 31.6 g/dL (32-36); Mean Corpuscular Hgb 26.3 pg (27.0-32.0); Mean Platelet Vol. 10.5 fl (6.2-12.0); Monocyte# 0.64 X10^3/uL; Monocyte% 15.5 % (0-10); NRBC Flagged by Analyzer 0 % (0-5); Neutrophil # 2.58 X10^3/uL (2.7-7.7); Neutrophil % 62.3 % (47-70); Platelet Count 181 K/mm3 (150-450); RBC Distribution Width CV 15.4 % (11.6-14.6); RBC Distribution Width SD 46.5 fl (35.1-43.9); White Blood Count 4.1 K/mm3 (4.4-11.0)
[2023-05-30 07:47] LABS: ALB/GLOB Ratio 0.8 RATIO (0.9-2.4); AST(SGOT) 17 U/L (15-37); Alanine Aminotransfer ALT/SGPT 15 U/L (13-56); Albumin, Serum 2.8 g/dL (3.2-5.0); Alkaline Phosphatase 93 U/L (45-117); Anion Gap 6 (5-15); BUN 14 mg/dL (7-18); BUN/Creat Ratio 20.2 RATIO (10-20); CPK Total, Creatine Kinase 101 U/L (26-192); Chloride 110 mmol/L (98-107); Creatinine, Serum 0.69 mg/dL (0.55-1.02); EST Glomerular Filtration Rate 86 mL/min (>60); Est Glom Filt Rate - Afr Amer 104 mL/min (>60); Estimated Creatinine Clearance 33.12 ml/min; Globulin 3.3 g/dL (2.2-4.2); Glucose 85 mg/dL (74-106); Potassium 3.3 mmol/L (3.5-5.1); Protein, Total 6.1 g/dL (6.4-8.2); Sodium Level 140 mmol/L (136-145)
[2023-05-30] MEDS: Morphine 2 MG/ML Syringe IV (09:04)
[2023-05-30] MEDS: Donepezil HCl 5 MG Tablet PO (09:07)
[2023-05-30] MEDS: Ascorbic Acid 500 MG Tablet PO (09:07)
[2023-05-30] MEDS: Doxepin Hydrochloride 10 MG Capsule PO (09:07)
[2023-05-30] MEDS: Carvedilol 6.25 MG Tablet PO ×2 (09:08→18:14)
[2023-05-30] MEDS: Ensure Plus High Protein 120 ML LIQUID PO ×3 (09:11→18:16)
--- NOTE | 2023-05-30 09:18 | EKG12_ITS ---
Test Reason : CHEST PAIN Blood Pressure : / mmHG Vent. Rate : 067 BPM Atrial Rate : 067 BPM P-R Int : 152 ms QRS Dur : 102 ms QT Int : 414 ms P-R-T Axes : 066 033 062 degrees QTc Int : 437 ms Sinus rhythm with occasional Premature ventricular complexes Nonspecific T wave abnormality Abnormal ECG When compared with ECG of 29-MAY-2023 14:27, MANUAL COMPARISON REQUIRED, DATA IS UNCONFIRMED Confirmed by MARY ANN GAYTAN, OBED ([id number]), visual effects editor MADHU BHAT ([id number]) on 06/07/2023 9:52:08 AM Referred By: Confirmed By:OBED REESE MD
[2023-05-30] MEDS: 0.9% Saline Lock 10 ML Syringe IV ×3 (09:37→23:06)
[2023-05-30] MEDS: Ondansetron 4 MG/2 ML Vial IV (09:37)
[2023-05-30] MEDS: Potassium Chloride 10mEq/100mL 10 MEQ/100 ML IV.SOLN. 100 MEQ IV BOLUS ×4 (09:45→13:23)
[2023-05-30] MEDS: 0.9% Normal Saline (250mL Bag) 250 ML 15 ML IV (10:04)
[2023-05-30] MEDS: Acetaminophen 325 MG Tablet 650 MG PO (11:19)
[2023-05-30] MEDS: Senna/Docusate Sodium 1 Tablet 2 TABLET PO (15:37)
--- NOTE | 2023-05-30 15:50 | CASEMGMT ---
RN?CM?DEBURR TECHNICIAN?CM?to room to meet with patient for initial transition planning/care coordination?assessment.?RN?CM?introduced self and role at [facility].? Pt voices understanding and consents to?assessment?at this time.? Pt sitting up in chair in no distress at this time.? Pt is A/O at this time and answers all questions appropriately. She told this RN TONEY that she has Alzheimer's dementia and she forgets things sometimes, but she was able to relay all of the following information to NOEMI ZIEGLER at this time. Pt also reports that her has some dementia. Care providers, pharmacy, and demographics verified/updated at this time. PCP: Dr Elliott Specialists: Pt states she was getting radiation and that she just got the last treatment about a week ago. She was unable to recall the name of her radiation/onc physician. When NOEMI ZIEGLER stated Dr Meza to her, pt stated, Oh yes. Pt states she has been to [facility]/cardiology once. Preferred Pharmacy: [facility] Insurance: [facility] Prescription Benefit:?Yes LNOK: , Manuel. One adult Josefa fink. Living Arrangements: Lives w/her in one-story home w/basement w/5 steps to enter home w/railing. Pt states there is a bannister by the stairs to the basement. Pt states the shower is in the basement and they have to go up/down the stairs to shower, as the bathtub on the main floor is not working. Pt reports being independent w/ADL's and states they share home mgnt tasks. She states her manages her medications and she manages his. Transportation:?Pt states she drives some and that does most of the driving. DME: ?States has the following DME:?shower chair in the basement, cane, walker. ?Pt states no need for further DME at this time.? HHC/SNF: Pt has been to [facility] and has had [facility] in the past. Discussed discharge planning. Pt states she is not sure if she should go to a SNF or home w/possible HHC. Pt states she is not sure what would be best, stating, My took care all of that the last time. NOEMI ZIEGLER asked pt if she would like NOEMI ZIEGLER to call her . She states he does not hear well and for NOEMI ZIEGLER to call her daughter, Josefa, to discuss discharge planning. Call placed to Josefa. She was made aware pt asked NOEMI ZIEGLER to call her. She was made aware of how pt did w/therapy today and that additional therapy was recommended. Discussed possible options such as SNF or HHC, depending on pt and family's wishes. Questions answered. She states she feels it would be best for pt to go to a SNF and states [facility] would be her first preference since she has been there before, but states she would need to call her father (pt's ) to discuss this and for them to decide together. She states that he (pt's ) likes to be in control. Daughter aware, if they decide on pt going to a SNF and if [facility] unable to [facility] her, then a list can be provided of other SNF options for them to review. Daughter to call [facility] NOEMI ZIEGLER or JAEL tomorrow morning with their decision. JAEL, Shruti, and [facility] NOEMI ZIEGLER, Megan, both made aware. Daughter spoke w/pt after talking w/NOEMI ZIEGLER. Pt told daughter that she would leave the decision for her re: going to SNF vs home to them (dtr and pt's ) to decide together. PLAN:??TBD, SNF vs HHC Alonso KELLYN?RN?CM
--- NOTE | 2023-05-30 16:14 | PCM.PN.HOSP ---
Reason for Visit Reason for Visit: Diagnoses Unspecified fall, initial encounter (05/29/23) Subjective Subjective Patient seen at bedside this morning. Sitting up in bed but appears quite uncomfortable during the interview. Reports significant left-sided rib pain with any movements. States the pain medication has been somewhat helpful but she continues to have significant pain. Has had difficulty taking deep breath because of this. Patient otherwise denies any fevers or chills. No other acute concerns morning. Objective Data Objective Data Vital Signs: Vital Signs Temp Pulse Resp BP Pulse Ox O2 Del Method O2 Flow Rate 98.0 F 66 16 107/53 L 94 Room Air 2 05/30/23 15:38 05/30/23 15:38 05/30/23 15:38 05/30/23 15:38 05/30/23 15:38 05/30/23 15:38 05/30/23 10:42 Oxygen Flow Rate (L/min) 2 Oxygen Delivery Method Room Air Weight: 65.4 kg Body Mass Index (BMI) 26.5 Intake & Output: Intake and Output for Last 24 Hours 05/28/23 05/29/23 05/30/23 23:59 23:59 23:59 Intake Total 1200 / 1200 1540 / 1540 Output Total 150 / 150 300 / 300 Balance 1050 / 1050 1240 / 1240 Lab / Micro Data 05/30/23 06:52 05/30/23 06:52 Labs: Laboratory Results - last 24 hr 05/29/23 16:36: Urine Color Yellow, Urine Clarity Clear, Urine pH 7.0, Ur Specific [place] 1.010, Urine Protein 30 H, Urine Glucose (UA) Normal, Urine Ketones 50 H, Urine Occult Blood Negative, Urine Nitrite Negative, Urine Bilirubin Negative, Urine Urobilinogen Normal, Ur Leukocyte Esterase 100 H, Urine RBC 0 SEEN, Urine WBC 0-5 SEEN, Ur Squamous Epith Cells 0-5 SEEN, Urine Bacteria 0 SEEN, Urine Mucus 0 SEEN 05/29/23 16:45: Troponin I High Sens 23 05/30/23 06:52: WBC 4.1 L, RBC 4.00 L, Hgb 10.5 L, Hct 33.2 L, MCV 83.0, MCH 26.3 L, MCHC 31.6 L, RDW Std Deviation 46.5 H, RDW Coeff of Amrita 15.4 H, Plt Count 181, MPV 10.5, Immature Gran % (Auto) 0.500, Neut % (Auto) 62.3, Lymph % (Auto) 19.8, [place] % (Auto) 15.5 H, Eos % (Auto) 1.4, Baso % (Auto) 0.5, Absolute Neuts (auto) 2.6, Absolute Lymphs (auto) 0.82 L, Nucleated RBC % 0, Sodium 140, Potassium 3.3 L, Chloride 110 H, Carbon Dioxide 24.0, Anion Gap 6, BUN 14, Creatinine 0.69, Estim Creat Clear Calc 33.12, Est GFR (MDRD) Af Amer 104, Est GFR (MDRD) Non-Af 86, BUN/Creatinine Ratio 20.2 H, Glucose 85, Calcium 9.0, Total Bilirubin 0.30, AST 17, ALT 15, Alkaline Phosphatase 93, Total Creatine Kinase 101, Total Protein 6.1 L, Albumin 2.8 L, Globulin 3.3, Albumin/Globulin Ratio 0.8 L Radiography Diagnostic Testing: Radiology Impression Brain CT 05/29/23 15:25 IMPRESSION: Chronic involutional changes of the brain. No acute hemorrhage or significant interval change Electronically Signed: Jose Enrique Streeter MD at 16:24 EDT Reading Location ID and State: [facility] / [place] , Service support , Cervical Spine CT 05/29/23 15:25 IMPRESSION: Multilevel degenerative changes, as described above. Electronically Signed: Jose Enrique Streeter MD at 16:27 EDT , Chest/Abdomen/Pelvis CTA 05/29/23 15:25 IMPRESSION: Peripheral calcifications in the thoracic and abdominal aorta without aneurysm or dissection. The abdominal aorta is ectatic No free intraperitoneal fluid, air, or suspicious adenopathy Scattered colonic diverticula, no CT evidence of acute diverticulitis Underlying emphysema without a superimposed infiltrate or effusion. Stable 8 mm nodule in the medial right lower lobe and 2.4 cm peripherally calcified cystic structure in the left lower lobe which also contains a bubble of air Degenerative bony changes with multiple chronic compression fractures Thyroid nodules Electronically Signed: Jose Enrique Streeter MD at 16:41 EDT , ADDENDUM: 05/29/231712 IMPRESSION: undefined ADDENDUM: 05/29/231737 IMPRESSION: undefined Physical Exam Const alert Constitutional Narrative: Elderly female, sitting in bed, appears to be in moderate pain and discomfort, answering most questions appropriately. General Appearance: cooperative HEENT normocephalic, head/scalp atraumatic, hearing grossly normal bilaterally, nasal mucous membranes and turbinates normal and moist oral mucous membranes Eyes PERRL, EOMs intact bilaterally and conjunctivae normal Neck full ROM, no lymphadenopathy and supple Lymph Lymphatic: no lymphadenopathy noted Chest Chest Narrative: Significant pain to light palpation of the left side of chest and rib area. Resp Resp Narrative: Decreased respiratory excursion, otherwise normal air movement and clear bilaterally. Cardio regular rate, regular rhythm, no murmurs and peripheral pulses 2+ throughout GI normal to inspection, nondistended, normoactive bowel sounds, soft to palpation, non-tender and non-distended Back/Spine normal ROM Extremity normal to inspection, full ROM and no pedal edema Skin no rashes or lesions noted Psych mental status grossly normal Assessment & Plan Assessment/Plan (1) Fall: PLAN: Plan Patient is an 83-year-old female with history of Alzheimer's dementia, history of falls, non-small cell lung cancer, paroxysmal atrial fibrillation, hypertension and anxiety/depression who presented to [facility] ED on 05/29/2023 via EMS after a fall at home. 1. Mechanical fall, minimally displaced anterior left 4th-6th rib fractures, debility Patient reported fall at home overnight, laid on ground for 6 hours before being found by her . CT brain and C-spine showed no acute changes. CTA chest/abdomen/pelvis showed minimally displaced anterior left fourth, fifth and sixth rib fractures; no soft tissue swelling, pleural thickening or pneumothorax identified. Discussed with patient and on admission, and the adamantly preferred to remain at [place] with DNR CCA, DO NOT INTUBATE status with no aggressive measures for her injuries. Creatinine kinase mildly elevated on admit, improved with IV fluids. ? PT/OT/case management consulted. Fall precautions in place. Pain control with scheduled IV Toradol and as needed opiates for now. Encouraging incentive spirometry and deep breathing as able with oxygen supplementation as needed. 2. Alzheimer's dementia with unclear behavioral disturbance ? Per history. Patient reportedly has significant fall history but continues to be on Eliquis for A-fib as noted below. Discussed with patient and on admission, holding Eliquis for now. Continue home donepezil. Unfortunately dementia complicates patient's presentation. PT/OT/case management following as above. 3. Non-small cell lung cancer Follows with Dr. Gaytan with Oncology and Dr. Meza with radiation oncology. Diagnosed on biopsy on 12/07/2022, with confirmatory biopsy on 02/15/2023. Clinically stage IIa. Not considered a great surgery candidate given dementia. S/p SBRT (radiation therapy) from 03/21 to 04/01/[address] in 06/2023. Chest x-ray on admission notably did show some decrease in size of the tumor. ? No inpatient oncology needs, continue outpatient follow-up. Chronic medical conditions: ? Paroxysmal atrial fibrillation: Normal sinus rhythm on admission. Continue home Coreg. Holding home Eliquis for now given significant fall risk, will discuss risks versus benefits of anticoagulation prior to discharge. ? Hypertension: Continue home Coreg and Norvasc. ? Anxiety/Depression: Continue home doxepin at night. DVT prophylaxis: SCDs CODE STATUS: DNR CCA, DO NOT INTUBATE Expected disposition: Home with home health care versus SNF, TBD Total clinical time spent by myself addressing the patient's medical issues, reviewing all the data, and collaborating with patient's care team: 35 minutes. Charges/Coding Visit Charges Inpatient E&M: 92649 Subs Hosp L2
[2023-05-30] MEDS: Menthol/Lanolin/Calamine/Znox 113 GM Tube 1 APPLIC TOPICAL ×2 (18:13→21:05)
[2023-05-30] MEDS: amLODIPine 5 MG Tablet PO (21:04)
[2023-05-31 03:29] VITALS: O2SAT 95
[2023-05-31 03:37] VITALS: BMI 29.0
[2023-05-31 04:04] VITALS: BP 139/68; PULSE 70; RESP 18; TEMP 36.8; O2SAT 95
[2023-05-31] MEDS: Ketorolac 15 MG/ML Vial IV (05:08)
[2023-05-31] MEDS: 0.9% Saline Lock 10 ML Syringe IV (05:10)
[2023-05-31 06:12] LABS: Hematocrit 31.7 % (37-47); Hemoglobin 9.7 g/dL (12.0-15.0); Mean Corp Hgb Conc 30.6 g/dL (32-36); Mean Corpuscular Hgb 25.8 pg (27.0-32.0); Mean Corpuscular Volume 84.3 fL (81-99); Mean Platelet Vol. 10.7 fl (6.2-12.0); Platelet Count 156 K/mm3 (150-450); RBC Distribution Width CV 15.5 % (11.6-14.6); RBC Distribution Width SD 47.7 fl (35.1-43.9); Red Blood Count 3.76 M/mm3 (4.2-5.4); White Blood Count 5.1 K/mm3 (4.4-11.0)
[2023-05-31 06:34] LABS: Anion Gap 3 (5-15); BUN 21 mg/dL (7-18); BUN/Creat Ratio 27.2 RATIO (10-20); Calcium,Total 9.3 mg/dL (8.5-10.1); Chloride 111 mmol/L (98-107); Creatinine, Serum 0.77 mg/dL (0.55-1.02); EST Glomerular Filtration Rate 76 mL/min (>60); Est Glom Filt Rate - Afr Amer 92 mL/min (>60); Estimated Creatinine Clearance 33.12 ml/min; Glucose 103 mg/dL (74-106); Sodium Level 139 mmol/L (136-145)
[2023-05-31 08:06] VITALS: BP 177/65; PULSE 64; RESP 18; TEMP 36.5; O2SAT 100
[2023-05-31] MEDS: Carvedilol 6.25 MG Tablet PO ×2 (08:15→17:32)
[2023-05-31] MEDS: Donepezil HCl 5 MG Tablet PO (08:15)
[2023-05-31] MEDS: Ensure Plus High Protein 120 ML LIQUID PO ×3 (08:15→17:32)
[2023-05-31] MEDS: Acetaminophen 325 MG Tablet 650 MG PO ×2 (08:40→15:48)
[2023-05-31] MEDS: oxyCODONE 5 MG Tablet 2.5 MG PO (08:40)
[2023-05-31 08:49] VITALS: O2SAT 95
[2023-05-31 10:38] VITALS: BP 125/63; PULSE 63; O2SAT 96
[2023-05-31] MEDS: Ascorbic Acid 500 MG Tablet PO (10:47)
[2023-05-31] MEDS: Doxepin Hydrochloride 10 MG Capsule PO (10:47)
--- NOTE | 2023-05-31 11:49 | CASEMGMT ---
Social Work Per RNCM, pt's daughter is requesting placement at TCU. Pt deferring decision making to daughter. Referral made to Caitlin in TCU. SW will await determination of acceptance. PAULIE Molina
--- NOTE | 2023-05-31 11:50 | CASEMGMT ---
NOEMI ZIEGLER into pt room, aide assisting pt to the restroom. Pt states she does not know what her and dtr have decided as far as next level of care. Pt asks NOEMI ZIEGLER to call her or dtr. TC to pt dtr, she states she has spoke with her father and he is aware that he cannot care for her at home. She states he will not allow anyone in the home to care for her. She states that they would like pt to return to the [facility] TCU unit as she has been to before. Updated SW of this.
[2023-05-31] MEDS: Menthol/Lanolin/Calamine/Znox 113 GM Tube 1 APPLIC TOPICAL ×2 (13:25→17:32)
--- NOTE | 2023-05-31 14:02 | PCM.PN.HOSP ---
Reason for Visit Reason for Visit: Diagnoses Unspecified fall, initial encounter (05/29/23) Subjective Subjective Patient seen at bedside's morning. Sitting comfortably in bedside chair, conversing normally, no acute distress. Patient appears much more comfortable, alert and oriented today in comparison to yesterday. States that her pain has been well controlled this morning. She is reporting a small rash on the backside of her upper right arm and behind her left knee that has been fairly itchy this morning. She otherwise denies any fevers or chills, chest pain or shortness of breath. Satting well on room air with no increased work of breathing noted. Patient denies any other acute concerns this morning. Objective Data Objective Data Vital Signs: Vital Signs Temp Pulse Resp BP Pulse Ox O2 Del Method O2 Flow Rate 97.7 F L 63 18 125/63 H 96 Room Air 2 05/31/23 08:06 05/31/23 10:38 05/31/23 08:06 05/31/23 10:38 05/31/23 10:38 05/31/23 10:38 05/30/23 10:42 Oxygen Flow Rate (L/min) 2 Oxygen Delivery Method Room Air Weight: 72 kg Body Mass Index (BMI) 29.0 Intake & Output: Intake and Output for Last 24 Hours 05/29/23 05/30/23 05/31/23 23:59 23:59 23:59 Intake Total 1200 / 1200 1826.5 / 1976.5 675 / 675 Output Total 150 / 150 300 / 300 Balance 1050 / 1050 1526.5 / 1676.5 675 / 675 Lab / Micro Data 05/31/23 05:55 05/31/23 05:55 Labs: Laboratory Results - last 24 hr 05/31/23 05:55: WBC 5.1, RBC 3.76 L, Hgb 9.7 L, Hct 31.7 L, MCV 84.3, MCH 25.8 L, MCHC 30.6 L, RDW Std Deviation 47.7 H, RDW Coeff of Amrita 15.5 H, Plt Count 156, MPV 10.7, Sodium 139, Potassium 4.0, Chloride 111 H, Carbon Dioxide 25.0, Anion Gap 3 L, BUN 21 H, Creatinine 0.77, Estim Creat Clear Calc 33.12, Est GFR (MDRD) Af Amer 92, Est GFR (MDRD) Non-Af 76, BUN/Creatinine Ratio 27.2 H, Glucose 103, Calcium 9.3 Physical Exam Const alert and average body habitus Constitutional Narrative: Elderly female, sitting in bedside chair, appears much more comfortable this morning compared to yesterday, answering questions appropriately, no acute distress. General Appearance: cooperative HEENT normocephalic, head/scalp atraumatic, hearing grossly normal bilaterally, nasal mucous membranes and turbinates normal and moist oral mucous membranes Eyes PERRL, EOMs intact bilaterally and conjunctivae normal Neck full ROM, no lymphadenopathy and supple Lymph Lymphatic: no lymphadenopathy noted Chest Chest Narrative: Mild pain to palpation in left lateral rib area, improving. Resp Resp Narrative: Mildly decreased respiratory excursion, otherwise normal air movement and clear bilaterally. Cardio regular rate, regular rhythm, no murmurs and peripheral pulses 2+ throughout GI normal to inspection, nondistended, normoactive bowel sounds, soft to palpation, non-tender and non-distended Back/Spine normal ROM Extremity normal to inspection, full ROM and no pedal edema Skin Skin Narrative: Very small skin lesions on back of right upper arm and behind left knee, seem most consistent with bug bites. Psych mental status grossly normal Assessment & Plan Assessment/Plan (1) Fall: PLAN: Plan Patient is an 83-year-old female with history of Alzheimer's dementia, history of falls, non-small cell lung cancer, paroxysmal atrial fibrillation, hypertension and anxiety/depression who presented to [facility] ED on 05/29/2023 via EMS after a fall at home. 1. Mechanical fall, minimally displaced anterior left 4th-6th rib fractures, debility Patient reported fall at home overnight, laid on ground for 6 hours before being found by her . CT brain and C-spine showed no acute changes. CTA chest/abdomen/pelvis showed minimally displaced anterior left fourth, fifth and sixth rib fractures; no soft tissue swelling, pleural thickening or pneumothorax identified. Discussed with patient and on admission, and the adamantly preferred to remain at [place] with DNR CCA, DO NOT INTUBATE status with no aggressive measures for her injuries. Creatinine kinase mildly elevated on admit, improved with IV fluids. ? PT/OT/case management consulted. Planning for SNF placement in [facility] TCU on discharge. Patient is medically stable for discharge at this time. Fall precautions in place. Pain control with scheduled IV Toradol and as needed opiates for now, will discharge with short course of p.o. oxycodone for pain control. Encouraging incentive spirometry and deep breathing as able with oxygen supplementation as needed. 2. Alzheimer's dementia with unclear behavioral disturbance ? Per history. Patient reportedly has significant fall history but continues to be on Eliquis for A-fib as noted below. Discussed with patient and on admission, holding Eliquis for now. Continue home donepezil. Unfortunately dementia complicates patient's presentation. PT/OT/case management following as above. 3. Non-small cell lung cancer Follows with Dr. Gaytan with Oncology and Dr. Meza with radiation oncology. Diagnosed on biopsy on 12/07/2022, with confirmatory biopsy on 02/15/2023. Clinically stage IIa. Not considered a great surgery candidate given dementia. S/p SBRT (radiation therapy) from 03/21 to 04/01/[address] in 06/2023. Chest x-ray on admission notably did show some decrease in size of the tumor. ? No inpatient oncology needs, continue outpatient follow-up. Chronic medical conditions: ? Paroxysmal atrial fibrillation: Normal sinus rhythm on admission. Continue home Coreg. Holding home Eliquis for now given significant fall risk, will discuss risks versus benefits of anticoagulation prior to discharge. ? Hypertension: Continue home Coreg and Norvasc. ? Anxiety/Depression: Continue home doxepin at night. DVT prophylaxis: SCDs CODE STATUS: DNR CCA, DO NOT INTUBATE Expected disposition: SNF in [facility]CU, pre-CERT pending; medically stable for discharge Total clinical time spent by myself addressing the patient's medical issues, reviewing all the data, and collaborating with patient's care team: 35 minutes. Charges/Coding Visit Charges Inpatient E&M: 75112 Subs Hosp L2
[2023-05-31 15:25] VITALS: BP 141/61; PULSE 66; RESP 18; TEMP 36.6; O2SAT 96
[2023-05-31] MEDS: Senna/Docusate Sodium 1 Tablet 2 TABLET PO (15:48)
--- NOTE | 2023-05-31 16:29 | CASEMGMT ---
Social Work Pt has been accepted to TCU and precert has been obtained. Physician updated and pt is ready for discharge today. SW met with pt and updated and pt is agreeable. Phone call to pt's dgt Josefa and notified of acceptance to TCU and discharge today and she is agreeable. Nursing updated. Disposition: TCU, skilled level of care PAULIE Molina
--- NOTE | 2023-05-31 16:40 | DCINST_ITS ---
Discharge Instructions Diet Discharge Diet: No restrictions Activity Discharge Activity: Return to Normal Activity Weight Bearing Status: Full weight bearing Follow Up Care Please Follow Up With: Avi Elliott Chi, MD When: As needed Test Results: Test results from this visit will be discussed in further detail at your follow- up appointment, if applicable. Pending Tests Upon Discharge: None Discharge Plan Admission Admit Date/Time: 05/29/23 18:03 Primary Reason for Your Visit: Fall Attending Provider: Sreekanth Poon Primary Care Provider: Avi Elliott Chi Consulting Providers: Renetta Dillon Instructions Additional Instructions / Restrictions: Take Percocet 1 tab every 8 hours as needed for rib pain. Follow-up with your primary care doctor after your stay at rehab as needed. We have discontinued your home Eliquis due to bleeding risk with falls. We also stopped your home lisinopril because your blood pressure was low normal while you are in the hospital. You can discuss these medication changes further with your primary care doctor as needed. Discharge Orders/Prescriptions Prescriptions: New hydrocodone-acetaminophen 5-325 mg tablet 1 tab PO Q8H PRN (Reason: pain) 7 Days Qty: 21 0RF Continued donepezil 5 mg tablet 5 mg PO DAILY Patient Comments: Take 1 Tablet orally once per day for 90 days Take with supper. memantine 10 mg tablet 10 mg PO QPM polysaccharide iron complex [Ferrex 150] 150 mg iron capsule 150 mg PO DAILY ascorbic acid (vitamin C) 500 mg capsule 500 mg PO DAILY carvedilol 6.25 mg tablet 6.25 mg PO BIDCM Patient Comments: estradiol 0.01 % (0.1 mg/gram) cream 1 g VAGINAL UD paroxetine HCl 10 mg tablet 10 mg PO DAILY doxepin 10 mg capsule 10 mg PO DAILY amlodipine 5 mg tablet 5 mg PO QHS Patient Comments: TAKE 1 TABLET BY MOUTH DAILY AT BEDTIME Discontinued Eliquis 2.5 mg tablet 2.5 mg PO BID lisinopril 20 mg Tablet 20 mg PO DAILY Referrals / Follow Up: Avi Elliott Chi, MD [Primary Care Provider] - Disposition Disposition (needs filled in before D/C Order can be placed): [facility]
--- NOTE | 2023-05-31 16:52 | DS.PCM_ITS ---
Providers Date of Admission: 05/29/23 Date of Discharge: 05/31/23 Primary Care Physician: Dr. Avi Elliott MD Reason For Visit: FALL L SIDED RIB FX, MILD RHABDO Diagnosis Discharge Diagnosis (1) Fall: Status: Acute Code(s): W19.XXXA - Unspecified fall, initial encounter Medications at Discharge Home Medications carvedilol 6.25 mg tablet 6.25 mg PO BIDCM HEART 04/26/22 donepezil 5 mg tablet 5 mg PO DAILY DEMENTIA 07/25/22 doxepin 10 mg capsule 10 mg PO DAILY DEPRESSION/ANXIETY 09/10/22 estradiol 0.01% (0.1 mg/gram) vaginal cream 1 g vaginal UD 09/10/22 paroxetine HCl 10 mg tablet 10 mg PO DAILY DEPRESSION 09/10/22 ascorbic acid (vitamin C) 500 mg capsule 500 mg PO DAILY 01/18/23 memantine 10 mg tablet 10 mg PO QPM 01/18/23 polysaccharide iron complex 150 mg iron capsule (Ferrex) 150 mg PO DAILY 01/18/23 amlodipine 5 mg tablet 5 mg PO QHS 05/29/23 hydrocodone-acetaminophen 5-325mg 5mg-325mg 1 tab PO Q8H PRN pain 7 days #21 tabs 05/31/23 Hospital Course Operations None Procedures - (Chest x-ray, CT brain and C-spine without contrast, CTA chest/abdomen/pelvis) Summary of Care Provided Minutes Spent on Discharge: 35 Hospital Course: Patient is an 83-year-old female with history of Alzheimer's dementia, history of falls, non-small cell lung cancer, paroxysmal atrial fibrillation, hypertension and anxiety/depression who presented to [facility] ED on 05/29/2023 via EMS after a fall at home. Short hospital course with medical concerns addressed as below. Mechanical fall, minimally displaced anterior left 4th-6th rib fractures, debility: Patient reported fall at home overnight, laid on ground for 6 hours before being found by her on morning of admission. CT brain and C-spine showed no acute changes. CTA chest/abdomen/pelvis showed minimally displaced anterior left fourth, fifth and sixth rib fractures; no soft tissue swelling, pleural thickening or pneumothorax identified. Discussed with patient and on admission, and the adamantly preferred to remain at [place] with DNR CCA, DO NOT INTUBATE status with no aggressive measures for her injuries. Creatinine kinase mildly elevated on admit, improved with IV fluids. Pain was controlled with IV Toradol while inpatient. Has taken Percocet at home for pain in the past. We will start Percocet 5-325 mg every 8 hours as needed on discharge. PT/OT/case management followed. Stable for SNF placement in [facility] TCU on discharge. Alzheimer's dementia with unclear behavioral disturbance: Patient was alert and answering questions appropriately while hospitalized. Continued home donepezil and memantine. A-fib on home Eliquis: Discussed with patient and on admission. Made decision to discontinue Eliquis at this time given patient is a significant fall risk. Continued home rate control agent. Non-small cell lung cancer: Follows with Dr. Gaytan with Oncology and Dr. Meza with radiation oncology. Diagnosed on biopsy on 12/07/2022, with confirmatory biopsy on 02/15/2023. Clinically stage IIa. Not considered a great surgery candidate given dementia. S/p SBRT (radiation therapy) from 03/21 to 04/01/[address] in 06/2023. Chest x-ray on admission notably did show some decrease in size of the tumor. No inpatient oncology needs, continue outpatient follow-up. Discharge diagnoses: ? Mechanical fall ? Minimally displaced anterior left fourth through sixth rib fractures with pain ? Debility ? Alzheimer's dementia ? Atrial fibrillation Total clinical time spent by myself addressing the patient's discharge needs: 35 minutes. Physical Exam Const alert and average body habitus Constitutional Narrative: Elderly female, sitting in bedside chair, appears much more comfortable this morning compared to yesterday, answering questions appropriately, no acute distress. General Appearance: cooperative HEENT normocephalic, head/scalp atraumatic, hearing grossly normal bilaterally, nasal mucous membranes and turbinates normal and moist oral mucous membranes Eyes PERRL, EOMs intact bilaterally and conjunctivae normal Neck full ROM, no lymphadenopathy and supple Lymph Lymphatic: no lymphadenopathy noted Chest Chest Narrative: Mild pain to palpation in left lateral rib area, improving. Resp Resp Narrative: Mildly decreased respiratory excursion, otherwise normal air movement and clear bilaterally. Cardio regular rate, regular rhythm, no murmurs and peripheral pulses 2+ throughout GI normal to inspection, nondistended, normoactive bowel sounds, soft to palpation, non-tender and non-distended Back/Spine normal ROM Extremity normal to inspection, full ROM and no pedal edema Skin Skin Narrative: Very small skin lesions on back of right upper arm and behind left knee, seem most consistent with bug bites. Psych mental status grossly normal Weight / BMI Weight Weight: 72 kg Body Mass Index (BMI) 29.0 ABG / Lab / Microbiology Data 05/31/23 05:55 05/31/23 05:55 Laboratory: Laboratory Results - last 24 hr 05/31/23 05:55: WBC 5.1, RBC 3.76 L, Hgb 9.7 L, Hct 31.7 L, MCV 84.3, MCH 25.8 L , MCHC 30.6 L, RDW Std Deviation 47.7 H, RDW Coeff of Amrita 15.5 H, Plt Count 156, MPV 10.7, Sodium 139, Potassium 4.0, Chloride 111 H, Carbon Dioxide 25.0, Anion Gap 3 L, BUN 21 H, Creatinine 0.77, Estim Creat Clear Calc 33.12, Est GFR (MDRD) Af Amer 92, Est GFR (MDRD) Non-Af 76, BUN/Creatinine Ratio 27.2 H, Glucose 103, Calcium 9.3 D/C Instructions Discharge Diet: No restrictions Weight Bearing Status: Full weight bearing Pending Tests Upon Discharge: None Please Follow Up With: Avi Elliott Chi, MD When: As needed Meaningful Use Info Meaningful Use Diagnoses (Choose all that apply): None applicable Discharge Plan Admission Admit Date/Time: 05/29/23 18:03 Primary Reason for Your Visit: Fall Attending Provider: Sreekanth Poon Primary Care Provider: Avi Elliott Chi Consulting Providers: Renetta Dillon Instructions Additional Instructions / Restrictions: Take Percocet 1 tab every 8 hours as needed for rib pain. Follow-up with your primary care doctor after your stay at rehab as needed. We have discontinued your home Eliquis due to bleeding risk with falls. We also stopped your home lisinopril because your blood pressure was low normal while you are in the hospital. You can discuss these medication changes further with your primary care doctor as needed. Discharge Orders/Prescriptions Prescriptions: New hydrocodone-acetaminophen 5-325 mg tablet 1 tab PO Q8H PRN (Reason: pain) 7 Days Qty: 21 0RF Continued donepezil 5 mg tablet 5 mg PO DAILY Patient Comments: Take 1 Tablet orally once per day for 90 days Take with supper. memantine 10 mg tablet 10 mg PO QPM polysaccharide iron complex [Ferrex 150] 150 mg iron capsule 150 mg PO DAILY ascorbic acid (vitamin C) 500 mg capsule 500 mg PO DAILY carvedilol 6.25 mg tablet 6.25 mg PO BIDCM Patient Comments: estradiol 0.01 % (0.1 mg/gram) cream 1 g VAGINAL UD paroxetine HCl 10 mg tablet 10 mg PO DAILY doxepin 10 mg capsule 10 mg PO DAILY amlodipine 5 mg tablet 5 mg PO QHS Patient Comments: TAKE 1 TABLET BY MOUTH DAILY AT BEDTIME Discontinued Eliquis 2.5 mg tablet 2.5 mg PO BID lisinopril 20 mg Tablet 20 mg PO DAILY Referrals / Follow Up: Avi Elliott Chi, MD [Primary Care Provider] - Disposition Disposition (needs filled in before D/C Order can be placed): Nursing Home Facility Charges/Coding Visit Charges Inpatient E&M: 03059 Disch Hosp >30min
--- NOTE | 2023-05-31 17:01 | TREXTCAR_ITS ---
Diet Diet Order/Speech Therapy: 05/29/23 21:07 Diet: Regular - General Food consistency:: Regular Liquid Consistency:: Regular/Thin Problem/Diagnosis (1) Fall: Status: Acute Code(s): W19.XXXA - Unspecified fall, initial encounter Plan Patient is an 83-year-old female with history of Alzheimer's dementia, history of falls, non-small cell lung cancer, paroxysmal atrial fibrillation, hypertension and anxiety/depression who presented to [facility] ED on 05/29/2023 via EMS after a fall at home. Short hospital course with medical concerns addressed as below. Mechanical fall, minimally displaced anterior left 4th-6th rib fractures, debility: Patient reported fall at home overnight, laid on ground for 6 hours before being found by her on morning of admission. CT brain and C-spine showed no acute changes. CTA chest/abdomen/pelvis showed minimally displaced anterior left fourth, fifth and sixth rib fractures; no soft tissue swelling, pleural thickening or pneumothorax identified. Discussed with patient and on admission, and the adamantly preferred to remain at [place] with DNR CCA, DO NOT INTUBATE status with no aggressive measures for her injuries. Creatinine kinase mildly elevated on admit, improved with IV fluids. Pain was controlled with IV Toradol while inpatient. Has taken Percocet at home for pain in the past. We will start Percocet 5-325 mg every 8 hours as needed on discharge. PT/OT/case management followed. Stable for SNF placement in [facility] TCU on discharge. Alzheimer's dementia with unclear behavioral disturbance: Patient was alert and answering questions appropriately while hospitalized. Continued home donepezil and memantine. A-fib on home Eliquis: Discussed with patient and on admission. Made decision to discontinue Eliquis at this time given patient is a significant fall risk. Continued home rate control agent. Non-small cell lung cancer: Follows with Dr. Gaytan with Oncology and Dr. Meza with radiation oncology. Diagnosed on biopsy on 12/07/2022, with confirmatory biopsy on 02/15/2023. Clinically stage IIa. Not considered a great surgery candidate given dementia. S/p SBRT (radiation therapy) from 03/21 to 04/01/[address] in 06/2023. Chest x-ray on admission notably did show some decrease in size of the tumor. No inpatient oncology needs, continue outpatient follow-up. Discharge diagnoses: ? Mechanical fall ? Minimally displaced anterior left fourth through sixth rib fractures with pain ? Debility ? Alzheimer's dementia ? Atrial fibrillation Total clinical time spent by myself addressing the patient's discharge needs: 35 minutes. Allergies/Procedures Done in Hospital Allergies adhesive Allergy (Verified 05/29/23 14:02) Rash latex Allergy (Verified 05/29/23 14:02) NEEDS FOLLOW-UP Procedures: - (Chest x-ray, CT brain and C-spine without contrast, CTA chest/abdomen/pelvis) Type of Care/Length of Stay Estimated LOS: Convalescent Care Less Than 30 days Type of Care Needed: Skilled Rehab Potential: Fair Prognosis: Fair Additional Orders/Day of Discharge H&P will serve as current which was dated: 05/29/23 Day of Discharge: 05/31/23 Dietary and Speech Recommendations Dietitian Recommendations/Changes: Continue Regular diet to optimize oral intakes. Follow Up Care Please Follow Up With: Avi Elliott Chi, MD Discharge Plan Admission Admit Date/Time: 05/29/23 18:03 Primary Reason for Your Visit: Fall Attending Provider: Sreekanth Poon Primary Care Provider: Avi Elliott Chi Consulting Providers: Renetta Dillon Instructions Additional Instructions / Restrictions: Take Percocet 1 tab every 8 hours as needed for rib pain. Follow-up with your primary care doctor after your stay at rehab as needed. We have discontinued your home Eliquis due to bleeding risk with falls. We also stopped your home lisinopril because your blood pressure was low normal while you are in the hospital. You can discuss these medication changes further with your primary care doctor as needed. Discharge Orders/Prescriptions Prescriptions: New hydrocodone-acetaminophen 5-325 mg tablet 1 tab PO Q8H PRN (Reason: pain) 7 Days Qty: 21 0RF Continued donepezil 5 mg tablet 5 mg PO DAILY Patient Comments: Take 1 Tablet orally once per day for 90 days Take with supper. memantine 10 mg tablet 10 mg PO QPM polysaccharide iron complex [Ferrex 150] 150 mg iron capsule 150 mg PO DAILY ascorbic acid (vitamin C) 500 mg capsule 500 mg PO DAILY carvedilol 6.25 mg tablet 6.25 mg PO BIDCM Patient Comments: estradiol 0.01 % (0.1 mg/gram) cream 1 g VAGINAL UD paroxetine HCl 10 mg tablet 10 mg PO DAILY doxepin 10 mg capsule 10 mg PO DAILY amlodipine 5 mg tablet 5 mg PO QHS Patient Comments: TAKE 1 TABLET BY MOUTH DAILY AT BEDTIME Discontinued Eliquis 2.5 mg tablet 2.5 mg PO BID lisinopril 20 mg Tablet 20 mg PO DAILY Referrals / Follow Up: Avi Elliott Chi, MD [Primary Care Provider] - Disposition Disposition (needs filled in before D/C Order can be placed): [facility] Facility Charges/Coding Visit Charges Inpatient E&M: 62175 Disch Hosp >30min
--- NOTE | 2023-05-31 18:23 | NURSING ---
REPORT CALLED TO TCU
== END 2023-05-31 18:14 | disposition skilled nursing facility (03) | DRG 184 ==
LOC: ED 18:11 → MS3 19:32
PROVIDERS: Admitting Provider Family Medicine; Emergency Provider Student in an Organized Health Care Education/Training Program; PCP Family Medicine Geriatric Medicine; Visit Provider Hospitalist
DX: S22.42XA Multiple fractures of ribs, left side, initial encounter for closed fracture (principal); C34.92 Malignant neoplasm of unspecified part of left bronchus or lung; S09.90XA Unspecified injury of head, initial encounter; E86.0 Dehydration; E11.9 Type 2 diabetes mellitus without complications; F02.80 Dementia in other diseases classified elsewhere, unspecified severity, without behavioral disturbance, psychotic disturbance, mood disturbance, and anxiety; E78.5 Hyperlipidemia, unspecified; G30.9 Alzheimer's disease, unspecified; T79.6XXA Traumatic ischemia of muscle, initial encounter; I48.0 Paroxysmal atrial fibrillation; I10 Essential (primary) hypertension; F32.A Depression, unspecified; F41.9 Anxiety disorder, unspecified; W18.12XA Fall from or off toilet with subsequent striking against object, initial encounter; Y92.002 Bathroom of unspecified non-institutional (private) residence as the place of occurrence of the external cause; R53.81 Other malaise; Z79.01 Long term (current) use of anticoagulants; Z66 Do not resuscitate; Z87.891 Personal history of nicotine dependence
CPT/HCPCS: 36415; 70450; 71045; 71275; 72125; 74174; 80048; 80053; 81001; 82550; 84484; 85025; 85027; 85610; 93005; 94668; 97162; 97166; 97530; 97535; 97802; 99252; 99285; J7030; J7040; J7050; Q9967; A4216; G0463; J2405

== ENCOUNTER 2023-05-31 18:33 | Inpatient (IN) | payer MEDICARE, SELFPAY ==
--- NOTE | 2023-05-31 18:55 | HP.PCM_ITS ---
HPI - General General Date of Admission: 05/31/23 Date of Service: 06/03/23 Chief Complaint: Here for rehabilitation. HPI Narrative 05/29/2023 SARA GALARZA, is a 83 Female who presents to [facility] Emergency Department with fall. Fell from toilet, wedged between toilet seat, tub. Fell in middle of the night. Stuck for 6 hours, headache after striking head, is on Eliquis. Chest wall pain, chronic hemoptysis. Chest X-ray showed decreasing size of left lower lobe mass, history of lung cancer. CT brain negative, CT cervical spine negative. CT chest showed left 5th, 6th fractures. 05/29/2023 Admit to Hospital. Pain control, PT/OT for left rib fractures. Patient declined aggressive treatment, declined transfer to tertiary center. 05/30/2023 Severe left sided rib pain. Pain with deep breathing. Toradol IV, opiates for pain control. Lung cancer status post recent radiation treatment, not surgical candidate. 05/31/2023 More comfortable. PT/OT for SNF. 05/31/2023 Admit to TCU with debility, here for rehabilitation, strengthening, prior to discharge home with . [facility] Medical History (Updated 05/31/23 @ 19:[address] 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 Lung nodules Multiple falls Paroxysmal atrial fibrillation (03/21/22) Post-menopausal Syncope Thyroid nodule Wears dentures Home Medications carvedilol 6.25 mg tablet 6.25 mg PO BIDCM HEART 04/26/22 [History Last Taken 09/10/22] donepezil 5 mg tablet 5 mg PO DAILY DEMENTIA 07/25/22 [History Last Taken 09/10/22] doxepin 10 mg capsule 10 mg PO DAILY DEPRESSION/ANXIETY 09/10/22 [History Last Taken 09/10/22] estradiol 0.01% (0.1 mg/gram) vaginal cream 1 g vaginal UD vaginal 09/10/22 [History Last Taken Unknown] paroxetine HCl 10 mg tablet 10 mg PO DAILY DEPRESSION 09/10/22 [History Last Taken 09/10/22] ascorbic acid (vitamin C) 500 mg capsule 500 mg PO DAILY Vitamin C 01/18/23 [History Last Taken Unknown] memantine 10 mg tablet 10 mg PO QPM memory 01/18/23 [History Last Taken Unknown] polysaccharide iron complex 150 mg iron capsule (Ferrex) 150 mg PO DAILY iron 01/18/23 [History Last Taken Unknown] amlodipine 5 mg tablet 5 mg PO QHS BP 05/29/23 [History Last Taken Unknown] hydrocodone-acetaminophen 5-325mg 5mg-325mg 1 tab PO Q8H PRN pain 7 days #21 tabs 05/31/23 [Rx Last Taken Unknown] Allergy/AdvReac Type Severity Reaction Status Date / Time adhesive Allergy Rash Verified 05/29/23 14:02 latex Allergy NEEDS Verified 05/29/23 14:02 FOLLOW-UP Family History Mother Diabetes Heart disease Hypertension Cerebral hemorrhage Father Brain cancer Sister Leukemia Cancer uterine Brother Cancer colon Surgical History History of esophagogastroduodenoscopy (EGD) History of tonsillectomy and adenoidectomy Hx of appendectomy Hx of cholecystectomy Hx of hysterectomy Social History household members: spouse Smoking Status: Former smoker how long ago did patient quit smoking: Smoked age [age]. 3-5 cig/day, quit following. alcohol intake: current alcohol intake frequency: holidays/special occasions only substance use type: does not use caffeine: No ROS Constitutional Constitutional: Denies chills, fever(s) or weight gain ENT HEENT: Denies headache(s), nasal congestion or nasal discharge Cardiovascular Cardiovascular: Denies chest pain or palpitations Respiratory/Chest Respiratory/Chest: Denies cough, excessive phlegm production or shortness of b reath with exertion Gastrointestinal Gastrointestinal: Denies abdominal pain, nausea or vomiting Genitourinary Genitourinary: Denies dysuria Musculoskeletal Musculoskeletal: Denies joint pain or joint swelling Integumentary Integumentary: Denies rash or wounds Neurologic Neurologic: Denies focal weakness, numbness or tingling Psychiatric Psychiatric: Denies anxiety, auditory hallucinations, depression, homicidal ideation or suicidal ideation Physical Exam Const alert General Appearance: cooperative HEENT normocephalic Eyes PERRL and EOMs intact bilaterally Neck supple, no JVD and no carotid bruits Resp normal respiratory effort, normal air movement and clear to auscultation bilaterally Cardio regular rate and regular rhythm GI normal to inspection, nondistended, normoactive bowel sounds, non-tender and non-distended Extremity normal capillary refill General Extremity: Negative for edema Skin no rashes or lesions noted General Skin Exam: no breakdown Psych affect normal Appearance: appropriate Results Lab / Micro Data 06/01/23 05:20 06/01/23 05:20 Assessment & Plan Assessment/Plan (1) Debility: (2) Fall: (3) Multiple rib fractures: (4) Rhabdomyolysis: (5) Cancer of left lung: QUALIFIERS: Lung location: lower lobe of lung Qualified Code(s): C34.32 - Malignant neoplasm of lower lobe, left bronchus or lung (6) Hypertension: (7) Atrial fibrillation: (8) Anxiety: (9) Insomnia: (10) Alzheimer disease: (11) Atrophic vaginitis: (12) Vitamin B12 deficiency: PLAN: Plan 83 year old female with below past medical history hospitalized for fall, left 5th, 6th fractures, complicated by rhabdomyolysis, admitted to TCU with debility, here for rehabilitation, strengthening, prior to discharge home with . * Debility - PT/OT. * Pain - Tylenol 1000mg q8, Tramadol 50mg q6 prn pain (1-5), Oxycodone 5mg q4h prn pain (6-10). * Bowel senna/colace 2 tablets bid, Magnesium citrate 300ml daily prn. * Adult immunization - Administer pneumonia vaccine, covid19 vaccine, flu vaccine as appropriate. * DVT prophylaxis - Hold, progressive anemia. * Hypertension - Coreg 6.25mg bid, Amlodipine 10mg qhs. * Atrial fibrillation - Coreg 6.25mg bid, restart Eliquis 5mg bid when hemoglobin stable, stroke reduction benefit outweigh risk of bleeding from falls. * Alzheimer Disease - Donepezil 5mg daily, Memantine 10mg qpm. * Depression - Paroxetine 10mg qhs, stable chronic fpc used, GDR not recommended.
[2023-05-31 20:54] VITALS: BP 158/73; PULSE 69; RESP 16; TEMP 36.2; O2SAT 98
[2023-05-31 20:55] VITALS: BMI 28.0
[2023-05-31] MEDS: PARoxetine 10 MG Tablet PO (21:59)
[2023-05-31] MEDS: Acetaminophen 500 MG Tablet 1000 MG PO (21:59)
[2023-05-31] MEDS: Doxepin Hydrochloride 10 MG Capsule PO (21:59)
[2023-05-31] MEDS: Memantine Hydrochloride 10 MG Tablet PO (21:59)
[2023-05-31] MEDS: Senna/Docusate Sodium 1 Tablet 2 TABLET PO (21:59)
[2023-05-31] MEDS: amLODIPine 5 MG Tablet PO (21:59)
[2023-05-31] MEDS: oxyCODONE 5 MG Tablet PO (22:58)
[2023-06-01 05:44] LABS: Absolute Lymphocyte Count 1.02 X10^3/uL (0.83-4.51); Absolute Neutrophil Count 2.5 X10^3/uL (2.0-7.7); Basophil# 0.02 X10^3/uL; Basophil% 0.4 % (0-1); Eosinophil# 0.25 X10^3/uL; Eosinophils% 5.2 % (0-5); Hemoglobin 9.7 g/dL (12.0-15.0); Lymphocyte # 1.02 X10^3/ul (0.83-4.51); Lymphocyte % 21.3 % (19-41); Mean Corp Hgb Conc 30.3 g/dL (32-36); Mean Corpuscular Hgb 25.5 pg (27.0-32.0); Mean Platelet Vol. 11.4 fl (6.2-12.0); Monocyte# 0.97 X10^3/uL; Monocyte% 20.3 % (0-10); NRBC Flagged by Analyzer 0 % (0-5); Neutrophil # 2.51 X10^3/uL (2.7-7.7); Neutrophil % 52.6 % (47-70); Platelet Count 177 K/mm3 (150-450); RBC Distribution Width CV 15.5 % (11.6-14.6); RBC Distribution Width SD 47.1 fl (35.1-43.9); Red Blood Count 3.81 M/mm3 (4.2-5.4); White Blood Count 4.8 K/mm3 (4.4-11.0)
[2023-06-01] MEDS: Acetaminophen 500 MG Tablet 1000 MG PO ×3 (05:45→21:07)
[2023-06-01 06:17] LABS: Anion Gap 3 (5-15); BUN 21 mg/dL (7-18); BUN/Creat Ratio 24.6 RATIO (10-20); Calcium,Total 9.4 mg/dL (8.5-10.1); Chloride 111 mmol/L (98-107); Creatinine, Serum 0.85 mg/dL (0.55-1.02); EST Glomerular Filtration Rate 67 mL/min (>60); Est Glom Filt Rate - Afr Amer 82 mL/min (>60); Estimated Creatinine Clearance 38.97 ml/min; Glucose 93 mg/dL (74-106); Potassium 3.9 mmol/L (3.5-5.1); Sodium Level 140 mmol/L (136-145)
[2023-06-01 09:14] VITALS: BMI 28.0
[2023-06-01 09:16] VITALS: BP 144/71; PULSE 67; RESP 17; TEMP 36.4; O2SAT 98
[2023-06-01] MEDS: Carvedilol 6.25 MG Tablet PO ×2 (09:19→16:18)
[2023-06-01] MEDS: Donepezil HCl 5 MG Tablet PO (09:19)
[2023-06-01] MEDS: Senna/Docusate Sodium 1 Tablet 2 TABLET PO ×2 (09:20→21:08)
[2023-06-01] MEDS: Ascorbic Acid 500 MG Tablet PO (09:20)
[2023-06-01] MEDS: Iron Polysaccharide Complex 150 MG CAPSULE PO (09:20)
[2023-06-01] MEDS: oxyCODONE 5 MG Tablet PO ×2 (09:29→23:05)
[2023-06-01] MEDS: 0.9% Saline Lock 10 ML Syringe IV (11:06)
[2023-06-01] MEDS: Tuberculin,Purif.prot.deriv. 50 TU/ML Vial 0.1 ML ID (14:38)
[2023-06-01 16:16] VITALS: BP 151/75; PULSE 65
[2023-06-01 21:05] VITALS: BP 125/68; PULSE 64; O2SAT 98
[2023-06-01] MEDS: Memantine Hydrochloride 10 MG Tablet PO (21:07)
[2023-06-01] MEDS: PARoxetine 10 MG Tablet PO (21:08)
[2023-06-01] MEDS: Doxepin Hydrochloride 10 MG Capsule PO (21:08)
[2023-06-01] MEDS: amLODIPine 5 MG Tablet PO (21:08)
[2023-06-02] MEDS: Acetaminophen 500 MG Tablet 1000 MG PO ×3 (05:52→22:16)
[2023-06-02 09:15] VITALS: BP 151/77; PULSE 68; RESP 17; TEMP 36.6; O2SAT 96
[2023-06-02] MEDS: Carvedilol 6.25 MG Tablet PO ×2 (09:16→17:33)
[2023-06-02] MEDS: Senna/Docusate Sodium 1 Tablet 2 TABLET PO ×2 (09:17→22:16)
[2023-06-02] MEDS: Donepezil HCl 5 MG Tablet PO (09:17)
[2023-06-02] MEDS: Iron Polysaccharide Complex 150 MG CAPSULE PO (09:17)
[2023-06-02] MEDS: Ascorbic Acid 500 MG Tablet PO (09:17)
[2023-06-02] MEDS: oxyCODONE 5 MG Tablet PO ×2 (09:19→13:45)
--- NOTE | 2023-06-02 09:29 | NURSING ---
Nurse sent in secure tube to inpatient pharmacy patient's home estradiol cream for label.
[2023-06-02 17:31] VITALS: BP 144/82; PULSE 75
[2023-06-02] MEDS: Magnesium Citrate 300 ML PO (19:00)
--- NOTE | 2023-06-02 21:22 | NURSING ---
Spoke w/ Dr. Elliott via phone to update pt is requesting a purewick at d/t painful and difficult mobility. New order received and read back for a purewick at .
[2023-06-02 22:14] VITALS: BP 148/64; PULSE 71; TEMP 36.5; O2SAT 97
[2023-06-02] MEDS: Doxepin Hydrochloride 10 MG Capsule PO (22:17)
[2023-06-02] MEDS: Memantine Hydrochloride 10 MG Tablet PO (22:17)
[2023-06-02] MEDS: amLODIPine 5 MG Tablet PO (22:17)
[2023-06-02] MEDS: PARoxetine 10 MG Tablet PO (22:17)
[2023-06-03] MEDS: oxyCODONE 5 MG Tablet PO ×3 (01:25→21:01)
[2023-06-03] MEDS: Acetaminophen 500 MG Tablet 1000 MG PO ×3 (06:19→20:37)
[2023-06-03] MEDS: Donepezil HCl 5 MG Tablet PO (08:32)
[2023-06-03] MEDS: Ascorbic Acid 500 MG Tablet PO (08:32)
[2023-06-03] MEDS: Iron Polysaccharide Complex 150 MG CAPSULE PO (08:32)
[2023-06-03] MEDS: Carvedilol 6.25 MG Tablet PO ×2 (08:33→16:46)
--- NOTE | 2023-06-03 10:09 | NURSING ---
[employer] Note; Activity Asset: Maxim Kwong is independent in her choice of daily activities. She has been a resident on TCU in the past and continues to read, watch tv and read the news. She prefers to stay in her room and watch the news, rest or visit with family. Staff will continue to remind her of daily activities and bring her the paper when available and respect her right to say no.
--- NOTE | 2023-06-03 11:10 | CASEMGMT ---
Social Work Met with patient to complete initial assessment. Pt known to this worker from previous stay. Verified contacts. Confirmed code status DNR-CCA, no intubation. Educated to [facility] insurance with NRD 06/06 and continued stay is not guaranteed with each review. Pt's goal is to return home with . Pt does have some baseline cognitive deficit and requested this worker inform of insurance coverage. SW agreed. SW phoned to educate on insurance coverage. Pt mentioned first floor bath tub does not work anymore and pt has to go to the basement to use walk-in shower. confirmed stating the water stopped running one day. did not seem concerned or have plans to fix it, stating it's an old tub. SW inquired if pt has difficulty using the steps to the basement. denied but also stated pt will sponge bathe. SW inquired about handrails. stated there is one handrail and cannot add another as there is not a full wall leading downstairs. denied any other SDOH issues. SW plans to provide [employer] resources at POC meeting as pt was stuck in between the toilet and the bathtub for 6 hrs before found pt, according to the H&P and pt's recollection. Will continue to follow for DC planning. Dawn Cabral, AKIKO [id number]
[2023-06-03 14:29] VITALS: BP 150/75; PULSE 59; RESP 18; TEMP 37.6; O2SAT 97
--- NOTE | 2023-06-03 15:48 | PHA.CONS_ITS ---
Documented by User: Carl Pardo 06/03/23 16:18 TCU RX Drug Regimen Review Subjective/Objective Subjective/Objective: Subjective: 83 year old female with below past medical history hospitalized for fall, left 5th, 6th fractures, complicated by rhabdomyolysis, admitted to TCU with debility, here for rehabilitation, strengthening, prior to discharge home with . Objective: Allergies adhesive Allergy (Verified 05/29/23 14:02) Rash latex Allergy (Verified 05/29/23 14:02) NEEDS FOLLOW-UP Current Medications Generic Name Dose Route Start Last Admin Trade Name Freq PRN Reason Stop Dose Admin Acetaminophen 1,000 mg 05/31/23 22:00 06/03/23 13:32 Acetaminophen 500 Mg Tablet PO 1,000 mg Q8 ROXANA Administration Amlodipine Besylate 5 mg 05/31/23 22:00 06/02/23 22:17 Amlodipine 5 Mg Tablet PO 5 mg QHS ROXANA Administration Protocol Ascorbic Acid 500 mg 06/01/23 10:00 06/03/23 08:32 Ascorbic Acid 500 Mg Tablet PO 500 mg DAILY ROXANA Administration Carvedilol 6.25 mg 06/01/23 08:00 06/03/23 08:33 Carvedilol 6.25 Mg Tablet PO 6.25 mg BIDCM ROXANA Administration Protocol Donepezil HCl 5 mg 06/01/23 10:00 06/03/23 08:32 Donepezil Hcl 5 Mg Tablet PO 5 mg DAILY ROXANA Administration Doxepin HCl 10 mg 05/31/23 22:00 06/02/23 22:17 Doxepin Hydrochloride 10 Mg Capsule PO 10 mg QHS ROXANA Administration Estradiol 1 gm 06/04/23 21:00 Estradiol 42.5 Gm Cream.Appl VAGINAL TuTh@2100 [facility] Sodium Chloride 250 mls @ 15 mls/hr 06/01/23 09:23 IV .[id number] PRN Additional IVPB Infusion Sodium Chloride 250 mls @ 15 mls/hr 06/01/23 09:23 IV .[id number] PRN Saline Flush Magnesium Citrate 300 ml 05/31/23 19:10 06/02/23 19:00 Magnesium Citrate 300 Ml PO 300 ml X1 PRN Administration Constipation Memantine 10 mg 05/31/23 21:00 06/02/23 22:17 Memantine Hydrochloride 10 Mg Tablet PO 10 mg QPM ROXANA Administration Oxycodone HCl 5 mg 05/31/23 19:10 06/03/23 01:25 Oxycodone 5 Mg Tablet PO 5 mg Q4H PRN PRN Administration Pain Score 6-10 Paroxetine HCl 10 mg 05/31/23 22:00 06/02/23 22:17 Paroxetine 10 Mg Tablet PO 10 mg QHS ROXANA Administration Polysaccharide Iron Complex 150 mg 06/01/23 10:00 06/03/23 08:32 Iron Polysaccharide Complex 150 Mg Capsule PO 150 mg DAILY ROXANA Administration Senna/Docusate Sodium 2 tablet 05/31/23 22:00 06/03/23 08:33 Senna/Docusate Sodium 1 Tablet PO Not Given BID ROXANA Sodium Chloride 10 - 40 ml 06/01/23 09:23 06/01/23 11:06 0.9% Saline Lock 10 Ml Syringe IV 10 ml UD PRN Administration SALINE FLUSH Tramadol HCl 50 mg 05/31/23 19:10 Tramadol 50 Mg Tablet PO Q6H PRN PRN Pain Score 1-5 Tuberculin PPD 0.1 ml 06/08/23 10:00 Tuberculin,Purif.Prot.Deriv. 50 Tu/Ml Vial ID 06/08/23 10:01 X1 ONE Problem List (Updated 05/31/23 @ 19:[address] Avi Elliott MD) Vitamin B12 deficiency (Acute) Atrophic vaginitis (Acute) Insomnia (Acute) Atrial fibrillation (Acute) Hypertension (Chronic) Rhabdomyolysis (Acute) Multiple rib fractures (Acute) Fall (Acute) Cancer of left lung (Acute) Anxiety (Acute) Debility (Acute) Alzheimer disease (Acute) Vital Signs Temp Pulse Resp BP Pulse Ox O2 Del Method 99.6 F H 59 L 18 150/75 H 97 Room Air 06/03/23 14:29 06/03/23 14:29 06/03/23 14:29 06/03/23 14:29 06/03/23 14:29 06/03/23 14:29 Oxygen Delivery Method Room Air Weight: 69.513 kg Body Mass Index (BMI) 28.0 Sodium 140 mmol/L (136-145) 06/01/23 05:20 Potassium 3.9 mmol/L (3.5-5.1) 06/01/23 05:20 Chloride 111 mmol/L (98-107) H 06/01/23 05:20 Carbon Dioxide 26.0 mmol/L (21.0-32.0) 06/01/23 05:20 Anion Gap 3 (5-15) L 06/01/23 05:20 BUN 21 mg/dL (7-18) H 06/01/23 05:20 Creatinine 0.85 mg/dL (0.55-1.02) 06/01/23 05:20 Est GFR (MDRD) Af Amer 82 mL/min (>60) 06/01/23 05:20 Est GFR (MDRD) Non-Af 67 mL/min (>60) 06/01/23 05:20 BUN/Creatinine Ratio 24.6 RATIO (10-20) H 06/01/23 05:20 Glucose 93 mg/dL (74-106) 06/01/23 05:20 Assessment/Plan: 1. Pain: acetaminophen 1000 mg PO Q8H, tramadol 50 mg PO Q6H PRN pain (1-5), oxycodone 5 mg PO Q4H PRN pain (6-10). The patient has received 6 doses of PRN oxycodone so far this admission. Please continue to monitor pain levels, PRN medication usage, LFTs (AST/ALT = 17/15 U/L on 05/30/23), renal function (serum creatinine = 0.85 mg/dL with creatinine clearance ~ 39 mL/min on 06/01/23), for drowsiness/dizziness, for syncope/ataxia/falls, for respiratory depression, and for constipation. 2. Bowel: senna/docusate 2 tablets PO BID, magnesium citrate 300 mL PO daily PRN constipation. The patient has received 1 dose of magnesium citrate so far this admission and her last bowel movement was 06/03/23. Please continue to monitor for PRN medication usage, bowel movements, constipation and diarrhea. 3. Hypertensive/atrial fibrillation: carvedilol 6.25 mg PO BID, amlodipine 10 mg PO QHS. Please continue to monitor blood pressures (recent range 125-177/61-82 mmHg), heart rates (recent range 59-75 beats/min), for s/s that the patient is in atrial fibrillation such as heart palpitations or increases in heart rates, for s/s of stroke (off blood thinners d/t low hemoglobin), for fatigue, and for lower extremity edema. The patient's blood pressures have remained elevated this admission, and heart rates are on the lower end of the normal range. Please consider adding an additional medication to the patient's blood pressure me dication regimen such as lisinopril 5 mg PO daily. 4. Iron deficiency anemia: iron polysaccharide 150 mg PO daily, ascorbic acid 500 mg PO daily. Please continue to monitor iron levels (Iron = 24 ug/dL on 12/03/22), hemoglobin levels (Hgb = 9.7 g/dL on 06/01/23), for constipation and for kidney stones. 5. Cystocele with prolapse: estradiol cream 1 gram intra-vaginally Tuesdays and at bedtime. Please continue to monitor blood pressures (recent range 125-177/61-8mHg), headache, pruritis, insomnia, and back pain. Assessment/Plan for indications treated with psychotropic medications: 1. Alzheimer disease: donepezil 5 mg PO daily, memantine 10 mg PO QPM. Stable long-term therapy GDR not recommended. Please continue to monitor blood pressures (recent range 125-177/61-82 mmHg), heart rates (recent range 59-75 beats/min), for diarrhea, nausea, confusion, dizziness, headaches, agitation, and abdominal pain. 2. Depression: paroxetine 10 mg PO QHS, doxepin 10 mg PO QHS. Please see provider note regarding stable long-term therapy GDR not recommended. Please continue to monitor depression levels, for SI, sodium levels (Na = 140 mmol/L on 06/01/23), for s/s of serotonin syndrome, diaphoresis, constipation, blood pressures (recent range 125-177/61-82 mmHg), and for anticholinergic side effects such as dry mouth, dry eyes, urinary retention, constipation and delirium. Medical chart and medication regimen reviewed. The following medication irregularities or issues were identified: 1. Hypertensive/atrial fibrillation: carvedilol 6.25 mg PO BID, amlodipine 10 mg PO QHS. The patient's blood pressures have remained elevated this admission, and heart rates are on the lower end of the normal range. Please consider adding an additional medication to the patient's blood pressure medication regimen such as lisinopril 5 mg PO daily. Date Date of Note:: 06/03/23 Documented by User: Dr. Avi Elliott MD 06/03/23 17:06 TCU RX Drug Regimen Review Provider Comments Provider responsibility Provider Comments to Recommendations by Pharmacy: Agree
[2023-06-03] MEDS: Memantine Hydrochloride 10 MG Tablet PO (20:32)
[2023-06-03] MEDS: amLODIPine 5 MG Tablet PO (20:32)
[2023-06-03] MEDS: Doxepin Hydrochloride 10 MG Capsule PO (20:38)
[2023-06-03] MEDS: PARoxetine 10 MG Tablet PO (20:38)
[2023-06-04] MEDS: traMADol 50 MG Tablet PO ×2 (00:27→21:57)
[2023-06-04] MEDS: oxyCODONE 5 MG Tablet PO ×3 (05:47→15:24)
[2023-06-04] MEDS: Acetaminophen 500 MG Tablet 1000 MG PO ×3 (05:47→22:00)
[2023-06-04 09:54] VITALS: BP 121/44; PULSE 68; RESP 17; TEMP 36.5; O2SAT 98
[2023-06-04] MEDS: Carvedilol 6.25 MG Tablet PO ×2 (09:58→18:06)
[2023-06-04] MEDS: Donepezil HCl 5 MG Tablet PO (09:58)
[2023-06-04] MEDS: Senna/Docusate Sodium 1 Tablet 2 TABLET PO ×2 (09:59→21:59)
[2023-06-04] MEDS: Iron Polysaccharide Complex 150 MG CAPSULE PO (09:59)
[2023-06-04] MEDS: Ascorbic Acid 500 MG Tablet PO (09:59)
[2023-06-04 12:06] VITALS: BMI 27.2
--- NOTE | 2023-06-04 15:27 | CHAPLAIN ---
Type of Pastoral Visit _x__ Initial Visit ___ Follow-up Visit ___ On-call Visit ___ General Patient Visit ___ Spiritual Assessment ___ Family Conference ___ Bereavement ___ Rapid Response ___ Code Blue ___ Other (describe below) Pastoral Care Referral From _x__ Patient ___ Family ___ Nurse ___ Physician ___ Vet Assistant ___ Transformer Assembly Supervisor ___ Other (describe below) Sacrament/Intervention _x__ Active listening ___ Anointing ___ Moravian ___ Bereavement ___ Communion ___ Chica exploration ___ ___ Life review ___ Prayer ___ Reconciliation ___ Sacrament of Sick _x__ Supportive presence ___ Wedding ___ Other (describe below) Pastoral Comments patient is in bed and spouse is at the bedside; pt states that she is doing Okay I guess; pt says she can't thing of anything she needs; both politely answer questions but neither one continues conversation or seeks support; offer of future support given as they desire
[2023-06-04 18:05] VITALS: BP 161/71; PULSE 76
[2023-06-04] MEDS: PARoxetine 10 MG Tablet PO (21:58)
[2023-06-04] MEDS: Doxepin Hydrochloride 10 MG Capsule PO (21:59)
[2023-06-04] MEDS: amLODIPine 5 MG Tablet PO (21:59)
[2023-06-04] MEDS: Memantine Hydrochloride 10 MG Tablet PO (21:59)
[2023-06-05] MEDS: Acetaminophen 500 MG Tablet 1000 MG PO ×3 (05:56→21:17)
[2023-06-05] MEDS: Senna/Docusate Sodium 1 Tablet 2 TABLET PO ×2 (09:44→21:18)
[2023-06-05] MEDS: Iron Polysaccharide Complex 150 MG CAPSULE PO (09:44)
[2023-06-05] MEDS: Carvedilol 6.25 MG Tablet PO ×2 (09:44→17:24)
[2023-06-05] MEDS: Donepezil HCl 5 MG Tablet PO (09:44)
[2023-06-05] MEDS: Ascorbic Acid 500 MG Tablet PO (09:45)
[2023-06-05] MEDS: oxyCODONE 5 MG Tablet PO ×2 (09:47→20:21)
[2023-06-05 09:49] VITALS: BP 148/70; PULSE 76
--- NOTE | 2023-06-05 14:01 | CASEMGMT ---
Social Work IDT met with patient, , dtr and BLAIRE for care plan meeting. Discussed patient's progress in PT/OT/ST/SN. Educated to [facility] insurance with NRD 06/06 and continued stay is not guaranteed with each review. IDT expressed concern with the steps to basement shower and 's overall ability to care for pt. Family did not provide a lot of feedback or expressed concern. SW offered resources as needed or plan for alternative DC. SW will continue to follow. Dawn Cabral, ROOFING SUBCONTRACTOR ICING COATER
[2023-06-05 16:00] VITALS: BP 153/82; PULSE 87; RESP 16; TEMP 35.9; O2SAT 96
[2023-06-05 17:29] VITALS: BP 145/73; PULSE 71
[2023-06-05] MEDS: amLODIPine 5 MG Tablet PO (21:17)
[2023-06-05] MEDS: Doxepin Hydrochloride 10 MG Capsule PO (21:17)
[2023-06-05] MEDS: PARoxetine 10 MG Tablet PO (21:18)
[2023-06-05] MEDS: Memantine Hydrochloride 10 MG Tablet PO (21:18)
[2023-06-06] MEDS: oxyCODONE 5 MG Tablet PO ×2 (02:54→10:21)
[2023-06-06] MEDS: Acetaminophen 500 MG Tablet 1000 MG PO ×3 (06:12→19:28)
[2023-06-06] MEDS: Carvedilol 6.25 MG Tablet PO ×2 (10:18→17:44)
[2023-06-06] MEDS: Iron Polysaccharide Complex 150 MG CAPSULE PO (10:18)
[2023-06-06] MEDS: Ascorbic Acid 500 MG Tablet PO (10:18)
[2023-06-06] MEDS: Senna/Docusate Sodium 1 Tablet 2 TABLET PO ×2 (10:18→19:28)
[2023-06-06] MEDS: Donepezil HCl 5 MG Tablet PO (10:18)
[2023-06-06 10:26] VITALS: BP 121/61; PULSE 87
[2023-06-06 13:43] VITALS: BP 150/94; PULSE 85; RESP 16; TEMP 36.2; O2SAT 97
--- NOTE | 2023-06-06 14:59 | CASEMGMT ---
Social Work Insurance issued LCD 06/08, DC 06/09. SW phoned and dtr - left both VMs. SW presented to room and present. Notified pt and of DC date. Both agree pt is ready to DC home with no concerns. SW offered HHC and noted pt used [facility] prior. Pt/ agreeable to use again. No DME needs. will transport. Referral sent to [facility] via [facility] for PT/OT/CAGE. Plan: DC home with 06/09, [facility] PT/OT/CAGE AKIKO GonzalezW
--- NOTE | 2023-06-06 15:51 | CASEMGMT ---
Social Work BIMS (05/26) and PHQ-2 () completed for MDS assessment. Dawn Cabral MSW CELLARS SUPERVISOR
[2023-06-06] MEDS: PARoxetine 10 MG Tablet PO (19:27)
[2023-06-06] MEDS: Doxepin Hydrochloride 10 MG Capsule PO (19:27)
[2023-06-06] MEDS: amLODIPine 5 MG Tablet PO (19:27)
[2023-06-06] MEDS: Memantine Hydrochloride 10 MG Tablet PO (19:27)
--- NOTE | 2023-06-06 20:02 | DS.PCM_ITS ---
Providers Date of Admission: 05/31/23 Primary Care Physician: Dr. Avi Elliott MD Reason For Visit: FALLS, OLD LT SIDE RIB FRX Diagnosis Discharge Diagnosis (1) Debility: Status: Acute Code(s): R53.81 - Other malaise (2) Fall: Status: Acute Code(s): W19.XXXA - Unspecified fall, initial encounter (3) Multiple rib fractures: Status: Acute Code(s): S22.49XA - Multiple fractures of ribs, unspecified side, initial encounter for closed fracture (4) Rhabdomyolysis: Status: Acute Code(s): M62.82 - Rhabdomyolysis (5) Cancer of left lung: Status: Acute Code(s): C34.92 - Malignant neoplasm of unspecified part of left bronchus or lung Qualifiers: Lung location: lower lobe of lung Qualified Code(s): C34.32 - Malignant neoplasm of lower lobe, left bronchus or lung (6) Hypertension: Status: Chronic Code(s): I10 - Essential (primary) hypertension (7) Atrial fibrillation: Status: Acute Code(s): I48.91 - Unspecified atrial fibrillation (8) Anxiety: Status: Acute Code(s): F41.9 - Anxiety disorder, unspecified (9) Insomnia: Status: Acute Code(s): G47.00 - Insomnia, unspecified (10) Alzheimer disease: Status: Acute Code(s): G30.9 - Alzheimer's disease, unspecified; F02.80 - Dementia in other diseases classified elsewhere, unspecified severity, without behavioral disturbance, psychotic disturbance, mood disturbance, and anxiety (11) Atrophic vaginitis: Status: Acute Code(s): N95.2 - Postmenopausal atrophic vaginitis (12) Vitamin B12 deficiency: Status: Acute Code(s): E53.8 - Deficiency of other specified B group vitamins Plan 83 year old female with below past medical history hospitalized for fall, left 5th, 6th fractures, complicated by rhabdomyolysis, admitted to TCU with debility, here for rehabilitation, strengthening, prior to discharge home with . * Debility - PT/OT. * Pain - Tylenol 1000mg q8, Tramadol 50mg q6 prn pain (1-5), Oxycodone 5mg q4h prn pain (6-10). * Bowel senna/colace 2 tablets bid, Magnesium citrate 300ml daily prn. * Adult immunization - Administer pneumonia vaccine, covid19 vaccine, flu vaccine as appropriate. * DVT prophylaxis - Hold, progressive anemia. * Hypertension - Coreg 6.25mg bid, Amlodipine 10mg qhs. * Atrial fibrillation - Coreg 6.25mg bid, restart Eliquis 5mg bid when hemoglobin stable, stroke reduction benefit outweigh risk of bleeding from falls. * Alzheimer Disease - Donepezil 5mg daily, Memantine 10mg qpm. * Depression - Paroxetine 10mg qhs, stable chronic correction used, GDR not recommended. Medications at Discharge Home Medications carvedilol 6.25 mg tablet 6.25 mg PO BIDCM HEART 04/26/22 donepezil 5 mg tablet 5 mg PO DAILY DEMENTIA 07/25/22 doxepin 10 mg capsule 10 mg PO DAILY DEPRESSION/ANXIETY 09/10/22 paroxetine HCl 10 mg tablet 10 mg PO DAILY DEPRESSION 09/10/22 ascorbic acid (vitamin C) 500 mg capsule 500 mg PO DAILY Vitamin C 01/18/23 memantine 10 mg tablet 10 mg PO QPM memory 01/18/23 polysaccharide iron complex 150 mg iron capsule (Ferrex) 150 mg PO DAILY iron 01/18/23 amlodipine 5 mg tablet 5 mg PO QHS BP 05/29/23 acetaminophen 500 mg tablet 1,000 mg (2 x 500 mg) PO Q8 #0 tabs 06/06/23 estradiol 0.01% (0.1 mg/gram) vaginal cream 1 g vaginal TuTh@2100 #0 grams 06/06/23 oxycodone 5 mg tablet 5 mg PO Q4H PRN PRN Pain Score 6-10 7 days #42 tabs 06/06/23 sennosides 8.6 mg-docusate sodium 50 mg tablet (Stool Softener-Stimulant Laxative) 2 tab PO BID 30 days #120 tabs 06/06/23 Hospital Course Operations None Procedures None Summary of Care Provided Minutes Spent on Discharge: 35 Hospital Course: 83 year old female with below past medical history hospitalized for fall, left 5th, 6th fractures, complicated by rhabdomyolysis, admitted to TCU with sharri ross, here for rehabilitation, strengthening, prior to discharge home with . Discharge home with 06/09/2023, [facility] PT/OT/CAGE. Physical Exam Const alert General Appearance: cooperative HEENT normocephalic Eyes PERRL and EOMs intact bilaterally Neck supple, no JVD and no carotid bruits Resp normal respiratory effort, normal air movement and clear to auscultation bilaterally Cardio regular rate and regular rhythm GI normal to inspection, nondistended, normoactive bowel sounds, non-tender and non-distended Extremity normal capillary refill General Extremity: Negative for edema Skin no rashes or lesions noted General Skin Exam: no breakdown Psych affect normal Appearance: appropriate Weight / BMI Weight Weight: 67.585 kg Body Mass Index (BMI) 27.2 ABG / Lab / Microbiology Data 06/01/23 05:20 06/01/23 05:20 Microbiology: Microbiology 06/06/23 06:10 Nasal Secretion SARS-CoV-2 Antigen (Rapid) - Final 06/03/23 06:00 Nasal Secretion SARS-CoV-2 Antigen (Rapid) - Final D/C Instructions Discharge Diet: No restrictions Discharge Activity: Return to Normal Activity, May Shower and Use Walker Weight Bearing Status: Weight bearing as tolerated Call your doctor if you observe: Fever of 101 or Higher, Inability to urinate, Inability to have a bowel movement, Shortness of breath, Dizziness, Fainting spells, Swelling in the ankles, Chest pain and Uncontrolled pain Additional Instructions: Discharge home with 06/09/2023, [facility] PT/OT/CAGE. Meaningful Use Info Meaningful Use Diagnoses (Choose all that apply): None applicable Discharge Plan Admission Admit Date/Time: 05/31/23 18:33 Primary Reason for Your Visit: Debility. Attending Provider: Avi Elliott Chi Primary Care Provider: Avi Elliott Chi Instructions Additional Instructions / Restrictions: Discharge home with 06/09/2023, [facility] PT/OT/CAGE. Discharge Orders/Prescriptions Prescriptions: New acetaminophen 500 mg Tablet 1,000 mg PO Q8 Qty: 0 0RF sennosides-docusate sodium [Stool Softener-Stimulant Laxat] 8.6-50 mg Tablet 2 tab PO BID 30 Days Qty: 120 0RF estradiol 0.01 % (0.1 mg/gram) Cream 1 g vaginal TuTh@2100 Qty: 0 0RF oxycodone 5 mg Tablet 5 mg PO Q4H PRN PRN (Reason: Pain Score 6-10) 7 Days Qty: 42 0RF Continued donepezil 5 mg tablet 5 mg PO DAILY Patient Comments: Take 1 Tablet orally once per day for 90 days Take with supper. memantine 10 mg tablet 10 mg PO QPM polysaccharide iron complex [Ferrex 150] 150 mg iron capsule 150 mg PO DAILY ascorbic acid (vitamin C) 500 mg capsule 500 mg PO DAILY carvedilol 6.25 mg tablet 6.25 mg PO BIDCM Patient Comments: paroxetine HCl 10 mg tablet 10 mg PO DAILY doxepin 10 mg capsule 10 mg PO DAILY amlodipine 5 mg tablet 5 mg PO QHS Patient Comments: TAKE 1 TABLET BY MOUTH DAILY AT BEDTIME Discontinued estradiol 0.01 % (0.1 mg/gram) cream 1 g VAGINAL UD hydrocodone-acetaminophen 5-325 mg tablet 1 tab PO Q8H PRN (Reason: pain) 7 Days Qty: 21 0RF Referrals / Follow Up: Avi Elliott Chi, MD [Primary Care Provider] - 06/10/23 3:00 pm (Please schedule appt 06/10 for [facility] to complete SOC 06/11. - Dawn) Disposition Disposition (needs filled in before D/C Order can be placed): Home Health Service
[2023-06-07] MEDS: Acetaminophen 500 MG Tablet 1000 MG PO ×3 (05:48→22:17)
--- NOTE | 2023-06-07 05:54 | NURSING ---
Patient c/o hurting all over, states she doesn't think she has felt this bad since she came here. Noted to have been sweating, but states she feels cold. Temperature 98.7 orally. Pulse 71, SpO2 97% on room air. Covid test yesterday was negative. Scheduled tylenol administered. Will continue to monitor.
[2023-06-07] MEDS: Senna/Docusate Sodium 1 Tablet 2 TABLET PO ×2 (08:45→22:17)
[2023-06-07] MEDS: Ascorbic Acid 500 MG Tablet PO (08:45)
[2023-06-07] MEDS: Iron Polysaccharide Complex 150 MG CAPSULE PO (08:45)
[2023-06-07] MEDS: Donepezil HCl 5 MG Tablet PO (08:46)
[2023-06-07] MEDS: Carvedilol 6.25 MG Tablet PO ×2 (08:46→16:13)
[2023-06-07 09:44] VITALS: BP 141/84; RESP 80
[2023-06-07 12:14] VITALS: BP 126/70; PULSE 66; RESP 16; TEMP 36.6; O2SAT 98
[2023-06-07 16:16] VITALS: BP 145/70; PULSE 67
[2023-06-07] MEDS: amLODIPine 5 MG Tablet PO (22:17)
[2023-06-07] MEDS: Doxepin Hydrochloride 10 MG Capsule PO (22:17)
[2023-06-07] MEDS: Memantine Hydrochloride 10 MG Tablet PO (22:17)
[2023-06-07] MEDS: traMADol 50 MG Tablet PO (22:18)
[2023-06-07] MEDS: PARoxetine 10 MG Tablet PO (22:18)
[2023-06-08] MEDS: Acetaminophen 500 MG Tablet 1000 MG PO ×3 (05:55→22:40)
[2023-06-08 08:04] LABS: Absolute Lymphocyte Count 1.19 X10^3/uL (0.83-4.51); Absolute Neutrophil Count 3.7 X10^3/uL (2.0-7.7); Basophil# 0.04 X10^3/uL; Basophil% 0.7 % (0-1); Eosinophils% 1.8 % (0-5); Hemoglobin 11.5 g/dL (12.0-15.0); Lymphocyte # 1.19 X10^3/ul (0.83-4.51); Lymphocyte % 21.2 % (19-41); Mean Corp Hgb Conc 30.3 g/dL (32-36); Mean Corpuscular Hgb 25.2 pg (27.0-32.0); Mean Corpuscular Volume 83.2 fL (81-99); Mean Platelet Vol. 10.7 fl (6.2-12.0); Monocyte# 0.56 X10^3/uL; NRBC Flagged by Analyzer 0 % (0-5); Neutrophil # 3.69 X10^3/uL (2.7-7.7); Neutrophil % 65.8 % (47-70); Platelet Count 313 K/mm3 (150-450); RBC Distribution Width CV 16.5 % (11.6-14.6); RBC Distribution Width SD 49.5 fl (35.1-43.9); Red Blood Count 4.57 M/mm3 (4.2-5.4); White Blood Count 5.6 K/mm3 (4.4-11.0)
[2023-06-08 08:24] LABS: Anion Gap 5 (5-15); BUN 13 mg/dL (7-18); BUN/Creat Ratio 15.2 RATIO (10-20); Chloride 108 mmol/L (98-107); Creatinine, Serum 0.86 mg/dL (0.55-1.02); EST Glomerular Filtration Rate 67 mL/min (>60); Est Glom Filt Rate - Afr Amer 81 mL/min (>60); Estimated Creatinine Clearance 38.51 ml/min; Glucose 98 mg/dL (74-106); Potassium 3.8 mmol/L (3.5-5.1); Sodium Level 138 mmol/L (136-145)
[2023-06-08] MEDS: Senna/Docusate Sodium 1 Tablet 2 TABLET PO ×2 (08:29→22:41)
[2023-06-08] MEDS: Ascorbic Acid 500 MG Tablet PO (08:29)
[2023-06-08] MEDS: Carvedilol 6.25 MG Tablet PO ×2 (08:30→17:21)
[2023-06-08] MEDS: Iron Polysaccharide Complex 150 MG CAPSULE PO (08:30)
[2023-06-08] MEDS: Donepezil HCl 5 MG Tablet PO (08:31)
[2023-06-08] MEDS: traMADol 50 MG Tablet PO (09:26)
[2023-06-08 16:00] VITALS: BP 153/73; PULSE 71; RESP 20; TEMP 36.7; O2SAT 96
[2023-06-08] MEDS: Doxepin Hydrochloride 10 MG Capsule PO (22:39)
[2023-06-08] MEDS: Memantine Hydrochloride 10 MG Tablet PO (22:40)
[2023-06-08] MEDS: amLODIPine 5 MG Tablet PO (22:42)
[2023-06-08] MEDS: PARoxetine 10 MG Tablet PO (22:42)
[2023-06-09] MEDS: traMADol 50 MG Tablet PO (04:08)
--- NOTE | 2023-06-09 04:36 | NURSING ---
Medicated w/ Tramadol for c/o back pain at 9/10 this am- refer to OCT. Warm blanket applied to back. Pt up ad marcos but instructed to call for staff d/t side effect of drowsiness to prevent fall. Call light w/ in reach.
[2023-06-09] MEDS: Acetaminophen 500 MG Tablet 1000 MG PO (06:41)
[2023-06-09] MEDS: Iron Polysaccharide Complex 150 MG CAPSULE PO (08:51)
[2023-06-09] MEDS: Donepezil HCl 5 MG Tablet PO (08:51)
[2023-06-09] MEDS: Carvedilol 6.25 MG Tablet PO (08:51)
[2023-06-09] MEDS: Senna/Docusate Sodium 1 Tablet 2 TABLET PO (08:51)
[2023-06-09] MEDS: Ascorbic Acid 500 MG Tablet PO (08:52)
[2023-06-09 10:15] VITALS: BP 115/72; PULSE 87; RESP 22; TEMP 36.9; O2SAT 98
== END 2023-06-09 10:15 | disposition home health service (06) | DRG 560 ==
PROVIDERS: Admitting Provider Family Medicine Geriatric Medicine; PCP Family Medicine Geriatric Medicine; Visit Provider Family Medicine Geriatric Medicine
DX: S22.42XD Multiple fractures of ribs, left side, subsequent encounter for fracture with routine healing (principal); M62.82 Rhabdomyolysis; C34.32 Malignant neoplasm of lower lobe, left bronchus or lung; E11.9 Type 2 diabetes mellitus without complications; G30.9 Alzheimer's disease, unspecified; I48.0 Paroxysmal atrial fibrillation; F02.80 Dementia in other diseases classified elsewhere, unspecified severity, without behavioral disturbance, psychotic disturbance, mood disturbance, and anxiety; I10 Essential (primary) hypertension; F32.A Depression, unspecified; E53.8 Deficiency of other specified B group vitamins; F41.9 Anxiety disorder, unspecified; E78.5 Hyperlipidemia, unspecified; W18.11XD Fall from or off toilet without subsequent striking against object, subsequent encounter; G47.00 Insomnia, unspecified; Z87.891 Personal history of nicotine dependence; Z79.01 Long term (current) use of anticoagulants; Z79.899 Other long term (current) drug therapy
CPT/HCPCS: 36415; 80048; 85025; 87811; 92507; 92523; 92526; 92610; 97110; 97116; 97129; 97130; 97162; 97165; 97530; 97535; 97802; A4216

== ENCOUNTER → 2023-06-27 | Outpatient (CLI) | payer MEDICARE, SELFPAY ==
--- NOTE | 2023-06-27 12:56 | CT_ITS ---
STUDY: CT CHEST WITHOUT CONTRAST REASON FOR EXAM: Female, 83 years old. Follow up treated lung cancer -- compare to prior RADIATION DOSAGE (If Supplied By Facility): CTDIvol = ( 7.46 ) mGy, DLP = ( 255.35 ) mGycm TECHNIQUE: Transaxial imaging was performed without the administration of intravenous contrast material. Multiplanar coronal and sagittal images were reformatted. Individualized dose optimization techniques were used for this CT. COMPARISON: Comparison is made with prior study dated February 04, 2023 and May 29, 2023. FINDINGS: CHEST Subcentimeter lucency in the right lobe of the thyroid. There is a 2.5 cm x 2.6 cm heterogeneous nodule in the peripheral lateral aspect of the left lower lobe. As compared to prior study, the nodule has become more cystic in nature with residual thickened wall. 5.8 mm nodule in the medial aspect of the right lower lobe as seen on axial image #49. There is no demonstrated pleural abnormality. There are calcifications of the coronary arteries. There are multiple small lymph nodes within the mediastinum, which are normal in size and morphology most compatible with reactive lymph hyperplasia. Normal hilar regions. Normal unenhanced pulmonary arteries. There is atherosclerotic calcification of the aortic arch with tortuosity and elongation of the aortic arch and descending thoracic aorta. There are degenerative changes of the thoracic spine. Healed bilateral rib fractures. Fatty infiltration of the liver. CT/Chest without Contrast IMPRESSION: The previously seen nodule in the lateral aspect of the left lower lobe has become more necrotic and cystic at this time. The remainder of the examination is unchanged. Electronically Signed: Steven Gómez MD at 14:28 EST ,
== END | disposition home or self-care (01) ==
LOC: CT 12:51
PROVIDERS: PCP Family Medicine Geriatric Medicine; Referring Provider Student in an Organized Health Care Education/Training Program; Visit Provider Student in an Organized Health Care Education/Training Program
DX: C34.92 Malignant neoplasm of unspecified part of left bronchus or lung (principal)
CPT/HCPCS: 71250

== ENCOUNTER → 2023-09-05 | Outpatient (CLI) | payer MEDICARE, SELFPAY ==
[2023-09-05 14:56] LABS: Absolute Lymphocyte Count 1.11 X10^3/uL (0.83-4.51); Absolute Neutrophil Count 4.5 X10^3/uL (2.0-7.7); Basophil# 0.04 X10^3/uL; Basophil% 0.6 % (0-1); Eosinophil# 0.07 X10^3/uL; Eosinophils% 1.1 % (0-5); Hematocrit 35.8 % (37-47); Hemoglobin 11.4 g/dL (12.0-15.0); Lymphocyte # 1.11 X10^3/ul (0.83-4.51); Lymphocyte % 17.6 % (19-41); Mean Corp Hgb Conc 31.8 g/dL (32-36); Mean Corpuscular Hgb 27.9 pg (27.0-32.0); Mean Corpuscular Volume 87.5 fL (81-99); Mean Platelet Vol. 11.4 fl (6.2-12.0); Monocyte# 0.57 X10^3/uL; Monocyte% 9.1 % (0-10); NRBC Flagged by Analyzer 0 % (0-5); Neutrophil # 4.48 X10^3/uL (2.7-7.7); Neutrophil % 71.3 % (47-70); Platelet Count 248 K/mm3 (150-450); RBC Distribution Width CV 14.6 % (11.6-14.6); RBC Distribution Width SD 47.1 fl (35.1-43.9); Red Blood Count 4.09 M/mm3 (4.2-5.4); White Blood Count 6.3 K/mm3 (4.4-11.0)
[2023-09-05 15:10] LABS: Vitamin D,25 Hydroxy 45.3 ng/mL
[2023-09-05 15:18] LABS: ALB/GLOB Ratio 0.9 RATIO (0.9-2.4); AST(SGOT) 17 U/L (15-37); Alanine Aminotransfer ALT/SGPT 17 U/L (13-56); Albumin, Serum 3.3 g/dL (3.2-5.0); Alkaline Phosphatase 119 U/L (45-117); Anion Gap 5 (5-15); BUN 22 mg/dL (7-18); BUN/Creat Ratio 25.2 RATIO (10-20); Calcium,Total 9.7 mg/dL (8.5-10.1); Chloride 105 mmol/L (98-107); Creatinine, Serum 0.87 mg/dL (0.55-1.02); EST Glomerular Filtration Rate 66 mL/min (>60); Est Glom Filt Rate - Afr Amer 79 mL/min (>60); Globulin 3.8 g/dL (2.2-4.2); Glucose 101 mg/dL (74-106); Potassium 4.2 mmol/L (3.5-5.1); Protein, Total 7.1 g/dL (6.4-8.2); Sodium Level 135 mmol/L (136-145); Thyroid Stim Hormone (TSH) 3.28 uIU/mL (0.358-3.74)
== END | disposition home or self-care (01) ==
LOC: POLAB3 13:18
PROVIDERS: PCP Family Medicine Geriatric Medicine; Visit Provider Family Medicine Geriatric Medicine
DX: E11.65 Type 2 diabetes mellitus with hyperglycemia (principal); E55.9 Vitamin D deficiency, unspecified; I10 Essential (primary) hypertension
CPT/HCPCS: 36415; 80053; 82306; 84443; 85025

== ENCOUNTER 2023-09-16 10:24 | Emergency (ER) | payer MEDICARE, SELFPAY ==
[2023-09-16 10:25] VITALS: BP 154/97; PULSE 93; RESP 18; TEMP 36.5; O2SAT 99; BMI 28.0
[2023-09-16 12:04] LABS: Absolute Lymphocyte Count 0.92 X10^3/uL (0.83-4.51); Absolute Neutrophil Count 3.7 X10^3/uL (2.0-7.7); Basophil# 0.03 X10^3/uL; Basophil% 0.6 % (0-1); Eosinophil# 0.07 X10^3/uL; Eosinophils% 1.4 % (0-5); Hematocrit 34.6 % (37-47); Hemoglobin 10.8 g/dL (12.0-15.0); Lymphocyte # 0.92 X10^3/ul (0.83-4.51); Lymphocyte % 17.8 % (19-41); Mean Corp Hgb Conc 31.2 g/dL (32-36); Mean Corpuscular Hgb 27.3 pg (27.0-32.0); Mean Corpuscular Volume 87.6 fL (81-99); Mean Platelet Vol. 11.8 fl (6.2-12.0); Monocyte# 0.49 X10^3/uL; Monocyte% 9.5 % (0-10); NRBC Flagged by Analyzer 0 % (0-5); Neutrophil # 3.65 X10^3/uL (2.7-7.7); Neutrophil % 70.3 % (47-70); Platelet Count 235 K/mm3 (150-450); RBC Distribution Width CV 14.2 % (11.6-14.6); RBC Distribution Width SD 45.4 fl (35.1-43.9); Red Blood Count 3.95 M/mm3 (4.2-5.4); White Blood Count 5.2 K/mm3 (4.4-11.0)
[2023-09-16] MEDS: 0.9% Normal Saline (1000mL) 1,000 ML 1000 ML IV (12:13)
[2023-09-16 12:14] LABS: ALB/GLOB Ratio 0.8 RATIO (0.9-2.4); AST(SGOT) 12 U/L (15-37); Alanine Aminotransfer ALT/SGPT 18 U/L (13-56); Albumin, Serum 3.3 g/dL (3.2-5.0); Alkaline Phosphatase 127 U/L (45-117); Anion Gap 8 (5-15); BUN 12 mg/dL (7-18); BUN/Creat Ratio 15.2 RATIO (10-20); Calcium,Total 9.6 mg/dL (8.5-10.1); Chloride 106 mmol/L (98-107); Creatinine, Serum 0.79 mg/dL (0.55-1.02); EST Glomerular Filtration Rate 73 mL/min (>60); Est Glom Filt Rate - Afr Amer 89 mL/min (>60); Estimated Creatinine Clearance 45.98 ml/min; Globulin 4.2 g/dL (2.2-4.2); Glucose 92 mg/dL (74-106); Protein, Total 7.5 g/dL (6.4-8.2); Sodium Level 140 mmol/L (136-145)
--- NOTE | 2023-09-16 12:32 | CT_ITS ---
STUDY: CT ABDOMEN AND PELVIS WITH CONTRAST REASON FOR EXAM: Female, 83 years old. Abdominal pain RADIATION DOSAGE (If Supplied By Facility): CTDIvol = ( 13.99 ) mGy, DLP = ( 547.70 ) mGycm TECHNIQUE: Transaxial images were obtained from the dome of the diaphragm to the symphysis pubis without oral contrast. IV 100mL Isovue-300 was administered. Sagittal and coronal images were reconstructed. Individualized dose optimization techniques were used for this CT. COMPARISON: Comparison is made with prior study dated January 30, 2022. FINDINGS: There now is evidence of a infiltrate in the posterior aspect of the lingular segment of the left upper lobe. There is evidence of bronchiectasis in the posterior medial segment of the left lower lobe. There is a new 2.4 cm x 2.2 cm cystic density in the left lung base with the soft tissue density within the. This may represent a fungus ball. Clinical correlation recommended. The visualized portions of the heart are within normal limits. Normal liver. Normal gallbladder and extrahepatic biliary system. Normal spleen. Normal pancreas. Normal bilateral adrenal glands. There is a 3.1 cm x 3.1 cm cyst in the lower mid pole of the right kidney. There is right renal cyst. Mild degree of left hydronephrosis. A mild degree of a left hydronephrosis. There is a small hiatal hernia. Normal small intestine. There are multiple colonic diverticula consistent with diverticulosis. The appendix is visualized and appears normal. There is diffuse atherosclerotic calcification of the abdominal aorta. Mild dilatation of the distal abdominal aorta with a transverse dimension of 2.68 cm.. Normal inferior vena cava. Normal retroperitoneum. Normal urinary bladder. A pessary device is seen in the region of the uterine cervix. Normal abdominal wall. 50% loss of height of the T11 and L1 vertebrae. CT/Abdomen/Pelvis W IV Cont ONLY IMPRESSION: Bronchiectasis with pleural parenchymal changes at the left lung base with a 2.4 cm x 2.2 cm cystic nodule with soft tissue within it suggestive of possible fungus ball. Electronically Signed: Steven Gómez MD at 13:10 EST ,
--- NOTE | 2023-09-16 12:33 | ED.VIS.GI ---
HPI HPI - GI History of Present Illness Chief Complaint: GI Bleed Narrative Narrative: 83-year-old female presenting with constipation. She also has abdominal pain. She states in the left lower quadrant. She is unsure how long because she has a history of dementia and also states she has IBS which is chronic. Patient states she tried an enema today and saw some blood after this. She feels that she is blocked up somewhere. No fevers or chills. No nausea or vomiting. Patient states she is on Eliquis. [facility] Medical History Alzheimer's dementia Atrial fibrillation Cardiology follow-up encounter Dementia Diabetes mellitus Essential hypertension Former tobacco use History of echocardiogram Hyperlipidemia Inability to ambulate due to left hip Lung nodules Multiple falls Paroxysmal atrial fibrillation (03/21/22) Post-menopausal Syncope Thyroid nodule Wears dentures Home Medications carvedilol 6.25 mg tablet 6.25 mg PO BIDCM HEART 04/26/22 [History Last Taken 09/10/22] donepezil 5 mg tablet 5 mg PO DAILY DEMENTIA 07/25/22 [History Last Taken 09/10/22] doxepin 10 mg capsule 10 mg PO DAILY DEPRESSION/ANXIETY 09/10/22 [History Last Taken 09/10/22] paroxetine HCl 10 mg tablet 10 mg PO DAILY DEPRESSION 09/10/22 [History Last Taken 09/10/22] ascorbic acid (vitamin C) 500 mg capsule 500 mg PO DAILY Vitamin C 01/18/23 [History Last Taken Unknown] memantine 10 mg tablet 10 mg PO QPM memory 01/18/23 [History Last Taken Unknown] polysaccharide iron complex 150 mg iron capsule (Ferrex) 150 mg PO DAILY iron 01/18/23 [History Last Taken Unknown] amlodipine 5 mg tablet 5 mg PO QHS BP 05/29/23 [History Last Taken Unknown] acetaminophen 500 mg tablet 1,000 mg (2 x 500 mg) PO Q8 #0 tabs 06/06/23 [Rx Last Taken Unknown] estradiol 0.01% (0.1 mg/gram) vaginal cream 1 g vaginal TuTh@2100 #0 grams 06/06/23 [Rx Last Taken Unknown] oxycodone 5 mg tablet 5 mg PO Q4H PRN PRN Pain Score 6-10 7 days #42 tabs 06/06/23 [Rx Last Taken Unknown] sennosides 8.6 mg-docusate sodium 50 mg tablet (Stool Softener-Stimulant Laxative) 2 tab PO BID 30 days #120 tabs 06/06/23 [Rx Last Taken Unknown] Allergy/AdvReac Type Severity Reaction Status Date / Time adhesive Allergy Rash Verified 09/16/23 10:27 latex Allergy NEEDS Verified 09/16/23 10:27 FOLLOW-UP Family History Mother Diabetes Heart disease Hypertension Cerebral hemorrhage Father Brain cancer Sister Leukemia Cancer uterine Brother Cancer colon Surgical History History of esophagogastroduodenoscopy (EGD) History of tonsillectomy and adenoidectomy Hx of appendectomy Hx of cholecystectomy Hx of hysterectomy Social History household members: spouse Smoking Status: Former smoker how long ago did patient quit smoking: Smoked age [age]. 3-5 cig/day, quit following. alcohol intake: current alcohol intake frequency: holidays/special occasions only substance use type: does not use caffeine: No ROS ROS ED Constitutional Constitutional ED: Denies chills, fever(s) or sweats Eyes Eyes: Denies blurry vision or change in vision ENT ENT ED: Denies ear pain or sore throat Cardiovascular Cardiovascular: Denies chest pain, palpitations or racing heartbeat Respiratory/Chest Respiratory/Chest: Denies cough, dyspnea or sputum Gastrointestinal Gastrointestinal: Reports abdominal pain and other Details: Bloody stool ; Denies constipation, diarrhea, nausea or vomiting Genitourinary Genitourinary ED: Denies dysuria, hematuria or urinary frequency Musculoskeletal Musculoskeletal: Denies arthralgias, myalgias or neck pain Integumentary Denies abscess, Abrasions or rash Neurologic Neurologic: Denies headache(s), paresthesias or weakness Psychiatric Psychiatric: Denies anxiety, depression, suicidal ideation or suicidal thoughts Endocrine Endocrinology: Denies polydipsia or polyuria EXAM Physical Exam Const Vital Signs: 09/16/23 10:25 09/16/23 14:03 Temperature 97.7 F L Temperature Source Temporal Pulse Rate 93 71 Respiratory Rate 18 15 Blood Pressure 154/97 H 127/69 H Blood Pressure Mean 116 88 Pulse Ox 99 98 Oxygen Delivery Method Room Air Positive well nourished General Appearance ED: NAD; Negative for pallor HEENT Reports moist mucous membranes normocephalic and atraumatic Eyes PERRL and EOMs intact bilaterally Resp normal respiratory effort Auscultation: Negative for rales, rhonchi or wheezes Cardio regular rate and regular rhythm GI GI Narrative: No stool in the rectal vault. No blood noted. No hemorrhoids. Palpation: tender LLQ Neuro CN's II-XII intact bilaterally Sensorium / Orientation: alert Psych mental status grossly normal Skin no wounds General Skin Exam: Negative for jaundice or pallor MDM MDM MDM Narrative Medical decision making narrative: Patient presenting with left lower quad abdominal pain, bright red blood per rectum after an enema which is now resolved and short-lived, shakiness which started today. Differential includes patient presenting with right flank pain. Differential includes colitis, diverticulitis, gastritis, pancreatitis, constipation, UTI, pyelonephritis, renal calculi, ureteral calculi, bowel obstruction, malignancy, dehydration, electrolyte abnormalities, anemia, GI bleed. CBC will be obtained to assess white blood cell count, hemoglobin, platelets. BMP to assess renal function, electrolytes, glucose. LFTs to assess liver function. Urinalysis to assess for UTI. No stool in the rectal vault no blood visualized. Will obtain a CT of the abdomen pelvis with IV contrast. CT abdomen pelvis is negative for acute abdominal process. There is concern on the radiologist report that there may be a possible fungus ball in the left lower lung however the patient has a history of cancer in this region pacifically and its unlikely to be a fungus ball. Patient has no respiratory complaints. There is no significant stool burden. Blood work ultimately unremarkable as well. Patient not significantly anemic. Near her baseline hemoglobin. Urinalysis is negative. Patient did states she felt shaky and she was given some juice as her blood sugar was 77 and she felt better after this. I feel the patient is stable for discharge at this point. Return precautions were discussed. I recommended stool softeners and laxatives for the future. Impression: 1. Abdominal pain 2. Constipation 3. History of rectal bleeding Lab Data Attestation: I reviewed the patient's lab results. Labs: Laboratory Results - last 24 hr 09/16/23 09/16/23 09/16/23 10:53 12:24 13:25 WBC 5.2 RBC 3.95 L Hgb 10.8 L Hct 34.6 L MCV 87.6 MCH 27.3 MCHC 31.2 L RDW Std Deviation 45.4 H RDW Coeff of Amrita 14.2 Plt Count 235 MPV 11.8 Immature Gran % (Auto) 0.400 Neut % (Auto) 70.3 H Lymph % (Auto) 17.8 L [place] % (Auto) 9.5 Eos % (Auto) 1.4 Baso % (Auto) 0.6 Absolute Neuts (auto) 3.7 Absolute Lymphs (auto) 0.92 Nucleated RBC % 0 Sodium 140 Potassium 4.0 Chloride 106 Carbon Dioxide 26.0 Anion Gap 8 BUN 12 Creatinine 0.79 Estim Creat Clear Calc 45.98 Est GFR (MDRD) Af Amer 89 Est GFR (MDRD) Non-Af 73 BUN/Creatinine Ratio 15.2 Glucose 92 Calcium 9.6 Total Bilirubin 0.30 AST 12 L ALT 18 Alkaline Phosphatase 127 H Total Protein 7.5 Albumin 3.3 Globulin 4.2 Albumin/Globulin Ratio 0.8 L Urine Color Yellow Urine Clarity Clear Urine pH 7.0 Ur Specific [place] 1.010 Urine Protein Negative Urine Glucose (UA) Normal Urine Ketones Negative Urine Occult Blood Negative Urine Nitrite Negative Urine Bilirubin Negative Urine Urobilinogen Normal Ur Leukocyte Esterase Negative Urine RBC 0 SEEN Urine WBC 0 SEEN Ur Squamous Epith Cells 0 SEEN Urine Bacteria 0 SEEN Urine Mucus 0 SEEN POC Glucose 77 Radiography Diagnostic Testing: Clinical Impression(s) from Imaging Studies Abdomen/Pelvis CT 09/16/23 12:32 IMPRESSION: Bronchiectasis with pleural parenchymal changes at the left lung base with a 2.4 cm x 2.2 cm cystic nodule with soft tissue within it suggestive of possible fungus ball. Electronically Signed: Steven Gómez MD at 13:10 EST , Discharge Plan Triage Chief Complaint: GI Bleed ED Provider: Arsen Sanchez Dx/Rx/DC Orders Instructions: ED Abdominal Pain Unkn Cause Fem, ED Lower GI Bleeding (Stable) Prescriptions: No Action donepezil 5 mg tablet 5 mg PO DAILY Patient Comments: Take 1 Tablet orally once per day for 90 days Take with supper. memantine 10 mg tablet 10 mg PO QPM polysaccharide iron complex [Ferrex 150] 150 mg iron capsule 150 mg PO DAILY ascorbic acid (vitamin C) 500 mg capsule 500 mg PO DAILY carvedilol 6.25 mg tablet 6.25 mg PO BIDCM Patient Comments: paroxetine HCl 10 mg tablet 10 mg PO DAILY doxepin 10 mg capsule 10 mg PO DAILY amlodipine 5 mg tablet 5 mg PO QHS Patient Comments: TAKE 1 TABLET BY MOUTH DAILY AT BEDTIME acetaminophen 500 mg Tablet 1,000 mg PO Q8 Qty: 0 0RF sennosides-docusate sodium [Stool Softener-Stimulant Laxat] 8.6-50 mg Tablet 2 tab PO BID 30 Days Qty: 120 0RF estradiol 0.01 % (0.1 mg/gram) Cream 1 g vaginal TuTh@2100 Qty: 0 0RF oxycodone 5 mg Tablet 5 mg PO Q4H PRN PRN (Reason: Pain Score 6-10) 7 Days Qty: 42 0RF Primary Care Provider: Avi Elliott Chi Referrals: Avi Elliott Chi, MD [Primary Care Provider] - Disposition Disposition: Home, Self Care Discharge Date/Time: 09/16/23 14:04
--- NOTE | 2023-09-16 12:33 | ED.RN ---
RN CALLED INTO PATIENT'S ROOM. PT STATES I AM VERY SHAKY . RN DID NOT NOTICE ANY TREMOR. PT STATES SHE HASN'T EATEN ALL DAY, IS NOT DIABETIC. RN DID A BGT, 77. RN INFORMED , WHO STATES TO GIVE PATIENT SOME JUICE.
[2023-09-16 12:41] LABS: Bedside Glucose 77 mg/dL (74-106)
[2023-09-16 13:29] LABS: Bacteria 0 SEEN /hpf (None Seen); Mucous, Urine 0 SEEN /hpf (<or=2+); Red Blood Cells-Urine 0 SEEN /hpf (0-5); Squamous Epithelial Cells - UA 0 SEEN /hpf (5-10); White Blood Cells 0 SEEN /hpf (0-5)
[2023-09-16 13:33] LABS: Color, Urine Yellow (Yellow); Glucose, Dipstick Normal (Normal); Ketone-Dipstick Negative (Negative); Leukocyte Esterase-Dipstick Negative /ul (Negative); Nitrite-Dipstick Negative (Negative); Occult Blood-Urine Negative /ul (Negative); Protein-Dipstick Negative (Negative); Urine Bilirubin Dipstick Negative (Negative); Urine Clarity Clear (Clear); Urine Urobilinogen Normal (Normal)
[2023-09-16 14:03] VITALS: BP 127/69; PULSE 71; RESP 15; O2SAT 98
== END 2023-09-16 14:04 | disposition home or self-care (01) ==
PROVIDERS: Emergency Provider Student in an Organized Health Care Education/Training Program; PCP Family Medicine Geriatric Medicine; Visit Provider Student in an Organized Health Care Education/Training Program
DX: K59.00 Constipation, unspecified (principal); G30.9 Alzheimer's disease, unspecified; F02.80 Dementia in other diseases classified elsewhere, unspecified severity, without behavioral disturbance, psychotic disturbance, mood disturbance, and anxiety; E11.9 Type 2 diabetes mellitus without complications; K58.9 Irritable bowel syndrome, unspecified; I10 Essential (primary) hypertension; E78.5 Hyperlipidemia, unspecified; Z87.891 Personal history of nicotine dependence; Z85.118 Personal history of other malignant neoplasm of bronchus and lung
CPT/HCPCS: 74177; 80053; 81001; 82962; 85025; 96360; 99283; J7030; Q9967; A4216

== ENCOUNTER 2023-10-17 17:09 | Emergency (ER) | payer MEDICARE, SELFPAY ==
[2023-10-17 17:11] VITALS: BP 140/91; PULSE 95; RESP 18; TEMP 36.2; O2SAT 96; BMI 28.3
--- NOTE | 2023-10-17 18:30 | EDS_ITS ---
HPI History of Present Illness Chief Complaint: Abn Labs Informant: patient Narrative Narrative: 83-year-old female tells me that she feels tired. She has felt this way for about a month. Unfortunately the patient is an exceedingly bad historian. She tells me that she is all confused with what is going on. She tells me that a month ago she was supposed to take a unknown stool test for unknown reasons but was too early . She states that she was checked for lung cancer in August. She states that she has lung cancer and was treated with everything . She saw that doctor whom she does not know the name of today who put her in that machine and checked down there and up here . She states that she had some blood drawn today. She states that she was called and told to come to emergency. She does not know what test were run today or why she was told to come to the hospital. 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 Lung nodules Multiple falls Paroxysmal atrial fibrillation (03/21/22) Post-menopausal Syncope Thyroid nodule Wears dentures Home Medications carvedilol 6.25 mg tablet 6.25 mg PO BIDCM HEART 04/26/22 [History Last Taken 09/10/22] donepezil 5 mg tablet 5 mg PO DAILY DEMENTIA 07/25/22 [History Last Taken 09/10/22] doxepin 10 mg capsule 10 mg PO DAILY DEPRESSION/ANXIETY 09/10/22 [History Last Taken 09/10/22] paroxetine HCl 10 mg tablet 10 mg PO DAILY DEPRESSION 09/10/22 [History Last Taken 09/10/22] ascorbic acid (vitamin C) 500 mg capsule 500 mg PO DAILY Vitamin C 01/18/23 [History Last Taken Unknown] memantine 10 mg tablet 10 mg PO QPM memory 01/18/23 [History Last Taken Unknown] polysaccharide iron complex 150 mg iron capsule (Ferrex) 150 mg PO DAILY iron 01/18/23 [History Last Taken Unknown] amlodipine 5 mg tablet 5 mg PO QHS BP 05/29/23 [History Last Taken Unknown] acetaminophen 500 mg tablet 1,000 mg (2 x 500 mg) PO Q8 #0 tabs 06/06/23 [Rx Last Taken Unknown] estradiol 0.01% (0.1 mg/gram) vaginal cream 1 g vaginal TuTh@2100 #0 grams 06/06/23 [Rx Last Taken Unknown] oxycodone 5 mg tablet 5 mg PO Q4H PRN PRN Pain Score 6-10 7 days #42 tabs 06/06/23 [Rx Last Taken Unknown] sennosides 8.6 mg-docusate sodium 50 mg tablet (Stool Softener-Stimulant Laxative) 2 tab PO BID 30 days #120 tabs 06/06/23 [Rx Last Taken Unknown] Allergy/AdvReac Type Severity Reaction Status Date / Time adhesive Allergy Rash Verified 10/17/23 17:11 latex Allergy NEEDS Verified 10/17/23 17:11 FOLLOW-UP Family History Mother Diabetes Heart disease Hypertension Cerebral hemorrhage Father Brain cancer Sister Leukemia Cancer uterine Brother Cancer colon Surgical History History of esophagogastroduodenoscopy (EGD) History of tonsillectomy and adenoidectomy Hx of appendectomy Hx of cholecystectomy Hx of hysterectomy Social History household members: spouse Smoking Status: Former smoker how long ago did patient quit smoking: Smoked age [age]. 3-5 cig/day, quit following. alcohol intake: current alcohol intake frequency: holidays/special occasions only substance use type: does not use caffeine: No ROS ROS ED ROS Narrative Generalized fatigue Constitutional Constitutional ED: Denies chills, fever(s) or weight loss Eyes Eyes: Denies change in vision or diplopia ENT ENT ED: Denies ear pain, rhinorrhea or sore throat Cardiovascular Cardiovascular: Denies chest pain, orthopnea, palpitations or racing heartbeat Respiratory/Chest Respiratory/Chest: Denies cough, dyspnea or orthopnea Gastrointestinal Gastrointestinal: Reports constipation and diarrhea; Denies abdominal pain, nausea or vomiting Genitourinary Genitourinary ED: Denies dysuria, hematuria or urinary frequency Musculoskeletal Musculoskeletal: Denies arthralgias or myalgias Integumentary Denies abscess or rash Neurologic Neurologic: Denies headache(s) or weakness Psychiatric Psychiatric: Denies anxiety, depression, suicidal ideation or suicidal thoughts Endocrine Endocrinology: Denies polydipsia, polyphagia or polyuria Allergic/Immunologic Allergic/Immunologic ED: Denies mouth swelling, tongue swelling or urticaria EXAM Physical Exam Const Vital Signs: 10/17/23 17:11 10/17/23 19:09 10/17/23 19:15 Temperature 97.1 F L Temperature Source Temporal Pulse Rate 95 74 Pulse Rate [Lying] Pulse Rate [Sitting (for 1 minute prior to obtaining)] Pulse Rate [Standing (for 1 minute prior to obtaining)] Respiratory Rate 18 16 Respiratory Effort Normal Respiratory Pattern Normal Blood Pressure 140/91 H 182/86 H Blood Pressure [Lying] Blood Pressure [Sitting (for 1 minute prior to obtaining)] Blood Pressure [Standing (for 1 minute prior to obtaining)] Blood Pressure Mean 107 118 Blood Pressure Mean [Lying] Blood Pressure Mean [Sitting (for 1 minute prior to obtaining)] Blood Pressure Mean [Standing (for 1 minute prior to obtaining)] Pulse Ox 96 98 Oxygen Delivery Method Room Air Room Air 10/17/23 19:20 10/17/23 21:00 10/17/23 22:55 Temperature 97.4 F L Temperature Source Pulse Rate 87 78 Pulse Rate [Lying] 74 Pulse Rate [Sitting (for 1 minute prior to obtaining)] 81 Pulse Rate [Standing (for 1 minute prior to obtaining)] 83 Respiratory Rate 16 16 Respiratory Effort Respiratory Pattern Blood Pressure 179/87 H 165/85 H Blood Pressure [Lying] 182/86 H Blood Pressure [Sitting (for 1 minute prior to obtaining)] 167/89 H Blood Pressure [Standing (for 1 minute prior to obtaining)] 139/66 H Blood Pressure Mean 117 111 Blood Pressure Mean [Lying] 118 Blood Pressure Mean [Sitting (for 1 minute prior to obtaining)] 115 Blood Pressure Mean [Standing (for 1 minute prior to obtaining)] 90 Pulse Ox 99 96 Oxygen Delivery Method Room Air Positive well nourished and well developed General Appearance ED: well developed HEENT Reports normocephalic, head/scalp atraumatic and moist mucous membranes Eyes PERRL and EOMs intact bilaterally Neck no lymphadenopathy, supple and no JVD Resp normal respiratory effort and clear to auscultation bilaterally Cardio regular rate, regular rhythm and no murmurs GI normal to inspection, nondistended, normoactive bowel sounds and non-tender Palpation: soft Back/Spine no CVA tenderness and normal ROM Extremity normal to inspection General Extremety ED: Negative for edema General Extremity: Negative for edema Neuro oriented x3 and CN's II-XII intact bilaterally Sensorium / Orientation: alert Motor Exam: strength 5/5 throughout Psych mental status grossly normal Mood & Affect: Negative for depressed or tearful Skin no rashes or lesions noted and no wounds MDM MDM MDM Narrative Medical decision making narrative: Patient is not orthostatic. Hemoglobin this evening is 8.5 white count 5.2. BUN of 14 CO2 of 22. The patient's Hemoccult is positive however it is fairly brown stool. Spoke with the patient regarding the above findings. I do not feel that she is in need of any emergent transfusion tonight. She wants to go home and be with her . She does not wish to stay in the hospital. I spoke with her primary care doctor. He is able to see her tomorrow morning. Patient states that this is acceptable to her. She understands that she may require admission and transfusion and scope. History & Record Review Discussion w/independent historian: Patient Lab Data Attestation: I reviewed the patient's lab results. Labs: Laboratory Results - last 24 hr 10/17/23 10/17/23 10/17/23 19:30 19:30 20:13 WBC Cancelled 5.2 Corrected WBC Cancelled RBC Cancelled 3.23 L Hgb Cancelled 8.5 L Hct Cancelled 27.2 L MCV Cancelled 84.2 MCH Cancelled 26.3 L MCHC Cancelled 31.3 L RDW Std Deviation Cancelled 41.8 RDW Coeff of Amrita Cancelled 13.5 Plt Count Cancelled 275 MPV Cancelled 11.0 Immature Gran % (Auto) Cancelled 0.400 Neut % (Auto) Cancelled 68.1 Lymph % (Auto) Cancelled 19.6 Cooper % (Auto) Cancelled 10.1 H Eos % (Auto) Cancelled 1.2 Baso % (Auto) Cancelled 0.6 Absolute Neuts (auto) Cancelled 3.5 Absolute Lymphs (auto) Cancelled 1.01 Total Counted Cancelled Neutrophils % (Manual) Cancelled Band Neutrophils % Cancelled Lymphocytes % (Manual) Cancelled Monocytes % (Manual) Cancelled Eosinophils % (Manual) Cancelled Basophils % (Manual) Cancelled Metamyelocytes % Cancelled Myelocytes % Cancelled Promyelocytes % Cancelled Blast Cells % Cancelled Plasma Cell % (Manual) Cancelled Other Cells % Cancelled Nucleated RBC % Cancelled 0 Nucleated RBCs/100 WBC Cancelled Differential Comment Cancelled Diff Path Review Cancelled Hypersegmented Neuts Cancelled Atypical Lymphocytes Cancelled Reactive Lymphocytes Cancelled Smudge Cells Cancelled Toxic Granulation Cancelled Toxic Vacuolation Cancelled Dohle Bodies Cancelled Santino Rods Cancelled Platelet Estimate Cancelled Plt Morphology Comment Cancelled RBC Morphology Cancelled Cancelled Polychromasia Cancelled Hypochromasia Cancelled Basophilic Stippling Cancelled Anisocytosis Cancelled Microcytosis Cancelled Macrocytosis Cancelled Spherocytes Cancelled Sickle Cells Cancelled Target Cells Cancelled Tear Drop Cells Cancelled Ovalocytes Cancelled Stomatocytes Cancelled Diaz-[place] Bodies Cancelled [place] Cells Cancelled Bite Cells Cancelled Crenated Cell Cancelled Acanthocytes (Spur) Cancelled Rouleaux Cancelled Schistocytes Cancelled PT Cancelled 14.0 INR Cancelled 1.1 APTT Cancelled 28.1 Sodium 136 Potassium 4.2 Chloride 105 Carbon Dioxide 22.0 Anion Gap 9 BUN 14 Creatinine 0.84 Estim Creat Clear Calc 43.99 Est GFR (MDRD) Af Amer 83 Est GFR (MDRD) Non-Af 68 BUN/Creatinine Ratio 16.6 Glucose 96 Calcium 9.4 Discharge Plan Triage Chief Complaint: Abn Labs ED Provider: Yan Zapata Dx/Rx/DC Orders Clinical Impression: Fatigue, GI bleed, Anemia Instructions: GI Bleeding Causes and Tests, Anemia Prescriptions: No Action donepezil 5 mg tablet 5 mg PO DAILY Patient Comments: Take 1 Tablet orally once per day for 90 days Take with supper. memantine 10 mg tablet 10 mg PO QPM polysaccharide iron complex [Ferrex 150] 150 mg iron capsule 150 mg PO DAILY ascorbic acid (vitamin C) 500 mg capsule 500 mg PO DAILY carvedilol 6.25 mg tablet 6.25 mg PO BIDCM Patient Comments: paroxetine HCl 10 mg tablet 10 mg PO DAILY doxepin 10 mg capsule 10 mg PO DAILY amlodipine 5 mg tablet 5 mg PO QHS Patient Comments: TAKE 1 TABLET BY MOUTH DAILY AT BEDTIME acetaminophen 500 mg Tablet 1,000 mg PO Q8 Qty: 0 0RF sennosides-docusate sodium [Stool Softener-Stimulant Laxat] 8.6-50 mg Tablet 2 tab PO BID 30 Days Qty: 120 0RF estradiol 0.01 % (0.1 mg/gram) Cream 1 g vaginal TuTh@2100 Qty: 0 0RF oxycodone 5 mg Tablet 5 mg PO Q4H PRN PRN (Reason: Pain Score 6-10) 7 Days Qty: 42 0RF Primary Care Provider: Avi Elliott Chi Referrals: Avi Elliott Chi, MD [Primary Care Provider] - 1 Day Activity Restrictions/Additional Instructions: Please call Dr. Elliott's office tomorrow morning. You are going to be seen by them tomorrow. You will need close outpatient follow-up to monitor your red blood cell count. As we discussed this may require you to be admitted to the hospital and possibly even a blood transfusion. However at the time your vital signs are stable and you do not need a blood transfusion today. Disposition Disposition: Home, Self Care Discharge Date/Time: 10/17/23 23:56
[2023-10-17 19:09] VITALS: BP 182/86; PULSE 74; RESP 16; O2SAT 98
[2023-10-17 19:20] VITALS: BP 139/66; BP 167/89; BP 182/86; PULSE 74; PULSE 81; PULSE 83
[2023-10-17 19:55] LABS: Anion Gap 9 (5-15); BUN 14 mg/dL (7-18); BUN/Creat Ratio 16.6 RATIO (10-20); Calcium,Total 9.4 mg/dL (8.5-10.1); Chloride 105 mmol/L (98-107); Creatinine, Serum 0.84 mg/dL (0.55-1.02); EST Glomerular Filtration Rate 68 mL/min (>60); Est Glom Filt Rate - Afr Amer 83 mL/min (>60); Estimated Creatinine Clearance 43.99 ml/min; Glucose 96 mg/dL (74-106); Potassium 4.2 mmol/L (3.5-5.1); Sodium Level 136 mmol/L (136-145)
[2023-10-17 20:27] LABS: Absolute Lymphocyte Count 1.01 X10^3/uL (0.83-4.51); Absolute Neutrophil Count 3.5 X10^3/uL (2.0-7.7); Basophil# 0.03 X10^3/uL; Basophil% 0.6 % (0-1); Eosinophil# 0.06 X10^3/uL; Eosinophils% 1.2 % (0-5); Hematocrit 27.2 % (37-47); Hemoglobin 8.5 g/dL (12.0-15.0); Lymphocyte # 1.01 X10^3/ul (0.83-4.51); Lymphocyte % 19.6 % (19-41); Mean Corp Hgb Conc 31.3 g/dL (32-36); Mean Corpuscular Hgb 26.3 pg (27.0-32.0); Mean Corpuscular Volume 84.2 fL (81-99); Monocyte# 0.52 X10^3/uL; Monocyte% 10.1 % (0-10); NRBC Flagged by Analyzer 0 % (0-5); Neutrophil # 3.52 X10^3/uL (2.7-7.7); Neutrophil % 68.1 % (47-70); Platelet Count 275 K/mm3 (150-450); RBC Distribution Width CV 13.5 % (11.6-14.6); RBC Distribution Width SD 41.8 fl (35.1-43.9); Red Blood Count 3.23 M/mm3 (4.2-5.4); White Blood Count 5.2 K/mm3 (4.4-11.0)
[2023-10-17 20:44] LABS: International Normalized Ratio 1.1
[2023-10-17 20:45] LABS: Partial Thromboplast Time 28.1 Seconds (24.1-36.2)
[2023-10-17 21:00] VITALS: BP 179/87; PULSE 87; RESP 16; O2SAT 99
[2023-10-17 22:55] VITALS: BP 165/85; PULSE 78; RESP 16; TEMP 36.3; O2SAT 96
--- NOTE | 2023-10-17 23:54 | ED.RN ---
[facility] at bedside, report given. Pt states she does not have keys to her house but that her is home. Attempted to call with no answer. Transport crew states they will try to wake him up by knocking on doors and windows when they get there.
== END 2023-10-17 23:56 | disposition home or self-care (01) ==
PROVIDERS: Emergency Provider Emergency Medicine; PCP Family Medicine Geriatric Medicine; Visit Provider Emergency Medicine
DX: K92.2 Gastrointestinal hemorrhage, unspecified (principal); G30.9 Alzheimer's disease, unspecified; F02.80 Dementia in other diseases classified elsewhere, unspecified severity, without behavioral disturbance, psychotic disturbance, mood disturbance, and anxiety; I48.0 Paroxysmal atrial fibrillation; E11.9 Type 2 diabetes mellitus without complications; R19.7 Diarrhea, unspecified; D64.9 Anemia, unspecified; R41.0 Disorientation, unspecified; I10 Essential (primary) hypertension; E78.5 Hyperlipidemia, unspecified; Z79.899 Other long term (current) drug therapy; Z87.891 Personal history of nicotine dependence; R53.83 Other fatigue
CPT/HCPCS: 80048; 82274; 85025; 85610; 85730; 99284; A4216

== ENCOUNTER → 2023-10-17 | Outpatient (CLI) | payer MEDICARE, SELFPAY ==
--- NOTE | 2023-10-17 12:34 | CT_ITS ---
EXAM: CT CHEST WITHOUT INTRAVENOUS CONTRAST CLINICAL INDICATION: treated lung cancer, LLL, monitor -- please compare to prior TECHNIQUE: Helically acquired images were obtained of the chest without intravenous contrast. This CT exam was performed using one or more of the following dose reduction techniques: automated exposure control, adjustment of the mA and/or kV according to patient size, and/or use of iterative reconstruction technique. RADIATION DOSE: CTDIvol = 6.69 mGy, DLP = 237.24 mGy-cm COMPARISON: 06.27.23 FINDINGS: LUNGS AND PLEURAL SPACES: There is a diffuse infiltrate of the left lower lobe suggesting a pneumonia. Previously noted cavitary lesion in the left lower lobe is 20 mm and relatively stable. Pulmonary emphysema changes. Stable possible air scarring in the superior segment of the right lower lobe. Stable 5.5 mm nodule in the posterior aspect of the right lower lobe. Stable 6.7 mm groundglass nodule in the right upper lobe. Series 4 image 45. No pleural effusion or thickening. HEART: There are calcifications of the coronary arteries. Heart size is normal. No pericardial effusion. MEDIASTINUM: Unremarkable. No mediastinal or hilar adenopathy. Esophagus is unremarkable. No hiatal hernia. THYROID: Unremarkable. No thyroid lesions. BONES/JOINTS: There are degenerative changes of the shoulders. There are multi-level degenerative changes of the thoracic spine. No suspicious lytic or blastic abnormality. VASCULATURE: There is atherosclerotic calcification of the aortic arch with tortuosity and elongation of the aortic arch and descending thoracic aorta. GALLBLADDER AND BILE DUCTS: Cholecystectomy changes. CT/Chest without Contrast IMPRESSION: There is a diffuse infiltrate of the left lower lobe suggesting a pneumonia. Previously noted cavitary lesion in the left lower lobe is 20 mm and relatively stable. Right pulmonary nodules. Fleischner Society Guidelines (MacMahon, et al. Radiology 2017; 284(1):228-43) suggest the following. For low-risk patients consider a follow-up chest CT at 15-21 months. For high-risk patients recommend follow-up chest CT at 15-21 months. If unchanged, no further follow-up. Electronically Signed: Ke Carlisle MD at 16:36 EST ,
--- NOTE | 2023-10-17 12:40 | CT_ITS ---
STUDY: CT ABDOMEN AND PELVIS WITHOUT CONTRAST REASON FOR EXAM: Female, 83 years old. DIVERTICULITIS OF COLON RADIATION DOSAGE (If Supplied By Facility): CTDIvol = ( 12.83 ) mGy, DLP = ( 638.08 ) mGycm TECHNIQUE: Transaxial images were obtained from the dome of the diaphragm to the symphysis pubis without oral contrast, and without intravenous contrast. Sagittal and coronal images were reconstructed. Individualized dose optimization techniques were used for this CT. COMPARISON: September 16, 2023 FINDINGS: There are chronic bronchiectatic changes seen in the left lower lobe. There is one small thin-walled cavity containing soft tissue density most likely representing coexisting fungal disease. Neoplasm not entirely excluded.. Heart is upper normal in size. There is a very small pericardial effusion Small hiatal hernia noted Normal liver. Gallbladder not visualized consistent with prior cholecystectomy. Normal spleen. Normal pancreas. Normal bilateral adrenal glands. Right renal cyst is noted which will not require additional imaging. Tiny nonobstructing left renal calculus. There is also a simple cyst in left kidney Normal visualized stomach. Normal small intestine. 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 Normal inferior vena cava. Normal retroperitoneum. Normal urinary bladder. Uterus not visualized consistent with hysterectomy Normal abdominal wall. Lumbar spine demonstrates mild degenerative change. Old compression fractures of T11 and L1. CT/Abdomen/Pel W ORAL Cont Only IMPRESSION: Minor diverticular changes of the colon without definitive evidence for acute diverticulitis. No evidence for small bowel obstruction or other acute abnormality. Other findings as above Electronically Signed: Matt Nobles MD at 16:19 EST ,
[2023-10-17 12:47] LABS: Absolute Lymphocyte Count 0.94 X10^3/uL (0.83-4.51); Basophil# 0.03 X10^3/uL; Basophil% 0.5 % (0-1); Eosinophil# 0.06 X10^3/uL; Eosinophils% 1.1 % (0-5); Hemoglobin 7.9 g/dL (12.0-15.0); Lymphocyte # 0.94 X10^3/ul (0.83-4.51); Lymphocyte % 16.9 % (19-41); Mean Corp Hgb Conc 30.4 g/dL (32-36); Mean Corpuscular Hgb 25.5 pg (27.0-32.0); Mean Corpuscular Volume 83.9 fL (81-99); Monocyte# 0.56 X10^3/uL; Monocyte% 10.1 % (0-10); NRBC Flagged by Analyzer 0 % (0-5); Neutrophil # 3.95 X10^3/uL (2.7-7.7); Neutrophil % 71.2 % (47-70); Platelet Count 278 K/mm3 (150-450); RBC Distribution Width CV 13.8 % (11.6-14.6); RBC Distribution Width SD 42.4 fl (35.1-43.9); White Blood Count 5.6 K/mm3 (4.4-11.0)
[2023-10-17 12:57] LABS: ALB/GLOB Ratio 0.9 RATIO (0.9-2.4); AST(SGOT) 15 U/L (15-37); Alanine Aminotransfer ALT/SGPT 10 U/L (13-56); Albumin, Serum 3.2 g/dL (3.2-5.0); Alkaline Phosphatase 113 U/L (45-117); Anion Gap 9 (5-15); BUN 15 mg/dL (7-18); BUN/Creat Ratio 16.5 RATIO (10-20); Calcium,Total 9.6 mg/dL (8.5-10.1); Chloride 105 mmol/L (98-107); Creatinine, Serum 0.91 mg/dL (0.55-1.02); EST Glomerular Filtration Rate 63 mL/min (>60); Est Glom Filt Rate - Afr Amer 76 mL/min (>60); Globulin 3.7 g/dL (2.2-4.2); Glucose 100 mg/dL (74-106); Potassium 4.2 mmol/L (3.5-5.1); Protein, Total 6.9 g/dL (6.4-8.2); Sodium Level 139 mmol/L (136-145)
== END | disposition home or self-care (01) ==
LOC: POLAB3 12:42 → CT 12:51
PROVIDERS: PCP Family Medicine Geriatric Medicine; Visit Provider Family Medicine Geriatric Medicine
DX: K57.32 Diverticulitis of large intestine without perforation or abscess without bleeding (principal); E78.5 Hyperlipidemia, unspecified
CPT/HCPCS: 36415; 71250; 74176; 80053; 85025

== ENCOUNTER → 2023-10-18 | Outpatient (CLI) | payer MEDICARE, SELFPAY ==
--- OUTSIDE RECORDS SUMMARY | 2023-10-18 12:25 | XMS RPT_ITS | CCD ---
Author Name Unknown Address [address] [place] [address] Organization [facility] Care Team Providers Care Telegraph Mechanic Name Role Phone Kathy Campos MD Primary Care Provider Janes, Iker Chi Primary Care Provider Janes, Iker Chi Primary Care Provider MARTHA KIM Attending Unavailable JANES, IKER CHI Primary Care Unavailable JANES, IKER CHI Primary Care Unavailable MARTHA KIM Attending Unavailable MARTHA KIM Attending Unavailable JANES, IKER CHI Primary Care Unavailable JANES, IKER CHI Primary Care Unavailable KATHY CAMPOS Attending Unavailable MARTHA KIM Attending Unavailable JANES, IKER CHI Primary Care Unavailable Allergies Allergy Classification Reported Allergen(s) Allergy Type Date of Onset Reaction(s) Facility (19 sources) Adhesive Tape; Translations: [ADHESIVE TAPE (ROSINS)] Propensity to adverse reactions 6 Rash [facility] Work Phone: (19 sources) Seasonal allergy; Translations: [SEASONAL ALLERGIES] Allergy to substance 1 Other: See Comments [facility] (19 sources) Chlorpheniramin e-Pe Tannates; Translations: [CHLORPHENIRAMI NE-PE TANNATES] Propensity to adverse reactions 5 [facility] Work Phone: Medications Current Medications Medication Drug Class(es) Dates Sig (Normalized) Sig (Original) estradiol 0.1 mg/ml vaginal cream (11 sources) Estrogen Start: 01-01-2023 End: 01-01-2024 estradiol (ESTRACE) 0.01 % (0.1 mg/gram) vaginal cream Indications: Post-menopausal atrophic vaginitis , Pessary maintenance Use 1 g vaginally two times a week. 42.5 g 2 01/01/2023 01/01/2024 Active Completed/Discontinued Medications Medication Drug Class(es) Dates Sig (Normalized) Sig (Original) acetaminophen 325 mg / HYDROcodone bitartrate 5 mg oral tablet (17 sources) Opioid Agonist Start: 08-09-2021 HYDROcodone-acetam inophen (NORCO) 5-325 mg per tablet Take by mouth. 0 08/09/2021 Active Problems Active Problems Problem Classification Problem Date Documented Da te Episodic/Chronic Anxiety disorders (18 sources) Anxiety; Translations: [Anxiety disorder, unspecified] Onset: 1 11-24-2020 Chronic Diabetes mellitus without complication (20 sources) Type 2 diabetes mellitus without complication; Translations: [Type 2 diabetes mellitus without complications] Onset: 6 Chronic Disorders of lipid metabolism (18 sources) Hyperlipidemia; Translations: [Hyperlipidemia, unspecified] 07-02-2005 Chronic E Codes: Fall (1 source) Fall; Translations: [Unspecified fall, sequela] Episodic Esophageal disorders (18 sources) Gastroesophageal reflux disease; Translations: [Gastro-esophageal reflux disease without esophagitis] 07-02-2005 Chronic Essential hypertension (19 sources) Essential hypertension; Translations: [Essential (primary) hypertension] Chronic Genitourinary symptoms and ill-defined conditions (1 source) Incontinence; Translations: [Mixed incontinence] Chronic Genitourinary symptoms and ill-defined conditions (1 source) Increased frequency of urination; Translations: [Frequency of micturition] Episodic Inflammatory diseases of female pelvic organs (1 source) Bacterial vaginosis; Translations: [Acute vaginitis] Episodic Menopausal disorders (4 sources) Atrophic vaginitis; Translations: [Postmenopausal atrophic vaginitis] Onset: 3 Chronic Mycoses (2 sources) Candidiasis of vagina; Translations: [Candidiasis of vulva and vagina] Episodic Nutritional deficiencies (1 source) Vitamin D deficiency; Translations: [Vitamin D deficiency, unspecified] Chronic Nutritional deficiencies (4 sources) Cobalamin deficiency; Translations: [Deficiency of other specified B group vitamins] Episodic Osteoarthritis (1 source) Primary gonarthrosis, bilateral; Translations: [Bilateral primary osteoarthritis of knee] Chronic Osteoporosis (18 sources) Osteoporosis; Translations: [Age-related osteoporosis without current pathological fracture] Onset: 7 09-25-2016 Chronic Other endocrine disorders (1 source) Primary hyperparathyroidism; Translations: [Primary hyperparathyroidism] Chronic Other endocrine disorders (18 sources) Hyperparathyroidism; Translations: [Hyperparathyroidism, unspecified] Onset: 7 08-17-2016 Chronic Other female genital disorders (1 source) Pruritus of vagina; Translations: [Other specified noninflammatory disorders of vagina] Episodic Other female genital disorders (1 source) Burning sensation of vagina; Translations: [Unspecified condition associated with female genital organs and menstrual cycle] Episodic Other gastrointestinal disorders (1 source) Irritable bowel syndrome characterized by constipation; Translations: [Irritable bowel syndrome with constipation] Chronic Other gastrointestinal disorders (18 sources) Irritable bowel syndrome; Translations: [Irritable bowel syndrome without diarrhea] 07-02-2005 Chronic Other gastrointestinal disorders (3 sources) Constipation; Translations: [Constipation, unspecified] Episodic Other nutritional; endocrine; and metabolic disorders (19 sources) Hypercalcemia; Translations: [Hypercalcemia] Onset: 7 Chronic Other screening for suspected conditions (not mental disorders or infectious disease) (1 source) Patient encounter status; Translations: [Encounter for screening mammogram for malignant neoplasm of breast] Episodic Prolapse of female genital organs (11 sources) Midline cystocele; Translations: [Cystocele, midline] Onset: 3 Chronic Rehabilitation care; fitting of prostheses; and adjustment of devices (6 sources) Patient encounter status; Translations: [Encounter for fitting and adjustment of other specified devices] Onset: 3 Chronic Residual codes; unclassified (18 sources) Obstructive sleep apnea syndrome; Translations: [Obstructive sleep apnea (adult) (pediatric)] Onset: 3 08-07-2021 Chronic Residual codes; unclassified (1 source) Memory impairment; Translations: [Other amnesia] 05-14-2023 Episodic Past or Other Problems Problem Classification Problem Date Documented Da te Episodic/Chronic Deficiency and other anemia (18 sources) Nutritional anemia; Translations: [Other vitamin B12 deficiency anemias] Onset: 04-27-2008 04-27-2008 Episodic Deficiency and other anemia (18 sources) Anemia; Translations: [Anemia, unspecified] Onset: 08-17-2016 08-17-2016 Episodic Other skin disorders (18 sources) Sebaceous cyst of skin; Translations: [Sebaceous cyst] Onset: 07-23-2016 07-23-2016 Episodic Residual codes; unclassified (1 source) Other amnesia; Translations: [Memory deficit] Onset: 05-14-2023 Episodic Varicose veins of lower extremity (18 sources) Varicose veins of lower extremity; Translations: [Asymptomatic varicose veins of bilateral lower extremities] Onset: 05-09-2016 05-09-2016 Episodic Viral infection (18 sources) Plantar wart of left foot; Translations: [Plantar wart] Onset: 05-09-2016 05-09-2016 Episodic Results Test Name Value Interpretation Reference Range Facil ity Vital Signs Date Time Vital Sign Value Performing Clinician Stephanie yadav 07-05-2023 14:29-0500 Body weight 67.5 kg Martha Kim APRN.CAREER RESOURCE SPECIALIST Work Phone: [facility] 07-05-2023 14:29-0500 Diastolic blood pressure 68 mm[Hg] Martha Kim APRN.CAREER RESOURCE SPECIALIST Work Phone: [facility] 07-05-2023 14:29-0500 Systolic blood pressure 100 mm[Hg] Martha Kim APRN.CAREER RESOURCE SPECIALIST Work Phone: [facility] 04-03-2023 14:35-0400 Body weight 65.5 kg Martha Kim APRN.CAREER RESOURCE SPECIALIST Work Phone: [facility] 04-03-2023 14:35-0400 Diastolic blood pressure 80 mm[Hg] Martha Kim APRN.CAREER RESOURCE SPECIALIST Work Phone: [facility] 04-03-2023 14:35-0400 Systolic blood pressure 120 mm[Hg] Martha Kim APRN.CAREER RESOURCE SPECIALIST Work Phone: [facility] 09-07-2022 11:31-0500 Body weight 66.22 kg Martha Kim APRN.CAREER RESOURCE SPECIALIST Work Phone: [facility] 09-07-2022 11:31-0500 Diastolic blood pressure 64 mm[Hg] Martha Kim APRN.CAREER RESOURCE SPECIALIST Work Phone: [facility] 09-07-2022 11:31-0500 Systolic blood pressure 152 mm[Hg] Martha Kim APRN.CAREER RESOURCE SPECIALIST Work Phone: [facility] 04-20-2022 15:31-0400 Body temperature 98.01 [degF] Martha Kim APRN.CAREER RESOURCE SPECIALIST Work Phone: [facility] 04-20-2022 15:31-0400 Body weight 63.96 kg Martha Kim APRN.CAREER RESOURCE SPECIALIST Work Phone: [facility] 04-20-2022 15:31-0400 Diastolic blood pressure 70 mm[Hg] Martha Kim APRN.CAREER RESOURCE SPECIALIST Work Phone: [facility] 04-20-2022 15:31-0400 Systolic blood pressure 110 mm[Hg] Martha Kim APRN.CAREER RESOURCE SPECIALIST Work Phone: [facility] 03-15-2022 11:01-0400 Body weight 68.49 kg Martha Kim APRN.CAREER RESOURCE SPECIALIST Work Phone: [facility] 03-15-2022 11:01-0400 Diastolic blood pressure 62 mm[Hg] Martha Kim APRN.CAREER RESOURCE SPECIALIST Work Phone: [facility] 03-15-2022 11:01-0400 Systolic blood pressure 122 mm[Hg] Martha Kim APRN.CAREER RESOURCE SPECIALIST Work Phone: [facility] 03-06-2022 13:36-0400 Body weight 63.05 kg Martha Kim APRN.CAREER RESOURCE SPECIALIST Work Phone: [facility] 03-06-2022 13:36-0400 Diastolic blood pressure 82 mm[Hg] Martha Kim APRN.CAREER RESOURCE SPECIALIST Work Phone: [facility] 03-06-2022 13:36-0400 Systolic blood pressure 126 mm[Hg] Martha Kim APRN.CAREER RESOURCE SPECIALIST Work Phone: [facility] 10-24-2021 11:00-0400 Body weight 71.22 kg Kathy Campos MD Work Phone: [facility] 10-24-2021 11:00-0400 Diastolic blood pressure 82 mm[Hg] Kathy Campos MD Work Phone: [facility] 10-24-2021 11:00-0400 Heart rate 82 /min Kathy Campos MD Work Phone: [facility] 10-24-2021 11:00-0400 Systolic blood pressure 138 mm[Hg] Kathy Campos MD Work Phone: [facility] Encounters Encounter Date Encounter Type Care Provider Facility Start: 10-15-2023 ambulatory IKER MARRERO Facility:[facility] Start: 07-05-2023 End: 07-05-2023 ambulatory MARTHA KIM Facility:[facility] Start: 07-05-2023 End: 07-05-2023 Patient encounter procedure Martha Kim BANQUET SERVER ON CALL.CAREER RESOURCE SPECIALIST Work Phone: OB/Gynecology Procedures Date Procedure Procedure Detail Performing Clinician Start: 04-20-2022 Urnls dip stick/tabl et rgnt auto w/o microscopy Martha Kim BANQUET SERVER ON CALL.CAREER RESOURCE SPECIALIST Work Phone: Start: 04-20-2022 Smr prim src gram/gi emsa stain bct fungi/cell Martha Kim BANQUET SERVER ON CALL.CAREER RESOURCE SPECIALIST Work Phone: Plan of Treatment Date Care Activity Detail Author Start: 05-14-2024 Shingrix Vaccine (1 of 2) Shingrix V accine (1 of 2) [facility] Immunizations Immunization Date Immunization Notes Care Provider Cinda ken 05-14-2023 COVID-19 vaccine, ag e 12+ yr, season (PFIZER-BIONTECH) Kathy Campos MD Work Phone: [facility] 08-10-2021 COVID-19 vaccine, ag e 12+ yr (PFIZER-BIONTECH - PURPLE TOP) Kathy Campos MD Work Phone: [facility] Work Phone: 05-10-2021 influenza, high dose seasonal, preservative-free Kathy Campos MD Work Phone: [facility] 05-10-2021 influenza virus vacc ine, unspecified formulation Kathy Campos MD Work Phone: [facility] 05-08-2021 influenza, high-dose , quadrivalent vaccine (FLUZONE HIGH DOSE QUADRIVALENT) Kathy Campos MD Work Phone: [facility] Work Phone: 11-07-2020 COVID-19 vaccine, fu ll dose (MODERNA) Kathy Campos MD Work Phone: [facility] Work Phone: 10-10-2020 COVID-19 vaccine, fu ll dose (MODERNA) Kathy Campos MD Work Phone: [facility] Work Phone: 05-03-2020 influenza, high-dose , quadrivalent vaccine (FLUZONE HIGH DOSE QUADRIVALENT) Kathy Campos MD Work Phone: [facility] Work Phone: 05-18-2019 influenza, high dose seasonal, preservative-free Kathy Campos MD Work Phone: [facility] Work Phone: 05-19-2018 influenza, high dose seasonal, preservative-free Kathy Campos MD Work Phone: [facility] Work Phone: 05-24-2017 influenza, high dose seasonal, preservative-free Kathy Campos MD Work Phone: [facility] Work Phone: 05-09-2016 influenza, high dose seasonal, preservative-free Kathy Campos MD Work Phone: [facility] Work Phone: 05-20-2015 influenza, high dose seasonal, preservative-free Kathy Campos MD Work Phone: [facility] Work Phone: 2015 pneumococcal conjuga te vaccine, 13 valent Kathy Campos MD Work Phone: [facility] 05-04-2014 influenza, seasonal, injectable Kathy Campos MD Work Phone: [facility] 05-28-2013 influenza virus vacc ine, unspecified formulation Kathy Campos MD Work Phone: [facility] 05-20-2012 influenza virus vacc ine, unspecified formulation Kathy Campos MD Work Phone: [facility] 05-24-2011 influenza virus vacc ine, unspecified formulation Kathy Campos MD Work Phone: [facility] 05-31-2010 influenza virus vacc ine, unspecified formulation Kathy Campos MD Work Phone: [facility] 05-26-2009 influenza virus vacc ine, unspecified formulation Kathy Campos MD Work Phone: [facility] Work Phone: 06-25-2008 influenza virus vacc ine, unspecified formulation Kathy Campos MD Work Phone: [facility] 08-19-2006 pneumococcal polysaccharide vaccine, 23 valent Kathy Campos MD Work Phone: [facility] Work Phone: 08-19-2006 tetanus and diphther ia toxoids, adsorbed, preservative free, for adult use (2 Lf of tetanus toxoid and 2 Lf of diphtheria toxoid) Kathy Campos MD Work Phone: [facility] 06-14-2005 influenza virus vacc ine, whole virus Kathy Campos MD Work Phone: [facility] Work Phone: Payers Date Payer Category Payer Medicare [employer] [place] [id number] 2013-Present [phone] [address] [place] [address] O [id number] 2013 Medicare [employer] [place] [place] [id number] 2013-Present [phone] [address] [place] [address] O [id number] 2013 Medicare [id number] 2005 Unknown PSYCH GENERIC BH GENERIC [id number] 2005-Present [phone] [address] [place] [address] Indemnity [id number] Social History Date Type Detail Facility Start: [facility]22 [facility] Work Phone: End: 08-12-1999 History of tobacco use Current smoker [facility] Work Phone: End: 08-12-1999 History of tobacco use Cigarette Smoker [facility] Work Phone: Start: 10-02-2021 End: 07-05-2023 Alcohol intake Current drinker of alcohol (finding) [facility] Start: 10-02-2021 End: 01-01-2023 Alcohol intake [facility] Start: 06-23-2020 History SDOH Alcohol Frequency 2 [facility] Start: 1940 Sex Assigned At Not on file [facility] Start: 02-04-2021 End: 06-05-2022 Exposure to SARS-CoV-2 (event) Not sure [facility] Start: 04-20-2022 Tobacco use and exposure Smoke less tobacco non-user [facility] Work Phone: Start: 06-23-2020 End: 01-01-2023 Alcohol Use Disorder Identification Test - Consumption [AUDIT-C] [facility] How often to you hav e a drink containing alcohol? Monthly or less [facility] Average Number of Drinks Not on file [facility] Clinical Notes 08-01-2015 to 10-15-2023 Martha Kim APRN.[facility] - 07/05/2023 2:28 PM Martha Pérez APRN.CAREER RESOURCE SPECIALIST - 04/03/2023 2:32 PM EDTTelephone Encounter - Loretta Garrido RESEARCH INVESTIGATOR - 03/21/2023 12:10 PM EDTPatient Instructions Note Date & Type Note Facility 10-15-2023 Note HNO ID: [id number] Author: MARTHA KIM APRN.CNP Service: ? Author Type: Nurse Practitioner Type: Progress Notes Filed: 10/15/2023 15:52 Note Text: Inside Sales Administrator offered: Patient declines. in waiting room. Elenita Galarza is a 83 year old who presents today for pessary insertion/cleaning. She wears a size 1 ring with support pessary. She returns today with continued complaints of constipation. She has not had problems with the pessary. She has not had vaginal discharge. She has not had vaginal bleeding. EXAM: pleasant, well developed, well nourished, in no apparent distress Pelvic: Bartholin's, urethra and Corsica's glands were normal. The ring with support pessary was removed. Vaginal exam indicated no erythema, no ulcerations, and no vaginal discharge. The pessary was cleaned and put in bag for patient to take home. ASSESSMENT/PLAN: 1. Pessary maintenance - ICD9: V53.99, ICD10: Z46.89 (primary diagnosis) - pessary removed per pt request to see if constipation improves. 2. Cystocele, midline - ICD9: 618.01, ICD10: N81.11 3. Rectocele - ICD9: 618.04, ICD10: N81.6 4. Post-menopausal atrophic vaginitis - ICD9: 627.3, ICD10: N95.2 - continue estradiol cream 2/wk 5. Constipation, unspecified constipation type - ICD9: 564.00, ICD10: K59.00 - chronic and managed by PCP - takes stool softener - pessary removed per pt request. Reassured her that if constipation is not improved and urinary symptoms worsen, pessary can be reinserted Follow-up as needed. Martha Kim APRN.CNP I spent a total of 20 minutes on the date of the service which included preparing to see the patient, [id number] patient care, completing clinical documentation, obtaining and/or reviewing separately obtained history, performing a medically appropriate examination, and counseling and educating the patient/family/caregiver. [facility] 07-05-2023 Note HNO ID: [id number] Author: Martha Kim APRN.CNP Service: ? Author Type: Nurse Practitioner Type: Progress Notes Filed: 07/05/2023 3:29 PM Note Text: Accompanied by . Elenita Galarza is a 83 year old who presents today for pessary insertion/cleaning. She wears a size 1 ring with support pessary. She returns today with no complaints. She has not had problems with the pessary. She has not had vaginal discharge. She has not had vaginal bleeding. Hospitalized after a fall last month and is taking pain medication. She has recently had worse constipation than usual and is taking stool softeners and laxatives. Has also been started on oral iron. EXAM: pleasant, well developed, well nourished, in no apparent distress Pelvic: Bartholin's, urethra and Corsica's glands were normal. The ring with support pessary was removed. Vaginal exam indicated no erythema, no ulcerations, and no vaginal discharge after large amount of Estrace cream removed.. The pessary was cleaned and re-inserted using Trimo-rosas. ASSESSMENT/PLAN: 1. Pessary maintenance - ICD9: V53.99, ICD10: Z46.89 (primary diagnosis) The pessary was inserted, patient tolerated the procedure well and the device is comfortable. 2. Cystocele, midline - ICD9: 618.01, ICD10: N81.11 3. Post-menopausal atrophic vaginitis - ICD9: 627.3, ICD10: N95.2 - continue estradiol cream twice a week 4. Constipation, unspecified constipation type - ICD9: 564.00, ICD10: K59.00 - chronic - worse since taking oxycodone and oral iron. Is treating with stool softeners and laxative. She is encouraged to discuss medications and management of constipation with PCP. Follow-up 3 months for pessary maintenance. Martha Kim APRN.KELECHI I spent a total of 20 minutes on the date of the service which included preparing to see the patient, [id number] patient care, completing clinical documentation, obtaining and/or reviewing separately obtained history, performing a medically appropriate examination, and counseling and educating the patient/family/caregiver. [facility] 07-05-2023 History of Present illness Narrative Accompanied by . Elenita Galarza is a 83 year old who presents today for pessary insertion/cleaning. She wears a size 1 ring with support pessary. She returns today with no complaints. She has not had problems with the pessary. She has not had vaginal discharge. She has not had vaginal bleeding. Hospitalized after a fall last month and is taking pain medication. She has recently had worse constipation than usual and is taking stool softeners and laxatives. Has also been started on oral iron. EXAM: pleasant, well developed, well nourished, in no apparent distress Pelvic: Bartholin's, urethra and Corsica's glands were normal. The ring with support pessary was removed. Vaginal exam indicated no erythema, no ulcerations, and no vaginal discharge after large amount of Estrace cream removed.. The pessary was cleaned and re-inserted using Trimo-rosas. ASSESSMENT/PLAN: 1. Pessary maintenance - ICD9: V53.99, ICD10: Z46.89 (primary diagnosis) The pessary was inserted, patient tolerated the procedure well and the device is comfortable. 2. Cystocele, midline - ICD9: 618.01, ICD10: N81.11 3. Post-menopausal atrophic vaginitis - ICD9: 627.3, ICD10: N95.2 - continue estradiol cream twice a week 4. Constipation, unspecified constipation type - ICD9: 564.00, ICD10: K59.00 - chronic - worse since taking oxycodone and oral iron. Is treating with stool softeners and laxative. She is encouraged to discuss medications and management of constipation with PCP. Follow-up 3 months for pessary maintenance. Martha Kim APRN.CNP I spent a total of 20 minutes on the date of the service which included preparing to see the patient, [id number] patient care, completing clinical documentation, obtaining and/or reviewing separately obtained history, performing a medically appropriate examination, and counseling and educating the patient/family/caregiver. documented in this encounter [facility] 05-14-2023 Note HNO ID: [id number] Author: Kathy Campos MD Service: ? Author Type: Physician Type: Progress Notes Filed: 05/14/2023 4:45 PM Note Text: Requested COVID vaccine while here with spouse Filed order Noted follows with Dr. Marrero [facility] 04-03-2023 Note HNO ID: [id number] Author: Martha Kim APRN.KELECHI Service: ? Author Type: Nurse Practitioner Type: Progress Notes Filed: 04/03/2023 3:01 PM Note Text: Inside Sales Administrator offered: Patient declines. Accompanied by . Elenita Galarza is a 83 year old who presents today for pessary insertion/cleaning. She wears a size 1 ring with support pessary. She returns today with no complaints. She has not had problems with the pessary. She has not had vaginal discharge. She has not had vaginal bleeding. EXAM: pleasant, well developed, well nourished, in no apparent distress Pelvic: Bartholin's, urethra and Corsica's glands were normal. The ring with support pessary was removed. Vaginal exam indicated no erythema, no ulcerations, and no vaginal discharge. The pessary was cleaned and reinserted using Trimo-rosas. ASSESSMENT/PLAN: 1. Pessary maintenance - ICD9: V53.99, ICD10: Z46.89 (primary diagnosis) The pessary was cleaned and re-inserted, patient tolerated the procedure well and the device is comfortable. 2. Cystocele, midline - ICD9: 618.01, ICD10: N81.11 3. Post-menopausal atrophic vaginitis - ICD9: 627.3, ICD10: N95.2 - continue vaginal estrogen cream twice a week. Follow-up 3 months. Martha Kim APRN.CAREER RESOURCE SPECIALIST I spent a total of 20 minutes on the date of the service which included preparing to see the patient, [id number] patient care, completing clinical documentation, obtaining and/or reviewing separately obtained history, performing a medically appropriate examination, and counseling and educating the patient/family/caregiver. [facility] 04-03-2023 History of Present illness Narrative Inside Sales Administrator offered: Patient declines. Accompanied by . Elenita Galarza is a 83 year old who presents today for pessary insertion/cleaning. She wears a size 1 ring with support pessary. She returns today with no complaints. She has not had problems with the pessary. She has not had vaginal discharge. She has not had vaginal bleeding. EXAM: pleasant, well developed, well nourished, in no apparent distress Pelvic: Bartholin's, urethra and Corsica's glands were normal. The ring with support pessary was removed. Vaginal exam indicated no erythema, no ulcerations, and no vaginal discharge. The pessary was cleaned and reinserted using Trimo-rosas. ASSESSMENT/PLAN: 1. Pessary maintenance - ICD9: V53.99, ICD10: Z46.89 (primary diagnosis) The pessary was cleaned and re-inserted, patient tolerated the procedure well and the device is comfortable. 2. Cystocele, midline - ICD9: 618.01, ICD10: N81.11 3. Post-menopausal atrophic vaginitis - ICD9: 627.3, ICD10: N95.2 - continue vaginal estrogen cream twice a week. Follow-up 3 months. Martha Kim APRN.CNP I spent a total of 20 minutes on the date of the service which included preparing to see the patient, [id number] patient care, completing clinical documentation, obtaining and/or reviewing separately obtained history, performing a medically appropriate examination, and counseling and educating the patient/family/caregiver. documented in this encounter [facility] 03-21-2023 Miscellaneous Notes Pt notified and voiced understanding with no further questions. Loretta Garrido LPN The pessary should pose no problems with radiation. Martha Kim APRN.CNP Patient will be having radiation treatments for lung cancer. She wants to know from [facility] that her pessary won't affect this or be affected from the radiation. Leandra Raman RN documented in this encounter [facility] 01-01-2023 Note HNO ID: [id number] Author: Martha Kim APRN.CAREER RESOURCE SPECIALIST Service: ? Author Type: Nurse Practitioner Type: Progress Notes Filed: 01/01/2023 12:02 PM Note Text: Inside Sales Administrator offered: Patient declines. Accompanied by . Elenita Galarza is a 82 year old who presents today for pessary insertion/cleaning. She wears a size 1 ring with support pessary. She returns today with no complaints. She has not had problems with the pessary. She has not had vaginal discharge. She has not had vaginal bleeding. EXAM: pleasant, well developed, well nourished, in no apparent distress Pelvic: Bartholin's, urethra and Corsica's glands were normal. The ring with support pessary was removed. Vaginal exam indicated no erythema, no ulcerations, and no vaginal discharge. The pessary was cleaned and reinserted wtthout difficulty using Trimo-rosas. ASSESSMENT/PLAN: 1. Pessary maintenance - ICD9: V53.99, ICD10: Z46.89 (primary diagnosis) - The pessary was inserted, patient tolerated the procedure well and the device is comfortable. - ESTRADIOL 0.01% (0.1 MG/GRAM) VAGINAL CREAM 2. Cystocele, midline - ICD9: 618.01, ICD10: N81.11 3. Post-menopausal atrophic vaginitis - ICD9: 627.3, ICD10: N95.2 - ESTRADIOL 0.01% (0.1 MG/GRAM) VAGINAL CREAM 4. Rectocele - ICD9: 618.04, ICD10: N81.6 Follow-up 3 months for pessary maintenance. Martha Kim APRN.CAREER RESOURCE SPECIALIST Medical Decision Making: Problems: Low: Stable chronic illness Risk: Moderate: Drug management Medical Decision Making Level: 3 - Low [facility] 09-07-2022 History of Present illness Narrative Inside Sales Administrator offered: Patient declines. Accompanied by . Elenita Galarza is a 82 year old who presents today for pessary insertion/cleaning. She wears a size 1 ring with support pessary. She returns today with no complaints. She has not had problems with the pessary. She has not had vaginal discharge. She has not had vaginal bleeding. EXAM: pleasant, well developed, well nourished, in no apparent distress Pelvic: Bartholin's, urethra and Corsica's glands were normal. The ring with support pessary was removed. Vaginal exam indicated no erythema, no ulcerations, and no vaginal discharge. The pessary was cleaned ane re-inserted without difficulty using Trimo-rosas. ASSESSMENT/PLAN: 1. Pessary maintenance - ICD9: V53.99, ICD10: Z46.89 (primary diagnosis) - The pessary was inserted, patient tolerated the procedure well and the device is comfortable. 2. Cystocele, midline - ICD9: 618.01, ICD10: N81.11 3. Rectocele - ICD9: 618.04, ICD10: N81.6 Martha Kim APRN.CNP I spent a total of 20 minutes on the date of the service which included preparing to see the patient, [id number] patient care, completing clinical documentation, obtaining and/or reviewing separately obtained history, performing a medically appropriate examination, and counseling and educating the patient/family/caregiver. documented in this encounter [facility] 06-07-2022 Miscellaneous Notes Thank you. No need to call patient back. Aware nursing would only call if she need to use the Estrogen twice a month. She planned to continue to use twice a week as directed. Leandra Raman RN Estrogen twice a week - please call and let her know. Martha Kim APRN.CNP Patient last seen 06/05. After visit summary states for patient to continue to use estrogen cream twice a month. Patient states she's been using twice a week as directed on RX. Asking if [facility] really wants her to use twice a month. Advised patient we would clarify this for her. We only need to call her back if it truly is twice a month, otherwise she will continue to use twice a week. Leandra Raman RN documented in this encounter [facility] 06-06-2022 Miscellaneous Notes Patient notified. Liseth Harvey RN Please notify pt - this message can be given to her Manuel. Her culture showed a yeast infection. Diflucan sent to her pharmacy. Martha Kim APRN.CNP documented in this encounter [facility] 04-23-2022 Miscellaneous Notes Called home and answered. Patient not available and chart does not say able to speak to him regarding care. Note did state can call daughter, Micheline. advised to call her instead. Micheline called and notified of results. Liseth Harvey RN Please notify pt - vaginal culture positive for BV, Flagyl ordered. No alcohol use while taking Flagyl or for 2 days after completion. Monistat 7 for yeast. The urine culture did not show infection, only contamination. Martha Kim APRN.CNP documented in this encounter [facility] 04-20-2022 History of Present illness Narrative Inside Sales Administrator offered: Patient declines. Accompanied by . Elenita Galarza is a 82 year old who presents today for pessary insertion/cleaning. She wears a size 1 ring with support pessary. She returns today with complaints of vaginal burning and itching for past 2 -3 weeks. She has not had problems with the pessary but thinks it may have dislodged when she fell. She is unsure if she has any vaginal discharge or if it is from the estradiol cream. She has not had vaginal bleeding. She was voiding in small amounts and frequently before the pessary insertion and since then. 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 She stopped taking Miralax due to diarrhea and is trying to start it again - took one dose yesterday. Used enema and was able to pass some hard little balls of stool today. Fell 2 days ago onto buttocks and bounced onto back. Fell the previous week and was evaluated in ED. Has appointment Dr Marrero 05/07/2022 EXAM: pleasant, well developed, well nourished, in no apparent distress. Poor historian. Pelvic: Bartholin's, urethra and Corsica's glands were normal. The ring with support pessary was removed. Vaginal exam indicated no erythema, no ulcerations, and no vaginal discharge. The pessary was cleaned and the size 1 ring with support was inserted without difficulty ASSESSMENT/PLAN: 1. Encounter for fitting and adjustment of pessary - ICD9: V53.99, ICD10: Z46.89 (primary diagnosis) - Pessary removed, cleaned and replaced. - The pessary was inserted, patient tolerated the procedure well and the device is comfortable. 2. Urinary frequency - ICD9: 788.41, ICD10: R35.0 - URINALYSIS, WITH MICROSCOPIC - URINE CULTURE 3. Constipation, unspecified constipation type - ICD9: 564.00, ICD10: K59.00 - reinforced need to manage constipation with stool softener and Miralax instead of treating constipation with enemas. 4. Cystocele, midline - ICD9: 618.01, ICD10: N81.11 5. Rectocele - ICD9: 618.04, ICD10: N81.6 6. Vagina itching - ICD9: 698.1, ICD10: N89.8 - BACT/YNES VAG GRAM STAIN 7. Vaginal burning - ICD9: 625.8, ICD10: N94.9 - BACT/YNES VAG GRAM STAIN Will notify of results. Follow- up in 3 months for pessary maintenance. Martha Kim APRN.CAREER RESOURCE SPECIALIST Medical Decision Making: Problems: Low: Acute, uncomplicated illness or injury Moderate: 1+ chronic illnesses with change Data: Unique test(s) ordered: 3+ Medical Decision Making Level: 4 - Moderate documented in this encounter [facility] 03-15-2022 Instructions Martha Kim APRN.CNP - 03/15/2022 12:05 PM EDT Call if you have any problems - pain, unable to empty the bladder or bowel. Miralax twice a day. documented in this encounter [facility] 03-15-2022 History of Present illness Narrative Inside Sales Administrator offered: Patient declines. Accompanied by . Elenita Galarza presents today for pessary insertion for prolapse. Cystocele 2nd degree. Since using estrogen cream, the prolapse is not bothering her as much - she does not feel it as often and she now leans forward to completely empty bladder. Continues to have chronic constipation. Using Miralax in the evening - has not added it in the morning The alternatives, risks, benefits, and potential complications have been reviewed with the patient. The patient states an understanding of RBAP and consents to proceed with the procedure. The patient wishes to proceed with the procedure. A size 1, ring with support pessary was inserted using Trimo-rosas, patient tolerated the procedure well and the device is comfortable. She does not plan to remove and reinsert pessary independently. Size 2 ring with support pessary also tried - too big. ASSESSMENT/PLAN: 1. Encounter for fitting and adjustment of pessary - ICD9: V53.99, ICD10: Z46.89 (primary diagnosis) - Fitted with size 1 ring with support pessary. - Pt to call with any problems - pain, unable to empty the bladder or bowel. 2. Cystocele, midline - ICD9: 618.01, ICD10: N81.11 1-2nd degree Follow-up in 6 weeks. Martha Kim APRN.CNP documented in this encounter [facility] 03-06-2022 Instructions Martha Kim APRN.CNP - 03/06/2022 2:19 PM EDT Take Miralax twice a day. Schedule pessary fitting. documented in this encounter [facility] 03-06-2022 History of Present illness Narrative Elenita Galarza is a 81 year old female who presents for problem visit Vaginal prolapse Accompanied by . HPI: Has been feeling vaginal bulge recently - evaluated in [facility] ED and found to have vaginal prolapse. Feels bulge when she wipes but never needs to push anything back inside. S/p hysterectomy. Urinary - sometimes difficult to completely empty bladder and leaks urine when she coughs or sneezes or if she really needs to void. Occasionally has to sit down again to finish voiding. No UTI's for several years. Has been evaluated by Dr Zendejas for constipation and had normal colonoscopy with polypectomy in 2015. Dr Silver colonoscopy in 2019 - hemorrhoids, diverticulitis. States he talked about a sleeve procedure. Review of medical record shows he recommended twice daily Miralax. Uses Miralax as needed - approximately twice a week but stays constipated , having hard BM 2-3 times a week. OB History T0 L1 SAB0 IAB0 Ectopic0 Multiple0 Live Births0 Business Partner History LMP: Hysterectomy Age at Menarche: Age at First : Age at Menopause: Business Partner History Comments: Sexual Activity: Never; No partner data on record Contraception: No contraception data on record PAST MEDICAL HISTORY Diagnosis Date Adjustment disorder with depressed mood Arthritis Benign neoplasm of colon Cholelithiasis Chronic obstructive pulmonary disease (COPD) (HCC) Constipation 01/31/2016 Diverticulosis of colon (without mention of hemorrhage) Diverticulosis Esophageal reflux Essential hypertension, benign Hypertension goal BP (blood pressure) < 150/90 Irritable bowel syndrome Other and unspecified hyperlipidemia Hyperlipidemia Stroke (HCC) Tubular adenoma of colon 01/22/2014 Type II or unspecified type diabetes mellitus without mention of complication, not stated as uncontrolled 2003 PAST SURGICAL HISTORY Procedure Laterality Date APPENDECTOMY APPENDECTOMY CHOLECYSTECTOMY HX 80s COLONOSCOPY FLX DX W/COLLJ SPEC WHEN PFRMD 11/03/03 Colonoscopy COLONOSCOPY FLX DX W/COLLJ SPEC WHEN PFRMD 10/28/2012 Colonoscopy COLONOSCOPY FLX DX W/COLLJ SPEC WHEN PFRMD 01/02/16 Colonoscopy next with mac COLONOSCOPY FLX DX W/COLLJ SPEC WHEN PFRMD 12/14/2016 COLONOSCOPY FLX DX W/COLLJ SPEC WHEN PFRMD 06/23/2020 Colonoscopy EGD TRANSORAL BIOPSY SINGLE/MULTIPLE 12/14/2016 EYE SURGERY HX STEREOTACTIC CORE BIOPSY 01/25/09 LEFT TOTAL ABDOMINAL HYSTERECT W/WO RMVL TUBE OVARY Hysterectomy, JUMANA VAGINAL HYSTERECTOMY FAMILY HISTORY Problem Relation Age of Onset Hypertension Mother Heart Mother unknown details/cebral hemorrhage Cancer Father lung Cancer Sister lung Colon Cancer Brother age 66 Social History Tobacco Use Smoking status: Former Smoker Packs/day: 1.00 Years: 40.00 Pack years: 40.00 Types: Cigarettes Quit date: 08/12/1999 Years since quittin.5 Smokeless tobacco: Never Used Vaping Use Vaping Use: Never used Substance Use Topics Alcohol use: Yes Alcohol/week: 1.7 standard drinks Comment: 1 beer once weekly Drug use: No Current Outpatient Medications Medication Sig lovastatin (MEVACOR) 20 mg tablet Take 1 tablet by mouth daily at bedtime. gabapentin (NEURONTIN) 300 mg capsule Take 1 capsule by mouth daily at bedtime. carvedilol (COREG) 6.25 mg tablet Take 1 tablet by mouth once daily. amLODIPine-benazepril (LOTREL) 5-20 mg per capsule Take 1 capsule by mouth twice daily. Psyllium Seed-Dextrose (FIBER) powder Take 1 Package by mouth once daily as needed (constipation). polyethylene glycol 3350 (MIRALAX, GLYCOLAX) 17 gram/dose powder Drink a mix of 1 scoop in 8oz of water/beverage once daily as needed for constipation. Docusate Sodium (STOOL SOFTENER) 100 mg tab Take 1 tablet by mouth twice daily as needed. COMPOUNDED PRESCRIPTION Fiber powder 1 scoop in liquid daily cyanocobalamin 1,000 mcg/mL soln Inject 1 mL intramuscularly once every month. triamcinolone acetonide (NASACORT) 55 mcg nasal inhaler Use 2 Sprays in the nose once daily as needed. Simethicone (GAS-X) 125 mg ORAL Cap Take 1 capsule by mouth as needed. CHOLECALCIFEROL (VITAMIN D3) 2,000 UNIT CAP Take one(1) tablet daily. multivitamins(DAILY MULTIVITAMIN TAB) Take one(1) tablet daily. metFORMIN (GLUCOPHAGE) 500 mg tablet Take 1 tablet by mouth daily with breakfast. (Patient not taking: Reported on 03/06/2022 ) HYDROcodone-acetaminophen (NORCO) 5-325 mg per tablet Take by mouth. (Patient not taking: Reported on 09/07/2021) celecoxib (CELEBREX) 200 mg capsule Take 1 capsule by mouth once daily. Take with breakfast - for knee pain pantoprazole DR (PROTONIX) 20 mg tablet Take 1 tablet by mouth once daily as needed. (Patient not taking: Reported on 03/06/2022 ) MELATONIN ORAL Take by mouth. ondansetron HCl (ZOFRAN ORAL) Take by mouth. (Patient not taking: Reported on 03/06/2022 ) COMPOUNDED PRESCRIPTION 8-15 mmHg compression socks or stockings, thigh high Dx. bilateral lower extremity varicosities without ulcers aspirin, enteric coated (ASPIRIN, ENTERIC COATED) 81 mg EC tablet Take 81 mg by mouth once daily. (Patient not taking: Reported on 03/06/2022 ) Current Facility-Administered Medications Medication Dose Route Frequency cyanocobalamin 1,000 mcg injection 1,000 mcg INTRAMUSCULAR q 1 MONTH Allergies As of Date: 03/06/2022 Allergen Noted Reaction ADHESIVE TAPE (ROSINS) 12/20/2005 Rhett GIL [CHLORPHENIRAMINE-PE TANN*07/02/2005 SEASONAL ALLERGIES 11/15/2010 Other: See Comments Fully Assessed 03/06/2022 REVIEW OF SYSTEMS Abdomen: No bloating, early satiety, indigestion, or increased flatulence. No abdominal pain, nausea, vomiting, diarrhea, or constipation. Bladder: see HPI Allergies and current medication updated:Yes EXAM: BP 126/82 Wt 139 lb (63.1kg) GENERAL: pleasant, female in no apparent distress. Has difficulty remembering detail of HPI. CHEST: Normal inspiratory effort ABDOMEN: soft, non-tender and no masses PELVIC: external genitalia normal, normal Bartholin's glands, urethra, Corsica's glands, no vulvar lesions, physiologic discharge present, normal appearing perineal body and perianal region, cervix surgically absent, cystocele 1st degree on exam but 2nd degree by history, rectocele 1st degree BIMANUAL: no adnexal masses, non-tender and uterus surgically absent NEURO: alert and oriented x3,exam grossly non-focal ASSESSMENT/PLAN: 1. Cystocele, midline - ICD9: 618.01, ICD10: N81.11 (primary diagnosis) - 1st degree on exam, 2nd degree by history Discussed options of monitor, pessary or surgical consult.. Prefers Pessary fitting and will schedule. - ESTRADIOL 0.01% (0.1 MG/GRAM) VAGINAL CREAM - discussed if poor coverage by insurance, can 2. Post-menopausal atrophic vaginitis - ICD9: 627.3, ICD10: N95.2 - ESTRADIOL 0.01% (0.1 MG/GRAM) VAGINAL CREAM 3. Mixed incontinence - ICD9: 788.33, ICD10: N39.46 - Encouraged to change position to completely empty bladder. - Pessary fitting 4. Rectocele - ICD9: 618.04, ICD10: N81.6 - 1st degree 5. Constipation, unspecified constipation type - ICD9: 564.00, ICD10: K59.00 - Discussed how constipation can worsen rectocele. - Miralax twice a day as recommended by Dr Silver Has appointment with PCP at [facility]. Follow-up for pessary fitting. Martha Kim APRN.KELECHI I spent a total of 45 minutes on the date of the service which included preparing to see the patient, [id number] patient care, completing clinical documentation, obtaining and/or reviewing separately obtained history, performing a medically appropriate examination, counseling and educating the patient/family/caregiver, ordering medications, tests, or procedures and communicating results to the patient/family/caregiver. documented in this encounter [facility] 02-09-2022 Miscellaneous Notes Okayed Last ov 05/24/21 Next ov 02/23/22 Pharmacy verified in Epic Patient has been identified by name and date of : Yes Patient aware RX will be sent to pharmacy. No need to notify patient. Patient phones for refill(s): Pending Prescriptions Disp Refills METFORMIN 500 MG TABLET 90 tablet 3 Sig: Take 1 tablet by mouth daily with breakfast. TEDDY: No Date of last office visit : 10/24/2021 Date of next office visit : 02/23/2022 Last 2 Encounter Wt Readings: Date: Wt: 10/24/2021 71.2 kg (157 lb) 08/17/2021 72.1 kg (159 lb) Please advise. Leandra Perez Pss documented in this encounter [facility] 02-05-2022 History of Present illness Narrative Patient presents for B-12 injection. Denies any problems at this time. Patient instructed on any SE of medication, verbalized understanding and agreed to proceed with treatment. Tolerated injection well. Amena Tran LPN documented in this encounter [facility] 01-05-2022 History of Present illness Narrative Patient presents for B-12 injection. Denies any problems at this time. Patient instructed on any SE of medication, verbalized understanding and agreed to proceed with treatment. Tolerated injection well. Amena Tran LPN documented in this encounter [facility] 01-02-2022 Miscellaneous Notes Patient scheduled for nurse visit 01/05/22 to receive B-[address] new administration order at this time. Amena Tran LPN documented in this encounter [facility] 11-06-2021 History of Present illness Narrative Patient presents for B-12 injection. Denies any problems at this time. Patient instructed on any SE of medication, verbalized understanding and agreed to proceed with treatment. Tolerated injection well. Amena Tran LPN documented in this encounter [facility] 10-24-2021 Instructions Kathy Campos MD - 10/24/2021 11:58 AM EDT Try taking Metamucil every other night to see if helps keep bowels moving daily. If develop stools that are too loose, then try every couple days. If not adequate, can take every night. Takes GasX daily for now to control gas. If above not adequate, could add flax seed oil capsules daily or every other day. Other option is capsule oil and takin g1 to 2 teaspoon. Let me know if not getting bowels moving regularly. Goal to go at least every other day May take stool softener if needed and/or the laxative if needed after 3 to 4 days. documented in this encounter [facility] 10-24-2021 History of Present illness Narrative This note was created using Cover. Subjective Elenita Galarza is a 81 year old female. Patient presents with: Follow Up SUBJECTIVE: Elenita Galarza is a 81 year old year old lady here today for 3 month follow up appointment for review of medical conditions. Ongoing constipation issues with straining to get started. Balls and lumps of stool Takes softener with laxative 3 to 4 times a week. Problems with gas and bloating. Steroid shots had not helped for knees. Considering gel shots for knees--does not want yet. Saw Dr. Serrato in August. Had steroid shot June Hard to get up sometimes. Walking difficult sometimes. Told to try walker, but does not have one. Had fallen and landed on side. Went to ER. No fractures. Had legs checked for blood cots--negative. Just stay puffy--says genetic PAST MEDICAL HISTORY Diagnosis Date Adjustment disorder with depressed mood Arthritis Benign neoplasm of colon Cholelithiasis Chronic obstructive pulmonary disease (COPD) (HCC) Constipation 01/31/2016 Diverticulosis of colon (without mention of hemorrhage) Diverticulosis Esophageal reflux Essential hypertension, benign Hypertension goal BP (blood pressure) < 150/90 Irritable bowel syndrome Other and unspecified hyperlipidemia Hyperlipidemia Stroke (HCC) Tubular adenoma of colon 01/22/2014 Type II or unspecified type diabetes mellitus without mention of complication, not stated as uncontrolled 2003 Current Outpatient Medications Medication Sig HYDROcodone-acetaminophen (NORCO) 5-325 mg per tablet Take by mouth. (Patient not taking: Reported on 09/07/2021) celecoxib (CELEBREX) 200 mg capsule Take 1 capsule by mouth once daily. Take with breakfast - for knee pain pantoprazole DR (PROTONIX) 20 mg tablet Take 1 tablet by mouth once daily as needed. lovastatin (MEVACOR) 20 mg tablet Take 1 tablet by mouth daily at bedtime. gabapentin (NEURONTIN) 300 mg capsule Take 1 capsule by mouth daily at bedtime. carvedilol (COREG) 6.25 mg tablet Take 1 tablet by mouth once daily. amLODIPine-benazepril (LOTREL) 5-20 mg per capsule Take 1 capsule by mouth twice daily. metFORMIN (GLUCOPHAGE) 500 mg tablet Take 1 tablet by mouth daily with breakfast. MELATONIN ORAL Take by mouth. ondansetron HCl (ZOFRAN ORAL) Take by mouth. Psyllium Seed-Dextrose (FIBER) powder Take 1 Package by mouth once daily as needed (constipation). polyethylene glycol 3350 (MIRALAX, GLYCOLAX) 17 gram/dose powder Drink a mix of 1 scoop in 8oz of water/beverage once daily as needed for constipation. Docusate Sodium (STOOL SOFTENER) 100 mg tab Take 1 tablet by mouth twice daily as needed. COMPOUNDED PRESCRIPTION 8-15 mmHg compression socks or stockings, thigh high Dx. bilateral lower extremity varicosities without ulcers COMPOUNDED PRESCRIPTION Fiber powder 1 scoop in liquid daily cyanocobalamin 1,000 mcg/mL soln Inject 1 mL intramuscularly once every month. triamcinolone acetonide (NASACORT) 55 mcg nasal inhaler Use 2 Sprays in the nose once daily as needed. aspirin, enteric coated (ASPIRIN, ENTERIC COATED) 81 mg EC tablet Take 81 mg by mouth once daily. Simethicone (GAS-X) 125 mg ORAL Cap Take 1 capsule by mouth as needed. CHOLECALCIFEROL (VITAMIN D3) 2,000 UNIT CAP Take one(1) tablet daily. multivitamins(DAILY MULTIVITAMIN TAB) Take one(1) tablet daily. Current Facility-Administered Medications Medication Dose Route Frequency cyanocobalamin 1,000 mcg injection 1,000 mcg INTRAMUSCULAR q 1 MONTH Review of Systems Objective BP 138/82 Pulse 82 Wt 71.2 kg (157 lb) BMI 28.72 kg/m Physical Exam Constitutional: Appearance: Normal appearance. HENT: Head: Normocephalic. Eyes: Conjunctiva/sclera: Conjunctivae normal. Cardiovascular: Rate and Rhythm: Normal rate and regular rhythm. Heart sounds: Normal heart sounds. Pulmonary: Effort: Pulmonary effort is normal. Breath sounds: Normal breath sounds. Skin: General: Skin is warm and dry. Neurological: General: No focal deficit present. Mental Status: She is alert and oriented to person, place, and time. Psychiatric: Attention and Perception: Attention and perception normal. Mood and Affect: Mood and affect normal. Behavior: Behavior is cooperative. HgA1C 5.6 08/2021 at [facility] . Component Latest Ref Rng & Units 05/17/2021 08/15/2021 Protein, Total 6.3 - 8.0 g/dL 6.9 Albumin 3.9 - 4.9 g/dL 4.2 Calcium 8.5 - 10.2 mg/dL 10.7 (H) Bilirubin, Total 0.2 - 1.3 mg/dL 0.3 Alkaline Phosphatase 34 - 123 U/L 82 AST 13 - 35 U/L 17 Glucose 74 - 99 mg/dL 100 (H) BUN 7 - 21 mg/dL 20 Creatinine 0.58 - 0.96 mg/dL 0.86 Sodium 136 - 144 mmol/L 136 Potassium 3.7 - 5.1 mmol/L 4.0 Chloride 97 - 105 mmol/L 102 CO2 22 - 30 mmol/L 26 Anion Gap 9 - 18 mmol/L 8 (L) ALT 7 - 38 U/L 8 eGFR- >60 eGFR-All Other Races . >60 Creatinine, Ur Random (UCRR) 20 - 300 mg/dL Test sent to [facility]. Albumin, Urine Random mg/L Test sent to [facility]. Albumin/Creat Ratio <30 mg/g Test sent to [facility]. Hemoglobin A1C 4.0 - 6.0 % Test sent to [facility]. Test sent to [facility]. Estimated Average Glucose mg/dL Test sent to [facility]. Test sent to [facility]. Vitamin D 25 Hydroxy 31.0 - 80.0 ng/mL Test sent to [facility]. PTH, Intact 15 - 65 pg/mL Test sent to [facility]. Assessment and Plan Encounter Diagnosis ICD-10-CM 1. Controlled type 2 diabetes mellitus without complication, without long-term current use of insulin ([facility]) E11.9 COMP METABOLIC PANEL LIPID PANEL BASIC HGB A1C ALBUMIN/CREAT RATIO RND UR 2. Irritable bowel syndrome with constipation K58.1 3. Primary osteoarthritis of both knees M17.0 4. Fall, sequela W19.XXXS 5. Hypercalcemia E83.52 COMP METABOLIC PANEL VITAMIN D 25 HYDROXY PTH INTACT BLD 6. Primary hyperparathyroidism (HCC) E21.0 COMP METABOLIC PANEL VITAMIN D 25 HYDROXY PTH INTACT BLD 7. Vitamin D deficiency E55.9 COMP METABOLIC PANEL VITAMIN D 25 HYDROXY PTH INTACT BLD 8. Essential hypertension I10 COMP METABOLIC PANEL CBC LIPID PANEL BASIC ASSESSMENT/PLAN: 1. Controlled type 2 diabetes mellitus without complication, without long-term current use of insulin ([facility]) - ICD9: 250.00, ICD10: E11.9 (primary diagnosis) Controlled. - Continue current medications - Encouraged regular aerobic exercise and weight loss - Exercise limited by OA pain--stay as active as able 2. Irritable bowel syndrome with constipation - ICD9: 564.1, ICD10: K58.1 Discussed management at length. See patient instructions. 3. Primary osteoarthritis of both knees - ICD9: 715.16, ICD10: M17.0 Continue present management. Follows with Dr. Serrato 4. Fall, sequela - ICD9: 909.4, E929.3, ICD10: W19.XXXS Fall prevention. Further evaluation and treatment as indicated. Continue current meds. No need for refills today. Added labs so would be available to do prior next appointment and as needed based on symptoms. Need to follow up on hyperparathyroidism and high calcium. Kathy Campos MD Medical Decision Making: Problems: Moderate: 2+ stable chronic illnesses Data: Unique test result(s) reviewed: 2 Unique test(s) ordered: 3+ Risk: Moderate: Drug management Medical Decision Making Level: 4 - Moderate documented in this encounter [facility] documented as of this encounter (statuses as of 11/03/2021) [facility]12-[facility]-2015 History of Past illness Narrative* Problem Noted Date Resolved Date Irritable bowel syndrome without diarrhea 201405/09/2016 Diabetes mellitus type 2, controlled, without co mplications 02/21/2015 05/09/2016 Varicosities of leg 01/22/2014 08/01/2015 Benign neoplasm of colon 10/28/2012 014 Tendonitis of shoulder, left 10/01/2011 Other specified congenital anomaly of skin 03/0105/09/2016 Type II or unspecified type diabetes mellitus without mention of complication, not stated as uncontrolled 12/20/2005 Cholelithiasis 08/01/2015 documented as of this encounter (statuses as of 11/06/2021) [facility]2015 History of Past illness Narrative* Problem Noted Date Resolved Date Irritable bowel syndrome without diarrhea 201405/09/2016 Diabetes mellitus type 2, controlled, without co mplications 02/21/2015 05/09/2016 Varicosities of leg 01/22/2014 08/01/2015 Benign neoplasm of colon 10/28/2012 014 Tendonitis of shoulder, left 10/01/2011 Other specified congenital anomaly of skin 03/0105/09/2016 Type II or unspecified type diabetes mellitus without mention of complication, not stated as uncontrolled 12/20/2005 Cholelithiasis 08/01/2015 documented as of this encounter (statuses as of 01/02/2022) [facility] History of Past illness Narrative* Problem Noted Date Resolved Date Irritable bowel syndrome without diarrhea 201405/09/2016 Diabetes mellitus type 2, controlled, without co mplications 02/21/2015 05/09/2016 Varicosities of leg 01/22/2014 08/01/2015 Benign neoplasm of colon 10/28/2012 014 Tendonitis of shoulder, left 10/01/2011 Other specified congenital anomaly of skin 03/0105/09/2016 Type II or unspecified type diabetes mellitus without mention of complication, not stated as uncontrolled 12/20/2005 Cholelithiasis 08/01/2015 documented as of this encounter (statuses as of 01/05/2022) [facility] History of Past illness Narrative* Problem Noted Date Resolved Date Irritable bowel syndrome without diarrhea 201405/09/2016 Diabetes mellitus type 2, controlled, without co mplications 02/21/2015 05/09/2016 Varicosities of leg 01/22/2014 08/01/2015 Benign neoplasm of colon 10/28/2012 014 Tendonitis of shoulder, left 10/01/2011 Other specified congenital anomaly of skin 03/0105/09/2016 Type II or unspecified type diabetes mellitus without mention of complication, not stated as uncontrolled 12/20/2005 Cholelithiasis 08/01/2015 documented as of this encounter (statuses as of 02/05/2022) [facility] History of Past illness Narrative* Problem Noted Date Resolved Date Irritable bowel syndrome without diarrhea 201405/09/2016 Diabetes mellitus type 2, controlled, without co mplications 02/21/2015 05/09/2016 Varicosities of leg 01/22/2014 08/01/2015 Benign neoplasm of colon 10/28/2012 014 Tendonitis of shoulder, left 10/01/2011 Other specified congenital anomaly of skin 03/0105/09/2016 Type II or unspecified type diabetes mellitus without mention of complication, not stated as uncontrolled 12/20/2005 Cholelithiasis 08/01/2015 documented as of this encounter (statuses as of 02/09/2022) [facility] History of Past illness Narrative* Problem Noted Date Resolved Date Irritable bowel syndrome without diarrhea 201405/09/2016 Diabetes mellitus type 2, controlled, without co mplications 02/21/2015 05/09/2016 Varicosities of leg 01/22/2014 08/01/2015 Benign neoplasm of colon 10/28/2012 014 Tendonitis of shoulder, left 10/01/2011 Other specified congenital anomaly of skin 03/0105/09/2016 Type II or unspecified type diabetes mellitus without mention of complication, not stated as uncontrolled 12/20/2005 Cholelithiasis 08/01/2015 documented as of this encounter (statuses as of 02/27/2022) [facility] History of Past illness Narrative* Problem Noted Date Resolved Date Irritable bowel syndrome without diarrhea 201405/09/2016 Diabetes mellitus type 2, controlled, without co mplications 02/21/2015 05/09/2016 Varicosities of leg 01/22/2014 08/01/2015 Benign neoplasm of colon 10/28/2012 014 Tendonitis of shoulder, left 10/01/2011 Other specified congenital anomaly of skin 03/0105/09/2016 Type II or unspecified type diabetes mellitus without mention of complication, not stated as uncontrolled 12/20/2005 Cholelithiasis 08/01/2015 documented as of this encounter (statuses as of 03/06/2022) [facility] History of Past illness Narrative* Problem Noted Date Resolved Date Irritable bowel syndrome without diarrhea 201405/09/2016 Diabetes mellitus type 2, controlled, without co mplications 02/21/2015 05/09/2016 Varicosities of leg 01/22/2014 08/01/2015 Benign neoplasm of colon 10/28/2012 014 Tendonitis of shoulder, left 10/01/2011 Other specified congenital anomaly of skin 03/0105/09/2016 Type II or unspecified type diabetes mellitus without mention of complication, not stated as uncontrolled 12/20/2005 Cholelithiasis 08/01/2015 documented as of this encounter (statuses as of 03/15/2022) [facility] History of Past illness Narrative* Problem Noted Date Resolved Date Irritable bowel syndrome without diarrhea 201405/09/2016 Diabetes mellitus type 2, controlled, without co mplications 02/21/2015 05/09/2016 Varicosities of leg 01/22/2014 08/01/2015 Benign neoplasm of colon 10/28/2012 014 Tendonitis of shoulder, left 10/01/2011 Other specified congenital anomaly of skin 03/0105/09/2016 Type II or unspecified type diabetes mellitus without mention of complication, not stated as uncontrolled 12/20/2005 Cholelithiasis 08/01/2015 documented as of this encounter (statuses as of 04/23/2022) [facility] History of Past illness Narrative* Problem Noted Date Resolved Date Irritable bowel syndrome without diarrhea 201405/09/2016 Diabetes mellitus type 2, controlled, without co mplications 02/21/2015 05/09/2016 Varicosities of leg 01/22/2014 08/01/2015 Benign neoplasm of colon 10/28/2012 014 Tendonitis of shoulder, left 10/01/2011 Other specified congenital anomaly of skin 03/0105/09/2016 Type II or unspecified type diabetes mellitus without mention of complication, not stated as uncontrolled 12/20/2005 Cholelithiasis 08/01/2015 documented as of this encounter (statuses as of 06/06/2022) [facility] History of Past illness Narrative* Problem Noted Date Resolved Date Irritable bowel syndrome without diarrhea 201405/09/2016 Diabetes mellitus type 2, controlled, without co mplications 02/21/2015 05/09/2016 Varicosities of leg 01/22/2014 08/01/2015 Benign neoplasm of colon 10/28/2012 014 Tendonitis of shoulder, left 10/01/2011 Other specified congenital anomaly of skin 03/0105/09/2016 Type II or unspecified type diabetes mellitus without mention of complication, not stated as uncontrolled 12/20/2005 Cholelithiasis 08/01/2015 documented as of this encounter (statuses as of 06/07/2022) [facility] History of Past illness Narrative* Problem Noted Date Resolved Date Irritable bowel syndrome without diarrhea 201405/09/2016 Diabetes mellitus type 2, controlled, without co mplications 02/21/2015 05/09/2016 Varicosities of leg 01/22/2014 08/01/2015 Benign neoplasm of colon 10/28/2012 014 Tendonitis of shoulder, left 10/01/2011 Other specified congenital anomaly of skin 03/0105/09/2016 Type II or unspecified type diabetes mellitus without mention of complication, not stated as uncontrolled 12/20/2005 Cholelithiasis 08/01/2015 documented as of this encounter (statuses as of 09/07/2022) [facility] History of Past illness Narrative* Problem Noted Date Diagnosed Date Resolved Date Irritable bowel syndrome without diarrhea 08/01/2015 05/09/2016 Diabetes mellitus type 2, co ntrolled, without complications 02/21/2015 05/09/2016 Varicosities of leg 01/22/2014 08/01/20 15 Benign neoplasm of colon 10/28/2012 Tendonitis of shoulder, left 10/01/2011 05/09/2016 Other specified congenital anomaly of skin 03/01/2006 05/09/2016 Type II or unspecified type diabetes mellitus without mention of complication, not stated as uncontrolled 12/20/2005 05/09/2016 Cholelithiasis 08/01/2015 documented as of this encounter (statuses as of 03/21/2023) [facility] History of Past illness Narrative* Problem Noted Date Diagnosed Date Resolved Date Irritable bowel syndrome without diarrhea 08/01/2015 05/09/2016 Diabetes mellitus type 2, co ntrolled, without complications 02/21/2015 05/09/2016 Varicosities of leg 01/22/2014 08/01/20 15 Benign neoplasm of colon 10/28/2012 Tendonitis of shoulder, left 10/01/2011 05/09/2016 Other specified congenital anomaly of skin 03/01/2006 05/09/2016 Type II or unspecified type diabetes mellitus without mention of complication, not stated as uncontrolled 12/20/2005 05/09/2016 Cholelithiasis 08/01/2015 documented as of this encounter (statuses as of 04/04/2023) [facility] History of Past illness Narrative* Problem Noted Date Diagnosed Date Resolved Date Irritable bowel syndrome without diarrhea 08/01/2015 05/09/2016 Diabetes mellitus type 2, co ntrolled, without complications 02/21/2015 05/09/2016 Varicosities of leg 01/22/2014 08/01/20 15 Benign neoplasm of colon 10/28/2012 Tendonitis of shoulder, left 10/01/2011 05/09/2016 Other specified congenital anomaly of skin 03/01/2006 05/09/2016 Type II or unspecified type diabetes mellitus without mention of complication, not stated as uncontrolled 12/20/2005 05/09/2016 Cholelithiasis 08/01/2015 documented as of this encounter (statuses as of 05/16/2023) [facility] History of Past illness Narrative* Problem Noted Date Diagnosed Date Resolved Date Irritable bowel syndrome without diarrhea 08/01/2015 05/09/2016 Diabetes mellitus type 2, co ntrolled, without complications 02/21/2015 05/09/2016 Varicosities of leg 01/22/2014 08/01/20 15 Benign neoplasm of colon 10/28/2012 Tendonitis of shoulder, left 10/01/2011 05/09/2016 Other specified congenital anomaly of skin 03/01/2006 05/09/2016 Type II or unspecified type diabetes mellitus without mention of complication, not stated as uncontrolled 12/20/2005 05/09/2016 Cholelithiasis 08/01/2015 documented as of this encounter (statuses as of 07/05/2023) [facility] Diagnosis Controlled type 2 diabetes mellitus without complication, without long-term current use of insulin (HCC)- Primary Irritable bowel syndrome with constipation Irritable bowel syndrome Primary osteoarthritis of both knees Primary localized osteoarthrosis, lower leg Fall, sequela Hypercalcemia Primary hyperparathyroidism (HCC) Primary hyperparathyroidism Vitamin D deficiency Unspecified vitamin D deficiency Essential hypertension Unspecified essential hypertension [facility] Vitamin B12 deficiency- Primary Other [facility] B[facility]- Primary Other B-complex [facility] Diagnosis Vitamin B12 deficiency- Primary Other B-complex deficiencies [facility] Diagnosis Vitamin B12 deficiency- Primary Other B-complex deficiencies [facility] Diagnosis Controlled type 2 diabetes mellitus without complication, without long-term current use of insulin (HCC) [facility] Visit for screening mammogram- Primary Other screening mamm[facility] Diagnosis Cystocele, midline- Primary 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 Mixed incontinence Mixed incontinence urge and stress (male)(female) Rectocele Constipation, unspecified constipation type documented in this encounter [facility] note* Diagnosis Encounter for fitting and adjustment of pessary- Primary Fitting and adjustment of other device Cystocele, midline documented in this encounter [facility] note* Diagnosis BV (bacterial vaginosis)- Primary Vaginitis and vulvovaginitis, unspecified Vaginal yeast infection Candidiasis of vulva and vagina documented in this encounter [facility] note* Diagnosis Encounter for fitting and adjustment of pessary- Primary Fitting and adjustment of other device Urinary frequency Constipation, unspecified constipation type Cystocele, midline Rectocele Vagina itching Pruritus of genital organs Vaginal burning Other specified symptom associated with female genital organs documented in this encounter [facility] note* Diagnosis Vaginal yeast infection- Primary Candidiasis of vulva and vagina documented in this encounter [facility] note* Diagnosis Pessary maintenance- Primary Fitting and adjustment of other device Cystocele, midline [facility]ocele [facility] Diagnosis Pessary maintenance- Primary Fitting and adjustment of other device Cystocele, midline 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 [facility] Diagnosis Memory deficit- Primary Memory loss [facility] Diagnosis Pessary maintenance- Primary Fitting and adjustment of other device Cystocele, midline 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 Constipation, unspecified constipation type documented in this encounter [facility] Advance Directives No Advanced Directives Records FoundDocuments on File Type Date Recorded Patient Living Coach Expl anation Advance Directive(s) Advance Directive(s) 06/23/2020 6:50 AM Advance Directive(s) 01/02/2016 9:51 AM Medications Administered Section Active Administered Medications - up to 3 most recent administrations Medication Order MAR Action Action Date Dose Rate Site cyanocobalamin 1,000 mcg injection 1,000 mcg, INTRAMUSCULAR, EVERY 1 MONTH, 12 doses, First dose on Nila 01/05/21 at 0000, Last dose on Sat12/01/21 at 0000 Given 11/06/2021 10:14 AM EDT 1,000 mcg Deltoid, Right Active Administered Medications - up to 3 most recent administrations Medication Order MAR Action Action Date Dose Rate Site cyanocobalamin 1,000 mcg injection 1,000 mcg, INTRAMUSCULAR, EVERY 1 MONTH, 12 doses, First dose on Sat01/05/22 at 0000, Last dose on 12/01/22 at 0000 Given 01/05/2022 10:09 AM EDT 1,000 mcg Deltoid, Right Active Administered Medications - up to 3 most recent administrations Medication Order MAR Action Action Date Dose Rate Site cyanocobalamin 1,000 mcg injection 1,000 mcg, INTRAMUSCULAR, EVERY 1 MONTH, 12 doses, First dose on Sat01/05/22 at 0000, Last dose on 12/01/22 at 0000 Given 02/05/2022 10:40 AM EDT 1,000 mcg Deltoid, Left Summary Purpose Family History No Family History Records Found Additional Source Comments Source Comments (unrecognize d section and content) In the event this informatio n is protected by the Federal Confidentiality of Alcohol and Drug Abuse Patient Records regulations: The Federal rules restrict any use of the information to criminally investigate or prosecute any alcohol or drug abuse patient.[facility] event this information is protected by the Federal Confidentiality of Alcohol and Drug Abuse Patient Records regulations: The Federal rules restrict any use of the information to criminally investigate or prosecute any alcohol or drug abuse patient.[facility] the event this information is protected by the Federal Confidentiality of Alcohol and Drug Abuse Patient Records regulations: The Federal rules restrict any use of the information to criminally investigate or prosecute any alcohol or drug abuse patient.[facility] the event this information is protected by the Federal Confidentiality of Alcohol and Drug Abuse Patient Records regulations: The Federal rules restrict any use of the information to criminally investigate or prosecute any alcohol or drug abuse patient.[facility] the event this information is protected by the Federal Confidentiality of Alcohol and Drug Abuse Patient Records regulations: The Federal rules restrict any use of the information to criminally investigate or prosecute any alcohol or drug abuse patient.[facility] the event this information is protected by the Federal Confidentiality of Alcohol and Drug Abuse Patient Records regulations: The Federal rules restrict any use of the information to criminally investigate or prosecute any alcohol or drug abuse patient.[facility] the event this information is protected by the Federal Confidentiality of Alcohol and Drug Abuse Patient Records regulations: The Federal rules restrict any use of the information to criminally investigate or prosecute any alcohol or drug abuse patient.[facility] the event this information is protected by the Federal Confidentiality of Alcohol and Drug Abuse Patient Records regulations: The Federal rules restrict any use of the information to criminally investigate or prosecute any alcohol or drug abuse patient.[facility] the event this information is protected by the Federal Confidentiality of Alcohol and Drug Abuse Patient Records regulations: The Federal rules restrict any use of the information to criminally investigate or prosecute any alcohol or drug abuse patient.[facility] the event this information is protected by the Federal Confidentiality of Alcohol and Drug Abuse Patient Records regulations: The Federal rules restrict any use of the information to criminally investigate or prosecute any alcohol or drug abuse patient.[facility] the event this information is protected by the Federal Confidentiality of Alcohol and Drug Abuse Patient Records regulations: The Federal rules restrict any use of the information to criminally investigate or prosecute any alcohol or drug abuse patient.[facility] the event this information is protected by the Federal Confidentiality of Alcohol and Drug Abuse Patient Records regulations: The Federal rules restrict any use of the information to criminally investigate or prosecute any alcohol or drug abuse patient.[facility] the event this information is protected by the Federal Confidentiality of Alcohol and Drug Abuse Patient Records regulations: The Federal rules restrict any use of the information to criminally investigate or prosecute any alcohol or drug abuse patient.[facility] the event this information is protected by the Federal Confidentiality of Alcohol and Drug Abuse Patient Records regulations: The Federal rules restrict any use of the information to criminally investigate or prosecute any alcohol or drug abuse patient.[facility] the event this information is protected by the Federal Confidentiality of Alcohol and Drug Abuse Patient Records regulations: The Federal rules restrict any use of the information to criminally investigate or prosecute any alcohol or drug abuse patient.[facility] the event this information is protected by the Federal Confidentiality of Alcohol and Drug Abuse Patient Records regulations: The Federal rules restrict any use of the information to criminally investigate or prosecute any alcohol or drug abuse patient.[facility] the event this information is protected by the Federal Confidentiality of Alcohol and Drug Abuse Patient Records regulations: The Federal rules restrict any use of the information to criminally investigate or prosecute any alcohol or drug abuse patient.[facility] the event this information is protected by the Federal Confidentiality of Alcohol and Drug Abuse Patient Records regulations: The Federal rules restrict any use of the information to criminally investigate or prosecute any alcohol or drug abuse patient.[facility] Reason for Visit (unrecogniz ed section and content) Reason Comments B-12 Injection Reason Comments Orders Reason Onset Date Comments Refill Request 02/09/2022 Reason Comments vaginal prolapse Reason Comments Pessary Reason Comments Results New Medication Reason Comments Results Reason Comments Patient Question Reason Comments Follow Up Pessary check Reason Comments Nurse Visit COVID Vaccine Care Teams (unrecognized sec tion and content) Telegraph Mechanic Relationship Specialty Start Date End Date Kathy Campos MD [address] [facility] [address] PCP - General Internal Medicine 04/08/17 Telegraph Mechanic Relationship Specialty Start Date End Date Kathy Campos MD [address] [place] [address] [place] [address] PCP - General Internal Medicine 04/08/17 Telegraph Mechanic Relationship Specialty Start Date End Date Kathy Campos MD [address] [place] [address] [place] [address] PCP - General Internal Medicine 04/08/17 Telegraph Mechanic Relationship Specialty Start Date End Date Kathy Campos MD [address] [place] [address], [place] [address] PCP - General Internal Medicine 04/08/17 Telegraph Mechanic Relationship Specialty Start Date End Date Kathy Campos MD [address] [place] [address] [place] [address] PCP - General Internal Medicine 04/08/17 Telegraph Mechanic Relationship Specialty Start Date End Date Kathy Campos MD [address] [place] [address] [place] [id number] PCP - General Internal Medicine 04/08/17 Telegraph Mechanic Relationship Specialty Start Date End Date Kathy Campos MD [address] [place] [address] [place] [address] PCP - General Internal Medicine 04/08/17 Telegraph Mechanic Relationship Specialty Start Date End Date Iker Marrero Chi [address] [place], [place] [id number] PCP - General Gerontology 09/07/22 Telegraph Mechanic Relationship Specialty Start Date End Date Iker Marrero Chi [address] [place], [place] [id number] PCP - General Gerontology 09/07/22 Telegraph Mechanic Relationship Specialty Start Date End Date Iker Marrero Chi [address] [place], [place] [id number] PCP - General Gerontology 09/07/22 Telegraph Mechanic Relationship Specialty Start Date End Date Iker Marrero Chi [address] [place] [address] PCP - General Gerontology 09/07/22 Telegraph Mechanic Relationship Specialty Start Date End Date Iker Marrero Chi [address] [place] [address] PCP - General Gerontology 09/07/22 INFORMATION SOURCE (unrecogn ized section and content) FOR RECORDS PERTAINING TO PATIENTS WHO ARE OR HAVE BEEN ENROLLED IN A CHEMICAL DEPENDENCY/SUBSTANCEABUSE PROGRAM, SOME INFORMATION MAY BE OMITTED. This clinical summary was aggregated from multiple sources. Caution should be exercised in using it in the provision of clinical care. This summary normalizes information from multiple sources, and as a consequence, information in this document may materially change the coding, format and clinical context of patient data. In addition, data may be omitted in some cases. CLINICAL DECISIONS SHOULD BE BASED ON THE PRIMARY CLINICAL RECORDS. [facility]. provides no warranty or guarantee of the accuracy or completeness of information in this document.
[2023-10-18 12:49] LABS: Basophil# 0.02 X10^3/uL; Basophil% 0.4 % (0-1); Eosinophil# 0.04 X10^3/uL; Eosinophils% 0.7 % (0-5); Lymphocyte % 14.8 % (19-41); Mean Corp Hgb Conc 30.8 g/dL (32-36); Mean Corpuscular Hgb 25.8 pg (27.0-32.0); Mean Corpuscular Volume 83.9 fL (81-99); Mean Platelet Vol. 11.6 fl (6.2-12.0); Monocyte# 0.52 X10^3/uL; Monocyte% 9.6 % (0-10); NRBC Flagged by Analyzer 0 % (0-5); Neutrophil # 3.99 X10^3/uL (2.7-7.7); Neutrophil % 74.1 % (47-70); Platelet Count 294 K/mm3 (150-450); RBC Distribution Width CV 13.8 % (11.6-14.6); RBC Distribution Width SD 42.3 fl (35.1-43.9); RET-HE 22.9 pg (30-35); Reticulocyte Count 2.07 % (0.5-1.5); White Blood Count 5.4 K/mm3 (4.4-11.0)
[2023-10-18 13:03] LABS: Vitamin B12 766 pg/mL (211-911)
[2023-10-18 13:18] LABS: Ferritin 17 ng/mL (8-252); Iron 12 ug/dL (50-170); Iron Binding Capacity,Total 410 ug/dL (250-450); PERCENT IRON SATURATION 2.9 % (15.0-55.0)
== END | disposition home or self-care (01) ==
LOC: POLAB3 12:04
PROVIDERS: PCP Family Medicine Geriatric Medicine; Visit Provider Family Medicine Geriatric Medicine
DX: D50.9 Iron deficiency anemia, unspecified (principal)
CPT/HCPCS: 36415; 82607; 82728; 82746; 83540; 83550; 85025; 85045

== ENCOUNTER → 2023-10-25 | Outpatient (CLI) | payer MEDICARE, SELFPAY ==
[2023-10-25 12:59] LABS: Color, Urine Yellow (Yellow); Glucose, Dipstick Normal (Normal); Ketone-Dipstick Negative (Negative); Leukocyte Esterase-Dipstick 25 /ul (Negative); Nitrite-Dipstick Negative (Negative); Occult Blood-Urine Negative /ul (Negative); Protein-Dipstick Negative (Negative); Urine Bilirubin Dipstick Negative (Negative); Urine Clarity Clear (Clear); Urine Urobilinogen Normal (Normal)
--- OUTSIDE RECORDS SUMMARY | 2023-10-25 17:12 | XMS RPT_ITS | CCD ---
Author Name Unknown Address [address] [place] [address] Organization [facility] Care Team Providers Care Package Clerk Name Role Phone Kathy Campos MD Primary Care Provider Janes, Iker Chi Primary Care Provider [phone] Janes, Iker Chi Primary Care Provider MARTHA KIM Attending Unavailable JANES, IKER CHI Primary Care Unavailable MARTHA KIM Attending Unavailable JANES, IKER CHI Primary Care Unavailable MARTHA KIM Attending Unavailable JANES, IKER CHI Primary Care Unavailable JANES, IKER CHI Primary Care Unavailable MARTHA KIM Attending Unavailable JANES, IKER CHI Primary Care Unavailable KATHY CAMPOS Attending Unavailable Allergies Allergy Classification Reported Allergen(s) Allergy Type Date of Onset Reaction(s) Facility (19 sources) Adhesive Tape; Translations: [ADHESIVE TAPE (ROSINS)] Propensity to adverse reactions 6 Rash [facility] Work Phone: (19 sources) Seasonal allergy; Translations: [SEASONAL ALLERGIES] Allergy to substance 1 Other: See Comments [facility] (19 sources) Chlorpheniramin e-Pe Tannates; Translations: [CHLORPHENIRAMI NE-PE TANNATES] Propensity to adverse reactions 5 [facility] Work Phone: Medications Current Medications Medication Drug [...] sources) Constipation; Translations: [Constipation, unspecified] Episodic Other gastrointestinal disorders (1 source) Constipation, unspecified; Translations: [Constipation, unspecified constipation type] Onset: 4 Episodic Other nutritional; endocrine; and metabolic disorders [...] 14:29-0500 Body weight 67.5 kg Martha Kim APRN.GEOMETRY TEACHER Work Phone: [facility] 07-05-2023 14:29-0500 Diastolic blood pressure 68 mm[Hg] Martha Kim APRN.GEOMETRY TEACHER Work Phone: [facility] 07-05-2023 14:29-0500 Systolic blood pressure 100 mm[Hg] Martha Kim APRN.GEOMETRY TEACHER Work Phone: [facility] 04-03-2023 14:35-0400 Body weight 65.5 kg Martha Kim APRN.GEOMETRY TEACHER Work Phone: [facility] 04-03-2023 14:35-0400 Diastolic blood pressure 80 mm[Hg] Martha Kim APRN.GEOMETRY TEACHER Work Phone: [facility] 04-03-2023 14:35-0400 Systolic blood pressure 120 mm[Hg] Martha Kim APRN.GEOMETRY TEACHER Work Phone: [facility] 09-07-2022 11:31-0500 Body weight 66.22 kg Martha Kim APRN.GEOMETRY TEACHER Work Phone: [facility] 09-07-2022 11:31-0500 Diastolic blood pressure 64 mm[Hg] Martha Kim APRN.GEOMETRY TEACHER Work Phone: [facility] 09-07-2022 11:31-0500 Systolic blood pressure 152 mm[Hg] Martha Groveshrie BANK ACCOUNTANT.GEOMETRY TEACHER Work Phone: [facility] 04-20-2022 15:31-0400 Body temperature 98.01 [degF] Martha Kim BANK ACCOUNTANT.GEOMETRY TEACHER Work Phone: [facility] 04-20-2022 15:31-0400 Body weight 63.96 kg Martha Kim BANK ACCOUNTANT.GEOMETRY TEACHER Work Phone: [facility] 04-20-2022 15:31-0400 Diastolic blood pressure 70 mm[Hg] Martha Kim BANK ACCOUNTANT.GEOMETRY TEACHER Work Phone: [facility] 04-20-2022 15:31-0400 Systolic blood pressure 110 mm[Hg] Martha Groveshrie BANK ACCOUNTANT.GEOMETRY TEACHER Work Phone: [facility] 03-15-2022 11:01-0400 Body weight 68.49 kg Martha Kim BANK ACCOUNTANT.GEOMETRY TEACHER Work Phone: [facility] 03-15-2022 11:01-0400 Diastolic blood pressure 62 mm[Hg] Martha Kim BANK ACCOUNTANT.GEOMETRY TEACHER Work Phone: [facility] 03-15-2022 11:01-0400 Systolic blood pressure 122 mm[Hg] Martha Groveshrie BANK ACCOUNTANT.GEOMETRY TEACHER Work Phone: [facility] 03-06-2022 13:36-0400 Body weight 63.05 kg Martha Kim BANK ACCOUNTANT.GEOMETRY TEACHER Work Phone: [facility] 03-06-2022 13:36-0400 Diastolic blood pressure 82 mm[Hg] Martha Kim BANK ACCOUNTANT.GEOMETRY TEACHER Work Phone: [facility] 03-06-2022 13:36-0400 Systolic blood pressure 126 mm[Hg] Martha Kim BANK ACCOUNTANT.GEOMETRY TEACHER Work Phone: [facility] 10-24-2021 11:00-0400 Body weight 71.22 kg Kathy Campos MD Work Phone: [facility] 10-24-2021 11:00-0400 Diastolic blood pressure 82 mm[Hg] Kathy Campos MD Work Phone: [facility] 10-24-2021 11:00-0400 Heart rate 82 /min Kathy Campos MD Work Phone: [facility] 10-24-2021 11:00-0400 Systolic blood pressure 138 mm[Hg] Kathy Campos MD Work Phone: [facility] Encounters Encounter Date Encounter Type Care Provider Facility Start: 10-15-2023 End: 10-16-2023 ambulatory IKRE CHI JANES Facility:[facility] Start: 07-05-2023 End: 07-05-2023 ambulatory MARTHA KIM Facility:[facility] Start: 07-05-2023 End: 07-05-2023 Patient encounter procedure Martha Kim APRN.GEOMETRY TEACHER Work Phone: OB/Gynecology Procedures Date Procedure Procedure Detail Performing Clinician Start: 04-20-2022 Urnls dip stick/tabl et rgnt auto w/o microscopy Martha Kim APRN.GEOMETRY TEACHER Work Phone: Start: 04-20-2022 Smr prim src gram/gi emsa stain bct fungi/cell Martha Kim APRN.GEOMETRY TEACHER Work Phone: Plan of Treatment Date Care Activity Detail Author Start: 05-14-2024 Shingrix Vaccine (1 of 2) Shingrix V accine (1 of 2) [facility] Immunizations Immunization Date Immunization Notes [facility] Provider [facility] 05-14-2023 COVID-19 vaccine, ag e 12+ yr, season (PFIZER-BIONTECH) Kathy Campos MD Work Phone: [facility] 08-10-2021 COVID-19 vaccine, ag e 12+ yr (PFIZER-BIONTECH - PURPLE TOP) Kathy Campos MD Work Phone: [facility] Work Phone: 05-10-2021 influenza, high dose seasonal, preservative-free Kathy Campos MD Work Phone: [facility] 05-10-2021 influenza virus vacc ine, unspecified formulation Kathy Campos MD Work Phone: [facility] 05-08-2021 influenza, high-dose , quadrivalent vaccine (FLUZONE HIGH DOSE QUADRIVALENT) Kathy Campos MD Work Phone: [facility] Work Phone: 11-07-2020 COVID-19 vaccine, fu ll dose (MODERNA) Kathy Campos MD Work Phone: [facility] Work Phone: 10-10-2020 COVID-19 vaccine, fu ll dose (MODERNA) Kathy Campos MD Work Phone: [facility] Work Phone: 05-03-2020 influenza, high-dose , quadrivalent vaccine (FLUZONE HIGH DOSE QUADRIVALENT) Kathy Campos MD Work Phone: [facility] Work Phone: 05-18-2019 influenza, high dose seasonal, preservative-free Kathy Campos MD Work Phone: [facility] Work Phone: 05-19-2018 influenza, high dose seasonal, preservative-free Kathy Campos MD Work Phone: [facility] Work Phone: 05-24-2017 influenza, high dose seasonal, preservative-free Kathy Campos MD Work Phone: [facility] Work Phone: 05-09-2016 influenza, high dose narcisa, preservative-free Kathy Campos MD Work Phone: [facility] Work Phone: 05-20-2015 influenza, high dose seasonal, preservative-free Kathy Campos MD Work Phone: [facility] Work Phone: 2015 pneumococcal conjuga te vaccine, 13 valent Kathy Campos MD Work Phone: [facility] 05-04-2014 influenza, seasonal, injectable Kathy Campos MD Work Phone: [facility] 05-28-2013 influenza virus vacc ine, unspecified formulation Kathy Campos MD Work Phone: [facility] 05-20-2012 influenza virus vacc meghan, unspecified formulation Kathy Campos MD Work Phone: [facility] 05-24-2011 influenza virus vacc ine, unspecified formulation Kathy Campos MD Work Phone: [facility] 05-31-2010 influenza virus vacc ine, unspecified formulation Kathy Campos MD Work Phone: [facility] 05-26-2009 influenza virus vacc ine, unspecified formulation Kathy Campos MD Work Phone: [facility] Work Phone: 06-25-2008 influenza virus vacc meghan, unspecified formulation Kathy Campos MD Work Phone: [facility] 08-19-2006 pneumococcal polysaccharide vaccine, 23 valent Kathy Campos MD Work Phone: [facility] Work Phone: 08-19-2006 tetanus and diphther ia toxoids, adsorbed, preservative free, for adult use (2 Lf of tetanus toxoid and 2 Lf of diphtheria toxoid) Kathy Campos MD Work Phone: [facility] 06-14-2005 influenza virus vacc ine, whole virus Kathy Campos MD Work Phone: [facility] Work Phone: Payers Date Payer Category Payer Medicare [employer] [place] [id number] 2013-Present [phone] [address] [place] [address] [facility] [id number] 2013 Medicare [employer] [place] [place] [id number] 2013-Present [phone] [address] [place] [address] HMO [id number] 2013 Medicare [id number] 2005 Unknown PSYCH GENERIC BH GENERIC [id number] 2005-Present [phone] [address] [place] [address] Indemnity [id number] Social History Date Type Detail Facility Start: [facility] Work Phone: End: 08-12-1999 History of tobacco use Current smoker [facility] Work Phone: End: 08-12-1999 History of tobacco use Cigarette Smoker [facility] Work Phone: Start: 10-02-2021 End: 07-05-2023 Alcohol intake Current drinker of alcohol (finding) [facility] Start: 10-02-2021 End: 01-01-2023 Alcohol intake [facility] Start: 06-23-2020 History SDOH Alcohol Frequency 2 [facility] Start: 1940 Sex Assigned At Not on file [facility] Start: 02-04-2021 End: 06-05-2022 Exposure to SARS-CoV-2 (event) Not sure [facility] Start: 04-20-2022 Tobacco use and exposure Smoke less tobacco non-user [facility] Work Phone: Start: 06-23-2020 End: 01-01-2023 Alcohol Use Disorder Identification Test - Consumption [AUDIT-C] [facility] How often to you hav e a drink containing alcohol? Monthly or less [facility] Average Number of Drinks Not on file [facility] Clinical Notes 08-01-2015 to 10-15-2023 Martha Kim APRN.GEOMETRY TEACHER - 07/05/2023 2:28 PM Martha Pérez APRN.GEOMETRY TEACHER - 04/03/2023 2:32 PM EDTTelephone Encounter - Loretta Garrido LPN - 03/21/2023 12:10 PM EDTPatient Instructions Note Date & Type Note Facility 10-15-2023 Note HNO ID: [id number] Author: MARTHA KIM APRN.KELECHI Service: ? Author Type: Nurse Practitioner Type: Progress Notes Filed: 10/15/2023 15:52 Note Text: Signal Worker offered: Patient declines. in waiting room. Elenita [...] no apparent distress Pelvic: Bartholin's, urethra and Ball Ground's glands were normal. The ring with support [...] be reinserted Follow-up as needed. Martha Kim APRN.KELECHI I spent a total of 20 minutes on the date of the service which included preparing to see the patient, [id number] patient care, completing clinical documentation, obtaining and/or reviewing separately obtained history, performing a medically appropriate examination, and counseling and educating the patient/family/caregiver. [facility] 07-05-2023 Note HNO ID: [id number] Author: Martha Kim APRN.KELECHI Service: ? Author [...] no apparent distress Pelvic: Bartholin's, urethra and Ball Ground's glands were normal. The ring with support [...] 3 months for pessary maintenance. Martha Kim APRN.GEOMETRY TEACHER I spent a total of 20 minutes on the date of the service which included preparing to see the patient, [id number] patient care, completing clinical documentation, obtaining and/or reviewing separately obtained history, performing a medically appropriate examination, and counseling and educating the patient/family/caregiver. [facility] 07-05-2023 History of Present illness Narrative Accompanied [...] no apparent distress Pelvic: Bartholin's, urethra and Ball Ground's glands were normal. The ring with support [...] Follow-up 3 months for pessary maintenance. Martha iKm APRN.KELECHI I spent a total of 20 minutes on the date of the service which included preparing to see the patient, [id number] patient care, completing clinical documentation, obtaining and/or reviewing separately obtained history, performing a medically appropriate examination, and counseling and educating the patient/family/caregiver. documented in this encounter [facility] 05-14-2023 Note HNO ID: [id number] Author: Kathy Campos MD Service: ? Author Type: Physician Type: Progress Notes Filed: 05/14/2023 4:45 PM Note Text: Requested COVID vaccine while here with spouse Filed order Noted follows with Dr. Elliott [facility] 04-03-2023 Note HNO ID: [id number] Author: Martha Kim APRN.CNP Service: ? Author Type: Nurse Practitioner Type: Progress Notes Filed: 04/03/2023 3:01 PM Note Text: Signal Worker offered: Patient declines. Accompanied by . Elenita [...] no apparent distress Pelvic: Bartholin's, urethra and Ball Ground's glands were normal. The ring with support [...] a week. Follow-up 3 months. Martha Kim APRN.GEOMETRY TEACHER I spent a total of 20 minutes on the date of the service which included preparing to see the patient, [id number] patient care, completing clinical documentation, obtaining and/or reviewing separately obtained history, performing a medically appropriate examination, and counseling and educating the patient/family/caregiver. [facility] 04-03-2023 History of Present illness Narrative Signal Worker offered: Patient declines. Accompanied by . Elenita [...] no apparent distress Pelvic: Bartholin's, urethra and Ball Ground's glands were normal. The ring with support [...] which included preparing to see the patient, [id number] patient care, completing clinical documentation, obtaining and/or reviewing separately obtained history, performing a medically appropriate examination, and counseling and educating the patient/family/caregiver. documented in this encounter [facility] 03-21-2023 Miscellaneous Notes Pt notified and voiced understanding with no further questions. Loretta Garrido LPN The pessary should pose no problems with radiation. Martha Kim APRN.CNP Patient will be having radiation treatments for lung cancer. She wants to know from AG that her pessary won't affect this or be affected from the radiation. Leandra Raman RN documented in this encounter [facility] 01-01-2023 Note HNO ID: [id number] Author: Martha Kim APRN.KELECHI Service: ? Author Type: Nurse Practitioner Type: Progress Notes Filed: 01/01/2023 12:02 PM Note Text: Signal Worker offered: Patient declines. Accompanied by . Elenita [...] no apparent distress Pelvic: Bartholin's, urethra and Ball Ground's glands were normal. The ring with support [...] months for pessary maintenance. Martha Kim APRN.KELECHI Medical Decision Making: Problems: Low: Stable chronic illness Risk: Moderate: Drug management Medical Decision Making Level: 3 - Low [facility] 09-07-2022 History of Present illness Narrative Signal Worker offered: Patient declines. Accompanied by . Elenita [...] no apparent distress Pelvic: Bartholin's, urethra and Ball Ground's glands were normal. The ring with support [...] which included preparing to see the patient, [id number] patient care, completing clinical documentation, obtaining and/or reviewing separately obtained history, performing a medically appropriate examination, and counseling and educating the patient/family/caregiver. documented in this encounter [facility] 06-07-2022 Miscellaneous Notes Thank you. No need [...] Leandra Raman RN documented in this encounter [facility] 06-06-2022 Miscellaneous Notes Patient notified. Liseth Harvey RN Please notify pt - this message can be given to her Manuel. Her culture showed a yeast infection. Diflucan sent to her pharmacy. Martha Kim APRN.CNP documented in this encounter [facility] 04-23-2022 Miscellaneous Notes Called home and answered. [...] Martha Kim APRN.CNP documented in this encounter [facility] 04-20-2022 History of Present illness Narrative Signal Worker offered: Patient declines. Accompanied by . Elenita [...] was evaluated in ED. Has appointment Dr Elliott 05/07/2022 EXAM: pleasant, well developed, well nourished, in no apparent distress. Poor historian. Pelvic: Bartholin's, urethra and Ball Ground's glands were normal. The ring with support [...] months for pessary maintenance. Martha Kim APRN.CNP Medical Decision Making: Problems: Low: Acute, uncomplicated illness or injury Moderate: 1+ chronic illnesses with change Data: Unique test(s) ordered: 3+ Medical Decision Making Level: 4 - Moderate documented in this encounter [facility] 03-15-2022 Instructions Martha Kim APRN.CNP - 03/15/2022 12:05 PM EDT Call if you have any problems - pain, unable to empty the bladder or bowel. Miralax twice a day. documented in this encounter [facility] 03-15-2022 History of Present illness Narrative Signal Worker offered: Patient declines. Accompanied by . Elenita [...] Martha Kim APRN.CNP documented in this encounter [facility] 03-06-2022 Instructions Martha Kim APRN.CNP - 03/06/2022 2:19 PM EDT Take Miralax twice a day. Schedule pessary fitting. documented in this encounter [facility] 03-06-2022 History of Present illness Narrative Elenita Galarza is a 81 year old female who presents for problem visit Vaginal prolapse Accompanied by . HPI: Has been feeling vaginal bulge recently - evaluated in [facility] ED and found to have vaginal prolapse. [...] L1 SAB0 IAB0 Ectopic0 Multiple0 Live Births0 [employer] History LMP: Hysterectomy Age at Menarche: Age at First : Age at Menopause: [employer] History Comments: Sexual Activity: Never; No partner [...] Allergen Noted Reaction ADHESIVE TAPE (ROSINS) 12/20/2005 Rash LOUISE [CHLORPHENIRAMINE-PE TANN*07/02/2005 SEASONAL ALLERGIES 11/15/2010 Other: See [...] external genitalia normal, normal Bartholin's glands, urethra, Ball Ground's glands, no vulvar lesions, physiologic discharge present, [...] Dr Silver Has appointment with PCP at [facility]. Follow-up for pessary fitting. Martha Kim APRN.KELECHI I spent a total of 45 minutes on the date of the service which included preparing to see the patient, [id number] patient care, completing clinical documentation, obtaining and/or reviewing separately obtained history, performing a medically appropriate examination, counseling and educating the patient/family/caregiver, ordering medications, tests, or procedures and communicating results to the patient/family/caregiver. documented in this encounter [facility] 02-09-2022 Miscellaneous Notes Okayed Last ov 05/24/21 [...] Leandra Perez Pss documented in this encounter [facility] 02-05-2022 History of Present illness Narrative Patient presents for B-12 injection. Denies any problems at this time. Patient instructed on any SE of medication, verbalized understanding and agreed to proceed with treatment. Tolerated injection well. Amena Tran LPN documented in this encounter [facility] 01-05-2022 History of Present illness Narrative Patient presents for B-12 injection. Denies any problems at this time. Patient instructed on any SE of medication, verbalized understanding and agreed to proceed with treatment. Tolerated injection well. Amena Tran LPN documented in this encounter [facility] 01-02-2022 Miscellaneous Notes Patient scheduled for nurse visit 01/05/22 to receive B-[address]. [address] new administration order at this time. Amena Tran LPN documented in this encounter [facility] 11-06-2021 History of Present illness Narrative Patient presents for B-12 injection. Denies any problems at this time. Patient instructed on any SE of medication, verbalized understanding and agreed to proceed with treatment. Tolerated injection well. Amena Tran LPN documented in this encounter [facility] 10-24-2021 Instructions Kathy Campos MD - 10/24/2021 [...] to 4 days. documented in this encounter [facility] 10-24-2021 History of Present illness Narrative This note was created using [employer]. Subjective Elenita Galarza is a 81 year [...] Behavior is cooperative. HgA1C 5.6 08/[address] [facility] . Component Latest Ref Rng & Units [...] 20 - 300 mg/dL Test sent to [facility]. Albumin, Urine Random mg/L Test sent to [facility]. Albumin/Creat Ratio <30 mg/g Test sent to [facility]. Hemoglobin A1C 4.0 - 6.0 % Test sent to [facility]. Test sent to [facility]. Estimated Average Glucose mg/dL Test sent to [facility]. Test sent to [facility]. Vitamin D 25 Hydroxy 31.0 - 80.0 ng/mL Test sent to [facility]. PTH, Intact 15 - 65 pg/mL Test sent to [facility]. Assessment and Plan Encounter Diagnosis ICD-10-CM 1. Controlled type 2 diabetes mellitus without complication, without long-term current use of insulin ([facility]) E11.9 COMP METABOLIC PANEL LIPID PANEL BASIC HGB A1C ALBUMIN/CREAT RATIO RND UR 2. Irritable bowel syndrome with constipation K58.1 3. Primary osteoarthritis of both knees M17.0 4. Fall, sequela W19.XXXS 5. Hypercalcemia E83.52 COMP METABOLIC PANEL VITAMIN D 25 HYDROXY PTH INTACT BLD 6. Primary hyperparathyroidism ([facility]) E21.0 COMP METABOLIC PANEL VITAMIN D 25 HYDROXY PTH INTACT BLD 7. Vitamin D deficiency E55.9 COMP METABOLIC PANEL VITAMIN D 25 HYDROXY PTH INTACT BLD 8. Essential hypertension I10 COMP METABOLIC PANEL CBC LIPID PANEL BASIC ASSESSMENT/PLAN: 1. Controlled type 2 diabetes mellitus without complication, without long-term current use of insulin ([facility]) - ICD9: 250.00, ICD10: E11.9 (primary diagnosis) [...] 4 - Moderate documented in this encounter [facility] documented as of this encounter (statuses as of 11/03/2021) [facility]12-21-2015 History of Past illness Narrative* Problem Noted [...] of this encounter (statuses as of 11/06/2021) [facility] History of Past illness Narrative* Problem Noted [...] of this encounter (statuses as of 01/02/2022) [facility] History of Past illness Narrative* Problem Noted [...] of this encounter (statuses as of 01/05/2022) [facility] [facility] History of Past illness Narrative* Problem Noted [...] of this encounter (statuses as of 02/05/2022) [facility] History of Past illness Narrative* Problem Noted [...] of this encounter (statuses as of 02/09/2022) [facility] History of Past illness Narrative* Problem Noted [...] of this encounter (statuses as of 02/27/2022) [facility] History of Past illness Narrative* Problem Noted [...] of this encounter (statuses as of 03/06/2022) [facility] History of Past illness Narrative* Problem Noted [...] of this encounter (statuses as of 03/15/2022) [facility] History of Past illness Narrative* Problem Noted [...] of this encounter (statuses as of 04/23/2022) [facility] History of Past illness Narrative* Problem Noted [...] of this encounter (statuses as of 06/06/2022) [facility] History of Past illness Narrative* Problem Noted [...] of this encounter (statuses as of 06/07/2022) [facility] History of Past illness Narrative* Problem Noted [...] of this encounter (statuses as of 09/07/2022) [facility] History of Past illness Narrative* Problem Noted [...] of this encounter (statuses as of 03/21/2023) [facility] History of Past illness Narrative* Problem Noted [...] of this encounter (statuses as of 04/04/2023) [facility] History of Past illness Narrative* Problem Noted [...] of this encounter (statuses as of 05/16/2023) [facility] History of Past illness Narrative* Problem Noted [...] of this encounter (statuses as of 07/05/2023) [facility] Diagnosis Controlled type 2 diabetes mellitus without complication, without long-term current use of insulin (HCC)- Primary Irritable bowel syndrome with constipation Irritable bowel syndrome Primary osteoarthritis of both knees Primary localized osteoarthrosis, lower leg Fall, sequela Hypercalcemia Primary hyperparathyroidism (HCC) Primary hyperparathyroidism Vitamin D deficiency Unspecified vitamin D deficiency Essential hypertension Unspecified essential hypertension [facility] Diagnosis Vitamin B12 deficiency- Primary Other B-complex [facility] B12 deficiency- Primary Other B-complex deficiencies [facility] Diagnosis Vitamin B12 deficiency- Primary Other B-complex deficiencies [facility] Diagnosis Vitamin B12 deficiency- Primary Other B-complex deficiencies [facility] Diagnosis Controlled type 2 diabetes mellitus without complication, without long-term current use of insulin (HCC) [facility] Diagnosis Visit for screening mammogram- Primary Other screening mammogram [facility] Diagnosis Cystocele, midline- Primary 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 Mixed incontinence Mixed incontinence urge and stress (male)(female) Rectocele Constipation, unspecified constipation type documented in this encounter [facility] note* Diagnosis Encounter for fitting and adjustment of pessary- Primary Fitting and adjustment of other device Cystocele, midline [facility] Diagnosis BV (bacterial vaginosis)- Primary Vaginitis and vulvovaginitis, unspecified Vaginal yeast infection Candidiasis of vulva and vagina [facility] Diagnosis Encounter for fitting and adjustment of pessary- Primary Fitting and adjustment of other device Urinary frequency Constipation, unspecified constipation type Cystocele, midline Rectocele Vagina itching Pruritus of genital organs Vaginal burning Other specified symptom associated with female genital organs [facility] Diagnosis Vaginal yeast infection- Primary Candidiasis of vulva and vagina [facility] Diagnosis Pessary maintenance- Primary Fitting and adjustment of other device Cystocele, midline Rectocele [facility] Diagnosis Pessary maintenance- Primary Fitting and adjustment of other device Cystocele, midline 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 documented in this encounter [facility] note* Diagnosis Memory deficit- Primary Memory loss documented in this encounter [facility] note* Diagnosis Pessary maintenance- Primary Fitting and adjustment of other device Cystocele, midline 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 Constipation, unspecified constipation type documented in this encounter [facility] Advance Directives No Advanced Directives Records FoundDocuments on File Type Date Recorded Patient Grant Coordinator Expl anation Advance Directive(s) Advance Directive(s) 06/23/2020 6:50 AM Advance Directive(s) 01/02/2016 9:51 AM Medications Administered Section Active Administered Medications - up to 3 most recent administrations Medication Order MAR Action Action Date Dose Rate Site cyanocobalamin 1,000 mcg injection 1,000 mcg, INTRAMUSCULAR, EVERY 1 MONTH, 12 doses, First dose on Sat01/05/21 at 0000, Last dose on Sat12/01/21 at [...] on Sat01/05/22 at 0000, Last dose on Sat12/01/22 at 0000 Given 02/05/2022 10:40 AM EDT [...] or prosecute any alcohol or drug abuse patient.[facility] the event this information is protected by the Federal Confidentiality of Alcohol and Drug Abuse Patient Records regulations: The Federal rules restrict any use of the information to criminally investigate or prosecute any alcohol or drug abuse patient.[facility] the event this information is protected by the Federal Confidentiality of Alcohol and Drug Abuse Patient Records regulations: The Federal rules restrict any use of the information to criminally investigate or prosecute any alcohol or drug abuse patient.[facility] the event this information is protected by the Federal Confidentiality of Alcohol and Drug Abuse Patient Records regulations: The Federal rules restrict any use of the information to criminally investigate or prosecute any alcohol or drug abuse patient.[facility] the event this information is protected by the Federal Confidentiality of Alcohol and Drug Abuse Patient Records regulations: The Federal rules restrict any use of the information to criminally investigate or prosecute any alcohol or drug abuse patient.[facility] the event this information is protected by the Federal Confidentiality of Alcohol and Drug Abuse Patient Records regulations: The Federal rules restrict any use of the information to criminally investigate or prosecute any alcohol or drug abuse patient.[facility] the event this information is protected by the Federal Confidentiality of Alcohol and Drug Abuse Patient Records regulations: The Federal rules restrict any use of the information to criminally investigate or prosecute any alcohol or drug abuse patient.[facility] the event this information is protected by the Federal Confidentiality of Alcohol and Drug Abuse Patient Records regulations: The Federal rules restrict any use of the information to criminally investigate or prosecute any alcohol or drug abuse patient.[facility] the event this information is protected by the Federal Confidentiality of Alcohol and Drug Abuse Patient Records regulations: The Federal rules restrict any use of the information to criminally investigate or prosecute any alcohol or drug abuse patient.[facility] the event this information is protected by the Federal Confidentiality of Alcohol and Drug Abuse Patient Records regulations: The Federal rules restrict any use of the information to criminally investigate or prosecute any alcohol or drug abuse patient.[facility] the event this information is protected by the Federal Confidentiality of Alcohol and Drug Abuse Patient Records regulations: The Federal rules restrict any use of the information to criminally investigate or prosecute any alcohol or drug abuse patient.[facility] the event this information is protected by the Federal Confidentiality of Alcohol and Drug Abuse Patient Records regulations: The Federal rules restrict any use of the information to criminally investigate or prosecute any alcohol or drug abuse patient.[facility] the event this information is protected by the Federal Confidentiality of Alcohol and Drug Abuse Patient Records regulations: The Federal rules restrict any use of the information to criminally investigate or prosecute any alcohol or drug abuse patient.[facility] the event this information is protected by the Federal Confidentiality of Alcohol and Drug Abuse Patient Records regulations: The Federal rules restrict any use of the information to criminally investigate or prosecute any alcohol or drug abuse patient.[facility] the event this information is protected by the Federal Confidentiality of Alcohol and Drug Abuse Patient Records regulations: The Federal rules restrict any use of the information to criminally investigate or prosecute any alcohol or drug abuse patient.[facility] the event this information is protected by the Federal Confidentiality of Alcohol and Drug Abuse Patient Records regulations: The Federal rules restrict any use of the information to criminally investigate or prosecute any alcohol or drug abuse patient.[facility] the event this information is protected by the Federal Confidentiality of Alcohol and Drug Abuse Patient Records regulations: The Federal rules restrict any use of the information to criminally investigate or prosecute any alcohol or drug abuse patient.[facility] the event this information is protected by the Federal Confidentiality of Alcohol and Drug Abuse Patient Records regulations: The Federal rules restrict any use of the information to criminally investigate or prosecute any alcohol or drug abuse patient.[facility] Reason for Visit (unrecogniz ed section and content) Reason Comments B-12 Injection Reason Comments Orders Reason Onset Date Comments Refill Request 02/09/2022 Reason Comments vaginal prolapse Reason Comments Pessary Reason Comments Results New Medication Reason Comments Results Reason Comments Patient Question Reason Comments Follow Up Pessary check Reason Comments Nurse Visit COVID Vaccine Care Teams (unrecognized sec tion and content) Package Clerk Relationship Specialty Start Date End Date Kathy Campos MD [address] [place] [address] PCP - General Internal Medicine 04/08/17 Package Clerk Relationship Specialty Start Date End Date Kathy Campos MD [facility] [place] [address] PCP - General Internal Medicine 04/08/17 Package Clerk Relationship Specialty Start Date End Date Kathy Campos MD [facility] [place] [address] PCP - General Internal Medicine 04/08/17 Package Clerk Relationship Specialty Start Date End Date Kathy Campos MD [facility] [place] [address] PCP - General Internal Medicine 04/08/17 Package Clerk Relationship Specialty Start Date End Date Kathy Campos MD [address] [place] [address] [place] [address] PCP - General Internal Medicine 04/08/17 Package Clerk Relationship Specialty Start Date End Date Kathy Campos MD [facility] [place] [address] PCP - General Internal Medicine 04/08/17 Package Clerk Relationship Specialty Start Date End Date Kathy Campos MD [address] [place] [place] [address] PCP - General Internal Medicine 04/08/17 Package Clerk Relationship Specialty Start Date End Date Iker Elliott Chi [address] [place] [address] PCP - General Gerontology 09/07/22 Package Clerk Relationship Specialty Start Date End Date Iker Elliott Chi [address] [place] [address] PCP - General Gerontology 09/07/22 Package Clerk Relationship Specialty Start Date End Date Iker Elliott Chi [address] [place], [place] [address] PCP - General Gerontology 09/07/22 Package Clerk Relationship Specialty Start Date End Date Iker Elliott Chi [address] [place] [address] PCP - General Gerontology 09/07/22 Package Clerk Relationship Specialty Start Date End Date Iker Elliott Chi [address] [place], [place] [id number] PCP - General Gerontology 09/07/22 INFORMATION SOURCE [...] BE BASED ON THE PRIMARY CLINICAL RECORDS. [facility] [employer] [facility]. provides no warranty or guarantee of the accuracy or completeness of information in this document.
== END | disposition home or self-care (01) ==
LOC: LABSPEC 12:26
PROVIDERS: PCP Family Medicine Geriatric Medicine; Referring Provider Family Medicine Geriatric Medicine; Visit Provider Family Medicine Geriatric Medicine
DX: E78.5 Hyperlipidemia, unspecified (principal); K57.32 Diverticulitis of large intestine without perforation or abscess without bleeding
CPT/HCPCS: 81002; 82274

== ENCOUNTER 2023-11-18 16:23 | Emergency (ER) | payer MEDICARE, SELFPAY ==
[2023-11-18] VITALS (18 sets, daily range): BP systolic 107–146; BP diastolic 61–95; PULSE 73–162; RESP 14–34; TEMP 35.6–36.9; O2SAT 95–100; BMI 29.6
--- NOTE | 2023-11-18 16:33 | EKG12_ITS ---
Test Reason : HIGH HR Blood Pressure : / mmHG Vent. Rate : 137 BPM Atrial Rate : 000 BPM P-R Int : 000 ms QRS Dur : 096 ms QT Int : 286 ms P-R-T Axes : 000 045 068 degrees QTc Int : 431 ms Atrial fibrillation with rapid ventricular response with premature ventricular or aberrantly conducte d complexes Nonspecific ST abnormality Abnormal ECG Confirmed by Pa Westbrook ([id number]), city editor GREG CALLES ([id number]) on 11/20/2023 5:43:29 AM Referred By: JUSTINO/IRASEMA Confirmed By:Pa Westbrook
[2023-11-18] MEDS: 0.9% Normal Saline (1000mL) 1,000 ML 999 ML IV (16:42)
--- NOTE | 2023-11-18 16:44 | ED.RN ---
DR VIDAL IN ROOM W/ PATIENT, VERBAL ORDER TO HOLD CARDIZEM BASED OFF B/P AND CONCERNS FOR BLEEDING
[2023-11-18 16:51] LABS: Absolute Lymphocyte Count 1.13 X10^3/uL (0.83-4.51); Absolute Neutrophil Count 3.8 X10^3/uL (2.0-7.7); Basophil# 0.03 X10^3/uL; Basophil% 0.5 % (0-1); Eosinophil# 0.09 X10^3/uL; Eosinophils% 1.6 % (0-5); Hematocrit 18.5 % (37-47); Lymphocyte # 1.13 X10^3/ul (0.83-4.51); Lymphocyte % 19.9 % (19-41); Mean Corp Hgb Conc 28.1 g/dL (32-36); Mean Corpuscular Volume 74.6 fL (81-99); Mean Platelet Vol. 11.7 fl (6.2-12.0); Monocyte# 0.66 X10^3/uL; Monocyte% 11.6 % (0-10); NRBC Flagged by Analyzer 0.4 % (0-5); Neutrophil # 3.75 X10^3/uL (2.7-7.7); Neutrophil % 65.9 % (47-70); POSITIVE COUNT YES; Platelet Count 318 K/mm3 (150-450); RBC Distribution Width CV 16.6 % (11.6-14.6); Red Blood Count 2.48 M/mm3 (4.2-5.4); White Blood Count 5.7 K/mm3 (4.4-11.0)
[2023-11-18 16:53] LABS: Hemoglobin 5.2 g/dL (12.0-15.0)
--- NOTE | 2023-11-18 16:55 | CT_ITS ---
EXAM: CT CHEST, ABDOMEN AND PELVIS WITH INTRAVENOUS CONTRAST CLINICAL INDICATION: chest pain/ abdominal pain . Short of breath. Anemia. TECHNIQUE: Helically acquired images were obtained of the chest, abdomen and pelvis with intravenous contrast. This CT exam was performed using one or more of the following dose reduction techniques: automated exposure control, adjustment of the mA and/or kV according to patient size, and/or use of iterative reconstruction technique. CONTRAST: IV 100mL [id number]-370 RADIATION DOSE: CTDIvol = 11.20 mGy, DLP = 780.93 mGy-cm COMPARISON: 10/17/2023 FINDINGS: CHEST: LUNGS AND PLEURAL SPACES: Hyperexpansion of the lungs. Centrilobular emphysema. Marked irregular pulmonary opacities of the left basal segments including a thick-walled cavitary lesion approximately 2.1 cm across. Findings consistent with possibly chronic inflammatory process and similar to prior study. Stable 7 mm nodule of the medial posterior right lower lobe. No pneumothorax. No effusions. HEART: Small pericardial effusion. Mild cardiomegaly. MEDIASTINUM: Unremarkable. No mediastinal or hilar adenopathy. Esophagus is unremarkable. No hiatal hernia. THYROID: Unremarkable. No thyroid lesions. ABDOMEN: LIVER: Unremarkable. Homogeneous. No focal mass. GALLBLADDER AND BILE DUCTS: Absent gallbladder. No intra- or extrahepatic biliary ductal dilation. PANCREAS: Unremarkable. No focal cystic or solid mass. SPLEEN: Unremarkable. Normal size without focal cystic or solid mass. ADRENALS: Unremarkable. No nodules. KIDNEYS AND URETERS: No acute abnormality. Stable 3.8 cm right lower pole cyst. Stable bilateral cortical scarring Normal renal size and position. No hydronephrosis. STOMACH AND BOWEL: Evaluation of the GI tract is limited by absence of oral contrast. Cannot exclude stomach wall thickening. No dilated loops of bowel or evidence for obstruction. Cannot exclude segmental thickening of the richard of the small or large bowel. Cannot exclude enteritis or colitis. Moderate diffuse fecal retention. Diverticulosis without definite diverticulitis. Appendix within normal limits. PELVIS: APPENDIX: No evidence of acute appendicitis. BLADDER: Unremarkable. REPRODUCTIVE: Absent uterus. CHEST, ABDOMEN and PELVIS: INTRAPERITONEAL SPACE: Unremarkable. No ascites or other fluid collection. No free air. BONES/JOINTS: Degenerative changes throughout the bones. Compression fractures of T11 and L1 are stable. SOFT TISSUES: Unremarkable. No discrete abdominal or pelvic wall hernia. VASCULATURE: Heavily calcified aorta and great vessels. Diffuse ectasia of the thoracic aneurysm without thoracic aneurysm. Diffuse ectasia of the abdominal aorta with 3.1 cm focal infrarenal aneurysm. Heavily calcified tortuous and tortuous common iliac arteries. No aortic dissection. No obvious central pulmonary embolism although this study was not performed with the pulmonary embolism protocol. LYMPH NODES: Unremarkable. No enlarged lymph nodes. CT/CT Chest, Abd, Pel w/Contrast IMPRESSION: 1. Stable COPD. Stable probable inflammatory process throughout much of the basal segments of the left lower lobe. 2. 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 3. Stable degenerative changes and compression fractures of the spine. Electronically Signed: Fernando Burk MD at 18:29 EDT ,
--- NOTE | 2023-11-18 16:58 | EX.ED.DYSGE1 ---
HPI History of Present Illness Chief Complaint: Shortness of Breath Narrative Narrative: 83-year-old female who is a poor informant presenting for tachycardia. Patient initially triaged as shortness of breath although she states this is a chronic issue and has not worsened. She states she has had chest pain for a long time. This has been a chronic problem and its intermittent. She states it is not really been worse today. She states she has felt rundown for several days although does not believe she had a fever. She states she coughs but she always has a cough but this is chronic. No production of sputum. Patient does also complain of intermittent abdominal pain and states this comes and goes. Currently she is not having any. Denies urinary symptoms. Patient is on Eliquis and has a history of A-fib. She also has history of GI bleed. 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 Lung nodules Multiple falls Paroxysmal atrial fibrillation (03/21/22) Post-menopausal Syncope Thyroid nodule Wears dentures Home Medications polysaccharide iron complex 150 mg iron capsule (Ferrex) 150 mg PO DAILY iron 01/18/23 [History Last Taken Unknown] acetaminophen 500 mg tablet 1,000 mg (2 x 500 mg) PO Q8 #0 tabs 06/06/23 [Rx Last Taken Unknown] sennosides 8.6 mg-docusate sodium 50 mg tablet (Stool Softener-Stimulant Laxative) 2 tab PO BID 30 days #120 tabs 06/06/23 [Rx Last Taken Unknown] apixaban 2.5 mg tablet (Eliquis) 2.5 mg PO BID 11/14/23 [History Last Taken Unknown] cyanocobalamin (vitamin B-12) 1,000 mcg/mL injection kit 100 mcg IM QMONTH 11/14/23 [History Last Taken Unknown] Allergy/AdvReac Type Severity Reaction Status Date / Time adhesive Allergy Rash Verified 11/14/23 13:17 latex Allergy NEEDS Verified 11/14/23 13:17 FOLLOW-UP Family History Mother Diabetes Heart disease Hypertension Cerebral hemorrhage Father Brain cancer Sister Leukemia Cancer uterine Brother Cancer colon Surgical History History of esophagogastroduodenoscopy (EGD) History of tonsillectomy and adenoidectomy Hx of appendectomy Hx of cholecystectomy Hx of hysterectomy Social History household members: spouse Smoking Status: Former smoker how long ago did patient quit smoking: Smoked age [age]. 3-5 cig/day, quit following. alcohol intake: current alcohol intake frequency: holidays/special occasions only substance use type: does not use caffeine: No ROS ROS ED Constitutional Constitutional ED: Denies chills, fever(s) or sweats Eyes Eyes: Denies blurry vision or change in vision ENT ENT ED: Denies ear pain or sore throat Cardiovascular Cardiovascular: Reports chest pain and palpitations; Denies racing heartbeat Respiratory/Chest Respiratory/Chest: Reports cough; Denies dyspnea or sputum Gastrointestinal Gastrointestinal: Reports abdominal pain and melena; Denies constipation, diarrhea, nausea or vomiting Genitourinary Genitourinary ED: Denies dysuria, hematuria or urinary frequency Musculoskeletal Musculoskeletal: Reports myalgias; Denies arthralgias or neck pain Integumentary Denies abscess, Abrasions or rash Neurologic Neurologic: Denies headache(s), paresthesias or weakness Psychiatric Psychiatric: Denies anxiety, depression, suicidal ideation or suicidal thoughts Endocrine Endocrinology: Denies polydipsia or polyuria EXAM Physical Exam Const Vital Signs: 11/18/23 16:24 11/18/23 16:30 11/18/23 16:40 Temperature 96.0 F L Temperature Source Temporal Pulse Rate 162 H 147 H Respiratory Rate 26 H 24 H Respiratory Effort Respiratory Pattern Blood Pressure 107/66 146/85 H Blood Pressure Mean 79 105 Blood Pressure Source Blood Pressure Position Blood Pressure Location Pulse Ox 100 Oxygen Delivery Method Room Air Room Air 11/18/23 16:42 11/18/23 18:38 11/18/23 18:36 Temperature 98.2 F Temperature Source Oral Pulse Rate 89 92 Respiratory Rate 21 H 21 H Respiratory Effort Short of Breath Respiratory Pattern Tachypnea Blood Pressure 129/75 H 129/75 H Blood Pressure Mean 93 93 Blood Pressure Source Monitor Blood Pressure Position Semi-Fowlers Blood Pressure Location Left Arm Pulse Ox 97 Oxygen Delivery Method Room Air Room Air 11/18/23 18:51 11/18/23 17:23 11/18/23 18:06 Temperature 98.1 F 97.1 F L Temperature Source Oral Temporal Pulse Rate 84 145 H 130 H Respiratory Rate 24 H 14 23 H Respiratory Effort Respiratory Pattern Blood Pressure 127/65 H 129/74 H 120/95 H Blood Pressure Mean 85 92 103 Blood Pressure Source Monitor Blood Pressure Position Semi-Fowlers Blood Pressure Location Right Arm Pulse Ox 96 95 Oxygen Delivery Method Room Air Positive well nourished General Appearance ED: NAD; Negative for pallor HEENT Reports dry mucous membranes Mouth ED: Yes dry mucous membranes Mouth: dry mucous membranes Eyes PERRL General Eye ED: Yes pale conjunctiva Neck no lymphadenopathy Chest Wall inspection of chest normal Resp normal respiratory effort Effort and Inspection: Negative for retractions Cardio Rate: tachycardic Rhythm: abnormal rhythm irregularly irregular GI normal to inspection, nondistended, normoactive bowel sounds, non-tender and no masses Back/Spine no CVA tenderness Extremity normal to inspection Neuro CN's II-XII intact bilaterally and no sensory deficits noted Motor Exam: general weakness Psych mental status grossly normal Psych Narrative: Confused Skin no rashes or lesions noted General Skin Exam: Negative for jaundice or pallor MDM MDM MDM Narrative Medical decision making narrative: Patient presenting with multiple complaints and is hard to determine what is new and what is old. She has a history of chest pain history of cough history of abdominal pain. Review of the medical record shows that she is on Eliquis and that she has a history of A-fib and GI bleed. After discussion with her she states that she has had a lot of black stools and has had intermittent abdominal pain for extended period of time. She is on iron supplements. It does not appear that she has had any endoscopy performed. Patient tachycardic on arrival and EKG on my interpretation shows A-fib with RVR at a rate of 137 bpm. Initially was going to treat her with Cardizem to slow down her heart rate however her blood pressure was in the 90s while I was examining her. We gave her a liter of IV fluids and started amiodarone. Heart rate under control. Currently she is in the 120s. Rectal exam shows melena and stool sent for occult. Differential includes ACS, CHF, pneumonia, gastritis, GERD, upper GI bleed, lower GI bleed, dehydration, anemia, electrolyte abnormalities, UTI, pyelonephritis. Patient is a very poor informant. Chest x-ray will be obtained to rule out pneumonia. Patient was typed, screened, crossmatch for 2 units as after I entered the room and evaluated the patient Dr. Elliott called and states that her hemoglobin is around 5. I have a low suspicion for PE given the patient is anticoagulated however I will obtain a CT of the chest, abdomen, pelvis with the patient's current chest pain and abdominal pain. CBC shows white blood cell count of 5.7. Hemoglobin is 5.2. Platelets are 318. Creatinine is 0.96. BUN not 6 with a elevated. Patient typed, screened, crossmatch for 2 units of blood. Hemoccult positive. Chest x-ray shows left lower lung opacity similar to previous chest x-rays with nothing acute. Patient's heart rate is still elevated at 145 after amiodarone and her blood pressure is improved to 120/95 and we will give her some Cardizem to slow her heart rate. High-sensitivity troponin came back at 12.Discussed case with at [address] Banegas. Given the low hemoglobin, A-fib with RVR and being on Eliquis she recommended transfer. Discussed with the transfer line for [facility] at 1805. They state that they will currently try to find a bed or possibly transfer ER to ER. CT of the chest abdomen pelvis is ordered. CT of the chest abdomen pelvis shows left lung opacity which has been there and is stable. Patient's O2 sats are normal. She is not tachypneic. CT of the abdomen pelvis does not show any acute abnormalities of the abdomen pelvis but does show a stable infrarenal abdominal aortic aneurysm. Discussed the case with the transfer line initially and spoke with Dr. Briscoe when he called back at 1900. We discussed the case at length. At this point we will put the patient on a Protonix drip. She did receive Cardizem and her heart rate is now 84 and her blood pressure is 127/65 and she is doing well. She did have a couple of jumps up into the 120s and 130s of her heart rate but now she is settled into heart rate in the 80s. She has been monitored for this. She is getting her first unit of blood as well currently. She will get a second unit. I did speak with the patient's daughter and went over the entire case with her as well as disposition to [facility] so she could related to the patient's . All questions were answered. It does appear that the [facility] have a bed tonight and she will likely go tonight. Impression: 1. Upper GI bleed 2. Acute blood loss anemia 3. Hypotension?resolved 4. A-fib with RVR 5. Left lung opacity 6. Abdominal pain Lab Data Attestation: I reviewed the patient's lab results. Labs: Laboratory Results - last 24 hr 11/18/23 16:40 WBC 5.7 RBC 2.48 L Hgb 5.2 L* Hct 18.5 L MCV 74.6 L MCH 21.0 L MCHC 28.1 L RDW Std Deviation 45.0 H RDW Coeff of Amrita 16.6 H Plt Count 318 MPV 11.7 Immature Gran % (Auto) 0.500 Neut % (Auto) 65.9 Lymph % (Auto) 19.9 [place] % (Auto) 11.6 H Eos % (Auto) 1.6 Baso % (Auto) 0.5 Absolute Neuts (auto) 3.8 Absolute Lymphs (auto) 1.13 Nucleated RBC % 0.4 Diff Path Review May foll Sodium 139 Potassium 3.6 Chloride 109 H Carbon Dioxide 23.0 Anion Gap 7 BUN 20 H Creatinine 0.96 Est GFR (MDRD) Af Amer 71 Est GFR (MDRD) Non-Af 59 L BUN/Creatinine Ratio 20.9 H Glucose 122 H Calcium 9.4 Troponin I High Sens 12 Blood Type O POSITIVE Antibody Screen NEGATIVE Crossmatch See Detail Radiography Diagnostic Testing: Clinical Impression(s) from Imaging Studies Chest/Abdomen/Pelvis CT 11/18/23 16:55 IMPRESSION: 1. Stable COPD. Stable probable inflammatory process throughout much of the basal segments of the left lower lobe. 2. 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 3. Stable degenerative changes and compression fractures of the spine. Electronically Signed: Fernando Burk MD at 18:29 EDT , Chest X-Ray 11/18/23 17:17 IMPRESSION: Irregular density and pulmonary opacity of the lower left lung, grossly stable. COPD. Electronically Signed: Fernando Burk MD at 17:55 EDT , Critical Care Time Critical care time (excluding procedures): 30-74 minutes (39) Discharge Plan Triage Chief Complaint: Shortness of Breath ED Provider: Arsen Sanchez Dx/Rx/DC Orders Prescriptions: No Action polysaccharide iron complex [Ferrex 150] 150 mg iron capsule 150 mg PO DAILY Eliquis 2.5 mg tablet 2.5 mg PO BID cyanocobalamin (vitamin B-12) 1,000 mcg/mL kit 100 mcg IM QMONTH acetaminophen 500 mg Tablet 1,000 mg PO Q8 Qty: 0 0RF sennosides-docusate sodium [Stool Softener-Stimulant Laxat] 8.6-50 mg Tablet 2 tab PO BID 30 Days Qty: 120 0RF Primary Care Provider: Avi Elliott Chi Referrals: Avi Elliott Chi, MD [Primary Care Provider] -
[2023-11-18 17:08] LABS: Anion Gap 7 (5-15); BUN 20 mg/dL (7-18); BUN/Creat Ratio 20.9 RATIO (10-20); Calcium,Total 9.4 mg/dL (8.5-10.1); Chloride 109 mmol/L (98-107); Creatinine, Serum 0.96 mg/dL (0.55-1.02); EST Glomerular Filtration Rate 59 mL/min (>60); Est Glom Filt Rate - Afr Amer 71 mL/min (>60); Glucose 122 mg/dL (74-106); Potassium 3.6 mmol/L (3.5-5.1); Sodium Level 139 mmol/L (136-145); Troponin-I HS (w/2H Reflex) 12 pg/mL (3.0-54.0)
--- NOTE | 2023-11-18 17:17 | RAD_ITS ---
STUDY: X-RAY CHEST REASON FOR EXAM: Female, 83 years old. chest pain TECHNIQUE: Single AP portable view of the chest. COMPARISON: CT scan 10/17/2023. FINDINGS: Hyperexpansion of the lungs. Irregular density and pulmonary opacity of the lower left lung, grossly stable. Lungs otherwise appear clear. No effusions are seen. Normal size heart. Normal mediastinum and anthony. Normal visualized pulmonary arteries. Normal visualized aortic arch and descending thoracic aorta. Normal visualized thoracic spine. There is degenerative osteoarthritis of the bilateral shoulders. There is no demonstrated abnormality of the visualized soft tissue structures of the upper abdomen. RAD/Chest 1 View (Portable) IMPRESSION: Irregular density and pulmonary opacity of the lower left lung, grossly stable. COPD. Electronically Signed: Fernando Burk MD at 17:55 EDT ,
[2023-11-18] MEDS: dilTIAZem 25 MG/5 ML Vial 20 MG IV BOLUS (18:11)
--- NOTE | 2023-11-18 18:38 | ED.RN ---
Patient HR s/p Cardizem is back and forth from 80's up to 150's at this time.
[2023-11-18 18:47] LABS: Reflex Troponin-HS? (from REC) Y
--- NOTE | 2023-11-18 18:48 | ED.RN ---
Patient requesting this nurse notify her of transfer, call to phone number listed direct to voice mail. This nurse spoke with patient daughter and she was going to contact patient's regarding transfer.
--- NOTE | 2023-11-18 19:02 | ED.RN ---
Patient c/o left abd pain recently started however has had abd pain in her recent history. Dr. Sanchez made aware and verbal order to observe patient while receiving blood transfusing and w/ c/o pain
[2023-11-18] MEDS: Ondansetron 4 MG/2 ML Vial IV (19:24)
[2023-11-18] MEDS: fentaNYL 100 MCG/2 ML Ampul 25 MCG IV (19:25)
--- NOTE | 2023-11-18 19:28 | ED.RN ---
Transfusion was stopped after patient continuing to have increased pain in her back and abd. Dr. Sanchez notified, medications ordered for pain/nausea. Transfusion reaction not a concern at this time but will continue to monitor. Transfusion rate slowed to 150ml/hr.
--- NOTE | 2023-11-18 19:33 | ED.RN ---
Family updated that patient will be transferred to [facility]
[2023-11-18 19:36] LABS: Troponin-I HS 16 pg/mL (3.0-54.0)
[2023-11-18] MEDS: Pantoprazole Sodium 80 MG in 0.9% Normal Saline (50mL Bag) 15 ML 420 MG IV BOLUS (19:43)
[2023-11-18] MEDS: Pantoprazole Sodium 80 MG in 0.9% Normal Saline (100mL Bag) 80 ML 10 MG CONT INF (19:46)
--- NOTE | 2023-11-18 19:47 | ED.RN ---
Patient became more comfortable after dose of Fentanyl, denies severe pain currently, states has improved
--- NOTE | 2023-11-18 20:59 | ED.RN ---
PT ACCEPTED AT [facility] [id number] [place] ETA [id number]
[2023-11-19 15:53] LABS: Pathologist Review Reviewed
== END 2023-11-19 00:03 | disposition short-term general hospital (02) ==
LOC: ED 16:56
PROVIDERS: Emergency Provider Student in an Organized Health Care Education/Training Program; PCP Family Medicine Geriatric Medicine; Visit Provider Student in an Organized Health Care Education/Training Program
DX: K92.2 Gastrointestinal hemorrhage, unspecified (principal); G30.9 Alzheimer's disease, unspecified; F02.80 Dementia in other diseases classified elsewhere, unspecified severity, without behavioral disturbance, psychotic disturbance, mood disturbance, and anxiety; I48.91 Unspecified atrial fibrillation; E11.9 Type 2 diabetes mellitus without complications; I95.9 Hypotension, unspecified; D62 Acute posthemorrhagic anemia; I71.43 Infrarenal abdominal aortic aneurysm, without rupture; R10.9 Unspecified abdominal pain; I10 Essential (primary) hypertension; E78.5 Hyperlipidemia, unspecified; Z79.01 Long term (current) use of anticoagulants; Z79.899 Other long term (current) drug therapy; Z87.891 Personal history of nicotine dependence
CPT/HCPCS: 36430; 71045; 71260; 74177; 80048; 82274; 84484; 85025; 86850; 86900; 86901; 86920; 86922; 93005; 96361; 96365; 96366; 96375; 99284; J7030; P9016; Q9967; A4216; J2405; J3490

== ENCOUNTER → 2023-11-18 | Outpatient (CLI) | payer MEDICARE, SELFPAY ==
--- NOTE | 2023-11-18 14:50 | RAD_ITS ---
STUDY: X-RAY - ABDOMEN/PELVIS REASON FOR EXAM: Female, 83 years old. Fecal impaction. TECHNIQUE: Single AP view of the abdomen / pelvis on 2 images. COMPARISON: CT of the abdomen and pelvis dated 10/17/2023 FINDINGS: Left basilar opacity with left pleural thickening representing scarring or pneumonia. Normal bowel gas pattern with air seen to the rectosigmoid. No disproportionate dilatation of bowel. Moderate amount of feces in the colon. The visualized liver, spleen and kidneys are grossly normal in size and morphology. Vascular calcification and phleboliths. Osteopenia with lumbar spondylosis and arthrosis of both hips. RAD/[employer] Decub and/or Erect IMPRESSION: No acute abnormality identified. Moderate amount of feces in the colon. Electronically Signed: Ilan Marcos MD at 15:54 EDT ,
[2023-11-18 15:57] LABS: Absolute Lymphocyte Count 0.81 X10^3/uL (0.83-4.51); Absolute Neutrophil Count 3.5 X10^3/uL (2.0-7.7); Basophil# 0.02 X10^3/uL; Basophil% 0.4 % (0-1); Eosinophil# 0.06 X10^3/uL; Eosinophils% 1.2 % (0-5); Hematocrit 17.9 % (37-47); Lymphocyte # 0.81 X10^3/ul (0.83-4.51); Lymphocyte % 16.6 % (19-41); Mean Corp Hgb Conc 27.9 g/dL (32-36); Mean Corpuscular Volume 75.2 fL (81-99); Monocyte# 0.46 X10^3/uL; Monocyte% 9.4 % (0-10); NRBC Flagged by Analyzer 0.4 % (0-5); POSITIVE COUNT YES; Platelet Count 344 K/mm3 (150-450); RBC Distribution Width CV 16.8 % (11.6-14.6); RBC Distribution Width SD 45.9 fl (35.1-43.9); Red Blood Count 2.38 M/mm3 (4.2-5.4); White Blood Count 4.9 K/mm3 (4.4-11.0)
[2023-11-18 16:02] LABS: ALB/GLOB Ratio 0.8 RATIO (0.9-2.4); AST(SGOT) 9 U/L (15-37); Alanine Aminotransfer ALT/SGPT 11 U/L (13-56); Albumin, Serum 2.9 g/dL (3.2-5.0); Alkaline Phosphatase 97 U/L (45-117); Anion Gap 6 (5-15); BUN 19 mg/dL (7-18); BUN/Creat Ratio 21.3 RATIO (10-20); Calcium,Total 9.2 mg/dL (8.5-10.1); Chloride 108 mmol/L (98-107); Creatinine, Serum 0.89 mg/dL (0.55-1.02); EST Glomerular Filtration Rate 64 mL/min (>60); Est Glom Filt Rate - Afr Amer 77 mL/min (>60); Globulin 3.5 g/dL (2.2-4.2); Glucose 111 mg/dL (74-106); Potassium 3.6 mmol/L (3.5-5.1); Protein, Total 6.4 g/dL (6.4-8.2); Sodium Level 139 mmol/L (136-145)
[2023-11-19 15:52] LABS: Pathologist Review Reviewed
== END | disposition home or self-care (01) ==
PROVIDERS: PCP Family Medicine Geriatric Medicine; Referring Provider Family Medicine Geriatric Medicine; Visit Provider Family Medicine Geriatric Medicine
DX: E78.5 Hyperlipidemia, unspecified (principal); N39.0 Urinary tract infection, site not specified; R53.1 Weakness
CPT/HCPCS: 36415; 74019; 80053; 85025; 87086; 87088

== ENCOUNTER 2023-12-16 12:10 | Emergency (ER) | payer MEDICARE, SELFPAY ==
[2023-12-16 12:10] VITALS: BP 148/75; PULSE 100; RESP 12; TEMP 36.6; O2SAT 94; BMI 24.0
--- NOTE | 2023-12-16 12:30 | EX.ED.DYSGE1 ---
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 Patient fell out of bed last evening, landing on her back. Patient was brought in via EMS for pain control. I spoke with the patient, she complains of pain throughout her entire body. Patient is moving all extremities. She is alert and oriented. Patient unsure if she had any LOC. PFSH <ERNESTO Hardy - Last Filed: 12/16/23 15:31> [facility] Medical History Alzheimer's dementia Atrial fibrillation Cardiology follow-up encounter Dementia Diabetes mellitus Essential hypertension Former tobacco use History of echocardiogram Hyperlipidemia Inability to ambulate due to left hip Lung nodules Multiple falls Paroxysmal atrial fibrillation (03/21/22) Post-menopausal Syncope Thyroid nodule Wears dentures Home Medications polysaccharide iron complex 150 mg iron capsule (Ferrex) 150 mg PO DAILY iron 01/18/23 [History Last Taken Unknown] acetaminophen 500 mg tablet 1,000 mg (2 x 500 mg) PO Q8 #0 tabs 06/06/23 [Rx Last Taken Unknown] sennosides 8.6 mg-docusate sodium 50 mg tablet (Stool Softener-Stimulant Laxative) 2 tab PO BID 30 days #120 tabs 06/06/23 [Rx Last Taken Unknown] apixaban 2.5 mg tablet (Eliquis) 2.5 mg PO BID 11/14/23 [History Last Taken Unknown] cyanocobalamin (vitamin B-12) 1,000 mcg/mL injection kit 100 mcg IM QMONTH 11/14/23 [History Last Taken Unknown] Allergy/AdvReac Type Severity Reaction Status Date / Time adhesive Allergy Rash Verified 12/16/23 12:11 latex Allergy NEEDS Verified 12/16/23 12:11 FOLLOW-UP Family History Mother Diabetes Heart disease Hypertension Cerebral hemorrhage Father Brain cancer Sister Leukemia Cancer uterine Brother Cancer colon Surgical History History of esophagogastroduodenoscopy (EGD) History of tonsillectomy and adenoidectomy Hx of appendectomy Hx of cholecystectomy Hx of hysterectomy Social History household members: spouse Smoking Status: Former smoker how long ago did patient quit smoking: Smoked age [age]. 3-5 cig/day, quit following. alcohol intake: current alcohol intake frequency: holidays/special occasions only substance use type: does not use caffeine: No ROS <ERNESTO Hardy - Last Filed: 12/16/23 15:31> ROS ED ROS Narrative Constitutional: Negative for fever, chills, weight loss. Positive weakness Eyes: Negative for vision loss, vision change, double vision ENT: Negative for any sore throat, ear pain, congestion Cardiovascular: Negative for any chest pain, tightness, palpitations Respiratory: Negative for any cough, sputum production, hemoptysis, dyspnea, dyspnea on exertion, orthopnea Gastrointestinal: Negative for any nausea, vomiting, diarrhea, constipation, blood in stool, blood in vomit. Positive for abdominal pain : Negative for any urinary frequency, dysuria, retention, blood in urine Muscle skeletal: Positive for neck pain, hip pain, leg pain bilateral, shoulder pain Neurological: Negative for any headache, syncope, dizziness Skin: Negative for any rashes, itching, abrasions, lacerations Psychiatric: Negative for any depression, anxiety, stress, suicidal ideation, homicidal ideation Hematologic: Negative for any excessive bruising, easy bleeding EXAM <ERNESTO Hardy - Last Filed: 12/16/23 15:31> Physical Exam Narrative Exam Narrative: Vital signs reviewed. Patient is alert and oriented. HEET: Head normocephalic atraumatic, TMs clear bilaterally. Posterior pharynx is clear, dry mucous membranes. Nares clear bilaterally. Neck: Supple with no lymphadenopathy or tenderness. No signs of meningismus. Cardiac: Regular rate and rhythm no murmurs gallops or rubs, equal peripheral pulses bilaterally. Respiratory: Lungs clear to auscultation bilaterally. No chest tenderness. Abdomen: Soft, nontender, nondistended. No abdominal bruit or pulsatile masses. No hepatosplenomegaly Extremities: No peripheral edema, no signs of gross trauma or deformity. Active full range of motion of all extremities. Negative logroll. Patient is able to lift her legs up. Pain on palpation throughout her entire lower extremities. Neuro: Cranial nerves II through XII intact, no focal neurological deficits. Skin: Clean dry and intact with no rash, purpura, petechiae, vesicles or pustules. Backs/flank: No CVA tenderness, no midline spinal tenderness, no deformity. Psych: Normal mood and affect. No SI, HI or acute psychosis. Const Vital Signs: 12/16/23 12:10 12/16/23 14:10 12/16/23 15:01 Temperature 98 F Temperature Source Temporal Pulse Rate 100 74 Respiratory Rate 12 16 Respiratory Effort Normal Non-Labored Respiratory Depth Normal Respiratory Pattern Normal Blood Pressure 148/75 H 125/84 H Blood Pressure Mean 99 97 Pulse Ox 94 99 100 Oxygen Delivery Method Room Air Room Air Room Air 12/16/23 15:03 Temperature 98.1 F Temperature Source Pulse Rate 82 Respiratory Rate 16 Respiratory Effort Respiratory Depth Respiratory Pattern Blood Pressure 117/84 H Blood Pressure Mean 95 Pulse Ox 97 Oxygen Delivery Method Positive cachectic General Appearance ED: cachectic Nutritional Appearance: cachectic <Dr. Jose M Diaz MD - Last Filed: 12/16/23 15:41> Physical Exam Const Vital Signs: 12/16/23 12:10 12/16/23 14:10 12/16/23 15:01 Temperature 98 F Temperature Source Temporal Pulse Rate 100 74 Respiratory Rate 12 16 Respiratory Effort Normal Non-Labored Respiratory Depth Normal Respiratory Pattern Normal Blood Pressure 148/75 H 125/84 H Blood Pressure Mean 99 97 Pulse Ox 94 99 100 Oxygen Delivery Method Room Air Room Air Room Air 12/16/23 15:03 Temperature 98.1 F Temperature Source Pulse Rate 82 Respiratory Rate 16 Respiratory Effort Respiratory Depth Respiratory Pattern Blood Pressure 117/84 H Blood Pressure Mean 95 Pulse Ox 97 Oxygen Delivery Method MDM <ERNESTO Hardy - Last Filed: 12/16/23 15:31> MDM Radiography Diagnostic Testing: Clinical Impression(s) from Imaging Studies Hip/Pelvis X-Ray 12/16/23 15:15 IMPRESSION: Osteoarthritis of both hip joints. No fracture is seen. Electronically Signed: Steven Gómez MD at 15:38 EDT , Treatment and Re-Evaluation :: Differential diagnosis includes however is not limited to: Closed head injury, hematoma, skull fracture, intercranial bleeding, cervical fracture, pelvic fracture, failure to thrive Prior to talking with the patient, I did look at the patient's patient packet, patient is currently in hospice. Patient was given morphine prior to going to the emergency department. Patient is a DNR CC, at this time, I spoke with the patient I do have low suspicion for any pelvic fracture or hip fracture. Patient does have good range of motion of bilateral lower extremities. It is difficult because the patient states she hurts literally everywhere. Patient given 4 mg of morphine, 4 mg of Zofran, as well as IV fluids. I will honor the patient's DNRCC status as well as hospice. Patient will be reevaluated Patient on reevaluation was continuing to have pain, patient was dosed with IV morphine, Zofran. Patient continued to complain of pain to her hips, pelvis x-ray was completed. Patient does have a right-sided acetabular fracture. The patient at this time is not ambulatory, this is not a surgical candidate secondary to the hospice,'s DNRCC as well as the cancer diagnosis. Patient will continue to take pain medicine at the hospice center. There is speak about putting the patient in the inpatient hospice. Patient was made aware, the patient is to be nonambulatory. Patient will follow-up with hospice. <Dr. Jose M Diaz MD - Last Filed: 12/16/23 15:41> [facility] Narrative Medical decision making narrative: I have personally performed a face to face assessment of the patient and have reviewed the DAMION Note. I performed a substantive portion of the visit including all aspects of the following. My fernandez findings include: History is remarkable for fall. Patient is demented. Patient is DNR comfort care hospice. She complains of pain everywhere. There is no specific area that she will states it hurts. Exam is remarkable for patient complained of pain. She is demented. She is not oriented to time or place. There is no obvious evidence of head trauma. There is no CSF otorrhea or rhinorrhea. Negative Perez sign or raccoon sign. She has no posterior cervical neck pain. She has full active range of motion of her neck without pain. Lungs reveal symmetric breath sounds. There is no rales rhonchi's or wheezing. Heart is regular without murmur, gallop or rub. Abdomen soft nontender. There is no pain ovation of the pelvis. There is no pain ovation over the left and right greater trochanteric region. Patient did not have pain with logrolling of the right or left lower extremity. There is no shortening of the right or left lower extremity. There is no evidence of trauma to the knees or ankles. Patient was able to lift her right and left leg off the bed. Medical Decision Making since patient DNR comfort care there is no point tenderness imaging was not obtained. Other additions or changes: Patient unable to bear weight. Will obtain x-ray of the right and left hip. Will determine if patient's life expectancy is greater than 6 weeks or not. If not even if there is a fractured hip recommendation is not to fix per orthopedic literature. If there is a fracture and life expectancy is greater than 6 weeks patient would require operative intervention for l quality of life. Patient has a acetabular fracture. In light of patient's metastatic cancer and to short life expectancy this is treated nonoperatively. She will be discharged to hospice and care. Radiography Diagnostic Testing: Clinical Impression(s) from Imaging Studies Hip/Pelvis X-Ray 12/16/23 15:15 IMPRESSION: Osteoarthritis of both hip joints. No fracture is seen. Electronically Signed: Steven Gómez MD at 15:38 EDT , Discharge Plan Triage Chief Complaint: Fall ED Midlevel Provider: Hal Cheung ED Provider: Jose M Diaz Dx/Rx/DC Orders Clinical Impression: Acetabular fracture, Cancer of duodenum, Chronic pain, CHI (closed head injury), Lung cancer, Hospice care, Unable to ambulate, Injury due to fall Instructions: First Aid: Head Injuries, Communicating About Pain, ED Chronic Pain, ED Pelvic Fracture Prescriptions: No Action polysaccharide iron complex [Ferrex 150] 150 mg iron capsule 150 mg PO DAILY Eliquis 2.5 mg tablet 2.5 mg PO BID cyanocobalamin (vitamin B-12) 1,000 mcg/mL kit 100 mcg IM QMONTH acetaminophen 500 mg Tablet 1,000 mg PO Q8 Qty: 0 0RF sennosides-docusate sodium [Stool Softener-Stimulant Laxat] 8.6-50 mg Tablet 2 tab PO BID 30 Days Qty: 120 0RF Primary Care Provider: Avi Elliott Chi Referrals: Avi Elliott Chi, MD [Primary Care Provider] - Activity Restrictions/Additional Instructions: You have an acetabular fracture to the right hip, this is nonoperative. You are unable to bear weight secondary to this fracture. You need to continue taking the pain medicine, you may ice the area. Disposition Disposition: Home, Self Care
[2023-12-16 14:10] VITALS: BP 125/84; PULSE 74; RESP 16; O2SAT 99
[2023-12-16] MEDS: Ondansetron 4 MG/2 ML Vial IV (14:56)
[2023-12-16] MEDS: Morphine 4 MG/ML Syringe IV (14:56)
[2023-12-16] MEDS: 0.9% Normal Saline (1000mL) 1,000 ML 1000 ML IV (14:56)
[2023-12-16 15:01] VITALS: O2SAT 100
[2023-12-16 15:03] VITALS: BP 117/84; PULSE 82; RESP 16; TEMP 36.7; O2SAT 97
--- NOTE | 2023-12-16 15:15 | RAD_ITS ---
INDICATION: Injury/Pain EXAMINATION/TECHNIQUE: X-RAY - XR Hips Bilateral with Pelvis when performed; 2 Views Left hip radiographs dated March 20, 2022. FINDINGS: PELVIC BONES: No displaced fracture, destructive or sclerotic lesions. Note that overlapping bowel shadows may however obscure fine detail. Sacroiliac joints are unremarkable. No widening of the pubic symphysis. HIPS: Moderate degree of joint space narrowing of both hip joints.. No fracture is seen. SOFT TISSUES: Calcified phleboliths. RAD/HIP, UNI W/ Pelvis 2-3 Views IMPRESSION: Osteoarthritis of both hip joints. No fracture is seen. Electronically Signed: Steven Gómez MD at 15:38 EDT ,
[2023-12-16 16:00] VITALS: BP 122/82; PULSE 67; RESP 18; O2SAT 98
== END 2023-12-16 17:23 | disposition home or self-care (01) ==
PROVIDERS: Emergency Provider Emergency Medicine; PCP Family Medicine Geriatric Medicine; Visit Provider Emergency Medicine
DX: S32.401A Unspecified fracture of right acetabulum, initial encounter for closed fracture (principal); C34.90 Malignant neoplasm of unspecified part of unspecified bronchus or lung; C17.0 Malignant neoplasm of duodenum; G30.9 Alzheimer's disease, unspecified; F02.80 Dementia in other diseases classified elsewhere, unspecified severity, without behavioral disturbance, psychotic disturbance, mood disturbance, and anxiety; I48.0 Paroxysmal atrial fibrillation; E11.9 Type 2 diabetes mellitus without complications; S09.90XA Unspecified injury of head, initial encounter; W06.XXXA Fall from bed, initial encounter; I10 Essential (primary) hypertension; E78.5 Hyperlipidemia, unspecified; G89.29 Other chronic pain; Z66 Do not resuscitate; Z79.01 Long term (current) use of anticoagulants; Z79.899 Other long term (current) drug therapy; Z87.891 Personal history of nicotine dependence
CPT/HCPCS: 73502; 96361; 96374; 96375; 99283; J7030; A4216; J2405